=== PATIENT | female | born 1985 | race Caucasian/White ===

== ENCOUNTER 2024-02-16 12:00 | Emergency (ER) | payer BC, SELFPAY ==
[2024-02-16 12:09] VITALS: BP 122/78; PULSE 93; RESP 18; TEMP 36.6; O2SAT 99; BMI 30.9
--- NOTE | 2024-02-16 12:17 | ED_ITS ---
HPI - Back Pain/Injury General Time Seen by Provider: 12:17 Date Seen: 02/16/24 Chief Complaint: Back Injury/Pain Stated Complaint: Back/leg pain, lightheaded Time Seen by Provider: 02/16/24 12:16 Source: patient and RN notes reviewed Mode of arrival: ambulatory Limitations: no limitations History of Present Illness HPI Narrative: This 38-year-old female is coming in with complaint of back pain that radiates down her right leg to about her knee. She states she was carrying boxes down stairs and just fell. She states she has lumbar discogenic disease and known herniated discs. She sees a primary care provider in [place]. She is not in a pain clinic any longer, will probably be March before she goes to a new pain clinic. She states she is taking no narcotics. I was able to pull up epic an on her review can see that she has been seen for SI joint dysfunction. On her October 27 visit they also listed chronic continuous use of opioids. She states she is off of everything as she is not in that pain clinic any longer. She notes she has chronic back pain. This fall happened prior to arrival, she did drive herself down here. She is initially crying but by the time I see her she is no longer crying due to pain. Related Data Home Medications ?Medication ?Instructions ?Recorded ?Confirmed cephalexin 500 mg capsule 500 mg PO 3XD 02/28/23 02/28/23 ketoconazole 2 % shampoo topical 02/28/23 oxycodone-acetaminophen 10 mg-325 tab PO 02/28/23 mg tablet triamcinolone acetonide 0.1 % topical BID 02/28/23 topical ointment Previous Rx's ?Medication ?Instructions ?Recorded prednisone 20 mg tablet 20 mg PO BID #10 tabs 02/16/24 tizanidine 4 mg tablet 4 mg PO Q8H PRN muscle spasticity 02/16/24 #15 tabs Allergies Allergy/AdvReac Type Severity Reaction Status Date / Time amoxicillin Allergy Verified 02/16/24 12:07 morphine AdvReac Intermediate Hives Verified 02/16/24 12:07 Review of Systems Narrative: As per HPI. PFSH PFSH Social History Smoking Status: Unknown if ever smoked Exam Const: Vital Signs, click to edit/add: Vital Signs - 24 hr 02/16/24 12:09 02/16/24 14:05 Temperature 98 F Pulse Rate [Pulse Oximeter] 93 71 Respiratory Rate 18 18 Blood Pressure [Ri ght Upper Arm] 122/78 131/74 Pulse Oximetry 99 99 Oxygen Delivery Me thod Room Air Patient is alert and interactive, very pleasant 38-year-old female. She is lying on her left side with hips and knees flexed. She does complain of midline tenderness about the mid lumbar spine. When I go over to the right SI joint, she does complain of pain. There is no traumatic change visualized on her back. She has a positive straight leg raise, states she feels pain in the back area. She has good distal peripheral pulses in her lower extremities, strength is 5/5 and symmetric distally. She has normal distal sensation. Patient was ambulatory into the ED of her own accord. Documenting provider has reviewed patient's vital signs: yes Course Course ED Course: Discussed with patient imaging options. Given that she has a fall, do think CT of her lumbar spine would be indicated. Did discuss that this will not necessarily show all pathology of nerve roots or discs in the lumbar spine as an MRI would. She is not needing an emergent MRI, no clinical indication on my opinion at this time. We discussed using Toradol, offered IM verses IV. She would prefer IV. We will order 15 mg IV Toradol. Reevaluation(s) Time of Reevaluation #1: 14:14 Reevaluation #1: Reviewed normal CT findings with patient and provided a copy of report to take to her primary provider. She states her pain is still 10/10 despite the Toradol. We discussed single oral dose of oxycodone, reviewed that we do not provide chronic narcotics through the ED. She will need to talk to her primary provider if further narcotics needed. Discussed use of prednisone and muscle relaxant. She would prefer tizanidine, also discussed flexeril too. Vital Signs Vital signs: Initial Vital Signs Temperature 98 F 02/16/24 12:09 Temperature Source Temporal Artery Scan 02/16/24 12:09 Pulse Rate 93 02/16/24 12:09 Respiratory Rate 18 02/16/24 12:09 Blood Pressure 122/78 02/16/24 12:09 Blood Pressure Mean 92 02/16/24 12:09 Pulse Oximetry 99 02/16/24 12:09 Vital Signs Temperature 98 F 02/16/24 12:09 Pulse Rate 93 02/16/24 12:09 Respiratory Rate 18 02/16/24 12:09 Blood Pressure 122/78 02/16/24 12:09 Pulse Oximetry 99 02/16/24 12:09 Temperature 98 F 02/16/24 12:09 Pulse Rate 71 02/16/24 14:05 Respiratory Rate 18 02/16/24 14:05 Blood Pressure 131/74 02/16/24 14:05 Pulse Oximetry 99 02/16/24 14:05 Oxygen Delivery Method Room Air 02/16/24 14:05 MDM - Back Pain/Injury Imaging Data CT lumbar spine: Attestation: I have reviewed the pertinent imaging results. Radiologist's impression: Patient: TREVOR CARRION Facility:?[facility] Patient ID:?[id number] Site Patient ID:?[id number]. Site :?[id number] Study:?CT-Spine Lumbar WITHOUT-02/16/2024 1:17:13 PM Ordering Physician:?Joan Blackwood Final Report: INDICATION: Back pain. TECHNIQUE: CT lumbar spine without contrast. COMPARISON: None. FINDINGS: Vertebrae: Alignment is normal. There are no fractures or suspicious bony lesions. Discs and facet joints: Disc spaces and facets are within normal limits. Extraspinal findings: Prevertebral soft tissues and visualized retroperitoneum are unremarkable. IMPRESSION: No acute displaced fractures or static subluxation of the lumbar spine. Please note that all CT scans at this facility use dose modulation, iterative reconstruction, and/or weight-based dosing when appropriate to reduce radiation dose to as low as reasonably achievable. Dictated by Sb Flores MD @ 02/16/2024 1:48:52 PM (Electronic Signature) Discharge Plan Discharge Clinical Impression: Strain of lumbar region Qualifiers: Encounter type: initial encounter Qualified Code(s): S39.012A - Strain of muscle, fascia and tendon of lower back, initial encounter Patient Disposition: Home, Self-Care Condition: Stable Instructions: Low Back Strain (ED), Lumbar Radiculopathy (ED) Additional Instructions: Start prednisone and take as prescribed. Can use muscle relaxant per prescription as needed. Use Tylenol 1000mg 3 times daily baseline for pain; can supplement with ibuprofen per bottle directions as needed. If you need further pain medications, need to follow up with your primary clinic. Do recommend follow up with your primary provider anyway for recheck of your current symptoms. Activity Level: Activity as Tolerated Prescriptions: New prednisone 20 mg tablet 20 mg PO BID Qty: 10 0RF tizanidine 4 mg tablet 4 mg PO Q8H PRN (Reason: muscle spasticity) Qty: 15 0RF No Action ketoconazole 2 % shampoo topical cephalexin 500 mg capsule 500 mg PO 3XD triamcinolone acetonide 0.1 % ointment topical BID oxycodone-acetaminophen 10-325 mg tablet PO Follow Up/Referrals: Provider,Not a Local [Primary Care Provider] - Stand Alone Forms: [employer] Info Instructions
--- NOTE | 2024-02-16 12:39 | CRLHL7_ITS ---
For Patients: As a result of the Century Cures Act, medical imaging exams and procedure reports are released immediately into your electronic medical record. You may view this report before your referring provider. If you have questions, please contact your health care provider. INDICATION: Back pain. TECHNIQUE: CT lumbar spine without contrast. COMPARISON: None. FINDINGS: Vertebrae: Alignment is normal. There are no fractures or suspicious bony lesions. Discs and facet joints: Disc spaces and facets are within normal limits. Extraspinal findings: Prevertebral soft tissues and visualized retroperitoneum are unremarkable. IMPRESSION: No acute displaced fractures or static subluxation of the lumbar spine. Please note that all CT scans at this facility use dose modulation, iterative reconstruction, and/or weight-based dosing when appropriate to reduce radiation dose to as low as reasonably achievable. Dictated by Sb Flores MD @ 02/16/2024 1:48:52 PM (Electronically Signed)
[2024-02-16] MEDS: KETOROLAC 15 MG/ML inj IVP (12:50)
--- OUTSIDE RECORDS SUMMARY | 2024-02-16 13:21 | XMS_ITS | Clinical Summary ---
Author Organization [employer] [facility] Address [place], [place] [address] Care Team Providers Care Manager Manufacturing Name Role Phone Clinic, No Pcp Or Primary Care Provider Unavaila ble Allergies Active Allergy Reactions Criticality Noted Date Comments Amoxicillin Rash 09/21/2006 Cyclobenzaprine Rash,Itching 07/22/2011 Hydrocodone-Acetaminophen Itching 01/14/2009 not actually hives, no problems breathing or rash. Ibuprofen Hives,Itching 11/03/2013 Morphine Itching 08/17/2013 Works fine with benadryl Penicillins Rash 09/21/2006 Tramadol Itching 11/07/2009 Medications Medication Sig Dispensed Refills Start Date End Date Status buprenorphine HCL (SUBUTEX) 2 mg subl TAKE 1 TABLET BY MOUTH THREE TIMES A DAY 11/12/2019 Active oxyCODONE (ROXICODONE) 5 mg immediate release tablet 12/13/2018 Active traZODone (DESYREL) 100 mg tablet 11/01/2019 Active methylPREDNISolone (MEDROL DOSEPAK) 4 mg tabletIndications:Neck pain, musculoskeletal Take by mouth as instructed per packaging. 21 Tablet 04/13/2022 Active Active Problems Problem Noted Date Diagnosed Date Incarcerated ventral hernia 02/06/2016 Pain medication agreement 01/30/2016 SI (sacroiliac) joint dysfunction 11/12/2015 Chronic cholecystitis with calculus 01/14/2015 Overview: 01/13/2015 right upper quadrant ultrasound: cholelithiasis ([facility]) Abdominal pain 01/14/2015 Overview: Multiple clinic and emergency department visits ([place], [facility] emergency department, and [facility]) Tobacco use 01/14/2015 Overview: 01/14/2015 smokes about 5 cigarettes/day. LBP (low back pain) 05/28/2014 Overview: See 05/21/2014 summary note Heartburn 04/30/2011 Overview: S/p Maldonado surgery 2010 with improvement EGD done [place] pH positive for reflux [place] 52.4 on worst day Lymphocytic colitis 03/09/2011 Overview: Biopsy 02/2011 Negative screening for celiac sprue Trial pepto bismol 3 tabs oral three times daily Stopped proton pump inhibitor and no effect, stopped pepto bismol since not helping Other tenosynovitis of hand and wrist 10/28/2006 Overview: RT FOREARM Resolved Problems Problem Noted Date Diagnosed Date Resolved Date Pain medication agreement 02/05/2015 Overview: Sep 2014 [place] Drug-seeking behavior 12/20/20142015 Overview: manager medicare marketing queried 16 prescriptions for percocet in the past 6 months from multiple providers. Kaye Gant M.D. 12/20/2014 1:04 PM Pain medication agreement 05/28/2014 Overview: Informed patient contract should be terminated with DR Razo and started with Dr Henley at the spine [facility] as Dr razo is not in clinic often and she is having issues with access. (phone message to Jaqueline) Menorrhagia 08/07/2013 07/15/2014 Supervision of other normal 05/15/2010 07/27/2011 Absence of menstruation 10/28/200609/2008 Screening for malignant neop lasm of the cervix 08/07/2013 Overview: 02/27/07 Routine gynecological examination 08/07/2013 Immunizations Name Administration Dates Next Due Influenza A (H1N1), Inactiva gena (Age >=3 Years) 10/24/2009 Influenza Virus, Unspecified 08/25/2014 Influenza, IIV3 (Age >=3 years) 06/07/20 13,07/12/2011,07/13/2010,2009,07/27/2007 Tdap 05/06/2018,06/14/2010 Family History Medical History Relation Name Comments Good Health Daughter Anjana Other Daughter Anjana GERD Good Health Father Good Health Mother GI Disease Sister 1 gallstones GI Disease Sister 2 gallstones Relation Name Status Comments Daughter Anjana Alive Father Alive Mother Alive Sister 1 Sister 2 Social History Tobacco Use Types Packs/Day Years Used Date Smoking Tobacco: Some Days Cigarettes Tobacco Cessation:Ready to Q uit: No; Counseling Given: Yes Comments:3 cigarettes/week Alcohol Use Standard Drinks/Week Comments Yes 0 (1 standard drink = 0.6 oz pur e alcohol) 0-3 drinks per week Sex and Gender Information Value Date Recorded Sex Assigned at Not on file Gender Identity Not on file Sexual Orientation Not on file Obstetrics History Para Term AB IAB SAB Ectopic Multiple Livin g Live Births 3 2 1 1 1 2 2 Date Outcome GA Total Labor Labor/2nd/3rd Weight Sex Delivery Anes PTL Kendal A1 A5 Name Cl in 11/15 07 SAB Comments:d&C 09/07 Term 2.04 kg (4 lb 8 oz) F Vag N Karen ng kaele igh 06/12 Para 3.8 kg (8 lb 6 oz) M Vag N Karen ng Caide n Comments: labor Last Filed Vital Signs Vital Sign Reading Time Taken Comments Blood Pressure 135/89 04/13/2022 9:50 PM CDT Pulse 90 04/13/2022 9:50 PM CDT Temperature 36.7 ??C (98 ??F) 04/13/2022 9:50 PM CDT Respiratory Rate 16 04/13/2022 9:50 PM CDT Oxygen Saturation 99% 04/13/2022 9:50 PM CDT Inhaled Oxygen Concentration - - Weight 97.1 kg (214 lb 1.6 oz) 04/13/2022 9:50 P M CDT Height 162.6 cm (5' 4) 04/13/2022 9:50 PM CDT Body Mass Index 36.75 04/13/2022 9:50 PM CDT Plan of Treatment Upcoming Encounters Date Type Department Care Team (Late st Contact Info) Description 03/06/2024 11:00 AM CDT Office Visit [facility] [address] [place] [address] Delvis Hallman, FIELD SUPPORT REPRESENTATIVE [address] [place] [address] Health Maintenance Due Date Last Done Comments Hepatitis C screening for age 18-79 2004 Depression screening for age 12+ 11/10/2016 11/10/2015, 10/27/2015 BMI (ht and wt on same day) for age 18+ 07/03/2018 07/03/2017, 06/24/2016, 06/22/2016, Additional history exists COVID-19 vaccine series ( season) 2023 09/23/2022, 03/06/2021, 02/13/2021 Influenza for age 9-49 05/27/2024 4, 06/07/2013, 07/12/2011, Additional history exists Tetanus booster 05/06/2028 05/06/2018, 06/14/2010 HIV for age 15-65 Completed 11/07/2009 Tdap Completed 05/06/2018, 06/14/2010 Pneumococcal series for age 6-64 Aged Out No longer eligible based on patient's age to complete this topic Medical Devices Implanted Type Area Hot Dog Vender Device Identifier Shelf Expiration Date Model / Serial / Lot Mesh Ventral [address]in Ventral[address] - [id number] Implanted:Qty: 1 on 02/12/2016 by Hay Nieto MD at 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 11/07/2009 1:45 PM C[employer] M[employer] AND LATHE OPERATOR Hannah Johnson MD SEND OUTS [facility] INTERNAL ZIP [address] [place] [id number] from Last 3 Months or Most Recently Relevant to Health Maintenance Advance Directives * Full Code (Latest Code Status on File) Date Activated Date Inactivated Comments 02/12/2016 7:55 AM 02/12/2016 10:36 PM * Full Code Date Activated Date Inactivated Comments 01/14/2015 10:26 PM 01/15/2015 4:54 PM * Full Code Date Activated Date Inactivated Comments 07/19/2014 8:16 AM 07/19/2014 4:11 PM * Full Code Date Activated Date Inactivated Comments 07/18/2014 3:56 PM 07/18/2014 3:57 PM * Full Code Date Activated Date Inactivated Comments 10/16/2013 6:58 AM 10/16/2013 11:51 AM Care Teams Manager Manufacturing Relationship Specialty Start Date End Date Clinic, No Pcp Or . PCP - General 06/22/16
--- OUTSIDE RECORDS SUMMARY | 2024-02-16 13:21 | XMS_ITS | Encounter Summary ---
Author Organization [facility] Address [address], [place] [address] Care Team Providers Care Heel Padder Name Role Phone No Primary/Referring, Shelly Primary Care Provider Unavailable Encounter Details Date Type Department Care Team (Late st Contact Info) Description 01/14/2015 Scanned History External to Transferred Record, Provider [facility] Social History Tobacco Use Types Packs/Day Years Used Date Smoking Tobacco: Never Assessed Sex and Gender Information Value Date Recorded Sex Assigned at Not on file Gender Identity Not on file Sexual Orientation Not on file documented as of this encounter Plan of Treatment Not on file documented as of this encounter Visit Diagnoses Not on filedocumented in this encounter Care Teams Heel Padder Relationship Specialty Start Date End Date No Primary/ReferringShelly PCP - General 11/17/21 documented as of this encounter
--- OUTSIDE RECORDS SUMMARY | 2024-02-16 13:21 | XMS_ITS | Encounter Summary ---
[facility] Address [address], [place] [address] Care Team Providers Care Fbi Investigator Name Role Phone No Primary/Referring, Phgricel Primary Care Provider Unavailable Encounter Details Date Type Department Care Team (Late st Contact Info) Description 07/13/2016 Correspondence [facility] Radiology [address] [place] [id number] Radiology, Provider MRI SAFETY SHEET AND COMPATIBILITY FORM Social History Tobacco Use Types Packs/Day Years Used Date Smoking Tobacco: Former Cigarettes Smokeless Tobacco: Never Alcohol Use Standard Drinks/Week Comments Yes 3 (1 standard drink = 0.6 oz pur e alcohol) occ Sex and Gender Information Value Date Recorded Sex Assigned at Not on file Gender Identity Not on file Sexual Orientation Not on file documented as of this encounter Plan of Treatment Not on file documented as of this encounter Visit Diagnoses Not on filedocumented in this encounter Care Teams Fbi Investigator Relationship Specialty Start Date End Date No Primary/ReferringShelly PCP - General 11/17/21 documented as of this encounter
--- OUTSIDE RECORDS SUMMARY | 2024-02-16 13:21 | XMS_ITS | Encounter Summary ---
Author Organization [facility] Address [address] [address] Care Team Providers Care Allocations Clerk Name Role Phone No Primary/Referring, Shelly Primary Care Provider Unavailable Encounter Details Date Type Department Care Team (Late st Contact Info) Description 02/02/2016 Scanned History External to Transferred Record, Provider [...] on filedocumented in this encounter Care Teams Allocations Clerk Relationship Specialty Start Date End Date No Primary/ReferringShelly PCP - General 11/17/21 documented as of this encounter
--- OUTSIDE RECORDS SUMMARY | 2024-02-16 13:21 | XMS_ITS | Continuity of Care Document ---
Author Organization [facility] jennifer Address [address] [place] [phone] Phone Care Team Providers Care Alteration Specialist Name Role Phone Will João MOLINA Unavailable Unavailabl e Allergies, Adverse Reactions, Alerts Substance Reaction Status Criticality ibuprofen Active No Information PENICILLIN Active No Information Medications Medication Instructions Dosage Effective Dates (start - stop) Status Comments gabapentin 300 mg capsule take 1 capsule by oral route 3 times every day 300 MG - Active cyclobenzaprine 5 mg tablet take 1 tablet by oral route 3 times every day 5 MG - Active VISTARIL (unknown strength) take 1 capsule by oral route 4 times every day Not Available - Active OXYCODONE HCL (unknown strength) take 1 tablet by oral route every 4 - 6 hours as needed, max 3/day Not Available - Active Percocet 7.5 mg-325 mg tablet take 1 tablet by oral route every 6 hours as needed 1.00 tablet - Active Procedures Procedure Date OFFICE/OUTPATIENT VISIT, EST Drug test def 22+ classes Drug Urine Toxology With Chromatography OFFICE CONSULTATION Advance Directives Directive Yes / No Effective Date File Name No Information Encounters Encounter Description Practice Location Reason(s) For Visit Diagnoses Date Provider Providers Copied on Encounter [facility], [address] [place] [address], [id number], [place] tel:[phone] [facility] No Information 2 Will João. [address] [place], [place], [id number], [place]. tel:[phone] OFFICE/OUTPATI ENT VISIT, EST [facility], [address] [place], [place], [id number], tel:[phone] [facility] Back Pain (chief complaint) Low back painPain in left footLong term (current) use of opiate analgesic [address] [place] [address], [place], [place], [id number], . tel:[phone] Referring Provider: Donald Hall[address], [address]. tel:[phone] OFFICE CONSULTATION [facility], [address] [place] [address], [id number], tel:[phone] [facility] Back Pain (chief complaint) Low back painPain in left footLong term (current) use of opiate analgesic [address] [place] [address], [place], [place], [id number], . tel:[phone] Referring Provider: Donald Hall[address], [address]. tel:[phone] [facility], [address] [place] [address], [id number], tel:[phone] [facility] No Information Nov-0 5-201 [address] Edward Nu[address]ez. [address] [place] [address], [place], [address]. tel:[phone] Family History Family Member Type Diagnosis Age At Onset No Information Payers Payer name Insurance type Covered alliance party ID Authoriza tion(s) [facility] [id number] Social History Type Description Quantity Date Captured Comments Sex Female Smoking Status No Information Chief Complaint And Reason For Visit No Information Reason For Referral Reason For Referral No Information Plan Of Treatment Date Type Action Status Referral Ordered: MRI LUMBAR SPINE W/O DYE ordered Future Order: Lab Order COMPLIAN CE DRUG ANALYSIS, URINE, WITH MED REPORT ([id number]), Ordered on: Ordered History Of Present Illness Encounter Date Complaint History Of Prese nt Illness Back Pain (comments) Jaqueline is h ere for initial follow up regarding back pain. Prescribed medications offer 85% pain relief. Recent dental work completed yesterday (root canal), and was provided 6 day supply of 7.5/325mg/15ml [place]. 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 This has caused difficulty sleeping.Will be going back on phentermine following stable lower BP. Continues slow increase of Vistaril.In regards to UDT being absent for prescribed medications she states that she sometimes doesn't take her meds throughout the day when she knows she has to drive, but does take at least one per day. She becomes tearful upon learning provider will not be able to take over [place] rx today. She is not interested in injections or additional medications as they have not been helpful in the past. Back Pain Severity level i s 4-10. Duration: chronic. The problem is stable. It occurs persistently. The patient describes the pain as an ache, burning and stiff. Symptoms are aggravated by bending, changing positions, lifting, lying/rest and housework. Symptoms are relieved by pain meds/drugs, rest, chiropractic and walking. Back Pain (comments) Jaqueline is h ere for initial consult regarding back pain. She is referred by Dr. 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 She went to the ER through [facility]. Has had several follow up appointments & completed PT at [facility] in [place]. Ultimately referred to [facility] in [place], however had to look for a new clinic d/t insurance changes. Next provider at [facility] wanted to wean her off narcotics and Flexeril which she agreed upon with the understanding she could return to previous dose (10/325mg Percocet, max 5/day per pt report) if wean is unsuccessful. Ultimately pain increased but, per pt report, provider would not return her to previous dose. Currently no longer on worker's comp as she is no longer to work d/t pain.C/o returning radicular pain into her LLE. MRI was negative for any degenerative changes or nerve impingements to L spine.Currently manages pain with Percocet, gabapentin, & Flexeril. Denies SE from gabpentin, however does not experience any benefit - taking 1200mg daily.Of secondary concerns, left foot pain followed after broken 5th metatarsal. Since then, pain is contantly throbbing with radicular syx into knee. Weightbearing & walking increases this pain. Back Pain Severity level i s 8-10. Duration: chronic. It occurs persistently. The patient describes the pain as burning and sharp. Symptoms are aggravated by bending, changing positions, lifting, sitting and housework. Symptoms are relieved by lying down, pain meds/drugs and chiropractic. Functional Status Date Functional Assessmen t No Information Instructions Date Instruction Additional Infor mation No Information Assessments Type Assessment Date No Information Patient Care Teams Name Effective Dates (start - stop) Status Members No Information
--- OUTSIDE RECORDS SUMMARY | 2024-02-16 13:21 | XMS_ITS | Encounter Summary ---
Author Organization [facility] Address [address], [place] [address] Care Team Providers Care Slubber Machine Operator Name Role Phone No Primary/Referring, Shelly Primary Care Provider Unavailable Encounter Details Date Type Department Care Team (Late st Contact Info) Description 09/10/2014 Scanned History External to Transferred Record, Provider [...] on filedocumented in this encounter Care Teams Slubber Machine Operator Relationship Specialty Start Date End Date No Primary/ReferringShelly PCP - General 11/17/21 documented as of this encounter
--- OUTSIDE RECORDS SUMMARY | 2024-02-16 13:21 | XMS_ITS | Encounter Summary ---
Author Organization [facility] Address [address], [place] [address] Care Team Providers Care Oracle Ebs Consultant Name Role Phone No Primary/Referring, Shelly Primary Care Provider Unavailable Encounter Details Date Type Department Care Team (Late st Contact Info) Description 10/31/2014 Scanned History External to Transferred Record, Provider [...] on filedocumented in this encounter Care Teams Oracle Ebs Consultant Relationship Specialty Start Date End Date No Primary/ReferringShelly PCP - General 11/17/21 documented as of this encounter
--- OUTSIDE RECORDS SUMMARY | 2024-02-16 13:21 | XMS_ITS | Encounter Summary ---
Author Organization [facility] Address [address] [address] Care Team Providers Care Liquid Fertilizer Servicer Name Role Phone No Primary/Referring, Phy Primary Care Provider Unavailable Encounter Details Date Type Department Care Team (Late st Contact Info) Description 09/28/2017 Consent for Procedure/Treatme nt [facility] INFORMED CONSENT RECORD Social History Tobacco Use Types Packs/Day Years Used Date Smoking Tobacco: Every Day Cigarettes Smokeless Tobacco: Never Comments:2 cigarettes/day Alcohol Use Standard Drinks/Week Comments Yes 3 [...] on filedocumented in this encounter Care Teams Liquid Fertilizer Servicer Relationship Specialty Start Date End Date No Primary/ReferringShelly PCP - General 11/17/21 documented as of this encounter
--- OUTSIDE RECORDS SUMMARY | 2024-02-16 13:21 | XMS_ITS | Encounter Summary ---
Author Organization [facility] Address [address], [place] [address] Care Team Providers Care Neurosurgery Physician Name Role Phone No Primary/Referring, Phy Primary Care Provider Unavailable Encounter Details Date Type Department Care Team (Late st Contact Info) Description 04/14/2017 Emergency Room External to [facility], Provider FOOT PAIN Social History Tobacco Use Types Packs/Day Years Used Date Smoking Tobacco: Every Day Comments:passive smoker Alcohol Use Standard Drinks/Week Comments Not Asked 0 (1 standard drink = 0.6 oz pur e alcohol) Sex and Gender Information Value Date Recorded Sex Assigned at Not on file Gender Identity Not on file Sexual Orientation Not on file documented as of this encounter Plan of Treatment Not on file documented as of this encounter Visit Diagnoses Not on filedocumented in this encounter Care Teams Neurosurgery Physician Relationship Specialty Start Date End Date No Primary/ReferringShelly PCP - General 11/17/21 documented as of this encounter
--- OUTSIDE RECORDS SUMMARY | 2024-02-16 13:21 | XMS_ITS | Clinical Summary ---
Author Organization [facility] Address [address] [place] [address] Care Team Providers Care Africana Studies Professor Name Role Phone No Primary/Referring, Phy Primary Care Provider Unavailable Source Comments You are receiving this document as you are listed as the primary care provider,follow-up provider, or the patient has been referred to you for consultation.This is in compliance with the Medicare andMedicaid EHR Incentive Program,which states Providers who transition their patient to another setting of careor provider of care or refers their patient to another provider of care shouldprovide summary care record for each transition of care or referral. [facility] Allerg[facility] Active Allergy Reactions Criticality Noted Date Comments Acetaminophen Itching 11/20/2008 Cyclobenzaprine Itching 06/21/2016 Hydrocodone-Acetaminophen Hives High 07/02/2016 not actually hives, no problems breathing or rash. Ibuprofen Itching High 06/21/2016 Pt can take with benadryl Morphine Itching 06/21/2016 Penicillins Hives High 06/21/2016 Penicillins 12/19/2000 Nsaids Hives High 06/21/2016 Tramadol Hives High 06/21/2016 Medications Medication Sig Dispensed Refills Start Date End Date Status Biotin 11898 MCG TBDP Take by mouth. Active oxyCODONE-acetaminoph en (PERCOCET) 10-325 MG tablet Take 1 Tablet by mouth every 4 hours as needed for Pain. 30 Tablet 12/12/2018 Active Active Problems Problem Noted Date Diagnosed Date Chronic pain syndrome 11/05/2017 PONV (postoperative nausea and vomiting) 018 Recurrent ventral hernia 08/19/2017 Overview: Added automatically from request for surgery [id number] Controlled substance agreement signed 07/04/2017 Overview: Diagnosis: Chronic lbp, Fracture 5th metatarsal 04/11, abd pain s/p lap surgery late 2016 Medication: percocet taper February 2018 Controlled Substance Agreement reviewed and signed: yes Date agreement signed: 06/27/2017, discussed 12/19/17 Refill plan: Patient was on a taper this spring-summer. She found a pain clinic closer to her home. She is discharged from the pain clinic as of 03/31/2018 Clinician: Venkat Sher MD Chronic right-sided low back pain without sciati ca 06/30/2016 Overview: Chart review [facility]: PT, MRI: central disc protrusion L5-S1, mild spondylosis L5-S1 Resolved Problems Problem Noted Date Diagnosed Date Resolved Date Lipoma of right lower extremity 12/04/2018 11/20/2021 Overview: Added automatically from request for surgery [id number] DDD (degenerative disc disease), lumbar 11/05/2017 11/20/2021 Chronic midline low back teresa n without sciatica 11/05/2017 11/20/2021 Abdominal pain, epigastric 08/19/2017 0 11/20/2021 Overview: Added automatically from request for surgery [id number] Immunizations Name Administration Dates Next Due DTP 04/11/1991, 8,1986,10/24/18 87,1986 Flu Vac (3+ yrs) 08/25/2014, 3,07/12/2011,07/13/20 10,10/24/2009,07/27/2007 HepB Ped/Adol (0-18 yrs) 01/30/2002,03/13/2001,0 12/29/2000 Influenza, Unspecified Formulation 08/25/2014, MMR 01/30/2002,07/07/1987 OPV, Trivalent (Orimune or tOPV) 991,03/08/1988,1986,06/25/19 86 Pfizer Monovalent 12+ Purple Top 03/06/2021,01/25 Td 07/26/2000 Tdap 05/06/2018,06/14/2010 Varicella 05/27/2000(Deferred: Immune by Sandra mcdowell) Family History Medical History Relation Name Comments Cancer, Other Maternal Grandfather Cancer, Other Maternal Grandmother Cancer, Other Paternal Grandfather Cancer, Other Paternal Grandmother Relation Name Status Comments Father Alive Mother Alive Brother Alive Daughter Alive Maternal Grandfather Maternal Grandmother (Age 80) Mitzi guillaume Paternal Grandfather Paternal Grandmother Sister 1 (Age 2) Cancer Sister 2 Alive Sister 3 Alive Son Alive Social History Tobacco Use Types Packs/Day Years Used Date Smoking Tobacco: Former Cigarettes Q uit: 12/01/2014 Smokeless Tobacco: Never Comments:1 cigarettes/day Alcohol Use Standard Drinks/Week Comments Yes 3 (1 standard drink = 0.6 oz pur e alcohol) occ PHQ-2 Answer Date Recorded PHQ-2 Score 0 11/20/2021 Sex and Gender Information Value Date Recorded Sex Assigned at Not on file Gender Identity Not on file Sexual Orientation Not on file Last Filed Vital Signs Vital Sign Reading Time Taken Comments Blood Pressure 142/88 11/20/2021 8:31 AM EARTHMOVING LABOURER Pulse 80 11/20/2021 8:31 AM EARTHMOVING LABOURER Temperature 37.4 ??C (99.4 ??F) 11/20/2021 8:24 AM CS T Respiratory Rate 16 07/20/2019 5:13 PM CDT Oxygen Saturation 99% 11/20/2021 8:24 AM EARTHMOVING LABOURER Inhaled Oxygen Concentration - - Weight 97.5 kg (215 lb) 11/20/2021 8:24 AM EARTHMOVING LABOURER Height 162.6 cm (5' 4) 11/20/2021 8:24 AM EARTHMOVING LABOURER Body Mass Index 36.9 11/20/2021 8:24 AM EARTHMOVING LABOURER Plan of Treatment Health Maintenance Due Date Last Done Comments Hep C Screening (Preventive Services) 1986 Adult Preventive Visit 2004 05/19/2000 COVID-19 Vaccine ( season) 2023 03/06/2021, 02/13/2021 Influenza (Season Ended) 2024 014, 08/25/2014, 07/28/2014, Additional history exists DTaP/Tdap/Td (8 - Tdap) 05/06/2028 05/06/20 18, 06/14/2010, 07/26/2000, Additional history exists Zoster/Shingles (1 of 2) 2036 IPV (Polio) Completed 04/11/1991, 02/24, 1986, Additional history exists HepB Completed 01/30/2002, 02/24, 12/29/2000 HIV Screening (Preventive Services) Completed 08/26/2004, 07/26/2000 HPV Vaccine Aged Out No longer eligi ble based on patient's age to complete this topic HepA Aged Out No longer eligi ble based on patient's age to complete this topic Hib Aged Out No longer eligi ble based on patient's age to complete this topic MCV4 Aged Out No longer eligi ble based on patient's age to complete this topic Pneumococcal Aged Out No longer eligi ble based on patient's age to complete this topic Medical Devices Implanted Type Area Drawer Upfitter Device Identifier Shelf Expiration Date Model / Serial / Lot Bone Chip Canc 15cc [id number] - [id number] Implanted:Qty : 1 on 12/12/2018 by Jace Renteria DPM at [facility] BIOLOGIC Right: ANKLE [employer] - [employer] 04/11/2023 [id number] / [id number] / NA Procedures Procedure Name Priority Date/Time Associated Diagnosis Comments HIV ANTIBODY Routine 08/26/2004 11:26 AM EARTHMOVING LABOURER Supervis Normal 1st Preg from Last 3 Months or Most Recently Relevant to Health Maintenance Results * HIV 1/2 ANTIBODY (08/26/2004 11:26 AM EARTHMOVING LABOURER) HIV 1/2 Antibody Non-Reacti ve NR [facility] 08/26/2004 11:2 6 AM EARTHMOVING LABOURER 08/26/2004 11:28 AM EARTHMOVING LABOURER Carol Givens MD LAB_1 [facility] [id number] [address] from Last 3 Months or Most Recently Relevant to Health Maintenance Advance Directives * Full Code (Latest Code Status on File) Date Activated Date Inactivated Comments 12/12/2018 6:08 AM 12/12/2018 11:36 AM * Full Code Date Activated Date Inactivated Comments 09/08/2017 1:26 AM 09/09/2017 1:17 PM Care Teams Africana Studies Professor Relationship Specialty Start Date End Date No Primary/Referring, Shelly PCP - General 11/17/21
--- OUTSIDE RECORDS SUMMARY | 2024-02-16 13:21 | XMS_ITS | Encounter Summary ---
Author Organization [facility] Address [address] [address] Care Team Providers Care Paper And Prints Restorer Name Role Phone No Primary/Referring, Shelly Primary Care Provider Unavailable Encounter Details Date Type Department Care Team (Late st Contact Info) Description 08/19/2015 Scanned History External to Transferred Record, Provider [facility] Social History Tobacco Use Types Packs/Day Years Used Date Smoking Tobacco: Never Assessed Sex and Gender Information Value Date Recorded Sex Assigned at Not on file Gender Identity Not on file Sexual Orientation Not on file documented as of this encounter Plan of Treatment Not on file documented as of this encounter Visit Diagnoses Not on filedocumented in this encounter Care Teams Paper And Prints Restorer Relationship Specialty Start Date End Date No Primary/ReferringShelly PCP - General 11/17/21 documented as of this encounter
--- OUTSIDE RECORDS SUMMARY | 2024-02-16 13:21 | XMS_ITS | Encounter Summary ---
Author Organization [facility] Address [address] [address] Care Team Providers Care Ebd Special Education Teacher Name Role Phone No Primary/Referring, Shelly Primary Care Provider Unavailable Encounter Details Date Type Department Care Team (Late st Contact Info) Description 08/11/2015 Scanned History External to Transferred Record, Provider [...] on filedocumented in this encounter Care Teams Ebd Special Education Teacher Relationship Specialty Start Date End Date No Primary/ReferringShelly PCP - General 11/17/21 documented as of this encounter
--- OUTSIDE RECORDS SUMMARY | 2024-02-16 13:21 | XMS_ITS | Encounter Summary ---
Author Organization [facility] Address [address] [address] Care Team Providers Care Brick Stacker Name Role Phone No Primary/Referring, Shelly Primary Care Provider Unavailable Encounter Details Date Type Department Care Team (Late st Contact Info) Description 03/25/2015 Scanned History External to Transferred Record, Provider [...] on filedocumented in this encounter Care Teams Brick Stacker Relationship Specialty Start Date End Date No Primary/ReferringShelly PCP - General 11/17/21 documented as of this encounter
--- OUTSIDE RECORDS SUMMARY | 2024-02-16 13:21 | XMS_ITS | Encounter Summary ---
Author Organization [facility] Address [address] [address] Care Team Providers Care Deburrer Name Role Phone No Primary/Referring, Shelly Primary Care Provider Unavailable Encounter Details Date Type Department Care Team (Late st Contact Info) Description 02/22/2016 Scanned History External to Transferred Record, Provider [...] on filedocumented in this encounter Care Teams Deburrer Relationship Specialty Start Date End Date No Primary/ReferringShelly PCP - General 11/17/21 documented as of this encounter
--- OUTSIDE RECORDS SUMMARY | 2024-02-16 13:21 | XMS_ITS | Encounter Summary ---
Author Organization [facility] Address [address] [address] Care Team Providers Care Caustic Pump Operator Name Role Phone No Primary/Referring, Phy Primary Care Provider Unavailable Encounter Details Date Type Department Care Team (Late st Contact Info) Description 12/22/2018 Correspondence None No Primary/Referring, Phy CHIROPRACTIC PT LIAB NOTIFICATION AND AGRMNT Social History Tobacco Use Types Packs/Day Years [...] on filedocumented in this encounter Care Teams Caustic Pump Operator Relationship Specialty Start Date End Date No Primary/Referring, Phy PCP - General 11/17/21 documented as of this encounter
--- OUTSIDE RECORDS SUMMARY | 2024-02-16 13:21 | XMS_ITS | Encounter Summary ---
Author Organization [facility] Address [address] [address] Care Team Providers Care Director Talent Acquisition Name Role Phone No Primary/Referring, Shelly Primary Care Provider Unavailable Encounter Details Date Type Department Care Team (Late st Contact Info) Description 10/03/2014 Scanned History External to Transferred Record, Provider [...] on filedocumented in this encounter Care Teams Director Talent Acquisition Relationship Specialty Start Date End Date No Primary/ReferringShelly PCP - General 11/17/21 documented as of this encounter
--- OUTSIDE RECORDS SUMMARY | 2024-02-16 13:21 | XMS_ITS | Encounter Summary ---
Author Organization [facility] Address [address] [address] Care Team Providers Care Swedish Masseuse Name Role Phone No Primary/Referring, Shelly Primary Care Provider Unavailable Encounter Details Date Type Department Care Team (Late st Contact Info) Description 02/23/2015 Scanned History External to Transferred Record, Provider [...] on filedocumented in this encounter Care Teams Swedish Masseuse Relationship Specialty Start Date End Date No Primary/ReferringShelly PCP - General 11/17/21 documented as of this encounter
--- OUTSIDE RECORDS SUMMARY | 2024-02-16 13:21 | XMS_ITS | Encounter Summary ---
[facility] Organization [facility] Address [address] [address] Care Team Providers Care Leadership Development Instructor Name Role Phone No Primary/Referring, Phy Primary Care Provider Unavailable Encounter Details Date Type Department Care Team (Late st Contact Info) Description 12/17/2018 Correspondence None No Primary/Referring, Phy DME EQUIPMENT PROOF OF DELIVERY Social History Tobacco Use Types Packs/Day Years [...] on filedocumented in this encounter Care Teams Leadership Development Instructor Relationship Specialty Start Date End Date No Primary/Referring, Phy PCP - General 11/17/21 documented as of this encounter
--- OUTSIDE RECORDS SUMMARY | 2024-02-16 13:21 | XMS_ITS | Encounter Summary ---
Author Organization [facility] Address [address] [place] [address] Care Team Providers Care Marketing Outreach Coordinator Name Role Phone No Primary/Referring, Shelly Primary Care Provider Unavailable Encounter Details Date Type Department Care Team (Late st Contact Info) Description 12/11/2018 Correspondence [facility] [address] [place] [address] Michael ReyesTAL AGREEMENT - TURNING KNEE COMMUNICATIONS SUPERVISOR Social History Tobacco Use Types Packs/Day Years [...] on filedocumented in this encounter Care Teams Marketing Outreach Coordinator Relationship Specialty Start Date End Date No Primary/ReferringShelly PCP - General 11/17/21 documented as of this encounter
--- OUTSIDE RECORDS SUMMARY | 2024-02-16 13:21 | XMS_ITS | Encounter Summary ---
Author Organization [facility] Address [address] [address] Care Team Providers Care Insulator Apprentice Name Role Phone No Primary/Referring, Shelly Primary Care Provider Unavailable Encounter Details Date Type Department Care Team (Late st Contact Info) Description 04/01/2015 Scanned History External to Transferred Record, Provider [...] on filedocumented in this encounter Care Teams Insulator Apprentice Relationship Specialty Start Date End Date No Primary/ReferringShelly PCP - General 11/17/21 documented as of this encounter
--- OUTSIDE RECORDS SUMMARY | 2024-02-16 13:21 | XMS_ITS | Encounter Summary ---
Author Organization [facility] Address [address], [place] [address] Care Team Providers Care Otm Consultant Name Role Phone No Primary/Referring, Phgricel Primary Care Provider Unavailable Encounter Details Date Type Department Care Team (Late st Contact Info) Description 12/12/2018 Consent for Procedure/Treatme nt [facility] INFORMED [...] on filedocumented in this encounter Care Teams Otm Consultant Relationship Specialty Start Date End Date No Primary/ReferringShelly PCP - General 11/17/21 documented as of this encounter
--- OUTSIDE RECORDS SUMMARY | 2024-02-16 13:21 | XMS_ITS | Encounter Summary ---
Author Organization [facility] Address [address] [address] Care Team Providers Care Garage Construction Equipment Mechanic Name Role Phone No Primary/Referring, Shelly Primary Care Provider Unavailable Encounter Details Date Type Department Care Team (Late st Contact Info) Description 12/11/2014 Scanned History External to Transferred Record, Provider [...] on filedocumented in this encounter Care Teams Garage Construction Equipment Mechanic Relationship Specialty Start Date End Date No Primary/ReferringShelly PCP - General 11/17/21 documented as of this encounter
--- OUTSIDE RECORDS SUMMARY | 2024-02-16 13:21 | XMS_ITS | Encounter Summary ---
Author Organization [facility] Address [address] [address] Care Team Providers Care Cash Applications Analyst Name Role Phone No Primary/Referring, Phgricel Primary Care Provider Unavailable Encounter Details Date Type Department Care Team (Late st Contact Info) Description 07/29/2017 Correspondence [facility] Radiology [address] [place] [id number] Radiology, Provider MRI SAFETY SHEET AND COMPATIBILITY FORM Social History Tobacco Use Types Packs/Day Years Used Date Smoking Tobacco: Every Day Cigarettes Smokeless Tobacco: Never Comments:4/5 cigarettes Alcohol Use Standard Drinks/Week Comments Yes 3 [...] on filedocumented in this encounter Care Teams Cash Applications Analyst Relationship Specialty Start Date End Date No Primary/ReferringShelly PCP - General 11/17/21 documented as of this encounter
--- OUTSIDE RECORDS SUMMARY | 2024-02-16 13:21 | XMS_ITS | Encounter Summary ---
Author Organization [facility] Address [address] [address] Care Team Providers Care Lead Miner Blasting Name Role Phone No Primary/Referring, Phy Primary Care Provider Unavailable Encounter Details Date Type Department Care Team (Late st Contact Info) Description 06/13/2017 Scanned History External to Transferred Record, Provider VENANGO PAIN RELIEF AND WELLNESS BOUTON Social History Tobacco Use Types Packs/Day Years [...] on filedocumented in this encounter Care Teams Lead Miner Blasting Relationship Specialty Start Date End Date No Primary/Referring, Shelly PCP - General 11/17/21 documented as of this encounter
--- OUTSIDE RECORDS SUMMARY | 2024-02-16 13:21 | XMS_ITS | Encounter Summary ---
Author Organization [facility] Address [address] [address] Care Team Providers Care Outside Dealer Sales Representative Name Role Phone No Primary/Referring, Shelly Primary Care Provider Unavailable Encounter Details Date Type Department Care Team (Late st Contact Info) Description 08/26/2014 Scanned History External to Transferred Record, Provider [...] on filedocumented in this encounter Care Teams Outside Dealer Sales Representative Relationship Specialty Start Date End Date No Primary/ReferringShelly PCP - General 11/17/21 documented as of this encounter
--- OUTSIDE RECORDS SUMMARY | 2024-02-16 13:21 | XMS_ITS | Encounter Summary ---
Author Organization [facility] Address [address] [address] Care Team Providers Care Braille Transcriber Name Role Phone No Primary/Referring, Shelly Primary Care Provider Unavailable Encounter Details Date Type Department Care Team (Late st Contact Info) Description 02/16/2016 Scanned History External to Transferred Record, Provider [...] on filedocumented in this encounter Care Teams Braille Transcriber Relationship Specialty Start Date End Date No Primary/ReferringShelly PCP - General 11/17/21 documented as of this encounter
--- OUTSIDE RECORDS SUMMARY | 2024-02-16 13:21 | XMS_ITS | Encounter Summary ---
Author Organization [facility] Address [address] [address] Care Team Providers Care Sales Data Analyst Name Role Phone No Primary/Referring, Shelly Primary Care Provider Unavailable Encounter Details Date Type Department Care Team (Late st Contact Info) Description 08/19/2014 Scanned History External to Transferred Record, Provider [...] on filedocumented in this encounter Care Teams Sales Data Analyst Relationship Specialty Start Date End Date No Primary/ReferringShelly PCP - General 11/17/21 documented as of this encounter
--- OUTSIDE RECORDS SUMMARY | 2024-02-16 13:22 | XMS_ITS | Clinical Summary ---
Author Organization [facility] Address [address] [place] [address] Care Team Providers Care Maintenance Machinist Name Role Phone Justus Zaidi MD Primary Care Provider [phone] Justus Zaidi MD Unavailable [phone] Georges Davalos DPM Unavailable [phone] Lucero Melendez DIEING OUT MACHINE OPERATOR Unavailable [phone] Lucero Melendez DIEING OUT MACHINE OPERATOR Unavailable [phone] Allergies Active Allergy Reactions Criticality Noted Date Comments Acetaminophen Itching 11/20/2008 Amoxicillin Hives Low 12/20/2006 Cyclobenzaprine Itching,Rash Low 07/22/2011 Hydrocodone-Acetaminophen Hives,Itching High 009 not actually hives, no problems breathing or rash. not actually hives, no problems breathing or rash. Ibuprofen Hives,Itching High 11/03/2013 Pt can take with benadryl Ketorolac Hives 05/13/2014 Morphine Itching 08/17/2013 Works fine with benadryl Nsaids Hives High 06/21/2016 03/02/23: pt reports taking at home without issue (takes claritin as needed with it) Penicillins Hives Low 01/04/2005 Medications Medication Sig Dispensed Refills Start Date End Date Status acetaminophen (TYLENOL) 325 MG tablet Take 325-650 mg by mouth every 6 hours as needed for mild pain Active Semaglutide, 1 MG/DOSE, (OZEMPIC, 1 MG/DOSE,) 4 MG/3ML SOPNIndications:Mo rbid obesity (H) Inject 1 mg Subcutaneous once a week 3 mL 3 09/13/2022 Active Additional Information Patient not taking.Reported on 04/27/2023 naproxen (NAPROSYN) 500 MG tabletIndications: Acute right-sided low back pain with right-sided sciatica Take 1 tablet (500 mg) by mouth 2 times daily (with meals) 60 tablet 3 02/09/2023 Active tiZANidine (ZANAFLEX) 4 MG tabletIndications: Acute right-sided low back pain with right-sided sciatica Take 1 tablet (4 mg) by mouth 3 times daily 90 tablet 1 02/09/2023 Active ketoconazole (NIZORAL) 2 % external shampooIndications :Dermatitis Apply topically daily as needed for itching or irritation To affected area- leave on for 5 minutes then rinse off 120 mL 3 02/25/2023 Active methylPREDNISolone (MEDROL DOSEPAK) 4 MG tablet therapy pack Follow Package Directions 21 tablet 03/02/2023 Active Additional Information Patient not taking.Reported on 04/27/2023 celecoxib (CELEBREX) 100 MG capsuleIndications :Cellulitis, unspecified cellulitis site Take 1 capsule (100 mg) by mouth 2 times daily 60 capsule 3 03/03/2023 Active Additional Information Patient not taking.Reported on 04/05/2023 lidocaine (XYLOCAINE) 5 % external ointmentIndication s:Cellulitis, unspecified cellulitis site Apply topically 3 times daily as needed for moderate pain 50 g 3 03/03/2023 Active fluconazole (DIFLUCAN) 150 MG tabletIndications: Infective otitis externa, right Take 1 tablet (150 mg) by mouth daily 7 tablet 04/05/2023 Active Additional Information Patient not taking.Reported on 04/27/2023 oxyCODONE-acetamin ophen (PERCOCET) 5-325 MG tabletIndications: Chronic pain disorder Take 1 tablet by mouth 3 times daily as needed for pain 15 tablet 04/09/2023 Active ciprofloxacin-dexa methasone (CIPRODEX) 0.3-0.1 % otic suspensionIndicati ons:Infective otitis externa, right Place 4 drops Into the left ear 2 times daily 2.8 mL 04/06/2023 Active Additional Information Patient not taking.Reported on 04/27/2023 celecoxib (CELEBREX) 100 MG capsuleIndications :SI (sacroiliac) joint dysfunction,Chroni c, continuous use of opioids Take 1 capsule (100 mg) by mouth 2 times daily as needed for moderate pain 60 capsule 11 10/27/2023 Active metaxalone (SKELAXIN) 800 MG tabletIndications: SI (sacroiliac) joint dysfunction Take 1 tablet (800 mg) by mouth 3 times daily as needed for muscle spasms 90 tablet 3 11/08/2023 Active tiZANidine (ZANAFLEX) 4 MG tabletIndications: Back pain, unspecified back location, unspecified back pain laterality, unspecified chronicity Take 1 tablet (4 mg) by mouth 3 times daily as needed for muscle spasms 30 tablet 11/10/2023 Active Active Problems Problem Noted Date Diagnosed Date Chronic, continuous use of opioids 04/04/2023 Morbid obesity 11/09/2022 Tibialis posterior tendinitis, left 10/19/2022 Pes planovalgus, acquired, left 10/19/2022 Plantar fasciitis of left foot 10/19/2022 Chronic pain disorder 11/05/2017 Recurrent ventral hernia 08/19/2017 023 Overview: Added automatically from request for surgery [id number] Incarcerated ventral hernia 02/06/2016 06/0 03/2023 SI (sacroiliac) joint dysfunction 11/12/2015 Chronic cholecystitis with calculus 01/14/2015 03/02/2023 Overview: 01/13/2015 right upper quadrant ultrasound: cholelithiasis ([place]) Heartburn 04/30/2011 03/02/2023 Overview: S/p Maldonado surgery 2010 with improvement EGD done [place] pH positive for reflux [place] 52.4 on worst day Lymphocytic colitis 03/09/2011 03/02/2023 Overview: Biopsy 02/2011 Negative screening for celiac sprue Trial pepto bismol 3 tabs oral three times daily Stopped proton pump inhibitor and no effect, stopped pepto bismol since not helping Depressive disorder, not elsewhere classified Anxiety 07/19/2008 Other tenosynovitis of hand and wrist 10/28/2006 03/02/2023 Overview: RT FOREARM 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 Provider to review Resolved Problems Problem Noted Date Diagnosed Date Resolved Date Abdominal pain 01/14/2015 03/02/2023 04/05/2023 Overview: Multiple clinic and emergency department visits ([place], [facility] emergency department, and [facility]) CARDIOVASCULAR SCREENING; LD L GOAL LESS THAN 160 07/26/2010 11/09/2022 Diarrhea 09/28/2005 04/05/2023 Tobacco use disorder 01/04/2005 023 Tension headache 01/04/2005 11/09/2022 Encounters Date Type Department Care Team Description 01/09/2024 MyC Medical Advice [address] [address] Justus Zaidi MD from Last 3 Months Immunizations Name Administration Dates Next Due COVID-19 Bivalent 12+ (Pfizer) 09/23/2022 COVID-19 MONOVALENT 12+ (Pfizer) 03/06/2021,01/25 DTP-Hib 04/11/1991, 8,1986, 987,1986 Flu, Unspecified 08/25/2014,07/28/2014, 0 [id number] Novel Flu 10/24/2009 Hepatitis B, Peds 01/30/2002,03/13/2001,12/30/19 01 Influenza (H1N1) 10/24/2009 Influenza (IIV3) PF 08/25/2014, 3,07/12/2011, 010,10/24/2009,07/27/2007 Influenza, seasonal, injectable, PF 07/12/2011,0 10/24/2009 MMR 01/30/2002,07/07/1987 TDAP (Adacel,Boostrix) 05/06/2018,06/14/2010 Td (Adult), Adsorbed 07/26/2000 Family History Medical History Relation Comments Neurologic Disorder Brother 2 1/2 sib (kathy serrano mother). Autism spectrum disorder. Family History Negative Daughter C.A.D. Father CA age 55 Hypertension Father Neurologic Disorder Mother back proble ms related to injury Cancer Sister 4 age 2 Relation Status Comments Brother 1 Alive Brother 2 Daughter Father Alive Maternal Grandfather Alive Maternal Grandmother Alive Mother Alive Paternal Grandfather Alive Paternal Grandmother Alive Sister 1 Alive Sister 2 Alive Sister 3 Cancer at age 2 Sister 4 Social History Tobacco Use Types Packs/Day Years Used Date Smoking Tobacco: Never Tobacco Cessation:Counseling Given: Not Answered Comments:2 cigs per day Alcohol Use Standard Drinks/Week Comments No 0 (1 standard drink = 0.6 oz pur e alcohol) social Overall Financial Resource Strain (CARDIA) Answe r Date Recorded How hard is it for you to pa y for the very basics like food, housing, medical care, and heating? Very hard 11/26/2022 PHQ-2 Answer Date Recorded PHQ-2 Score 0 04/11/2023 Hunger Vital Sign Answer Date Recorded Within the past 12 months, y ou worried that your food would run out before you got the money to buy more. Often true Within the past 12 months, t he food you bought just didn't last and you didn't have money to get more. Sometimes true 11/2022 PRAPARE - Transportation Answer Date Re corded In the past 12 months, has l ack of transportation kept you from medical appointments or from getting medications? No 11/2022 In the past 12 months, has l ack of transportation kept you from meetings, work, or from getting things needed for daily living? No 11/26/2022 Housing Stability Vital Sign Answer Garret e Recorded In the last 12 months, was t here a time when you were not able to pay the mortgage or rent on time? No 11/26/2022 In the last 12 months, how many places have you lived? 1 11/26/2022 In the last 12 months, was t here a time when you did not have a steady place to sleep or slept in a senior living (including now)? No 11/26/2022 Adolescent Education Answer Date Record ed Getting School Help Needed Not on file 06/17 Sex and Gender Information Value Date Recorded Sex Assigned at Female 03/22/2022 5:14 PM CDT Gender Identity Female 03/22/2022 5:14 PM CDT Sexual Orientation Straight 03/22/2022 5: 14 PM CDT Last Filed Vital Signs Vital Sign Reading Time Taken Comments Blood Pressure 150/93 04/27/2023 10:23 AM CDT Pulse 89 04/27/2023 10:23 AM CDT Temperature 36.8 ??C (98.3 ??F) 04/11/2023 11:13 AM C DT Respiratory Rate 19 04/05/2023 3:50 PM CDT Oxygen Saturation 99% 04/27/2023 10:23 AM CDT Inhaled Oxygen Concentration - - Weight 87.2 kg (192 lb 4.8 oz) 04/11/2023 11:13 AM CDT Height 162.6 cm (5' 4) 04/05/2023 3:50 PM CDT Body Mass Index 33.01 04/05/2023 3:50 PM CDT Plan of Treatment Health Maintenance Due Date Last Done Comments CONTROLLED SUBSTANCE AGREEMENT FOR CHRONIC PAIN MANAGEMENT 1986 YEARLY PREVENTIVE VISIT 07/09/2009 07/09/20 08, 01/04/2005, 05/19/2000 ANNUAL REVIEW OF HM ORDERS 03/22/2023 03/22/2022 COVID-19 Vaccine ( season) 2023 09/23/2022, 03/06/2021, 02/13/2021 PHQ-2 (once per calendar year) 2023 04/11/2023, 04/11/2023, 11/09/2022, Additional history exists PHQ-9 04/11/2024 04/11/2023, 02/25, 03/22/2022 RUTH ASSESSMENT 04/27/2024 04/27/2023, 04/11/2023 URINE DRUG SCREEN 04/27/2024 04/27/2023, , 04/05/2023 INFLUENZA VACCINE (Season Ended) 2024 08/25/2014, 08/25/2014, 07/28/2014, Additional history exists GLUCOSE 06/07/2024 06/07/2021, 09/27, 01/04/2005, Additional history exists ADVANCE CARE PLANNING 11/09/2027 11/09/2022 DTAP/TDAP/TD IMMUNIZATION (8 - Td or Tdap) 05/06/2028 05/06/2018, 06/14/2010, 07/26/2000, Additional history exists HEPATITIS B IMMUNIZATION Completed 002, 03/13/2001, 12/29/2000 PAP Discontinued 01/04/2005 HIV SCREENING Completed 07/09/2008 HEPATITIS C SCREENING Completed 03/22/2022 HPV IMMUNIZATION Aged Out No longer e ligible based on patient's age to complete this topic IPV IMMUNIZATION Aged Out No longer e ligible based on patient's age to complete this topic MENINGITIS IMMUNIZATION Aged Out No l onger eligible based on patient's age to complete this topic Pneumococcal Vaccine: Pediatrics (0 to 5 Years) and At-Risk Patients (6 to 64 Years) Aged Out No longer eligible based on patient's age to complete this topic RSV MONOCLONAL ANTIBODY Aged Out No l onger eligible based on patient's age to complete this topic Goals Goal Patient Goal Type Associated Problems Recent Progress Patient-Stated? Author I will utilize all [facility] programs I am eligible for as well as look at Social Security Disability application, and affordable prescriptions for my son. Care Plan Patient expresses financial resource strain 70%( 10:03 AM CDT) No Roxann Head LSW Note: Barriers: time it takes to process applications. Strengths: I have completed applications. Patient expressed understanding of goal: yes Action steps to achieve this goal: 1. I will work with the [facility] to complete all forms and provide documentation. I let my CHW know that I have been approved for SNAP, [place] and Medical Assistance. Completed 2. I will contact Social Security or Disability Specialists to discuss options. I will call Disability Specialists soon to discuss Social Security Disability. 3. I will work with [facility] to see if there is any options for medications for my son until he is on MA. Myself and my family have been approved for Medical Assistance. Completed 3. I will report progress towards this goal at scheduled outreach telephone calls from the [facility] team. Continuous (MB) Procedures Procedure Name Priority Date/Time Associated Diagnosis Comments URINE DRUG SCREEN Routine 04/27/2023 11: 30 AM CDT Chronic pain disorder HEPATITIS C SCREEN REFLEX TO HCV RNA QUANT AND GENOTYPE Routine 03/22/2022 5:20 PM CDT Need for hepatitis C screening test COMPREHENSIVE METABOLIC PANEL STAT 06/07/2021 6:37 PM CDT HCL HIV 1 & 2 ANTIBODY Routine 07/09/2008 12:10 PM CDT Well Woman Exam with Routine Gynecological Exam HCL PAP THIN LAYER SCREEN Routine 01/04/2005 12:00 AM CDT Routine Medical Exam from Last 3 Months or Most Recently Relevant to Health Maintenance Results * Hepatitis C Screen Reflex to HCV RNA Quant and Genotype (03/22/2022 5:20 PM CDT) Hepatitis C Antibody Nonreactive Nonreactive 2022 2:05 PM CDT SPECIALTY CORE/PROT/EN DO Blood VENOUS STRUCTURE / Unknown Venipuncture / Unknown 03/22/2022 5:20 PM CDT 03/22/2022 5:21 PM CDT Narrative [facility] SPECIALTY CORE/PROT/ENDO - 2022 2:05 PM CDT Assay performance characteristics have not been established for newborns, infants, and children. Justus Zaidi MD LAB - BLOOD ORDERAB LES [facility] SPECIALTY CORE/PROT/ENDO [facility] Specialty Core/Prot/Endo [address] [facility] [address] Building, Room 3[address] [phone] * (ABNORMAL) Comprehensive metabolic panel (06/07/2021 6:37 PM [facility]) [facility] Signature Sodium 141 136 - 145 mmol/L 06/07/2021 7:03 PM [facility] Potassium 3.8 3.5 - 5.0 mmol/L 06/07/2021 7:03 PM [facility] Chloride 106 98 - 107 mmol/L 06/07/2021 7:03 PM [facility] Carbon Dioxide (CO2) 24 22 - 31 mmol/L 06/07/2021 7:03 PM [facility] Anion Gap 11 5 - 18 mmol/L 06/07/2021 7:03 PM [facility] Urea Nitrogen 8 8 - 22 mg/dL 06/07/2021 7:03 PM [facility] Creatinine 0.95 0.60 - 1.10 mg/dL 06/07/2021 7:03 PM [facility] Calcium 9.4 8.5 - 10.5 mg/dL 06/07/2021 7:03 PM [facility] Glucose 110 70 - 125 mg/dL 06/07/2021 7:03 PM [facility] Alkaline Phosphatase 77 45 - 120 U/L 06/07/2021 7:03 PM [facility] AST 138(H) 0 - 40 U/L 06/07/2021 7:03 PM [facility] ALT 144(H) 0 - 45 U/L 06/07/2021 7:03 PM [facility] Protein Total 7.2 6.0 - 8.0 g/dL 06/07/2021 7:03 PM [facility] Albumin 4.2 3.5 - 5.0 g/dL 06/07/2021 7:03 PM [facility] Bilirubin Total 0.6 0.0 - 1.0 mg/dL 06/07/2021 7:03 PM [facility] GFR Estimate 78 >60 mL/min/1.7 3m2 06/07/2021 7:03 PM [facility] Comment:As of April 05, 2021, eGFR is calculated by the CKD-EPI creatinine equation, without race adjustment. eGFR can be influenced by muscle mass, exercise, and diet. The reported eGFR is an estimation only and is only applicable if the renal function is stable. Blood STRUCTURE OF LEFT UPPER LIMB / Unknown Venipuncture / Unknown 06/07/2021 6:37 PM CDT 06/07/2021 6:40 PM CDT Jackson Hernandez DO LAB - BLOOD ORDERABL ES [facility] [address] [facility] [address] [facility] [address] [place], [place] [address] [phone] * HIV 1 & 2, SCREEN (07/09/2008 12:10 PM CDT) HIV 1&2 Antibody Negative NEG [facility] 07/09/2008 12:1 0 PM CDT 07/09/2008 12:11 PM CDT Mohinder Maddox PA-C LABORATORY Performing Organization Address City/[facility]/ZIP Co de Phone Number [facility] * A THIN LAYER PAP SCREEN (01/04/2005 12:00 AM CDT) PAP CEDRIC Brizuela Report Patient Name: TREVOR BANEGAS MR#: [id number] Specimen #: [id number] Collected: 01/04/2005 Received: 01/05/2005 Reported: 01/06/2005 14:04 Ordering Phy(s): LUCIANO ASTUDILLO SPECIMEN/STAIN PROCESS: Pap thin layer prep screening ? Pap-Cyto x 1, Reflex HPV x 1 SOURCE: Cervical, endocervical Pap thin layer prep screening SPECIMEN ADEQUACY: Satisfactory for evaluation. -Transitional zone component present. CYTOLOGIC INTERPRETATION: Negative for Intraepithelial Lesion or Malignancy Electronically signed out by: LORIN Sapp (ASCP) Processed and screened at [facility] CLINICAL HISTORY: LMP: 4-6-05 TESTING LAB LOCATION: [facility] [address] [place] ??[phone] COLLECTION SITE: Client: ??[facility] [place] Location: [facility] (R) COPATH 01/04/2005 01/05/2005 10: 20 AM CDT Luciano ROMERO [facility] Organization Address City/State/ZIP Co de Phone Number COPATH from Last 3 Months or Most Recently Relevant to Health Maintenance Additional Health Concerns Active Problems Noted Date Diagnosed Date Diet management 11/26/2022 Patient expresses financial resource strain 11/2022 Care Teams Maintenance Machinist Relationship Specialty Start Date End Date Justus Zaidi MD [address] [place], [place] [address] [address] PCP - General Internal Medicine - Pediatrics 03/22/22 Justus Zaidi MD [address] [place], [place] [address] [address] [address] Assigned PCP 11/20/22 Georges Davalos DPM [address] [place] [address] [address] [address] Assigned Surgical Provider 10/30/22 [place] [address] [place] [address] Nurse Practitioner Nurse Practitioner 02/10/23 [place] [address] [address] [place] [address] Nurse Practitioner Nurse Practitioner 04/06/23
--- OUTSIDE RECORDS SUMMARY | 2024-02-16 13:22 | XMS_ITS | Encounter Summary ---
Author Organization [facility] Address [address], [place] [address] Care Team Providers Care Kiln Hand Name Role Phone No Primary/Referring, Shelly Primary Care Provider Unavailable Encounter Details Date Type Department Care Team (Late st Contact Info) Description 04/24/2014 Scanned History External to Transferred Record, Provider [...] on filedocumented in this encounter Care Teams Kiln Hand Relationship Specialty Start Date End Date No Primary/ReferringShelly PCP - General 11/17/21 documented as of this encounter
--- OUTSIDE RECORDS SUMMARY | 2024-02-16 13:22 | XMS_ITS | Encounter Summary ---
Author Organization [facility] Address [address] [address] Care Team Providers Care Webfed Offset Press Operator Name Role Phone No Primary/Referring, Shelly Primary Care Provider Unavailable Encounter Details Date Type Department Care Team (Late st Contact Info) Description 06/21/2014 Scanned History External to Transferred Record, Provider [...] on filedocumented in this encounter Care Teams Webfed Offset Press Operator Relationship Specialty Start Date End Date No Primary/ReferringShelly PCP - General 11/17/21 documented as of this encounter
--- OUTSIDE RECORDS SUMMARY | 2024-02-16 13:22 | XMS_ITS | Encounter Summary ---
Author Organization [facility] Address [address] [address] Care Team Providers Care Nuclear Weapons Mechanical Specialist Name Role Phone No Primary/Referring, Phy Primary Care Provider Unavailable Encounter Details Date Type Department Care Team (Latest Contact Info) Description 12/20/1994 Orders Only Mu Rai MD [facility] [address] [place] [address] Social History Tobacco Use Types Packs/Day Years Used Date Smoking Tobacco: Never Assessed Sex and Gender Information Value Date Recorded Sex Assigned at Not on file Gender Identity Not on file Sexual Orientation Not on file documented as of this encounter Plan of Treatment Not on file documented as of this encounter Visit Diagnoses Not on filedocumented in this encounter Care Teams Nuclear Weapons Mechanical Specialist Relationship Specialty Start Date End Date No Primary/ReferringShelly PCP - General 11/17/21 documented as of this encounter
--- OUTSIDE RECORDS SUMMARY | 2024-02-16 13:22 | XMS_ITS | Encounter Summary ---
Author Organization [facility] Address [address] [facility] [place] [address] Care Team Providers Care Pmo Project Manager Name Role Phone No Primary/Referring, Phy Primary Care Provider Unavailable Encounter Details Date Type Department Care Team (Latest Contact Info) Description 09/06/1995 Orders Only Davion Alvarez MD [address] [place] [address] Social History Tobacco Use Types Packs/Day Years Used Date Smoking Tobacco: Never Assessed Sex and Gender Information Value Date Recorded Sex Assigned at Not on file Gender Identity Not on file Sexual Orientation Not on file documented as of this encounter Plan of Treatment Not on file documented as of this encounter Visit Diagnoses Not on filedocumented in this encounter Care Teams Pmo Project Manager Relationship Specialty Start Date End Date No Primary/Referring, Phy PCP - General 11/17/21 documented as of this encounter
--- OUTSIDE RECORDS SUMMARY | 2024-02-16 13:22 | XMS_ITS | Encounter Summary ---
Author Organization [facility] Address [address] [place] [address] Care Team Providers Care Remote Sensing Scientist Name Role Phone Justus Zaidi MD Primary Care Provider [phone] Justus Zaidi MD Unavailable [phone] Georges Davalos DPM Unavailable [phone] Lucero Melendez OCEAN FISHING GUIDE Unavailable [phone] Lucero Melendez OCEAN FISHING GUIDE Unavailable [phone] Reason for Visit * Reason Onset Date Comments Patient Request 11/09/2023 Insurance does n ot pay for Metaxalone Encounter Details Date Type Department Care Team (Late st Contact Info) Description 11/09/[address] [address] Justus Zaidi MD [address] [place] [address] Patient Request (Insurance does not pay for Metaxalone) Social History Tobacco Use Types Packs/Day Years Used Date Smoking Tobacco: Never Comments:2 cigs per day Alcohol Use Standard [...] place to sleep or slept in a halfway (including now)? No 11/26/2022 Adolescent Education Answer Date Record ed Getting School Help Needed Not on file 06/17 Sex and Gender Information Value Date Recorded Sex Assigned at Female 03/22/2022 5:14 PM CDT Gender Identity Female 03/22/2022 5:14 PM CDT Sexual Orientation Straight 03/22/2022 5: 14 PM CDT documented as of this encounter Miscellaneous Notes * Telephone Encounter - Nora Davalos PA-C - 11/10/2023 4:01 PM CST Will send in tizanidine instead. Nora Davalos PA-C ENGINE MECHANIC * Telephone Encounter - Betsy Mcdonald LISW - 11/09/2023 2:06 PM CST General Call Contacts Type Contact Phone/Fax 11/09/2023 02:05 PM BOAT ENGINE MECHANIC Phone (Incoming) Jaqueline Rodriguez (Self) [phone] (M) Reason for Call: Pharmacy called patient and said insurance will not pay for Metaxalone 800 MG OralTablet (SKELAXIN) Patient said, I am in excruciating pain I do not have money to pay for it. What are your questions or concerns: Please send a different prescription to [facility] [address] [place] [address] SUZANNE BRENNER Patient is asking if you would notify her when sent to the pharmacy via Wardrobe Housekeeper. Thank you. Could we send this information to you in [facility]keeper or would you prefer to receive a phone call?: ENGINE MECHANIC documented in this encounter Plan of Treatment Not on file documented as of this encounter Goals Goal Patient Goal Type Associated Problems Recent Progress Patient-Stated? Author I will utilize all [facility] programs I am eligible for as well as look at Social Security Disability application, and affordable prescriptions for my son. Care Plan Patient expresses financial resource strain 70%( 3 10:03 AM CDT) No Roxann Head LSW Note: Barriers: time it takes to process applications. Strengths: I have completed applications. Patient expressed understanding of goal: yes Action steps to achieve this goal: 1. I will work with the [facility] to complete all forms and provide documentation. I let my CHW know that I have been approved for SNAP, [place] and Medical Assistance. Completed 2. I will contact Social Security or Disability Specialists to discuss options. I will call Disability Specialists soon to discuss Social Security Disability. 3. I will work with [facility] to see if there is any options for medications for my son until he is on MA. Myself and my family have been approved for Medical Assistance. Completed 3. I will report progress towards this goal at scheduled outreach telephone calls from the [facility] team. Continuous (MB) documented as of this encounter Visit Diagnoses Diagnosis Back pain, unspecified back location, unspecified back pain laterality, unspecified chronicity- Primary documented in this encounter Additional Health Concerns Active Problems Noted Date Diagnosed Date Diet management 11/26/2022 Patient expresses financial resource strain 11/2022 Assessment Noted Time PHQ-9 Depression Total Score: 0 04/11/20 8:32 AM CDT documented as of this encounter Care Teams Remote Sensing Scientist Relationship Specialty Start Date End Date Justus Zaidi MD [address] [place] [address] PCP - General Internal Medicine - Pediatrics 03/22/22 Justus Zaidi MD [address] [place] [address] Assigned PCP 11/20/22 Georges Davalos DPM [address] [place] [address] [address], [place] [address] Assigned Surgical Provider 10/30/22 [place] [address] [place] [address] Nurse Practitioner Nurse Practitioner 02/10/23 [place] [address] [place] [address] Nurse Practitioner Nurse Practitioner 04/06/23 documented as of this encounter
--- OUTSIDE RECORDS SUMMARY | 2024-02-16 13:22 | XMS_ITS | Encounter Summary ---
Author Organization [facility] Address [address], [place] [address] Care Team Providers Care Stone Rigger Name Role Phone No Primary/Referring, Phy Primary Care Provider Unavailable Encounter Details Date Type Department Care Team (Latest Contact Info) Description 08/23/1995 Orders Only Mary Orellana MD [address] [place] [address] Social History Tobacco Use Types Packs/Day Years Used Date Smoking Tobacco: Never Assessed Sex and Gender Information Value Date Recorded Sex Assigned at Not on file Gender Identity Not on file Sexual Orientation Not on file documented as of this encounter Plan of Treatment Not on file documented as of this encounter Visit Diagnoses Not on filedocumented in this encounter Care Teams Stone Rigger Relationship Specialty Start Date End Date No Primary/Referring, Narcisay PCP - General 11/17/21 documented as of this encounter
--- OUTSIDE RECORDS SUMMARY | 2024-02-16 13:22 | XMS_ITS | Encounter Summary ---
Author Organization [facility] Address [address] [address] Care Team Providers Care Business Strategist Name Role Phone No Primary/Referring, Shelly Primary Care Provider Unavailable Encounter Details Date Type Department Care Team (Late st Contact Info) Description 06/18/2014 Scanned History External to Transferred Record, Provider [...] on filedocumented in this encounter Care Teams Business Strategist Relationship Specialty Start Date End Date No Primary/ReferringShelly PCP - General 11/17/21 documented as of this encounter
--- OUTSIDE RECORDS SUMMARY | 2024-02-16 13:22 | XMS_ITS | Encounter Summary ---
Author Organization [facility] Address [address] [place] [address] Care Team Providers Care Business Process Associate Name Role Phone Justus Zaidi MD Primary Care Provider [phone] Justus Zaidi MD Unavailable [phone] Georges Davalos DPM Unavailable [phone] Lucero Melendez MAIL DELIVERER Unavailable [phone] Lucero Melendez MAIL DELIVERER Unavailable [phone] Encounter Details Date Type Department Care Team (Late st Contact Info) Description 11/07/2023 [facility] Medical Advice [facility] [address] [place] [address] Justus Zaidi MD [address] [place] [address] SI (sacroiliac) joint dysfunction (Primary Dx) Social History Tobacco Use Types Packs/Day Years [...] place to sleep or slept in a detention (including now)? No 11/26/2022 Adolescent Education Answer Date Record ed Getting School Help Needed Not on file 06/17 Sex and Gender Information Value Date Recorded Sex Assigned at Female 03/22/2022 5:14 PM CDT Gender Identity Female 03/22/2022 5:14 PM CDT Sexual Orientation Straight 03/22/2022 5: 14 PM CDT documented as of this encounter Miscellaneous Notes * Telephone Encounter - Kari Walker RN - 11/15/2023 9:54 AM SMOOTH STUCCO RESURFACER Please see My Chart message. Advised to contact clinic to re-schedule appointment. TH STUCCO RESURFACER * Telephone Encounter - Maya Carrillo RN - 11/09/2023 10:00 AM SMOOTH STUCCO RESURFACER See MyChart from patient needing PCP review. Maya Carrillo RN [facility] TH STUCCO RESURFACER * Telephone Encounter - Jeni Correa RN - 11/08/2023 11:35 AM CST Images from the original note were not included. See MyChart from Patient needing PCP reponse. YONATAN Ngo [facility] TH STUCCO RESURFACER * Telephone Encounter - Nadia Bustamante - 11/08/2023 8:29 AM CST Please called back to have MyChart message addressed. Pt states she is not able to get in w/Pain Management MAIL DELIVERER appt is scheduled for February -MD appt is notavailable till April. New Rx for Celebrex is not working for patient. TH STUCCO RESURFACER * Addendum Note - Justus Zaidi MD - 11/07/2023 11:20 PM CSTAddended by: JUSTUS ZAIDI on: 11/08/2023 10:46 PM Modules accepted: Orders TH STUCCO RESURFACER documented in this encounter Plan of Treatment Not on file documented as of this encounter Goals Goal Patient Goal Type Associated Problems Recent Progress Patient-Stated? Author I will utilize all [facility] programs I am eligible for [...] goal: 1. I will work with the [facility] to complete all forms and provide documentation. [...] at scheduled outreach telephone calls from the [facility] team. Continuous (MISTI) documented as of this encounter Visit Diagnoses Diagnosis SI (sacroiliac) joint dysfunction- Primary Disorders of sacrum documented in this encounter Additional Health Concerns Active Problems Noted Date Diagnosed Date Diet management 11/26/2022 Patient expresses financial resource strain 11/2022 Assessment Noted Time PHQ-9 Depression Total Score: 0 04/11/20 8:32 AM CDT documented as of this encounter Care Teams Business Process Associate Relationship Specialty Start Date End Date Justus Zaidi MD [address] [place] [address] PCP - General Internal Medicine - Pediatrics 03/22/22 Justus Zaidi MD [address] [place] [address] [place] [address] Assigned PCP 11/20/22 Georges Davalos DPM [address] [place] [address] [address], [place] [address] Assigned Surgical Provider 10/30/22 [place] [address] [address] [address] Nurse Practitioner Nurse Practitioner 02/10/23 [place] [address] [place] [place] [address] Nurse Practitioner Nurse Practitioner 04/06/23 documented as of this encounter
--- OUTSIDE RECORDS SUMMARY | 2024-02-16 13:22 | XMS_ITS | Encounter Summary ---
Author Organization [facility] Address [address], [place] [address] Care Team Providers Care Controls Technician Name Role Phone No Primary/Referring, Shelly Primary [...] on filedocumented in this encounter Care Teams Controls Technician Relationship Specialty Start Date End Date No Primary/ReferringShelly PCP - General 11/17/21 documented as of this encounter
--- OUTSIDE RECORDS SUMMARY | 2024-02-16 13:22 | XMS_ITS | Encounter Summary ---
Author Organization [facility] Address [address] [address] Care Team Providers Care Sales And Service Engineer Name Role Phone No Primary/Referring, Phy Primary Care Provider Unavailable Encounter Details Date Type Department Care Team (Latest Contact Info) Description 10/22/1994 Orders Only Mary Orellana MD [address] [place] [address] Social History Tobacco Use Types Packs/Day Years Used Date Smoking Tobacco: Never Assessed Sex and Gender Information Value Date Recorded Sex Assigned at Not on file Gender Identity Not on file Sexual Orientation Not on file documented as of this encounter Plan of Treatment Not on file documented as of this encounter Visit Diagnoses Not on filedocumented in this encounter Care Teams Sales And Service Engineer Relationship Specialty Start Date End Date No Primary/Referring, Narcisay PCP - General 11/17/21 documented as of this encounter
--- OUTSIDE RECORDS SUMMARY | 2024-02-16 13:22 | XMS_ITS | Encounter Summary ---
Author Organization [facility] Address [address], [place] [address] Care Team Providers Care Noodle Catalyst Maker Name Role Phone No Primary/Referring, Phy Primary Care Provider Unavailable Encounter Details Date Type Department Care Team (Latest Contact Info) Description 04/01/1995 Orders Only Nila Krueger MD Social History Tobacco Use Types Packs/Day Years Used Date Smoking Tobacco: Never Assessed Sex and Gender Information Value Date Recorded Sex Assigned at Not on file Gender Identity Not on file Sexual Orientation Not on file documented as of this encounter Plan of Treatment Not on file documented as of this encounter Visit Diagnoses Not on filedocumented in this encounter Care Teams Noodle Catalyst Maker Relationship Specialty Start Date End Date No Primary/ReferringShelly PCP - General 11/17/21 documented as of this encounter
--- OUTSIDE RECORDS SUMMARY | 2024-02-16 13:22 | XMS_ITS | Referral Summary ---
Author Organization [facility] Address [address] [place] [address] Care Team Providers Care Environmental Health Technician Name Role Phone Justus Zaidi MD Primary Care Provider [phone] Justus Zaidi MD Unavailable [phone] Georges Davalos DPM Unavailable [phone] Lucero Melendez FACULTY DEAN Unavailable [phone] Lucero Melendez FACULTY DEAN Unavailable [phone] Encounters Date Type Department Care Team Description 01/09/2024 [facility] Medical Advice [address] [address] Justus Zaidi MD from Last 3 Months Allergies Active Allergy Reactions Criticality Noted Date [...] Overview: Added automatically from request for surgery [id number] Incarcerated ventral hernia 02/06/2016 06/0 03/2023 SI [...] Multiple clinic and emergency department visits ([facility], [facility] emergency department, and [facility]) CARDIOVASCULAR SCREENING; LD L GOAL LESS THAN 160 07/26/2010 11/09/2022 Diarrhea 09/28/2005 04/05/2023 Tobacco use disorder 01/04/2005 023 Tension headache 01/04/2005 11/09/2022 Immunizations Name Administration Dates Next Due COVID-19 Bivalent 12+ (Pfizer) 09/23/2022 COVID-19 MONOVALENT 12+ (Pfizer) 03/06/2021,01/25 DTP-Hib 04/11/1991, 8,1986, 987,1986 Flu, Unspecified 08/25/2014,07/28/2014, 0 C6s3-22 Novel Flu 10/24/2009 Hepatitis B, Peds 01/30/2002,03/13/2001,12/30/19 01 Influenza (H1N1) 10/24/2009 Influenza (IIV3) PF 08/25/2014, 3,07/12/2011, 010,10/24/2009,07/27/2007 Influenza, seasonal, injectable, PF 07/12/2011,0 10/24/2009 MMR 01/30/2002,07/07/1987 TDAP (Adacel,Boostrix) 05/06/2018,06/14/2010 Td (Adult), Adsorbed 07/26/2000 Social History Tobacco Use Types Packs/Day Years [...] place to sleep or slept in a care home (including now)? No 11/26/2022 Adolescent Education Answer [...] 04/05/2023 3:50 PM CDT Plan of Treatment Not on file Goals Goal Patient Goal Type Associated Problems Recent Progress Patient-Stated? Author I will utilize all [facility] programs I am eligible for as well as look at Social Security Disability application, and affordable prescriptions for my son. Care Plan Patient expresses financial resource strain 70%( 3 10:03 AM CDT) Roxann Wilde LSW Note: Barriers: time it takes to process applications. Strengths: I have completed applications. Patient expressed understanding of goal: yes Action steps to achieve this goal: 1. I will work with the [facility] to complete all forms and provide documentation. I let my CHW know that I have been approved for SNAP, [place] and Medical Assistance. Completed 2. I will contact Social Security or Disability Specialists to discuss options. I will call Disability Specialists soon to discuss Social Security Disability. 3. I will work with [facility] to see if there is any options for medications for my son until he is on [place]. Myself and my family have been approved for Medical Assistance. Completed 3. I will report progress towards this goal at scheduled outreach telephone calls from the [facility] team. Continuous (MB) Procedures Procedure [...] Quant and Genotype (03/22/2022 5:20 PM CDT) Pathologist [facility] Hepatitis C Antibody Nonreactive Nonreactive 2022 2:05 PM CDT SPECIALTY CORE/PROT/EN DO Blood VENOUS STRUCTURE / Unknown Venipuncture / Unknown 03/22/2022 5:20 PM CDT 03/22/2022 5:21 PM CDT Narrative SPECIALTY CORE/PROT/ENDO - 2022 2:05 PM CDT Assay performance characteristics have not been established for newborns, infants, and children. Justus Zaidi MD LAB - BLOOD ORDERAB LES UM SPECIALTY CORE/PROT/ENDO Specialty Core/Prot/Endo [address] [facility], [address] [place] [address] * (ABNORMAL) Comprehensive metabolic panel (06/07/2021 6:37 PM CDT) Pathologist [facility] Sodium 141 136 - 145 mmol/L 06/07/2021 7:03 PM CDT [facility] Potassium 3.8 3.5 - 5.0 mmol/L 06/07/2021 7:03 PM CDT [facility] Chloride 106 98 - 107 mmol/L 06/07/2021 7:03 PM CDT [facility] Carbon Dioxide (CO2) 24 22 - 31 mmol/L 06/07/2021 7:03 PM [facility] Anion Gap 11 5 - 18 mmol/L 06/07/2021 7:03 PM [facility] Urea Nitrogen 8 8 - 22 mg/dL 06/07/2021 7:03 PM [facility] Creatinine 0.95 0.60 - 1.10 mg/dL 06/07/2021 7:03 PM [facility] Calcium 9.4 8.5 - 10.5 mg/dL 06/07/2021 7:03 PM [facility] Glucose 110 70 - 125 mg/dL 06/07/2021 7:03 PM [facility] Alkaline Phosphatase 77 45 - 120 U/L 06/07/2021 7:03 PM [facility] AST 138(H) 0 - 40 U/L 06/07/2021 7:03 PM [facility] ALT 144(H) 0 - 45 U/L 06/07/2021 7:03 PM [facility] Protein Total 7.2 6.0 - 8.0 g/dL 06/07/2021 7:03 PM [facility] Albumin 4.2 3.5 - 5.0 g/dL 06/07/2021 7:03 PM [facility] Bilirubin Total 0.6 0.0 - 1.0 mg/dL 06/07/2021 7:03 PM [facility] GFR Estimate 78 >60 mL/min/1.7 3m2 06/07/2021 7:03 PM [facility] Comment:As of April 05, 2021, eGFR is calculated by the CKD-EPI creatinine equation, without race adjustment. eGFR can be influenced by muscle mass, exercise, and diet. The reported eGFR is an estimation only and is only applicable if the renal function is stable. Blood STRUCTURE OF LEFT UPPER LIMB / Unknown Venipuncture / Unknown 06/07/2021 6:37 PM CDT 06/07/2021 6:40 PM T Jackson Hernandez DO LAB - BLOOD ORDERABL ES [facility] [address] [facility] [address] [place], [place] [address] [phone] * HIV 1 & 2, SCREEN (07/09/2008 12:10 PM CDT) HIV 1&2 Antibody Negative NEG [facility] 07/09/2008 12:1 0 PM CDT 07/09/2008 12:11 PM CDT Mohinder Maddox PA-C LABORATORY [facility] * A THIN LAYER PAP SCREEN (01/04/2005 12:00 AM CDT) PAP CEDRIC COPDAVID Brizuela Report Patient Name: TREVOR BANEGAS MR#: [id number] Specimen #: [id number] Collected: 01/04/2005 Received: 01/05/2005 Reported: 01/06/2005 14:04 Ordering Phy(s): LUCIANO ASTUDILLO SPECIMEN/STAIN PROCESS: Pap thin layer prep screening ? Pap-Cyto x 1, Reflex HPV x 1 SOURCE: Cervical, endocervical Pap thin layer prep screening SPECIMEN ADEQUACY: Satisfactory for evaluation. -Transitional zone component present. CYTOLOGIC INTERPRETATION: Negative for Intraepithelial Lesion or Malignancy Electronically signed out by: LORIN Sapp (ASCP) Processed and screened at [facility] CLINICAL HISTORY: LMP: 12-30-04 TESTING LAB LOCATION: [facility] [address] [place], [place] ??[id number] COLLECTION SITE: Client: ??[facility] Location: CRFP (R) COPATH 01/04/2005 01/05/2005 10: 20 AM CDT [facility] Organization Address City/State/ZIP Co de Phone Number COPATH from Last 3 Months or Most Recently Relevant to Health Maintenance Additional Health Concerns Active Problems Noted Date Diagnosed Date Diet management 11/26/2022 Patient expresses financial resource strain 11/2022 Care Teams Environmental Health Technician Relationship Specialty Start Date End Date Justus Zaidi MD [address] [place] [address] PCP - General Internal Medicine - Pediatrics 03/22/22 Justus Zaidi MD [address] [place] [address] Assigned PCP 11/20/22 Georges Davalos DPM [address] [place] [address] [address] [address] Assigned Surgical Provider 10/30/22 [place] [address] [address] [address] Nurse Practitioner Nurse Practitioner 02/10/23 [place] [address] [place] [place] [address] Nurse Practitioner Nurse Practitioner 04/06/23
--- OUTSIDE RECORDS SUMMARY | 2024-02-16 13:22 | XMS_ITS | Encounter Summary ---
[facility] Organization [facility] Address [address] [address] Care Team Providers Care Telecom Analyst Name Role Phone No Primary/Referring, Shelly Primary Care Provider Unavailable Encounter Details Date Type Department Care Team (Latest Contact Info) Description 12/29/1999 Orders Only Geovani Fournier [facility] [id number] [place] [address], [address] Social History Tobacco Use Types Packs/Day Years Used Date Smoking Tobacco: Never Assessed Sex and Gender Information Value Date Recorded Sex Assigned at Not on file Gender Identity Not on file Sexual Orientation Not on file documented as of this encounter Plan of Treatment Not on file documented as of this encounter Visit Diagnoses Not on filedocumented in this encounter Care Teams Telecom Analyst Relationship Specialty Start Date End Date No Primary/ReferringShelly PCP - General 11/17/21 documented as of this encounter
--- OUTSIDE RECORDS SUMMARY | 2024-02-16 13:22 | XMS_ITS | Encounter Summary ---
Author Organization [facility] Address [address] [address] Care Team Providers Care Vessel Specialist Name Role Phone No Primary/Referring, Shelly Primary Care Provider Unavailable Encounter Details Date Type Department Care Team (Late st Contact Info) Description 05/07/2014 Scanned History External to Transferred Record, Provider [...] on filedocumented in this encounter Care Teams Vessel Specialist Relationship Specialty Start Date End Date No Primary/ReferringShelly PCP - General 11/17/21 documented as of this encounter
--- OUTSIDE RECORDS SUMMARY | 2024-02-16 13:22 | XMS_ITS | Encounter Summary ---
Author Organization [facility] Address [address] [address] Care Team Providers Care Grant Officer Name Role Phone No Primary/Referring, Shelly Primary Care Provider Unavailable Encounter Details Date Type Department Care Team (Latest Contact Info) Description 05/10/2000 Orders Only Geovani Fournier [facility] [id number] [place] [address], [address] Social History Tobacco Use Types Packs/Day Years Used Date Smoking Tobacco: Never Assessed Sex and Gender Information Value Date Recorded Sex Assigned at Not on file Gender Identity Not on file Sexual Orientation Not on file documented as of this encounter Plan of Treatment Not on file documented as of this encounter Visit Diagnoses Not on filedocumented in this encounter Care Teams Grant Officer Relationship Specialty Start Date End Date No Primary/ReferringShelly PCP - General 11/17/21 documented as of this encounter
--- OUTSIDE RECORDS SUMMARY | 2024-02-16 13:22 | XMS_ITS | Encounter Summary ---
Author Organization [facility] Address [address] [place] [address] Care Team Providers Care Medical Assistant Dermatology Name Role Phone Justus Zaidi MD Primary Care Provider [phone] Justus Zaidi MD Unavailable [phone] Georges Davalos DPM Unavailable [phone] Lucero Melendez DIRECTOR DRUG SAFETY Unavailable [phone] Lucero Melendez DIRECTOR DRUG SAFETY Unavailable [phone] Encounter Details Date Type Department Care Team (Late st Contact Info) Description 01/09/[address] [facility] Medical Advice [facility] [address] [place] [address] Justus Zaidi MD [address] [place] [address] Social History Tobacco Use Types Packs/Day Years [...] place to sleep or slept in a assisted (including now)? No 11/26/2022 Adolescent Education Answer Date Record ed Getting School Help Needed Not on file 06/17 Sex and Gender Information Value Date Recorded Sex Assigned at Female 03/22/2022 5:14 PM CDT Gender Identity Female 03/22/2022 5:14 PM CDT Sexual Orientation Straight 03/22/2022 5: 14 PM CDT documented as of this encounter Miscellaneous Notes * Telephone Encounter - Oralia Gomez RN - 01/11/2024 3:49 PM CDT Routing message to PCP. * Telephone Encounter - Kwesi Valdes MD - 01/11/2024 1:19 PM CDT Not sure why this request is coming to me, I only saw her briefly last March, I am not the primary nor am I managing her chronic illnesses. documented in this encounter Plan of Treatment Not on file documented as of this encounter Goals Goal Patient Goal Type Associated Problems Recent Progress Patient-Stated? Author I will utilize all [facility] programs I am eligible for as well [...] goal: 1. I will work with the [facility] to complete all forms and provide documentation. I let my CHW know that I have been approved for SNAP, [place] and Medical Assistance. Completed 2. I will contact Social Security or Disability Specialists to discuss options. I will call Disability Specialists soon to discuss Social Security Disability. 3. I will work with [place] to see if there is any options for medications for my son until he is on MA. Myself and my family have been approved for Medical Assistance. Completed 3. I will report progress towards this goal at scheduled outreach telephone calls from the [facility] team. Continuous (MB) documented as of this encounter Visit Diagnoses Not on filedocumented in this encounter Additional Health Concerns Active Problems Noted Date Diagnosed Date Diet management 11/26/2022 Patient expresses financial resource strain 11/2022 Assessment Noted Time PHQ-9 Depression Total Score: 0 04/11/20 23 8:32 AM CDT documented as of this encounter Care Teams Medical Assistant Dermatology Relationship Specialty Start Date End Date Justus Zaidi MD [address] [place] [place] [address] PCP - General Internal Medicine - Pediatrics 03/22/22 Justus Zaidi MD [address] [place] [address] [address] Assigned PCP 11/20/22 Georges Davalos DPM [address] [place] [address] [address] [address] Assigned Surgical Provider 10/30/22 [place] [address] [place] [address] Nurse Practitioner Nurse Practitioner 02/10/23 [place] [address] [place] [address] Nurse Practitioner Nurse Practitioner 04/06/23 documented as of this encounter
--- OUTSIDE RECORDS SUMMARY | 2024-02-16 13:22 | XMS_ITS | Encounter Summary ---
Author Organization [facility] Address [address] [address] Care Team Providers Care Manager Application Name Role Phone No Primary/Referring, Shelly Primary Care Provider Unavailable Encounter Details Date Type Department Care Team (Late st Contact Info) Description 07/16/2014 Scanned History External to Transferred Record, Provider [...] on filedocumented in this encounter Care Teams Manager Application Relationship Specialty Start Date End Date No Primary/ReferringShelly PCP - General 11/17/21 documented as of this encounter
--- OUTSIDE RECORDS SUMMARY | 2024-02-16 13:22 | XMS_ITS | Encounter Summary ---
Author Organization [facility] Address [address] [address] Care Team Providers Care Roofer Name Role Phone No Primary/Referring, Shelly Primary Care Provider Unavailable Encounter Details Date Type Department Care Team (Latest Contact Info) Description 04/05/2000 Orders Only Geovani Fournier [facility] [id number] [place] [address], [address] Social History Tobacco Use Types Packs/Day Years Used Date Smoking Tobacco: Never Assessed Sex and Gender Information Value Date Recorded Sex Assigned at Not on file Gender Identity Not on file Sexual Orientation Not on file documented as of this encounter Plan of Treatment Not on file documented as of this encounter Visit Diagnoses Not on filedocumented in this encounter Care Teams Roofer Relationship Specialty Start Date End Date No Primary/ReferringShelly PCP - General 11/17/21 documented as of this encounter
--- OUTSIDE RECORDS SUMMARY | 2024-02-16 13:22 | XMS_ITS | Encounter Summary ---
Author Organization [facility] Address [address] [address] Care Team Providers Care Maintenance Of Way Clerk Name Role Phone No Primary/Referring, Phy Primary Care Provider Unavailable Encounter Details Date Type Department Care Team (Latest Contact Info) Description 05/12/1995 Orders Only Nila Krueger MD Social History [...] on filedocumented in this encounter Care Teams Maintenance Of Way Clerk Relationship Specialty Start Date End Date No Primary/Referring, Shelly PCP - General 11/17/21 documented as of this encounter
--- OUTSIDE RECORDS SUMMARY | 2024-02-16 13:22 | XMS_ITS | Encounter Summary ---
Author Organization [facility] Address [address] [place] [address] Care Team Providers Care Farrowing Worker Name Role Phone No Primary/Referring, Shelly Primary Care Provider Unavailable Encounter Details Date Type Department Care Team (Late st Contact Info) Description 12/05/2003 Hospital External to Shirley Astudillo MD [id number] [facility] Suicide attempt Social History Tobacco Use Types Packs/Day Years [...] on file documented as of this encounter Progress Notes * Shirley Astudillo - 12/05/2003 12:00 AM WHEEL CLEANER L CLEANER documented in this encounter Plan of Treatment Not on file documented as of this encounter Visit Diagnoses Not on filedocumented in this encounter Care Teams Farrowing Worker Relationship Specialty Start Date End Date No Primary/ReferringShelly PCP - General 11/17/21 documented as of this encounter
--- OUTSIDE RECORDS SUMMARY | 2024-02-16 13:22 | XMS_ITS | Encounter Summary ---
Author Organization [facility] Address [address] [address] Care Team Providers Care Machine Feeder Raw Stock Name Role Phone No Primary/Referring, Phy Primary Care Provider Unavailable Encounter Details Date Type Department Care Team (Latest Contact Info) Description 06/07/1995 Orders Only Mary Orellana MD [address] [place] [address] Social History Tobacco Use Types Packs/Day Years Used Date Smoking Tobacco: Never Assessed Sex and Gender Information Value Date Recorded Sex Assigned at Not on file Gender Identity Not on file Sexual Orientation Not on file documented as of this encounter Plan of Treatment Not on file documented as of this encounter Visit Diagnoses Not on filedocumented in this encounter Care Teams Machine Feeder Raw Stock Relationship Specialty Start Date End Date No Primary/Referring, Narcisay PCP - General 11/17/21 documented as of this encounter
--- OUTSIDE RECORDS SUMMARY | 2024-02-16 13:23 | XMS_ITS | Encounter Summary ---
Author Organization [facility] Address [address] [place] [address] Care Team Providers Care Adult Literacy Teacher Name Role Phone Justus Zaidi MD Primary Care Provider [phone] Justus Zaidi MD Unavailable [phone] Georges Davalos DPM Unavailable [phone] Justus Zaidi MD Unavailable [phone] Lucero Melendez NP Unavailable [phone] Christine Morel Unavailable [phone] Mony Plascencia CHW Unavailable [phone] Lucero Melendez BOOK RETAILER Unavailable [phone] Reason for Visit * Reason Onset Date Comments Refill Request 04/01/2023 Encounter Details Date Type Department Care Team (Late st Contact Info) Description 04/01/2023 [facility] [address] [place] [address] Justus Zaidi MD [address] [place] [address] [place] [address] Refill Request Social History Tobacco Use Types Packs/Day Years [...] PHQ-2 Answer Date Recorded PHQ-2 Score 0 11/09/2022 Hunger Vital Sign Answer Date Recorded Within [...] place to sleep or slept in a intermediate (including now)? No 11/26/2022 Sex and Gender Information Value Date Recorded Sex Assigned at Female 03/22/2022 5:14 PM CDT Gender Identity Female 03/22/2022 5:14 PM CDT Sexual Orientation Straight 03/22/2022 5: 14 PM CDT COVID-19 Exposure Response Date Recorded In the last 10 days, have yo u been in contact with someone who was confirmed or suspected to have Coronavirus/COVID-19? No / Unsure 03/02/2023 11:51 AM CDT documented as of this encounter Miscellaneous Notes * Telephone Encounter - Justus Zaidi MD - 04/04/2023 8:09 PM CDT Sent in refill- with appointment tomorrow needs urine drug screen. Needs to establish with pain or we will start tapering. * Telephone Encounter - Norma Lopez RN - 04/01/2023 10:43 PM CDT Routing refill request to provider for review/approval because: Controlled substance Last Written Prescription Date: 03/08/23 Last Fill Quantity: 90, # refills: 0 Last office visit provider: 01/12/23 Requested Prescriptions Pending Prescriptions Disp Refills ??? oxyCODONE-acetaminophen (PERCOCET) 5-325 MG tablet 90 tablet 0 Sig: Take 1 tablet by mouth 3 times daily as needed for pain There is no refill protocol information for this order Norma Lopez RN 04/01/23 10:43 PM documented in this encounter Plan of Treatment Not on file documented as of this encounter Goals Goal Patient Goal Type Associated Problems Recent Progress Patient-Stated? Author I will utilize all [facility] programs I am eligible for as well [...] at scheduled outreach telephone calls from the [facility] team. Continuous (MB) documented as of this encounter Visit Diagnoses Diagnosis Chronic, continuous use of opioids- Primary Opioid type dependence, continuous Acute right-sided low back pain with right-sided sciatica documented in this encounter Additional Health Concerns Active Problems Noted Date Diagnosed Date Diet management 11/26/2022 Patient expresses financial resource strain 11/2022 Assessment Noted Time PHQ-9 Depression Total Score: 3 03/22/20 22 4:47 PM CDT documented as of this encounter Care Teams Adult Literacy Teacher Relationship Specialty Start Date End Date Justus Zaidi MD [address] [place] [place] [address] PCP - General Internal Medicine - Pediatrics 03/22/22 Justus Zaidi MD [address] [place] [address] Assigned PCP 11/20/22 Georges Davalos DPM [address] [place] [address] [address] [place] [address] Assigned Surgical Provider 10/30/22 Justus Zaidi MD [address] [place] [address] Assigned Pain Medication Provider 11/27/22 10/07/23 [place] [address] [address] [address] Nurse Practitioner Nurse Practitioner 02/10/23 Christine Morel APN Lead Job Training Supervisor 02/10/23 3 Mony Plascencia [facility] Community Health Worker 02/11/2304/04 Lucero Melendez, VIJAYA [address] [address] [address] Nurse Practitioner Nurse Practitioner 04/06/23 documented as of this encounter
--- OUTSIDE RECORDS SUMMARY | 2024-02-16 13:23 | XMS_ITS | Encounter Summary ---
Author Organization [facility] Address [address] [place] [address] Care Team Providers Care Glove Operator Name Role Phone Justus Zaidi MD Primary Care Provider [phone] Justus Zaidi MD Unavailable [phone] Georges Davalos DPM Unavailable [phone] Mony Plascencia CHW Unavailable [phone] Noris Smith STEM MAKER Unavailable Unavailabl e Justus Zaidi MD Unavailable [phone] Lucero Melendez CONTACT LENS MANUFACTURER Unavailable [phone] Christine Morel STEM MAKER Unavailable [phone] Mony Plascencia CHW Unavailable [phone] Lucero Melendez NP Unavailable [phone] Encounter Details Date Type Department Care Team (Late st Contact Info) Description 12/28/2022 Aravind Samuel [address] [address] Justus Zaidi MD [address] [place] [address] [place] [address] Social History Tobacco Use Types Packs/Day [...] place to sleep or slept in a [place] [facility] facility (including now)? No 11/26/2022 Sex and Gender Information Value Date Recorded Sex Assigned at Female 03/22/2022 5:14 PM CDT Gender Identity Female 03/22/2022 5:14 PM CDT Sexual Orientation Straight 03/22/2022 5: 14 PM CDT documented as of this encounter Plan of Treatment Not on file documented as of this encounter Goals Goal Patient Goal Type Associated Problems Recent Progress Patient-Stated? Author I will utilize all [facility] programs I am eligible for as well [...] goal: 1. I will work with the [facility] to complete all forms and provide [...] at scheduled outreach telephone calls from the [facility] team. Continuous (MB) documented as of this encounter Visit Diagnoses Not on filedocumented in this encounter Additional Health Concerns Active Problems Noted Date Diagnosed Date Diet management 11/26/2022 Patient expresses financial resource strain 11/2022 Assessment Noted Time PHQ-9 Depression Total Score: 3 03/22/20 22 4:47 PM CDT documented as of this encounter Care Teams Glove Operator Relationship Specialty Start Date End Date Justus Zaidi MD [address] [place] [address] PCP - General Internal Medicine - Pediatrics 03/22/22 Justus Zaidi MD [address] [place] [address] Assigned PCP 11/20/22 Georges Davalos DPM Community [facility] [address] [place] [address] Assigned Surgical Provider 10/30/22 Mony Plascencia CHW Community Health Worker 11/26/2202/10 Noris Smith LICSW Lead Human Service Specialist 11/26/22 02/11/23 Justus Zaidi MD [address] [place] [address] [address] Assigned Pain Medication Provider 11/27/22 10/07/23 [place] [address] [address] [address] Nurse Practitioner Nurse Practitioner 02/10/23 Christine Morel [facility] Lead Human Service Specialist 02/10/23 3 Mony Plascencia, [facility] Community Health Worker 02/11/2304/04 [place] [address] [address] [address] Nurse Practitioner Nurse Practitioner 04/06/23 documented as of this encounter
--- OUTSIDE RECORDS SUMMARY | 2024-02-16 13:23 | XMS_ITS | Encounter Summary ---
Author Organization [facility] Address [address] [place] [address] Care Team Providers Care Computer Graphics Illustrator Name Role Phone Justus Zaidi MD Primary Care Provider [phone] Justus Zaidi MD Unavailable [phone] Georges Davalos DPM Unavailable [phone] Justus Zaidi MD Unavailable [phone] Lucero Melendez OPTICAL MANAGER Unavailable [phone] Lucero Melendez OPTICAL MANAGER Unavailable [phone] Encounter Details Date Type Department Care Team (Late st Contact Info) Description 05/04/2023 [facility] Advice [address] [address] Justus Zaidi MD [address] [facility] [place] [address] Social History Tobacco Use Types Packs/Day [...] suspected to have Coronavirus/COVID-19? No / Unsure 04/27/2023 10:01 AM CDT documented as of this encounter Plan of Treatment Not on file documented as of this encounter Goals Goal Patient Goal Type Associated Problems Recent Progress Patient-Stated? Author I will utilize all [facility] programs I am eligible for as [...] goal: 1. I will work with the [facility] to complete all forms and provide [...] at scheduled outreach telephone calls from the [facility] team. Continuous (MB) documented as of this encounter Visit Diagnoses Not on filedocumented in this encounter Additional Health Concerns Active Problems Noted Date Diagnosed Date Diet management 11/26/2022 Patient expresses financial resource strain 11/2022 Assessment Noted Time PHQ-9 Depression Total Score: 0 04/11/20 23 8:32 AM CDT documented as of this encounter Care Teams Computer Graphics Illustrator Relationship Specialty Start Date End Date Justus Zaidi MD [address] [place] [address] PCP - General Internal Medicine - Pediatrics 03/22/22 Justus Zaidi MD [address] [place] [address] Assigned PCP 11/20/22 Georges Davalos DPM [address] [place] [address] [address] [place] [address] Assigned Surgical Provider 10/30/22 Justus Zaidi MD [address] [place] [address] [place] [address] Assigned Pain Medication Provider 11/27/22 10/07/23 [place] [address] [address] [address] Nurse Practitioner Nurse Practitioner 02/10/23 [place] [address] [address] [address] Nurse Practitioner Nurse Practitioner 04/06/23 documented as of this encounter
--- OUTSIDE RECORDS SUMMARY | 2024-02-16 13:23 | XMS_ITS | Encounter Summary ---
Author Organization [facility] Address [address] [place] [address] Care Team Providers Care Laboratory Apparatus Glass Grinder Name Role Phone Justus Zaidi MD Primary Care Provider [phone] Justus Zaidi MD Unavailable [phone] Georges Davalos DPM Unavailable [phone] Mony Plascencia CHW Unavailable [phone] Noris Smith DIAGNOSTIC IMAGING MANAGER Unavailable Unavailabl e Justus Zaidi MD Unavailable [phone] Lucero Melendez NP Unavailable [phone] Christine Morel DIAGNOSTIC IMAGING MANAGER Unavailable [phone] Mony Plascencia CHW Unavailable [phone] Lucero Melendez NP Unavailable [phone] Encounter Details Date Type Department Care Team (Late st Contact Info) Description 11/30/2022 [facility] Medical [address] [address] Justus Zaidi MD [address] [facility] [place] [address] Social History Tobacco Use Types Packs/Day [...] in a halfway (including now)? No 11/26/2022 Sex and Gender Information Value Date Recorded Sex Assigned at Female 03/22/2022 5:14 PM CDT Gender Identity Female 03/22/2022 5:14 PM CDT Sexual Orientation Straight 03/22/2022 5: 14 PM CDT COVID-19 Exposure Response Date Recorded In the last 10 days, have yo u been in contact with someone who was confirmed or suspected to have Coronavirus/COVID-19? No / Unsure 11/12/2022 8:23 AM DOPE EDGER documented as of this encounter Plan of Treatment Not on file documented as of this encounter Goals Goal Patient Goal Type Associated Problems Recent Progress Patient-Stated? Author I will utilize all [facility] programs I am eligible for as [...] goal: 1. I will work with the [facility] to complete all forms and provide [...] at scheduled outreach telephone calls from the [facility] team. Continuous (MB) documented as of this encounter Visit Diagnoses Not on filedocumented in this encounter Additional Health Concerns Active Problems Noted Date Diagnosed Date Diet management 11/26/2022 Patient expresses financial resource strain 11/2022 Assessment Noted Time PHQ-9 Depression Total Score: 3 03/22/20 22 4:47 PM CDT documented as of this encounter Care Teams Laboratory Apparatus Glass Grinder Relationship Specialty Start Date End Date Justus Zaidi MD [address] [place] [address] [place] [address] PCP - General Internal Medicine - Pediatrics 03/22/22 Justus Zaidi MD [address] [place] [address] [place] [address] Assigned PCP 11/20/22 Georges Davalos DPM [address] [place] [address] [address], [place] [address] Assigned Surgical Provider 10/30/22 Mony Plascencia W Community Health Worker 11/26/2202/10 Noris Smith LICSW Lead Health And Human Performance Professor 11/26/22 02/11/23 [place] [address] [place] [address] [address] [address] Assigned Pain Medication Provider 11/27/22 10/07/23 [place] [address] [address] [address] Nurse Practitioner Nurse Practitioner 02/10/23 Christine Morel LICSW Lead Health And Human Performance Professor 02/10/23 Mony Carlson, [facility] Community Health Worker 02/11/2304/04 [place] [address] [address] [address] Nurse Practitioner Nurse Practitioner 04/06/23 documented as of this encounter
--- OUTSIDE RECORDS SUMMARY | 2024-02-16 13:23 | XMS_ITS | Encounter Summary ---
Author Organization [place] [facility] Address [address] [place] [address] Care Team Providers Care Epidemiology Intern Name Role Phone Justus Zaidi MD Primary Care Provider [phone] Justus Zaidi MD Unavailable [phone] Georges Davalos DPM Unavailable [phone] Mony Plascencia CHW Unavailable [phone] Noris Smith EDUCATION ASSOCIATE Unavailable Unavailabl e Justus Zaidi MD Unavailable [phone] Lucero Melendez REMOTE SENSING RESEARCH SCIENTIST Unavailable [phone] Christine Morel EDUCATION ASSOCIATE Unavailable [phone] Mony Plascencia CHW Unavailable [phone] Lucero Melendez NP Unavailable [phone] Reason for Visit * Reason Onset Date Comments Patient Request 12/27/2022 Refill Request 12/27/2022 Encounter Details Date Type Department Care Team (Late st Contact Info) Description 12/27/[address] [address] Justus Zaidi MD [address] [place] [address] [place] [address] Patient Request; Refill Request Social History Tobacco Use Types [...] a senior living (including now)? No 11/26/2022 Sex and Gender Information Value Date Recorded Sex Assigned at Female 03/22/2022 5:14 PM CDT Gender Identity Female 03/22/2022 5:14 PM CDT Sexual Orientation Straight 03/22/2022 5: 14 PM CDT documented as of this encounter Miscellaneous Notes * Telephone Encounter - TamaraSheltonnadirLULI - 12/27/2022 2:10 PM CDT Patient calling back. Patient went to [facility] to peanut picker the refill and spoke to PharmacistKitty. Pharmacist relayed to patient that the prescription cannot be refilled as written and without callinginsurance. Patient is asking if MD could call Kitty at [facility] [phone] with any questions or directions. MD will also need to request a quantity exception and contact [place] Medicaid Insurance [phone] * Telephone Encounter - Betsy Mcdonald LISW - 12/27/2022 9:53 AM CDT Patient received a call from the [facility] this morning regarding prescription received for oxyCODONE-acetaminophen (PERCOCET) 5-325 MG tablet 60 tablet [facility] states they were unable to fill the new prescription received on 12/23/22 due to patient having new insurance. Pharmacy said the MD will need to ask for a quantity exception. Pharmacy said MD will also need to call insurance. Pharmacy was also going to fax over a form request for this. Insurance Company: [place] Medicaid ([facility]) - Pharmacy Filling the Rx: [facility] #[id number] - [place], [place] - [address] [facility] Filling Pharmacy Filling Pharmacy Patient said they are going out of town today for the week and will need to have this prescription filled as soon as possible. Please call patient with any questions at [phone] Thank you documented in this encounter Plan of Treatment Not on file documented as of this encounter Goals Goal Patient Goal Type Associated Problems Recent Progress Patient-Stated? Author I will utilize all [facility] programs I am eligible for as well as look at Social Security Disability application, and affordable prescriptions for my son. Care Plan Patient expresses financial resource strain 70%( 10:03 AM CDT) Roxann Wilde LSW Note: Barriers: time it takes to process applications. Strengths: I have completed applications. Patient expressed understanding of goal: yes Action steps to achieve this goal: 1. I will work with the [facility] to complete all forms and provide [...] at scheduled outreach telephone calls from the [facility] team. Continuous (MB) documented as of this encounter Visit Diagnoses Not on filedocumented in this encounter Additional Health Concerns Active Problems Noted Date Diagnosed Date Diet management 11/26/2022 Patient expresses financial resource strain 11/2022 Assessment Noted Time PHQ-9 Depression Total Score: 3 03/22/20 22 4:47 PM CDT documented as of this encounter Care Teams Epidemiology Intern Relationship Specialty Start Date End Date Justus Zaidi MD [address] [place] [address] PCP - General Internal Medicine - Pediatrics 03/22/22 Justus Zaidi MD [facility] [place] [address] [address] Assigned PCP 11/20/22 Georges Davalos DPM [address] [place] [address] [address] [place] [address] Assigned Surgical Provider 10/30/22 Mony Plascencia, Paulette Community Health Worker 11/26/2202/10 Noris Smith LICSW Lead Project Engineer 11/26/22 02/11/23 Justus Zaidi MD [address] [place] [address] [address] Assigned Pain Medication Provider 11/27/22 10/07/23 Lucero Melendez, REMOTE SENSING RESEARCH SCIENTIST [address] [address] Nurse Practitioner Nurse Practitioner 02/10/23 Christine Morel LICSW Lead Project Engineer 02/10/23 3 Mony Plascencia, [facility] Community Health Worker 02/11/2304/04 [place] [address] [address] [place] [address] Nurse Practitioner Nurse Practitioner 04/06/23 documented as of this encounter
--- OUTSIDE RECORDS SUMMARY | 2024-02-16 13:23 | XMS_ITS | Encounter Summary ---
Author Organization [facility] Address [address] [place] [address] Care Team Providers Care Deputy Chief Magistrate Name Role Phone Justus Zaidi MD Primary Care Provider [phone] Justus Zaidi MD Unavailable [phone] Georges Davalos DPM Unavailable [phone] Mony Plascencia CHW Unavailable [phone] Noris Smith VENTILATION EQUIPMENT TENDER Unavailable Unavailabl e Justus Zaidi MD Unavailable [phone] Lucero Melendez DOCUMENT MANAGEMENT TECHNICIAN Unavailable [phone] Christine Morel VENTILATION EQUIPMENT TENDER Unavailable [phone] Mony Plascencia CHW Unavailable [phone] Lucero Melendez NP Unavailable [phone] Reason for Visit * Reason Onset Date Comments Prior Auth - Medication 12/23/2022 Semaglut clint, 1 MG/DOSE, (OZEMPIC, 1 MG/DOSE,) 4 MG/3ML SOPN - Denied Encounter Details Date Type Department Care Team (Late st Contact Info) Description 12/23/2022 Telephone [facility] [address] [place] [address] Justus Zaidi MD [facility] [place] [address] Prior Auth - Medication (Semaglutide, 1 MG/DOSE, (OZEMPIC, 1 MG/DOSE,) 4 MG/3ML SOPN - Denied) Social History Tobacco Use Types Packs/Day Years [...] place to sleep or slept in a mcfp (including now)? No 11/26/2022 Sex and Gender Information Value Date Recorded Sex Assigned at Female 03/22/2022 5:14 PM CDT Gender Identity Female 03/22/2022 5:14 PM CDT Sexual Orientation Straight 03/22/2022 5: 14 PM CDT documented as of this encounter Miscellaneous Notes * Telephone Encounter - Justus Zaidi MD - 12/28/2022 2:34 PM CDT Please let patient know below. * Telephone Encounter - Ar Mckeon - 12/28/2022 8:25 AM CDT Images from the original note were not included. PRIOR AUTHORIZATION DENIED Medication: Semaglutide, 1 MG/DOSE, (OZEMPIC, 1 MG/DOSE,) 4 MG/3ML SOPN - Denied Denial Date: 12/27/2022 Denial Rational: Appeal Information: * Telephone Encounter - Ar Mckeon - 12/24/2022 2:46 PM CDT Images from the original note were not included. PA Initiation Medication: Semaglutide, 1 MG/DOSE, (OZEMPIC, 1 MG/DOSE,) 4 MG/3ML SOPN - Initiated Insurance Company: [place] Medicaid ([facility]) - Pharmacy Filling the Rx: [facility] #[id number] - [place], [place] - [address] [facility] Filling Pharmacy Filling Pharmacy Start Date: 12/24/2022 * Telephone Encounter - Mariana Kumari ARRT - 12/23/2022 2:19 PM CDT Semaglutide, 1 MG/DOSE, (OZEMPIC, 1 MG/DOSE,) 4 MG/3ML SOPN Please initiate PA, med/dosage not covered by insurance. documented in this encounter Plan of Treatment Not on file documented as of this encounter Goals Goal Patient Goal Type Associated Problems Recent Progress Patient-Stated? Author I will utilize all [facility] programs I am eligible for as [...] goal: 1. I will work with the [facility] to complete all forms and provide [...] at scheduled outreach telephone calls from the [facility] team. Continuous (MB) documented as of this encounter Visit Diagnoses Not on filedocumented in this encounter Additional Health Concerns Active Problems Noted Date Diagnosed Date Diet management 11/26/2022 Patient expresses financial resource strain 11/2022 Assessment Noted Time PHQ-9 Depression Total Score: 3 03/22/20 22 4:47 PM CDT documented as of this encounter Care Teams Deputy Chief Magistrate Relationship Specialty Start Date End Date Justus Zaidi MD [address] [place] [address] [place] [address] PCP - General Internal Medicine - Pediatrics 03/22/22 Justus Zaidi MD [address] [place] [address] [place] [address] Assigned PCP 11/20/22 Georges Davalos DPM [address] [place] [address] [place], [place] [address] Assigned Surgical Provider 10/30/22 Mony Plascencia W Community Health Worker 11/26/2202/10 Noris Smith LICSW Lead Client Advocate 11/26/22 02/11/23 [place] [address] [place] [address] [address] [address] Assigned Pain Medication Provider 11/27/22 10/07/23 [place] [address] [address] [address] Nurse Practitioner Nurse Practitioner 02/10/23 Christine Morel LICSW Lead Client Advocate 02/10/23 Mony Carlson, [facility] Community Health Worker 02/11/2304/04 [place] [address] [address] [address] Nurse Practitioner Nurse Practitioner 04/06/23 documented as of this encounter
--- OUTSIDE RECORDS SUMMARY | 2024-02-16 13:23 | XMS_ITS | Encounter Summary ---
Author Organization [facility] Address [address] [place] [address] Care Team Providers Care Business Project Analyst Name Role Phone Justus Zaidi MD Primary Care Provider [phone] Justus Zaidi MD Unavailable [phone] Georges Davalos DPM Unavailable [phone] Mony Plascencia CHW Unavailable [phone] Noris Smith WELT MAKER Unavailable Unavailabl e Justus Zaidi MD Unavailable [phone] Lucero Melendez NP Unavailable [phone] Christine Morel WELT MAKER Unavailable [phone] Mony Plascencia CHW Unavailable [phone] Lucero Melendez NP Unavailable [phone] Encounter Details Date Type Department Care Team (Late st Contact Info) Description 01/10/2023 [facility] [address] [address] Justus Zaidi MD [address] [facility] [place] [address] Social History Tobacco Use Types [...] place to sleep or slept in a longterm (including now)? No 11/26/2022 Sex and Gender Information Value Date Recorded Sex Assigned at Female 03/22/2022 5:14 PM CDT Gender Identity Female 03/22/2022 5:14 PM CDT Sexual Orientation Straight 03/22/2022 5: 14 PM CDT documented as of this encounter Miscellaneous Notes * Telephone Encounter - Jeni Correa RN - 01/11/2023 11:15 AM CDT See MyChart from Patient needing PCP review. Please respond directly to patient, if at all able. Next available is 02/22, are you ok with that? YONATAN Ngo [facility] documented in this encounter Plan of Treatment Not on file documented as of this encounter Goals Goal Patient Goal Type Associated Problems Recent Progress Patient-Stated? Author I will utilize all critical access hospital programs I am eligible for as [...] goal: 1. I will work with the [facility] to complete all forms and provide documentation. I let my CHW know that I have been approved for SNAP, [place] and Medical Assistance. Completed 2. I will contact Social Security or Disability Specialists to discuss options. I will call Disability Specialists soon to discuss Social Security Disability. 3. I will work with [facility] to see if there is any options for medications for my son until he is on MA. Myself and my family have been approved for Medical Assistance. Completed 3. I will report progress towards this goal at scheduled outreach telephone calls from the [facility] team. Continuous (MB) documented as of this encounter Visit Diagnoses Not on filedocumented in this encounter Additional Health Concerns Active Problems Noted Date Diagnosed Date Diet management 11/26/2022 Patient expresses financial resource strain 11/2022 Assessment Noted Time PHQ-9 Depression Total Score: 3 03/22/20 22 4:47 PM CDT documented as of this encounter Care Teams Business Project Analyst Relationship Specialty Start Date End Date Justus Zaidi MD [address] [place] [address] PCP - General Internal Medicine - Pediatrics 03/22/22 Justus Zaidi MD [address] [place] [address] [address] Assigned PCP 11/20/22 Georges Davalos DPM [address] [place] [address] Assigned Surgical Provider 10/30/22 Mony Plascencia [facility] Community Health Worker 11/26/2202/10 Noris Smith WELT MAKER Lead Oil Burner Repairer 11/26/22 02/11/23 Justus Zaidi MD [address] [place] [address] [place] [id number] Assigned Pain Medication Provider 11/27/22 10/07/23 [place] [address] [address] [place] [address] Nurse Practitioner Nurse Practitioner 02/10/23 Christine Morel [facility] Lead Oil Burner Repairer 02/10/23 3 Mony Plascencia, [facility] Community Health Worker 02/11/2304/04 [place] [address] [place] [address] Nurse Practitioner Nurse Practitioner 04/06/23 documented as of this encounter
--- OUTSIDE RECORDS SUMMARY | 2024-02-16 13:23 | XMS_ITS | Encounter Summary ---
Author Organization [facility] Address [address] [place] [address]. [place] [address] Care Team Providers Care Buffing Wheel Presser Name Role Phone Justus Zaidi MD Primary Care Provider [phone] Justus Zaidi MD Unavailable [phone] Georges Davalos DPM Unavailable [phone] Justus Zaidi MD Unavailable [phone] Lucero Melendez NP Unavailable [phone] Christine Morel Unavailable [phone] Mony Plascencia CHW Unavailable [phone] Lucero Melendez NP Unavailable [phone] Encounter Details Date Type Department Care Team (Late st Contact Info) Description 02/16/2023 MyC Medical Advice [facility] [address] [place] [address] Justus Zaidi MD [address] [facility] [place] [address] Social History Tobacco Use Types Packs/Day [...] place to sleep or slept in a prison (including now)? No 11/26/2022 Sex and Gender Information Value Date Recorded Sex Assigned at Female 03/22/2022 5:14 PM CDT Gender Identity Female 03/22/2022 5:14 PM CDT Sexual Orientation Straight 03/22/2022 5: 14 PM CDT COVID-19 Exposure Response Date Recorded In the last 10 days, have yo u been in contact with someone who was confirmed or suspected to have Coronavirus/COVID-19? Unable to assess 02/10/2023 2:55 PM CDT documented as of this encounter Plan of Treatment Not on file documented as of this encounter Goals Goal Patient Goal Type Associated Problems Recent Progress Patient-Stated? Author I will utilize all [facility] programs I am eligible for as well as look at Social Security Disability application, and affordable prescriptions for my son. Care Plan Patient expresses financial resource strain 70%( 3 10:03 AM CDT) No Cibuzar, Roxann, CAL[employer]INNER Note: Barriers: time it takes to process applications. Strengths: I have completed applications. Patient expressed understanding of goal: yes Action steps to achieve this goal: 1. I will work with the County to complete all forms and provide documentation. [...] at scheduled outreach telephone calls from the [facility] team. Continuous (MISTI) documented as of this encounter Visit Diagnoses Not on filedocumented in this encounter Additional Health Concerns Active Problems Noted Date Diagnosed Date Diet management 11/26/2022 Patient expresses financial resource strain 11/2022 Assessment Noted Time PHQ-9 Depression Total Score: 3 03/22/20 22 4:47 PM CDT documented as of this encounter Care Teams Buffing Wheel Presser Relationship Specialty Start Date End Date Justus Zaidi MD [address] [place] [address] PCP - General Internal Medicine - Pediatrics 03/22/22 Justus Zaidi MD [address] [place] [address] [place] [address] Assigned PCP 11/20/22 Georges Davalos DPM [facility] [facility] [address] [place] [address] Assigned Surgical Provider 10/30/22 Justus Zaidi MD [address] [place] [address] Assigned Pain Medication Provider 11/27/22 10/07/23 [place] [address] [place] [address] [address] Nurse Practitioner Nurse Practitioner 02/10/23 Christine Morel, [facility] Lead Deflector Operator 02/10/23 3 [facility] Worker 02/11/2304/04 [place] [address] [place] [address] [address] Nurse Practitioner Nurse Practitioner 04/06/23 documented as of this encounter
--- OUTSIDE RECORDS SUMMARY | 2024-02-16 13:23 | XMS_ITS | Encounter Summary ---
Author Organization [facility] Address [address] [place] [address] Care Team Providers Care Sales Support Manager Name Role Phone Justus Zaidi MD Primary Care Provider [phone] Justus Zaidi MD Unavailable [phone] Georges Davalos DPM Unavailable [phone] Justus Zaidi MD Unavailable [phone] Lucero Melendez NP Unavailable [phone] Lucero Melendez MERCHANDISE DISTRIBUTOR Unavailable [phone] Reason for Visit * Reason Onset Date Comments Prior Auth - Medication 04/06/2023 rofloxac in-dexamethasone (CIPRODEX) 0.3-0.1 % otic suspension - EPA DENIED Encounter Details Date Type Department Care Team (Late st Contact Info) Description 04/06/2023 Telephone [facility] [address] [place] [address] Kwesi Valdes MD [address] [place] [address] Prior Auth - Medication (rofloxacin-dexamethas one (CIPRODEX) 0.3-0.1 % otic suspension - EPA DENIED) Social History Tobacco Use Types Packs/Day Years [...] suspected to have Coronavirus/COVID-19? Unable to assess 04/06/2023 11:59 AM CDT documented as of this encounter Miscellaneous Notes * Telephone Encounter - Maryanne Larson - 04/06/2023 10:53 AM CDT Images from the original note were not included. PRIOR AUTHORIZATION DENIED Medication: CIPRODEX 0.3-0.1 % OT SUSP Insurance Company: [employer] [place] - Denial Date: 04/05/2023 Denial Rational: Appeal Information: Patient Notified: No documented in this encounter Plan of Treatment Not on file documented as of this encounter Goals Goal Patient Goal Type Associated Problems Recent Progress Patient-Stated? Author I will utilize all [facility] programs I am eligible for as well [...] Security Disability. 3. I will work with [facility] to see if there is any options for medications for my son until he is on MA. Myself and my family have been approved for Medical Assistance. Completed 3. I will report progress towards this goal at scheduled outreach telephone calls from the [facility] team. Continuous (MB) documented as of this encounter Visit Diagnoses Not on filedocumented in this encounter Additional Health Concerns Active Problems Noted Date Diagnosed Date Diet management 11/26/2022 Patient expresses financial resource strain 0 11/2022 Assessment Noted Time PHQ-9 Depression Total Score: 3 03/22/20 22 4:47 PM CDT documented as of this encounter Care Teams Sales Support Manager Relationship Specialty Start Date End Date Justus Zaidi MD [address] [facility] [place] [address] PCP - General Internal Medicine - Pediatrics 03/22/22 Justus Zaidi MD [address] [facility] [place] [address] Assigned PCP 11/20/22 Georges Davalos DPM [address] [facility] [address] [place] [address] Assigned Surgical Provider 10/30/22 Justus Zaidi MD [address] [place] [address] [address] Assigned Pain Medication Provider 11/27/22 10/07/23 [place] [address] [place] [address] [address] Nurse Practitioner Nurse Practitioner 02/10/23 [place] [address] [place] [address] Nurse Practitioner Nurse Practitioner 04/06/23 documented as of this encounter
--- OUTSIDE RECORDS SUMMARY | 2024-02-16 13:23 | XMS_ITS | Encounter Summary ---
Author Organization [place] Address [address] [place] [address] Care Team Providers Care Hotel Dining Room Cashier Name Role Phone Justus Zaidi MD Primary Care Provider [phone] Justus Zaidi MD Unavailable [phone] Georges Davalos DPM Unavailable [phone] Justus Zaidi MD Unavailable [phone] Lucero Melendez NP Unavailable [phone] Christine Morel Unavailable [phone] Mony Plascencia CHW Unavailable [phone] Lucero Melendez PLANT FACILITIES TECHNICIAN Unavailable [phone] Encounter Details Date Type Department Care Team (Late st Contact Info) Description 03/09/2023 MyC Medical Advice [facility] Care Coordination [address] [place] [address] Mony Plascencia, [facility] Social History Tobacco Use Types Packs/Day Years [...] Progress Patient-Stated? Author I will utilize all [facility] programs I am eligible for as [...] goal: 1. I will work with the [facility] to complete all forms and provide [...] scheduled outreach telephone calls from the [facility] team. Continuous (MB) documented as of this encounter Visit Diagnoses Not on filedocumented in this encounter Additional Health Concerns Active Problems Noted Date Diagnosed Date Diet management 11/26/2022 Patient expresses financial resource strain 11/2022 Assessment Noted Time PHQ-9 Depression Total Score: 3 03/22/20 22 4:47 PM CDT documented as of this encounter Care Teams Hotel Dining Room Cashier Relationship Specialty Start Date End Date Justus Zaidi MD [address] [place] [address] PCP - General Internal Medicine - Pediatrics 03/22/22 Justus Zaidi MD [address] [place] [address] Assigned PCP 11/20/22 Georges Davalos DPM [facility] [facility] [address] [place] [address] Assigned Surgical Provider 10/30/22 Justus Zaidi MD [address] [place] [address] [address] Assigned Pain Medication Provider 11/27/22 10/07/23 [place] [address] [place] [address] [address] Nurse Practitioner Nurse Practitioner 02/10/23 Christine Morel FOREST RANGER Lead Manager Air 02/10/23 3 Mony Plascencia, [facility] Community Health Worker 02/11/2304/04 [place] [address] [place] [address] [address] Nurse Practitioner Nurse Practitioner 04/06/23 documented as of this encounter
--- OUTSIDE RECORDS SUMMARY | 2024-02-16 13:23 | XMS_ITS | Encounter Summary ---
Author Organization [place] Address [address] [place] [address] Care Team Providers Care Bean Snapper Name Role Phone Justus Zaidi MD Primary Care Provider [phone] Justus Zaidi MD Unavailable [phone] Georges Davalos DPM Unavailable [phone] Mony Plascencia CHW Unavailable [phone] Noris Smith AUTOMOBILE UPHOLSTERER Unavailable Unavailabl e Justus Zaidi MD Unavailable [phone] Lucero Melendez NP Unavailable [phone] Christine Morel AUTOMOBILE UPHOLSTERER Unavailable [phone] Mony Plascencia CHW Unavailable [phone] Lucero Melendez NP Unavailable [phone] Encounter Details Date Type Department Care Team (Late st Contact Info) Description 12/28/2022 [facility] [address] [address] Tang, ANISA Social History Tobacco Use Types Packs/Day Years [...] place to sleep or slept in a fdc (including now)? No 11/26/2022 Sex and Gender [...] will utilize all [facility] programs I am eligible for as [...] goal: 1. I will work with the [facility] to complete all forms and provide [...] at scheduled outreach telephone calls from the [facility] team. Continuous (MB) documented as of this encounter Visit Diagnoses Not on filedocumented in this encounter Additional Health Concerns Active Problems Noted Date Diagnosed Date Diet management 11/26/2022 Patient expresses financial resource strain 11/2022 Assessment Noted Time PHQ-9 Depression Total Score: 3 03/22/20 22 4:47 PM CDT documented as of this encounter Care Teams Bean Snapper Relationship Specialty Start Date End Date Justus Zaidi MD [facility] [address] [place] [address] PCP - General Internal Medicine - Pediatrics 03/22/22 Justus Zaidi MD [facility] [address] [place] [address] Assigned PCP 11/20/22 Georges Davalos DPM [address] [place] [address] [address] [place] [address] Assigned Surgical Provider 10/30/22 Mony Plascencia [facility] Community Health Worker 11/26/2202/10 Noris Smith LICSW Lead Import Export Manager 11/26/22 02/11/23 [place]us [place] [address] [place] [place] [address] Assigned Pain Medication Provider 11/27/22 10/07/23 [place] [address] [address] [address] Nurse Practitioner Nurse Practitioner 02/10/23 Christine Morel [facility] Lead Import Export Manager 02/10/23 3 Mony [facility] Community Health Worker 02/11/2304/04 [place] [address] [address] [address] Nurse Practitioner Nurse Practitioner 04/06/23 documented as of this encounter
--- OUTSIDE RECORDS SUMMARY | 2024-02-16 13:23 | XMS_ITS | Encounter Summary ---
Author Organization [place] Address [address] [place] [address] Care Team Providers Care Medical Information Officer Name Role Phone Justus Zaidi MD Primary Care Provider [phone] Justus Zaidi MD Unavailable [phone] Georges Davalos DPM Unavailable [phone] Mony Plascencia CHW Unavailable [phone] Noris Smith FIELD HUMAN RESOURCES MANAGER Unavailable Unavailabl e Justus Zaidi MD Unavailable [phone] Lucero Melendez NP Unavailable [phone] Christine Morel FIELD HUMAN RESOURCES MANAGER Unavailable [phone] Mony Plascencia CHW Unavailable [phone] Lucero Melendez NP Unavailable [phone] Encounter Details Date Type Department Care Team (Late st Contact Info) Description 02/09/2023 [facility] [address] [address] Justus Zaidi MD [address] [facility] [place] [address] Social History Tobacco Use Types Packs/Day [...] Telephone Encounter - Oralia Gomez RN - 02/14/2023 9:35 AM CDT Sending to PCP as an FYI for medications. Karn. Jason TAM [facility] * Telephone Encounter - Oralia Gomez RN - 02/09/2023 4:24 PM CDT Sending to PCP for review. Please review and advise on patient MyChart message. Karn. Jason TAM [facility] documented in this encounter Plan of Treatment Not on file documented as of this encounter Goals Goal Patient Goal Type Associated Problems Recent Progress Patient-Stated? Author I will utilize all [facility] programs I am eligible for as [...] goal: 1. I will work with the [facility] to complete all forms and provide documentation. I let my CHW know that I have been approved for SNAP, [place] and Medical Assistance. Completed 2. I will contact Social Security or Disability Specialists to discuss options. I will call Disability Specialists soon to discuss Social Security Disability. 3. I will work with [facility] to see if there is any options for medications for my son until he is on MA. Myself and my family have been approved for Medical Assistance. Completed 3. I will report progress towards this goal at scheduled outreach telephone calls from the [facility] team. Continuous (MB) documented as of this encounter Visit Diagnoses Not on filedocumented in this encounter Additional Health Concerns Active Problems Noted Date Diagnosed Date Diet management 11/26/2022 Patient expresses financial resource strain 11/2022 Assessment Noted Time PHQ-9 Depression Total Score: 3 03/22/20 4:47 PM CDT documented as of this encounter Care Teams Medical Information Officer Relationship Specialty Start Date End Date Justus Zaidi MD [address] [place] [address] PCP - General Internal Medicine - Pediatrics 03/22/22 Justus Zaidi MD [address] [place] [address] Assigned PCP 11/20/22 Georges Davalos DPM [address] [place] [address] [address] [place] [address] Assigned Surgical Provider 10/30/22 Mony Plascencia [facility] Community Health Worker 11/26/2202/10 Noris Smith LICSW Lead Keyseating Machine Set Up Operator 11/26/22 02/11/23 Justus Zaidi MD [address] [place] [address] [address] Assigned Pain Medication Provider 11/27/22 10/07/23 [place] [address] [address] [address] Nurse Practitioner Nurse Practitioner 02/10/23 Christine Morel FIELD HUMAN RESOURCES MANAGER Lead Keyseating Machine Set Up Operator 02/10/23 3 Mony Plascencia [facility] Community Health Worker 02/11/2304/04 [place] [address] [address] [address] Nurse Practitioner Nurse Practitioner 04/06/23 documented as of this encounter
--- OUTSIDE RECORDS SUMMARY | 2024-02-16 13:23 | XMS_ITS | Encounter Summary ---
Author Organization [place] Address [address] [place] [address]. [place] [address] Care Team Providers Care Evaporative Cooler Installer Name Role Phone Justus Zaidi MD Primary Care Provider [phone] Justus Zaidi MD Unavailable [phone] Georges Davalos DPM Unavailable [phone] Justus Zaidi MD Unavailable [phone] Lucero Melendez NP Unavailable [phone] Christine Morel Unavailable [phone] Mony Plascencia CHW Unavailable [phone] Lucero Melendez [place] Unavailable [phone] Reason for Visit * Reason Onset Date Comments Refill Request 03/07/2023 Encounter Details Date Type Department Care Team (Late st Contact Info) Description 03/07/2023 [facility] [address] [place] [address] Justus Zaidi MD [address] [facility] [place] [address] Refill Request Social History Tobacco Use [...] place to sleep or slept in a alf (including now)? No 11/26/2022 Sex and Gender [...] encounter Miscellaneous Notes * Telephone Encounter - Pema Camacho RN - 03/08/2023 11:46 AM CDT Routing refill request to provider for review/approval because: Drug not on the [facility] refill protocol Last Written Prescription Date: 02/18/23 Last Fill Quantity: 21, # refills: 0 Last office visit provider: 02/25/23 Requested Prescriptions Pending Prescriptions Disp Refills ??? oxyCODONE-acetaminophen (PERCOCET) 5-325 MG tablet 21 tablet 0 Sig: Take 1 tablet by mouth 3 times daily as needed for pain There is no refill protocol information for this order Pema Camacho RN 03/08/23 11:46 AM * Telephone Encounter - Pema Camacho RN - 03/08/2023 11:45 AM CDT Pt wondering about status on this prescription and wanting a call when it is filled. Ok to leave detailed VM when filled. She states she doesn't make it to [facility] not good about calling documented in this encounter Plan of Treatment Not on file documented as of this encounter Goals Goal Patient Goal Type Associated Problems Recent Progress Patient-Stated? Author I will utilize all [facility] programs I am eligible for as well [...] telephone calls from the [facility] team. Continuous (MB) documented as of this encounter Visit Diagnoses Diagnosis Acute right-sided low back pain with right-sided sciatica documented in this encounter Additional Health Concerns Active Problems Noted Date Diagnosed Date Diet management 11/26/2022 Patient expresses financial resource strain 11/2022 Assessment Noted Time PHQ-9 Depression Total Score: 3 03/22/20 22 4:47 PM CDT documented as of this encounter Care Teams Evaporative Cooler Installer Relationship Specialty Start Date End Date Justus Zaidi MD [address] [place] [address] PCP - General Internal Medicine - Pediatrics 03/22/22 Justus Zaidi MD [address] [place] [address] Assigned PCP 11/20/22 Georges Davalos DPM [address] [place] [address] [address], [place] [address] Assigned Surgical Provider 10/30/22 Justus Zaiid MD [address] [place] [address] Assigned Pain Medication Provider 11/27/22 10/07/23 [place] [address] [place] [address] Nurse Practitioner Nurse Practitioner 02/10/23 Christine Morel LICSW Lead Assistant Project Manager 02/10/23 Mony Carlson [facility] Community Health Worker 02/11/2304/04 [place] [address] [address] [address] Nurse Practitioner Nurse Practitioner 04/06/23 documented as of this encounter
--- OUTSIDE RECORDS SUMMARY | 2024-02-16 13:24 | XMS_ITS | Encounter Summary ---
Author Organization [place] Address [address] [place] [address] Care Team Providers Care Refrigeration Technician Name Role Phone Justus Zaidi MD Primary Care Provider [phone] Justus Zaidi MD Unavailable [phone] Georges Davalos DPM Unavailable [phone] Roxann Head SUPERINTENDENT REFUSE DISPOSAL Unavailable [phone] Mony Plascencia CHW Unavailable [phone] Noris Smith RESTAURANT DELIVERY DRIVER Unavailable Unavailabl e Justus Zaidi MD Unavailable [phone] Lucero Melendez MAGENTO DEVELOPER Unavailable [phone] Christine Morel RESTAURANT DELIVERY DRIVER Unavailable [phone] Mony Plascencia CHW Unavailable [phone] Lucero Melendez NP Unavailable [phone] Reason for Visit * Reason Onset Date Comments Prior Authorization 11/26/2022 checking status on PA 11/26/2022 Encounter Details Date Type Department Care Team (Late st Contact Info) Description 11/26/2022 [facility] [place] [address] Justus Zaidi MD [address] [place] [address] [place] [address] Prior Authorization; checking status on PA Social History Tobacco Use Types Packs/Day Years [...] Coronavirus/COVID-19? No / Unsure 11/12/2022 8:23 AM TELEVISION PRODUCTION TECHNICIAN documented as of this encounter Miscellaneous Notes * Telephone Encounter - Linda Iglesias - 11/29/2022 8:54 AM CST 11-29-22 Pt called checking status on PA, I stated its still in the process linda VISION PRODUCTION TECHNICIAN * Telephone Encounter - Polly Renteria - 11/26/2022 9:47 AM CST Pt has a percocet rx and needs a prior authorization Please call number below, anser the questions and Bump it up to urgent Please call pt when this has been done [phone] VISION PRODUCTION TECHNICIAN documented in this encounter Plan of Treatment Not on file documented as of this encounter Goals Goal Patient Goal Type Associated Problems Recent Progress Patient-Stated? Author I will utilize all count includes the [facility] programs I am eligible for as [...] goal: 1. I will work with the [facility] to complete all forms and provide documentation. I let my CHW know that I have been approved for SNAP, [place] and Medical Assistance. Completed 2. I will contact Social Security or Disability Specialists to discuss options. I will call Disability Specialists soon to discuss Social Security Disability. 3. I will work with [facility] to see if there is any options for medications for my son until he is on MA. Myself and my family have been approved for Medical Assistance. Completed 3. I will report progress towards this goal at scheduled outreach telephone calls from the [facility] team. Continuous (MB) documented as of this encounter Visit Diagnoses Not on filedocumented in this encounter Additional Health Concerns Active Problems Noted Date Diagnosed Date Diet management 11/26/2022 Patient expresses financial resource strain 11/2022 Assessment Noted Time PHQ-9 Depression Total Score: 3 03/22/20 22 4:47 PM CDT documented as of this encounter Care Teams Refrigeration Technician Relationship Specialty Start Date End Date Justus Zaidi MD [address] [place] [address] PCP - General Internal Medicine - Pediatrics 03/22/22 Justus Zaidi MD [address] [place] [address] Assigned PCP 11/20/22 Georges Davalos DPM [address] [place] [address] [address], [place] [address] Assigned Surgical Provider 10/30/22 Roxann Head SUPERINTENDENT REFUSE DISPOSAL Lead Cement Cutter Primary Care - CC 11/26/22 oMny Plascencia, [facility] Community Health Worker 11/26/2202/10 Noris Smith LICSW Lead Cement Cutter 11/26/22 02/11/23 Justus Zaidi MD [address] [place] [address] Assigned Pain Medication Provider 11/27/22 10/07/23 Lucero Melendez, VIJAYA [address] [place] [address] Nurse Practitioner Nurse Practitioner 02/10/23 Christine Morel LICSW Lead Cement Cutter 02/10/23 3 Mony Plascencia, [facility] Community Health Worker 02/11/2304/04 [place] [address] [address] [address] Nurse Practitioner Nurse Practitioner 04/06/23 documented as of this encounter
--- OUTSIDE RECORDS SUMMARY | 2024-02-16 13:24 | XMS_ITS | Encounter Summary ---
Author Organization [facility] Address [address] [place] [address] Care Team Providers Care Carpet Sewer Name Role Phone Justus Zaidi MD Primary Care Provider [phone] Justus Zaidi MD Unavailable [phone] Justus Zaidi MD Unavailable [phone] Justus Zaidi MD Unavailable [phone] Georges Davalos DPM Unavailable [phone] Justus Zaidi MD Unavailable [phone] Georges Davalos DPM Unavailable [phone] Roxann Head TIE PULLER Unavailable [phone] Mony Plascencia CHW Unavailable [phone] Noris Smith VIDEOTAPE RECORDING ENGINEER Unavailable Unavailabl e Justus Zaidi MD Unavailable [phone] Lucero Melendez NP Unavailable [phone] Christine Morel VIDEOTAPE RECORDING ENGINEER Unavailable [phone] Mony Plascencia CHW Unavailable [phone] Lucero Melendez NP Unavailable [phone] Encounter Details Date Type Department Care Team (Late st Contact Info) Description 08/16/2022 MyC Medical Advice [facility] [address] [place] [address] [place] [phone] Justus Zaidi MD [address] [place] [address] Social History Tobacco Use Types Packs/Day Years Used Date Smoking Tobacco: Never Cigarettes Comments:2 cigs per day Alcohol Use Standard Drinks/Week Comments No 0 (1 standard drink = 0.6 oz pur e alcohol) social PHQ-2 Answer Date Recorded PHQ-2 Score 0 07/15/2022 Sex and Gender Information Value Date Recorded Sex Assigned at Female 03/22/2022 5:14 PM CDT Gender Identity Female 03/22/2022 5:14 PM CDT Sexual Orientation Straight 03/22/2022 5: 14 PM CDT documented as of this encounter Plan of Treatment Not on file documented as of this encounter Visit Diagnoses Not on filedocumented in this encounter Additional Health Concerns Assessment Noted Time PHQ-9 Depression Total Score: 3 03/22/20 4:47 PM CDT documented as of this encounter Care Teams Carpet Sewer Relationship Specialty Start Date End Date Justus Zaidi [place] [address] [place] [address] PCP - General Internal Medicine - Pediatrics 03/22/22 [place] [place] [address] Assigned PCP 09/11/22 10/01/22 [place] [address] [address] Assigned PCP 08/07/22 09/10/22 Justus Zaidi [place] [address] [address] Assigned PCP 10/02/22 11/19/22 Georges Davalos DPM [address] [place] [address] [address] [place] [address] Assigned Musculoskeletal Provider 10/23/22 10/29/22 Justus Zaidi MD [address] [place], [place] [address] [address] Assigned PCP 11/20/22 Georges Davalos DPM [address] [place] [address] [address] [place] [address] Assigned Surgical Provider 10/30/22 Roxann Head TIE PULLER Lead Campus Security Officer Primary Care - CC 11/26/22 Mony Plascencia, [facility] Community Health Worker 11/26/2202/10 Noris Smith VIDEOTAPE RECORDING ENGINEER Lead Campus Security Officer 11/26/22 02/11/23 Justus Zaidi MD [address] [place] [address] [address] [place] [address] Assigned Pain Medication Provider 11/27/22 10/07/23 Lucero Melendez, VIJAYA [address] [address] [address] Nurse Practitioner Nurse Practitioner 02/10/23 Christine Morel [facility] Lead Campus Security Officer 02/10/23 Mony Carlson, [facility] Community Health Worker 02/11/2304/04 [place] [address] [address] [address] Nurse Practitioner Nurse Practitioner 04/06/23 documented as of this encounter
--- OUTSIDE RECORDS SUMMARY | 2024-02-16 13:24 | XMS_ITS | Encounter Summary ---
Author Organization [facility] Address [address] [place] [address] Care Team Providers Care Test Inspection Engineer Name Role Phone Justus Zaidi MD Primary Care Provider [phone] Justus Zaidi MD Unavailable [phone] Justus Zaidi MD Unavailable [phone] Georges Davalos DPM Unavailable [phone] Justus Zaidi MD Unavailable [phone] Georges Davalos DPM Unavailable [phone] Roxann Head TRANSACTION ADVISORY SERVICES MANAGER Unavailable [phone] Mony Plascencia CHW Unavailable [phone] Noris Smith NOCTURNIST PHYSICIAN Unavailable Unavailabl e Justus Zaidi MD Unavailable [phone] Lucero Melendez NP Unavailable [phone] Christine Morel NOCTURNIST PHYSICIAN Unavailable [phone] Mony Plascencia CHW Unavailable [phone] Lucero Melendez NP Unavailable [phone] Encounter Details Date Type Department Care Team (Late st Contact Info) Description 09/14/2022 [facility] [address] [place] [phone] Jeni Correa RN Social History Tobacco Use Types Packs/Day Years [...] documented as of this encounter Care Teams Test Inspection Engineer Relationship Specialty Start Date End Date Justus Zaidi MD [address] [place] [address] PCP - General Internal Medicine - Pediatrics 03/22/22 Justus Zaidi MD [address] [place] [address] Assigned PCP 09/11/22 10/01/22 Justus Zaidi MD [address] [place] [address] Assigned PCP 10/02/22 11/19/22 Georges Davalos DPM [address] [facility] [address] [place] [address] Assigned Musculoskeletal Provider 10/23/22 10/29/22 Justus Zaidi MD [address] [place] [address] [address] Assigned PCP 11/20/22 Georges Davalos DPM [address] [facility] [address] [place] [address] Assigned Surgical Provider 10/30/22 Roxann Head TRANSACTION ADVISORY SERVICES MANAGER Lead Cover Machine Operator Primary Care - CC 11/26/22 Mony Plascencia [facility] Community Health Worker 11/26/2202/10 Noris Smith [facility] Lead Cover Machine Operator 11/26/22 02/11/23 Justus Zaidi MD [address] [place] [address] [place] [address] Assigned Pain Medication Provider 11/27/22 10/07/23 [place] [address] [address] [address] Nurse Practitioner Nurse Practitioner 02/10/23 Christine Morel [facility] Lead Cover Machine Operator 02/10/23 3 Mony Plascencia [facility] Community Health Worker 02/11/2304/04 [place] [address] [address] [address] Nurse Practitioner Nurse Practitioner 04/06/23 documented as of this encounter
--- OUTSIDE RECORDS SUMMARY | 2024-02-16 13:24 | XMS_ITS | Encounter Summary ---
Author Organization [place] Address [address] [place] [address] Care Team Providers Care Fur Trimmer Name Role Phone Justus Zaidi MD Primary Care Provider [phone] Justus Zaidi MD Unavailable [phone] Georges Davalos DPM Unavailable [phone] Justus Zaidi MD Unavailable [phone] Georges Davalos DPM Unavailable [phone] Roxann Head BASEBALL GLOVE STUFFER Unavailable [phone] Mony Plascencia CHW Unavailable [phone] Noris Smith REGIONAL MERCHANDISING MANAGER Unavailable Unavailabl e Justus Zaidi MD Unavailable [phone] Lucero Melendez NP Unavailable [phone] Christine Morel REGIONAL MERCHANDISING MANAGER Unavailable [phone] Mony Plascencia CHW Unavailable [phone] Lucero Melendez NP Unavailable [phone] Encounter Details Date Type Department Care Team (Late st Contact Info) Description 10/19/2022 [place] [address] [place] [address] Justus Zaidi MD [address] [place] [address] Social History Tobacco Use Types Packs/Day Years [...] suspected to have Coronavirus/COVID-19? No / Unsure 10/19/2022 10:35 AM SSN/SSBN ASSISTANT NAVIGATOR documented as of this encounter Plan of Treatment Not on file documented as of this encounter Visit Diagnoses Not on filedocumented in this encounter Additional Health Concerns Assessment Noted Time PHQ-9 Depression Total Score: 3 03/22/20 4:47 PM CDT documented as of this encounter Care Teams Fur Trimmer Relationship Specialty Start Date End Date Justus Zaidi MD [address] [place] [address] PCP - General Internal Medicine - Pediatrics 03/22/22 Justus Zaidi MD [address] [place] [address] Assigned PCP 10/02/22 11/19/22 Georges Davalos DPM [address] [place] [address] Assigned Musculoskeletal Provider 10/23/22 10/29/22 Justus Zaidi MD [address] [place] [address] Assigned PCP 11/20/22 Georges Davalos DPM [address] [facility] [address] [place] [address] Assigned Surgical Provider 10/30/22 Roxann Head BASEBALL GLOVE STUFFER Lead Manager Laundry Primary Care - CC 11/26/22 Mony Plascencia, [facility] Community Health Worker 11/26/2202/10 Noris Smith REGIONAL MERCHANDISING MANAGER Lead Manager Laundry 11/26/22 02/11/23 Justus Zaidi MD [address] [place] [address] [place] [address] Assigned Pain Medication Provider 11/27/22 10/07/23 [place] [address] [place] [address] [address] Nurse Practitioner Nurse Practitioner 02/10/23 Christine Morel REGIONAL MERCHANDISING MANAGER Lead Manager Laundry 02/10/23 3 Mony Plascencia [facility] Community Health Worker 02/11/2304/04 [place] [address] [place] [address] [address] Nurse Practitioner Nurse Practitioner 04/06/23 documented as of this encounter
--- OUTSIDE RECORDS SUMMARY | 2024-02-16 13:24 | XMS_ITS | Encounter Summary ---
Author Organization [place] Address [address] [place] [address] Care Team Providers Care Headlight Assembler Name Role Phone Justus Zaidi MD Primary Care Provider Justus Zaidi MD Unavailable [phone] Dyan, Justus Reyes MD Unavailable [phone] Justus Zaidi MD Unavailable [phone] Justus Zaidi MD Unavailable [phone] Justus Zaidi MD Unavailable [phone] Georges Davalos DPM Unavailable [phone] Justus Zaidi MD Unavailable [phone] Georges Davalos DPM Unavailable [phone] Roxann Head COLOR WEIGHER Unavailable [phone] Mony Plascencia CHW Unavailable [phone] Noris Smith GUEST SERVICES AGENT Unavailable Unavailabl e Justus Zaidi MD Unavailable [phone] Lucero Melendez NP Unavailable [phone] Christine Morel GUEST SERVICES AGENT Unavailable [phone] Mony Plascencia CHW Unavailable +[phone] Lucero Melendez NP Unavailable Encounter Details Date Type Department Care Team (Late st Contact Info) Description 03/24/2022 MyC Medical Advice [facility] [facility] [place] [id number] Justus Zaidi MD [address] [facility] [place] [address] Social History Tobacco Use Types Packs/Day Years Used Date Smoking Tobacco: Never Cigarettes Comments:2 cigs per day Alcohol Use Standard Drinks/Week Comments No 0 (1 standard drink = 0.6 oz pur e alcohol) social PHQ-2 Answer Date Recorded PHQ-2 Score 0 03/22/2022 Sex and Gender Information Value Date Recorded Sex Assigned at Female 03/22/2022 5:14 PM CDT Gender Identity Female 03/22/2022 5:14 PM CDT Sexual Orientation Straight 03/22/2022 5: 14 PM CDT COVID-19 Exposure Response Date Recorded In the last 10 days, have bozena charles been in contact with someone who was confirmed or suspected to have Coronavirus/COVID-19? No / Unsure 03/22/2022 4:29 PM CDT documented as of this encounter Plan of Treatment Not on file documented as of this encounter Visit Diagnoses Not on filedocumented in this encounter Additional Health Concerns Assessment Noted Time PHQ-9 Depression Total Score: 3 03/22/20 22 4:47 PM CDT documented as of this encounter Care Teams Headlight Assembler Relationship Specialty Start Date End Date Justus Zaidi MD [facility] [place] [place] [address] PCP - General Internal Medicine - Pediatrics 03/22/22 [facility] [place] [facility] [place] [address] Assigned PCP 03/04/22 06/25/22 [facility] [place] [address] Assigned PCP 06/26/22 08/06/22 Justus Zaidi MD [address] [place], [place] [address] [address] Assigned PCP 09/11/22 10/01/22 Justus Zaidi MD [address] [place], [place] [address] [address] Assigned PCP 08/07/22 09/10/22 Justus Zaidi MD [facility] [place] [address] Assigned PCP 10/02/22 11/19/22 Georges Davalos DPM [address] [place] [address] Assigned Musculoskeletal Provider 10/23/22 10/29/22 Justus Zaidi MD [facility] [place] [address] Assigned PCP 11/20/22 Georges Davalos DPM [address] [place] [address] Assigned Surgical Provider 10/30/22 Roxann Head LSW Lead Curtain Cutter Primary Care - CC 11/26/22 Mony Plascencia, W Community Health Worker 11/26/2202/10 Noris Smith LICSW Lead Curtain Cutter 11/26/22 02/11/23 [facility] [place] [address] Assigned Pain Medication Provider 11/27/22 10/07/23 [place] [address] [address] [place] [address] Nurse Practitioner Nurse Practitioner 02/10/23 Christine Morel [facility] Lead Curtain Cutter 02/10/23 3 Mony Plascencia [facility] Community Health Worker 02/11/2304/04 [place] [address] [address] [place] [address] Nurse Practitioner Nurse Practitioner 04/06/23 documented as of this encounter
--- OUTSIDE RECORDS SUMMARY | 2024-02-16 13:24 | XMS_ITS | Encounter Summary ---
Author Organization [place] Address [address] [place] [address] Care Team Providers Care Predictive Maintenance Technician Name Role Phone Justus Zaidi MD Primary Care Provider [phone] Justus Zaidi MD Unavailable [phone] Justus Zaidi MD Unavailable [phone] Justus Zaidi MD Unavailable [phone] Justus Zaidi MD Unavailable [phone] Georges Davalos DPM Unavailable [phone] Justus Zaidi MD Unavailable [phone] Georges Davalos DPM Unavailable [phone] Roxann Head GROUND SERVICE EQUIPMENT MECHANIC Unavailable [phone] Mony Plascencia CHW Unavailable [phone] Noris Smith APPRENTICE PLUMBER Unavailable Unavailabl e Justus Zaidi MD Unavailable [phone] Lucero Melendez NP Unavailable [phone] Christine Morel APPRENTICE PLUMBER Unavailable [phone] Mony Plascencia CHW Unavailable +[phone] Lucero Melendez NP Unavailable [phone] Encounter Details Date Type Department Care Team (Late st Contact Info) Description 08/04/[address] [facility] [address] [place] [address] Justus Zaidi MD [address] [facility] [place] [address] Social History Tobacco Use Types Packs/Day Years [...] suspected to have Coronavirus/COVID-19? No / Unsure 07/15/2022 4:42 PM CDT documented as of this encounter Miscellaneous Notes * Telephone Encounter - Justus Zaidi MD - 08/09/2022 8:31 PM MATERIAL ASSEMBLER See patients chart. RIAL ASSEMBLER * Telephone Encounter - Jacqueline Hernandez CMA - 08/09/2022 4:57 PM MATERIAL ASSEMBLER If they can come in on 09/01 can I use an approval request spot? RIAL ASSEMBLER * Telephone Encounter - Justus Zaidi MD - 08/05/2022 3:55 PM MATERIAL ASSEMBLER Please print off media and will scan into son's chart RIAL ASSEMBLER documented in this encounter Plan of Treatment Not on file documented as of this encounter Visit Diagnoses Not on filedocumented in this encounter Additional Health Concerns Assessment Noted Time PHQ-9 Depression Total Score: 3 03/22/20 22 4:47 PM CDT documented as of this encounter Care Teams Predictive Maintenance Technician Relationship Specialty Start Date End Date Justus Zaidi MD [address] [place], [place] [address] [address] PCP - General Internal Medicine - Pediatrics 03/22/22 Justus Zaidi MD [address] [place], [place] [address] [address] Assigned PCP 06/26/22 08/06/22 Justus Zaidi MD [address] [place], [place] [address] [address] Assigned PCP 09/11/22 10/01/22 Justus Zaidi MD [address] [place], [place] [address] [address] Assigned PCP 08/07/22 09/10/22 Justus Zaidi MD [address] [place], [place] [address] [address] Assigned PCP 10/02/22 11/19/22 Georges Davalos DPM [address] [place] [address] Assigned Musculoskeletal Provider 10/23/22 10/29/22 Justus Zaidi MD [facility] [place] [address] Assigned PCP 11/20/22 Georges Davalos DPM [address] [place] [address] Assigned Surgical Provider 10/30/22 Roxann Head GROUND SERVICE EQUIPMENT MECHANIC Lead Admissions Dean Primary Care - CC 11/26/22 Mony Plascencia, [facility] Community Health Worker 11/26/2202/10 Noris Smith [facility] Lead Admissions Dean 11/26/22 02/11/23 Justus Zaidi MD [address] [facility] [place] [id number] Assigned Pain Medication Provider 11/27/22 10/07/23 Lucero Melendez, VIJAYA [address] [place] [place] [address] Nurse Practitioner Nurse Practitioner 02/10/23 Christine Morel [facility] Lead Admissions Dean 02/10/23 3 Mony Plascencia, [facility] Community Health Worker 02/11/2304/04 Lucero Melendez, WEATHER TEACHER [address] [place] [place] [place] [address] Nurse Practitioner Nurse Practitioner 04/06/23 documented as of this encounter
--- OUTSIDE RECORDS SUMMARY | 2024-02-16 13:24 | XMS_ITS | Encounter Summary ---
Author Organization [place] Address [address] [place] [address] Care Team Providers Care Tub Operator Name Role Phone Justus Zaidi MD Primary Care Provider [phone] Justus Zaidi MD Unavailable [phone] Justus Zaidi MD Unavailable [phone] Georges Davalos DPM Unavailable [phone] Roxann Head RECOVERY OPERATOR Unavailable [phone] Mony Plascencia CHW Unavailable [phone] Noris Smith LINE PRODUCTION COOK Unavailable Unavailabl e Justus Zaidi MD Unavailable [phone] Lucero Melendez NP Unavailable [phone] Christine Morel LINE PRODUCTION COOK Unavailable [phone] Mony Plascencia CHW Unavailable [phone] Lucero Melendez NP Unavailable [phone] Encounter Details Date Type Department Care Team (Late st Contact Info) Description 11/12/2022 [facility] [address] [place] [address] Georges Davalos, RENITA [address] [facility] [address] [place] [address] Social History Tobacco Use Types Packs/Day Years Used Date Smoking Tobacco: Never Comments:2 cigs per day Alcohol Use Standard Drinks/Week Comments No 0 (1 standard drink = 0.6 oz pur e alcohol) social PHQ-2 Answer Date Recorded PHQ-2 Score 0 11/09/2022 Sex and Gender Information Value Date Recorded Sex Assigned at Female 03/22/2022 5:14 PM CDT Gender Identity Female 03/22/2022 5:14 PM CDT Sexual Orientation Straight 03/22/2022 5: 14 PM CDT COVID-19 Exposure Response Date Recorded In the last 10 days, have yo u been in contact with someone who was confirmed or suspected to have Coronavirus/COVID-19? No / Unsure 11/12/2022 8:23 AM SIEBEL SOLUTION ARCHITECT documented as of this encounter Plan of Treatment Not on file documented as of this encounter Visit Diagnoses Not on filedocumented in this encounter Additional Health Concerns Assessment Noted Time PHQ-9 Depression Total Score: 3 03/22/20 22 4:47 PM CDT documented as of this encounter Care Teams Tub Operator Relationship Specialty Start Date End Date Justus Zaidi MD [address] [place] [address] PCP - General Internal Medicine - Pediatrics 03/22/22 Justus Zaidi MD [address] [place] [address] [address] [address] Assigned PCP 10/02/22 11/19/22 Justus Zaidi MD [address] [place] [address] [address] Assigned PCP 11/20/22 Georges Davalos DPM [address] [facility] [address] [place] [address] Assigned Surgical Provider 10/30/22 Roxann Head, [facility] Lead Out And Out Cigar Maker Hand Primary Care - CC 11/26/22 Mony Plascencia, [facility] Community Health Worker 11/26/2202/10 Noris Smith [facility] Lead Out And Out Cigar Maker Hand 11/26/22 02/11/23 Justus Zaidi MD [address] [place] [address] [place] [id number] Assigned Pain Medication Provider 11/27/22 10/07/23 [place] [address] [place] [address] Nurse Practitioner Nurse Practitioner 02/10/23 Christine Morel [facility] Lead Out And Out Cigar Maker Hand 02/10/23 3 Mony Plascencia, [facility] Community Health Worker 02/11/2304/04 [place] [address] [place] [address] Nurse Practitioner Nurse Practitioner 04/06/23 documented as of this encounter
[2024-02-16 14:05] VITALS: BP 131/74; PULSE 71; RESP 18; O2SAT 99
== END 2024-02-16 14:42 | disposition home or self-care (01) ==
PROVIDERS: Emergency Provider Family Medicine
DX: S39.012A Strain of muscle, fascia and tendon of lower back, initial encounter (principal)
CPT/HCPCS: 72131; 96374; 99283; J1885

== ENCOUNTER 2024-12-14 10:31 | Emergency (ER) | payer BC, SELFPAY ==
--- OUTSIDE RECORDS SUMMARY | 2024-12-14 10:33 | XMS_ITS | Encounter Summary ---
Author Organization [facility] Address [address], [place] [address] Care Team Providers Care Plug Making Operator Name Role Phone No Primary/ReferringShelly Primary Care Provider Unavailable Encounter Details Date Type Department Care Team (Late st Contact Info) Description 07/13/[address] [facility] Radiology [address] [place] [address] Radiology, Provider MRI SAFETY SHEET AND COMPATIBILITY FORM Social History Tobacco Use Types Packs/Day Years Used Date Smoking Tobacco: Former Cigarettes Smokeless Tobacco: Never Alcohol Use Standard Drinks/Week Comments Yes 3 (1 standard drink = 0.6 oz pur e alcohol) occ Comments No Sex and Gender Information Value Date Recorded Sex Assigned at Not on file Legal Sex Female 4:38 AM CDT Gender Identity Not on file Sexual Orientation Not on file documented as of this encounter Plan of Treatment Not on file documented as of this encounter Visit Diagnoses Not on filedocumented in this encounter Care Teams Plug Making Operator Relationship Specialty Start Date End Date No Primary/ReferringShelly PCP - General 11/17/21 documented as of this encounter
--- OUTSIDE RECORDS SUMMARY | 2024-12-14 10:33 | XMS_ITS | Encounter Summary ---
Author Organization [place] Address [address] [place] [address] Care Team Providers Care Preassembler And Inspector Name Role Phone Justus Zaidi MD Primary Care Provider Justus Zaidi MD Unavailable [phone] Justus Zaidi MD Unavailable [phone] Justus Zaidi MD Unavailable [phone] Justus Zaidi MD Unavailable [phone] Georges Davalos DPM Unavailable [phone] Justus Zaidi MD Unavailable [phone] Georges Davalos DPM Unavailable [phone] Roxann Head REAMING MACHINE OPERATOR FOR PLASTIC Unavailable [phone] Mony Plascencia CHW Unavailable Noris Smith SHIPPING INSPECTOR Unavailable Unavailabl e Justus Zaidi MD Unavailable Lucero Melendez NP Unavailable [phone] Christine Morel SHIPPING INSPECTOR Unavailable Mony Plascencia CHW Unavailable [phone] Lucero Melendez NP Unavailable [phone] Nora Davalos PA-C Unavailable [phone] Nora Davalos Luis VANN-King Unavailable [phone] Robert Irma TAM Unavailable Encounter Details Date Type Department Care Team (Late st Contact Info) Description 08/04/2022 MyC Medical Advice [facility] [address] [place] [address] Justus Zaidi MD [address] [facility] [place] [id number] Social History Tobacco Use Types Packs/Day Years Used Date Smoking Tobacco: Never Cigarettes Comments:2 cigs per day Alcohol Use Standard Drinks/Week Comments No 0 (1 standard drink = 0.6 oz pur e alcohol) social PHQ-2 Answer Date Recorded PHQ-2 Score 0 07/15/2022 Comments No Sex and Gender Information Value Date Recorded Sex Assigned at Female 03/22/2022 5:14 PM CDT Legal Sex Female 2:58 AM SANITARY CHEMIST Gender Identity Female 03/22/2022 5:14 PM CDT Sexual Orientation Straight 03/22/2022 5: 14 PM CDT Occupation Industry Job Start Date Job End Date unemployed Not on file Not on file Not on file COVID-19 Exposure Response Date Recorded In the last 10 days, have yo u been in contact with someone who was confirmed or suspected to have Coronavirus/COVID-19? No / Unsure 07/15/2022 4:42 PM CDT documented as of this encounter Miscellaneous Notes * Telephone Encounter - Justus Zaidi MD - 08/09/2022 8:31 PM SANITARY CHEMIST See patients chart. TARY CHEMIST * Telephone Encounter - Jacqueline Hernandez CMA - 08/09/2022 4:57 PM SANITARY CHEMIST If they can come in on 09/01 can I use an approval request spot? TARY CHEMIST * Telephone Encounter - Justus Zaidi MD - 08/05/2022 3:55 PM SANITARY CHEMIST Please print off media and will scan into son's chart TARY CHEMIST documented in this encounter Plan of Treatment Not on file documented as of this encounter Visit Diagnoses Not on filedocumented in this encounter Additional Health Concerns Assessment Noted Time PHQ-9 Depression Total Score: 3 03/22/20 4:47 PM CDT documented as of this encounter Care Teams Preassembler And Inspector Relationship Specialty Start Date End Date Justus Zaidi MD [address] [place] [address] PCP - General Internal Medicine - Pediatrics 03/22/22 Justus Zaidi MD [address] [place] [address] [address] Assigned PCP 06/26/22 08/06/22 Justus Zaidi MD [address] [place] [address] [address] [address] Assigned PCP 09/11/22 10/01/22 Justus Zaidi MD [address] [place] [address] Assigned PCP 08/07/22 09/10/22 Justus Zaidi MD [address] [place] [address] [address] [address] Assigned PCP 10/02/22 11/19/22 Georges Davalos DPM [address] [place] [address] [address], [place] [address] Assigned Musculoskeletal Provider 10/23/22 10/29/22 Justus Zaidi MD [address] [place] [address] Assigned PCP 11/20/22 06/17/24 Georges Davalos DPM [address] [facility] [address] [place] [address] Assigned Surgical Provider 10/30/22 05/17/24 Roxann Head, REAMING MACHINE OPERATOR FOR PLASTIC Lead Discharge Door Operator Primary Care - CC 11/26/22 Mony Plascencia, [facility] Community Health Worker 11/26/2202/10 Noris Smith SHIPPING INSPECTOR Lead Discharge Door Operator 11/26/22 02/11/23 Justus Zaidi MD [address] [place] [address] Assigned Pain Medication Provider 11/27/22 10/07/23 Lucero Melendez, VIJAYA [address] [place] [address] Nurse Practitioner Nurse Practitioner 02/10/23 Christine Morel [facility] Lead Discharge Door Operator 02/10/23 3 Mony Plascencia [facility] Community Health Worker 02/11/2304/04 Lucero Melendez, [place] [address] [place] [address] Nurse Practitioner Nurse Practitioner 04/06/23 Nora Davalos PA-C [address] [place] [address] Assigned Pain Medication Provider 03/18/24 04/16/24 Nora Davalos PA-C [address] [place] [address] Assigned PCP 06/18/24 Irma Jones RN Lead Discharge Door Operator Primary Care - CC 11/26/2412/04 documented as of this encounter
--- OUTSIDE RECORDS SUMMARY | 2024-12-14 10:33 | XMS_ITS | Encounter Summary ---
Author Organization [facility] Address [address], [place] [address] Care Team Providers Care Box Blank Machine Operator Name Role Phone No Primary/Referring, Phy Primary Care Provider Unavailable Encounter Details Date Type Department Care Team (Late st Contact Info) Description 04/24/2014 Scanned History External to Transferred Record, Provider [facility] Social History Tobacco Use Types Packs/Day Years Used Date Smoking Tobacco: Never Assessed Comments No Sex and Gender Information Value Date Recorded Sex Assigned at Not on file Legal Sex Female 4:38 AM CDT Gender Identity Not on file Sexual Orientation Not on file documented as of this encounter Plan of Treatment Not on file documented as of this encounter Visit Diagnoses Not on filedocumented in this encounter Care Teams Box Blank Machine Operator Relationship Specialty Start Date End Date No Primary/Referring, Shelly PCP - General 11/17/21 documented as of this encounter
--- OUTSIDE RECORDS SUMMARY | 2024-12-14 10:33 | XMS_ITS | Encounter Summary ---
Author Organization [facility] Address [address] [address] Care Team Providers Care Group Home Supervisor Name Role Phone No Primary/Referring, Phy Primary Care Provider Unavailable Encounter Details Date Type Department Care Team (Latest Contact Info) Description 05/12/1995 Orders Only Nila Krueger MD Social History Tobacco Use Types Packs/Day Years Used Date Smoking Tobacco: Never Assessed Comments Unknown Sex and Gender Information Value Date Recorded Sex Assigned at Not on file Legal Sex Female 4:38 AM CDT Gender Identity Not on file Sexual Orientation Not on file documented as of this encounter Plan of Treatment Not on file documented as of this encounter Visit Diagnoses Not on filedocumented in this encounter Care Teams Group Home Supervisor Relationship Specialty Start Date End Date No Primary/Referring, Shelly PCP - General 11/17/21 documented as of this encounter
--- OUTSIDE RECORDS SUMMARY | 2024-12-14 10:33 | XMS_ITS | Encounter Summary ---
Author Organization [facility] Address [address] [address] Care Team Providers Care Canvass Manager Name Role Phone No Primary/Referring, Phy [...] on filedocumented in this encounter Care Teams Canvass Manager Relationship Specialty Start Date End Date No Primary/Referring, Shelly PCP - General 11/17/21 documented as of this encounter
--- OUTSIDE RECORDS SUMMARY | 2024-12-14 10:33 | XMS_ITS | Encounter Summary ---
Author Organization [email or web address] Address [address], [place] [address] Care Team Providers Care Aircraft Log Clerk Name Role Phone No Primary/Referring, Phy Primary Care Provider Unavailable Encounter Details Date Type Department Care Team (Latest Contact Info) Description 08/23/1995 Orders Only Mary Orellana MD [address] [place] [address] Social History Tobacco Use Types Packs/Day Years [...] on filedocumented in this encounter Care Teams Aircraft Log Clerk Relationship Specialty Start Date End Date No Primary/Referring, Shelly PCP - General 11/17/21 documented as of this encounter
--- OUTSIDE RECORDS SUMMARY | 2024-12-14 10:33 | XMS_ITS | Encounter Summary ---
Author Organization [facility] Address [address] [address] Care Team Providers Care Deputy Treasurer Name Role Phone No Primary/Referring, Phy Primary Care Provider Unavailable Encounter Details Date Type Department Care Team (Latest Contact Info) Description 10/22/1994 Orders Only Mary rOellana MD [address] [place] [address] Social History Tobacco Use Types Packs/Day Years [...] on filedocumented in this encounter Care Teams Deputy Treasurer Relationship Specialty Start Date End Date No Primary/Referring, Shelly PCP - General 11/17/21 documented as of this encounter
--- OUTSIDE RECORDS SUMMARY | 2024-12-14 10:33 | XMS_ITS | Encounter Summary ---
Author Organization [facility] Address [address], [place] [address] Care Team Providers Care Business Office Associate Name Role Phone No Primary/Referring, Phy Primary [...] filedocumented in this encounter Care Teams Business Office Associate Relationship Specialty Start Date End Date No Primary/Referring, Shelly PCP - General 11/17/21 documented as of this encounter
--- OUTSIDE RECORDS SUMMARY | 2024-12-14 10:33 | XMS_ITS | Encounter Summary ---
Author Organization [facility] Address [address], [place] [address] Care Team Providers Care Airplane Pilot Commercial Name Role Phone No Primary/Referring, Phy Primary Care Provider Unavailable Encounter Details Date Type Department Care Team (Latest Contact Info) Description 06/07/1995 Orders Only Mary Orellana MD [address] [place] [address] Social History Tobacco Use Types Packs/Day Years [...] on filedocumented in this encounter Care Teams Airplane Pilot Commercial Relationship Specialty Start Date End Date No Primary/Referring, Shelly PCP - General 11/17/21 documented as of this encounter
--- OUTSIDE RECORDS SUMMARY | 2024-12-14 10:33 | XMS_ITS | Encounter Summary ---
Author Organization [facility] Address [address], [place] [address] Care Team Providers Care Camp Director Name Role Phone No Primary/Referring, Phy Primary [...] on filedocumented in this encounter Care Teams Camp Director Relationship Specialty Start Date End Date No Primary/Referring, Shelly PCP - General 11/17/21 documented as of this encounter
--- OUTSIDE RECORDS SUMMARY | 2024-12-14 10:33 | XMS_ITS | Encounter Summary ---
Author Organization [facility] Address [address] [address] Care Team Providers Care Ordnance Engineer Name Role Phone No Primary/Referring, Phy [...] on filedocumented in this encounter Care Teams Ordnance Engineer Relationship Specialty Start Date End Date No Primary/Referring, Shelly PCP - General 11/17/21 documented as of this encounter
--- OUTSIDE RECORDS SUMMARY | 2024-12-14 10:33 | XMS_ITS | Encounter Summary ---
Author Organization [facility] Address [address], [place] [address] Care Team Providers Care Senior Net Programmer Name Role Phone No Primary/Referring, Phy Primary [...] on filedocumented in this encounter Care Teams Senior Net Programmer Relationship Specialty Start Date End Date No Primary/Referring, Shelly PCP - General 11/17/21 documented as of this encounter
--- OUTSIDE RECORDS SUMMARY | 2024-12-14 10:33 | XMS_ITS | Encounter Summary ---
Author Organization [facility] Address [address], [place] [address] Care Team Providers Care Deputy Fire Marshal Name Role Phone No Primary/Referring, Phy Primary [...] filedocumented in this encounter Care Teams Deputy Fire Marshal Relationship Specialty Start Date End Date No Primary/Referring, Shelly PCP - General 11/17/21 documented as of this encounter
--- OUTSIDE RECORDS SUMMARY | 2024-12-14 10:33 | XMS_ITS | Encounter Summary ---
Author Organization [facility] Address [address] [place] [address] Care Team Providers Care Special Services Agent Name Role Phone Justus Zaidi MD Primary Care Provider Justus Zaidi MD Unavailable Justus Zaidi MD Unavailable Georges Davalos DPM Unavailable [phone] Justus Zaidi MD Unavailable Georges Davalos DPM Unavailable Roxann Head ANALYTICS CONSULTANT Unavailable [phone] Mony Plascencia CHW Unavailable [phone] Noris Smith SVP GROUP DIRECTOR Unavailable UnavailJustus Stephenson MD Unavailable Lucero Melendez NP Unavailable [phone] Christine Morel SVP GROUP DIRECTOR Unavailable Mony Plascencia CHW Unavailable [phone] Lucero Melendez NP Unavailable [phone] Nora Davalos PA-C Unavailable [phone] Nora Davalos PA-C Unavailable [phone] Irma Jones RN Unavailable Encounter Details Date Type Department Care Team (Late st Contact Info) Description 09/14/2022 MyC Medical Advice [address] [phone] Jeni Correa, RN Social History Tobacco Use Types Packs/Day [...] PM CDT Legal Sex Female 2:58 AM GENETIC ENGINEER Gender Identity Female 03/22/2022 5:14 PM CDT Sexual Orientation Straight 03/22/2022 5: 14 PM CDT Occupation Industry Job Start Date Job End Date unemployed Not on file Not on file Not on file documented as of this encounter Plan of Treatment Not on file documented as of this encounter Visit Diagnoses Not on filedocumented in this encounter Additional Health Concerns Assessment Noted Time PHQ-9 Depression Total Score: 3 03/22/20 22 4:47 PM CDT documented as of this encounter Care Teams Special Services Agent Relationship Specialty Start Date End Date Justus Zaidi MD [address] [place], [place] [address] [address] PCP - General Internal Medicine - Pediatrics 03/22/22 [facility] [place] [address] Assigned PCP 09/11/22 10/01/22 [facility] [place] [address] Assigned PCP 10/02/22 11/19/22 Georges Davalos DPM [address] [place], [place] [address], [place] [address] Assigned Musculoskeletal Provider 10/23/22 10/29/22 Justus Zaidi MD [address] [facility] [place] [address] Assigned PCP 11/20/22 06/17/24 Georges Davalos DPM [address] [facility] [address] [place] [address] Assigned Surgical Provider 10/30/22 05/17/24 Roxann Head ANALYTICS CONSULTANT Lead Financial Services Intern Primary Care - CC 11/26/22 Mony Plascencia [facility] Community Health Worker 11/26/2202/10 Noris Smith SVP GROUP DIRECTOR Lead Financial Services Intern 11/26/22 02/11/23 Justus Zaidi MD [address] [facility] [place] [address] Assigned Pain Medication Provider 11/27/22 10/07/23 Lucero Melendez, FINANCIAL SERVICES INTERN [address] [place] [address] Nurse Practitioner Nurse Practitioner 02/10/23 Christine Morel [facility] Lead Financial Services Intern 02/10/23 Mony Carlson [facility] Community Health Worker 02/11/2304/04 Lucero Melendez, VIJAYA [address] [place] [address] Nurse Practitioner Nurse Practitioner 04/06/23 Nora Davalos PA-C [address] [place] [address] Assigned Pain Medication Provider 03/18/24 04/16/24 Nora Davalos PA-C [address] [place] [address] Assigned PCP 06/18/24 Irma Jones RN Lead Financial Services Intern Primary Care - CC 11/26/2412/04 documented as of this encounter
--- OUTSIDE RECORDS SUMMARY | 2024-12-14 10:33 | XMS_ITS | Clinical Summary ---
Author Organization [facility] Address [address] [place] [address] Care Team Providers Care Veterinary Medicine Scientist Name Role Phone Nyasia Cuevas ROSIN BARREL FILLER Unavailable [phone] Justus Zaidi MD Primary Care Provider [phone] Allergies Active Allergy Reactions Criticality Noted Date Comments Amoxicillin Rash 09/21/2006 Cyclobenzaprine Rash,Itching 07/22/2011 Hydrocodone-Acetaminophen Itching 01/14/2009 not actually hives, no problems breathing or rash. Ibuprofen Hives,Itching 11/03/2013 Morphine Itching 08/17/2013 Works fine with benadryl Penicillins Rash 09/21/2006 Tramadol Itching 11/07/2009 Medications citalopram (CELEXA) 10 mg tablet Take 10 mg by mouth once daily in the morning. 4 Active oxyCODONE-acetam inophen (PERCOCET) 5-325 mg per tabletIndication s:Chronic right-sided low back pain with right-sided sciatica Take 1 Tablet by mouth 3 times daily if needed for Pain. Used dates: 11/21/24- For chronic pain. May refill 2 days early. 90 Tablet 5 Active gabapentin (NEURONTIN) 100 mg capsuleIndicatio ns:Chronic right-sided low back pain with right-sided sciatica Take 100 mg at bedtime x 5 days. May increase to 100 mg in the morning and at bedtime x 5 days. Can increase to 200 mg at bedtime/ 100 mg in the morning x 5 days. Then 200 mg BID. Call if need further dos increase 90 Capsule 5 Active tiZANidine (ZANAFLEX) 4 mg tabletIndication s:Chronic right-sided low back pain with right-sided sciatica Take 1 Tablet (4 mg) by mouth every 6 hours if needed for Muscle Spasm. 45 Tablet 5 Active tiZANidine (ZANAFLEX) 4 mg tablet Take 4 mg by mouth every 6 hours if needed. 4 11/20/19 Discontinu ed(Reorder (E-cancel not sent)) buprenorphine 5 mcg/hr (BUTRANS) 5 mcg/hour transdermal patchIndications :Chronic right-sided low back pain with right-sided sciatica Apply 1 Patch on dry, clean, hairless skin once weekly. Use dates: 06/19/24- 07/16/24 = 28 days 4 Patch 4 11/20/19 Discontinu ed(*Med complete/R egimen complete/L evel of care change) methocarbamoL (ROBAXIN) 500 mg tabletIndication s:Chronic right-sided low back pain with right-sided sciatica Take 1 Tablet (500 mg) by mouth every 6 hours if needed for Muscle Spasm. 30 Tablet 4 11/20/19 Discontinu ed(*Med complete/R egimen complete/L evel of care change) lidocaine 5 % topical patchIndications :Chronic right-sided low back pain with right-sided sciatica Apply to intact skin to cover lower back area for max 12hr per 24hr period. 30 Patch 4 11/20/19 Discontinu ed(*Med complete/R egimen complete/L evel of care change) oxyCODONE-acetam inophen (PERCOCET) 5-325 mg per tabletIndication s:Chronic right-sided low back pain with right-sided sciatica Take 1 Tablet by mouth 3 times daily if needed for Pain. Used dates: 11/01/24- For chronic pain. May refill 2 days early. PARTIAL REFILL UNTIL OFFICE VISIT. 60 Tablet 5 11/20/19 Discontinu ed(Reorder (E-cancel not sent)) Active Problems Problem Noted Date Diagnosed Date Controlled substance agreement signed 03/16/2024 Overview (03/16/2024): [facility] Incarcerated ventral hernia 02/06/2016 Pain medication agreement 01/30/2016 SI (sacroiliac) joint dysfunction 11/12/2015 Chronic cholecystitis with calculus 01/14/2015 Overview (01/14/2015): 01/13/2015 right upper quadrant ultrasound: cholelithiasis ([facility]) Abdominal pain 01/14/2015 Overview (01/14/2015): Multiple clinic and emergency department visits ([place], [facility] emergency department, and [facility]) Tobacco use 01/14/2015 Overview (01/14/2015): 01/14/2015 smokes about 5 cigarettes/day. LBP (low back pain) 05/28/2014 Overview (05/28/2014): See 05/21/2014 summary note Heartburn 04/30/2011 Overview (12/16/2014): S/p Maldonado surgery 2010 with improvement EGD done [place] pH positive for reflux [place] 52.4 on worst day Lymphocytic colitis 03/09/2011 Overview (04/08/2011): Biopsy 02/2011 Negative screening for celiac sprue Trial pepto bismol 3 tabs oral three times daily Stopped proton pump inhibitor and no effect, stopped pepto bismol since not helping Other tenosynovitis of hand and wrist 10/28/2006 Overview (10/28/2006): RT FOREARM Resolved Problems Problem Noted Date Diagnosed Date Resolved Date Pain medication agreement 02/05/2015 Overview (02/05/2015): Sep 2014 [place] Drug-seeking behavior 12/20/20142015 Overview (12/20/2014): machine shop inspector queried 16 prescriptions for percocet in the past 6 months from multiple providers. Kaye Gant M.D. 12/20/2014 1:04 PM Pain medication agreement 05/28/2014 Overview (06/28/2014): Informed patient contract should be terminated with DR Razo and started with Dr Henley at the [facility] as Dr razo is not in clinic often and she is having issues with access. (phone message to Jaqueline) Menorrhagia 08/07/2013 07/15/2014 Supervision of other normal 05/15/2010 07/27/2011 Absence of menstruation 10/28/200609/2008 Screening for malignant neop lasm of the cervix 08/07/2013 Overview (07/06/2007): 02/27/07 Routine gynecological examination 08/07/2013 Encounters Date Type Department Care Team Description 12/14/2024 Telephone [facility] [address] [place] [address] Nyasia Cuevas NP Finished Goods Stock Clerk Plan 12/13/2024 Telephone [facility] [address] [place] [address] Nyasia Cuevas NP Refill Request 11/20/2024 9:00 AM SENIOR MECHANICAL DESIGN ENGINEER Office Visit [facility] [address] [place] [address] Nyasia Cuevas NP Follow Up 11/20/2024 Travel 10/22/2024 Refill [facility] [address] [place] [address] Nyasia Cuevas NP Refill Request (Medication name: oxyCODONE-acetaminoph en (PERCOCET) 5-325 mg per tablet//Pharmacy: [facility] [address] [place] [address]) 10/08/2024 Telephone [facility] [address] [place] [address] Nyasia Cuevas NP Appointment 09/25/2024 Refill [facility] [address] [place] [address] Nyasia Cuevas NP Refill Request from Last 3 Months Immunizations Immunization Administration Dates Next Due Influenza A (H1N1), [...] pur e alcohol) 0-3 drinks per week Comments No Sex and Gender Information Value Date Recorded Sex Assigned at Not on file Legal Sex Female 5:22 AM SENIOR MECHANICAL DESIGN ENGINEER Gender Identity Not on file Sexual Orientation Not on file 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 Not on file 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 Not on file Not on file Not on file Obstetrics History Para Term AB IAB SAB Ectopic Multiple Livin g Live Births 3 2 1 1 1 2 2 Date Outcome GA Total Labor Labor/2nd/3rd Weight Sex Type Anes PTL Kendal A1 A5 Name Clin 7 SAB Comments:d&C 2006 Term 2.04 kg (4 lb 8 oz) F Vag N Living conrad 2009 Para 3.8 kg (8 lb 6 oz) M Vag N Living Devin Comments: labor Last Filed Vital Signs Vital Sign Reading Time Taken Comments Blood Pressure 145/84 11/20/2024 9:18 AM SENIOR MECHANICAL DESIGN ENGINEER Pulse 81 11/20/2024 9:18 AM SENIOR MECHANICAL DESIGN ENGINEER Temperature 36.3 C (97.4 F) 06/19/2024 9:24 AM CDT Respiratory Rate 18 06/19/2024 9:24 AM CDT Oxygen Saturation 98% 11/20/2024 9:18 AM SENIOR MECHANICAL DESIGN ENGINEER Inhaled Oxygen Concentration - - Weight 86.9 kg (191 lb 9.6 oz) 03/06/2024 10:53 AM CDT Height 162.6 cm (5' 4) 04/13/2022 9:50 PM CDT Body Mass Index 32.89 04/13/2022 9:50 PM CDT Plan of Treatment Upcoming Encounters Date Type Department Care Team (Late st Contact Info) Description 01/30/2025 10:30 AM CDT Office Visit [facility] [address] [place] [address] Nyasia Cuevas NP [address] [place], [place] [id number] Health Maintenance Due Date Last Done Comments Hepatitis C screening for ag e 18-79 2004 Pneumococcal series for age 6-49 (1 of 2 - PCV) 2005 Depression screening for age 12+ 11/10/2016 11/10/19 16, 10/27/2015 BMI (ht and wt on same day) for age 18+ 07/03/2018 07/03/2017, 06/24/2016, 06/22/2016, Additional history exists COVID-19 vaccine series ( season) 2024 09/23/2022, 03/06/2021, 02/13/2021 Influenza Vaccine (#1) 2024 4, 06/07/2013, 07/12/2011, Additional history exists Tetanus booster 05/06/2028 05/06/2018, 06/14/2010 HIV for age 15-65 Completed 11/07/2009 Tdap Completed 05/06/2018, 06/14/2010 Medical Devices Implanted Type Area Emergency Department Technician Device Identifier Shelf Expiration Date Model / Serial / Lot Mesh Ventral [address]in [address]ral[address] - [id number] Implanted:Qty: 1 on 02/12/2016 by Hay Nieto MD at [facility] N/A: Abdomen [employer] 08/23/2017 [id number] / / [id number] Procedures Procedure Name Priority Date/Time Associated Diagnosis Comments COMPLIANCE DRUG ANALYSIS Routine 11/20/2024 9:00 AM SENIOR MECHANICAL DESIGN ENGINEER Encounter for therapeutic drug monitoring ANTI HIV 1/2 Routine 11/07/2009 1:51 PM SENIOR MECHANICAL DESIGN ENGINEER Screening for Malignant Neoplasm of the Cervix from Last 3 Months or Most Recently Relevant to Health Maintenance Results * (ABNORMAL) COMPLIANCE DRUG ANALYSIS (11/20/2024 9:00 AM SENIOR MECHANICAL DESIGN ENGINEER) 6-MONOACETYL MORPHINE NEG NEG ng/mL 11/26/2024 11:09 AM [facility] AMPHETAMINE URINE NEG <=500 ng/mL 11/26/2024 11:09 AM [facility] BARBITURATE URINE NEG <=200 ng/mL 11/26/2024 11:09 AM [facility] BENZODIAZEPINE URINE NEG <=100 ng/mL 11/26/2024 11:09 AM [facility] BUPRENORPHRINE URINE NEG <=5 ng/mL 11/2024 11:09 AM [facility] COCAINE METAB URINE NEG <=300 ng/mL 11/26/2024 11:09 AM [facility] ETHYLGLUCURONIDE URINE NEG <=250 ng/mL 11/26/2024 11:09 AM [facility] FENTANYL URINE NEG <=4 ng/mL 11/26/2024 11:09 AM [facility] METHADONE URINE NEG <=300 ng/mL 11/26/2024 11:09 AM [facility] OPIATES URINE NEG <=300 ng/mL 11/26/2024 11:09 AM [facility] OXYCODONE URINE POS(A) <=100 ng/mL 11/26/2024 11:09 AM [facility] PROPOXYPHENE URINE NEG <=300 ng/mL 11/26/2024 11:09 AM [facility] THC 50 URINE NEG <=50 ng/mL 11/26/2024 11:09 AM [facility] TRAMADOL NEG <=200 ng/mL 11/26/2024 11:09 AM [facility] PH URINE 8.4(H) 5.0 - 7.0 11/26/2024 11:09 AM [facility] CREAT UR 118 >=20 mg/dL 11/26/2024 11:09 AM [facility] MASS SPECTROMETRY URINE See Below 11/26/2024 11:09 AM [facility] Comment:Acetaminophen, Oxyco done and Oxycodone metabolites present. Urine URINE SPECIMEN / Unknown Non-Blood / Unknown 11/20/2024 9:00 AM SENIOR MECHANICAL DESIGN ENGINEER 11/21/2024 9:18 AM [facility] - 11/26/2024 11:09 AM [facility] Current Outpatient Medications: buprenorphine 5 mcg/hr (BUTRANS) 5 mcg/hour transdermal patch, Apply 1 Patch on dry, clean, hairless skin once weekly. Use dates: 06/19/24- 07/16/24 = 28 days citalopram (CELEXA) 10 mg tablet, Take 10 mg by mouth once daily in the morning. lidocaine 5 % topical patch, Apply to intact skin to cover lower back area for max 12hr per 24hr period. methocarbamoL (ROBAXIN) 500 mg tablet, Take 1 Tablet (500 mg) by mouth every 6 hours if needed for Muscle Spasm. oxyCODONE-acetaminophen (PERCOCET) 5-325 mg per tablet, Take 1 Tablet by mouth 3 times daily if needed for Pain. Used dates: 11/01/24-11/20/24 For chronic pain. May refill 2 days early. PARTIAL REFILL UNTIL OFFICE VISIT. tiZANidine (ZANAFLEX) 4 mg tablet, Take 4 mg by mouth every 6 hours if needed. No current facility-administered medications for this visit. As of 11/20/2024 Release to patient->Immediate us Nyasia Cuevas NP URINE Fin al Result [facility] [address] [facility] [address] [place] [address], [place] * ANTI HIV 1/2 [33606.0] (11/07/2009 1:51 PM SENIOR MECHANICAL DESIGN ENGINEER) ANTI HIV 1/2 Non-reacti ve [facility] Blood specimen (specimen) BLOOD SPECIMEN / Unknown 11/07/2009 1:51 PM SENIOR MECHANICAL DESIGN ENGINEER 11/07/2009 1:45 PM SENIOR MECHANICAL DESIGN ENGINEER us Hannah Johnson MD SEND OUTS Final Result [facility] INTERNAL ZIP [address] [place] [address] from Last 3 Months or Most Recently Relevant to Health Maintenance Insurance [employer] [place] [facility] * Guarantor: JOLLY CARTER Account Type Relation to Patient Date of Phone Billing Address [facility] 1978 [place] [id number] ATTN A/P [address] [address] [place] [address] Advance Directives * Full Code (Latest Code [...] 6:58 AM 10/16/2013 11:51 AM Care Teams Veterinary Medicine Scientist Relationship Specialty Start Date End Date Justus Zaidi MD [address] [place] [address] PCP - General Pediatric 11/20/24 Nyasia Cuevas NP [address] [place] [address] Pain Management Nurse Practitioner - Family 07/23/24
--- OUTSIDE RECORDS SUMMARY | 2024-12-14 10:33 | XMS_ITS ---
Author Organization [facility] [place] Address [address] [place] [address] Care Team Providers Care Bottom Polisher Name Role Phone Justus Zaidi MD Primary Care Provider Lucero Melendez WATCH GUARD GATE Unavailable [phone] Lucero Melendez WATCH GUARD GATE Unavailable [phone] Nora Davalos PA-C Unavailable [phone] Primary Care Care Coordination Status:Closed (Closed) Start date:11/23/2024 End date:12/04/2024 Close reason:Unable to reach patient Overview Patient to call her insurance to inquire on pain clinic's Continued Care and Services Coordination
--- OUTSIDE RECORDS SUMMARY | 2024-12-14 10:33 | XMS_ITS | Encounter Summary ---
Author Organization [facility] Address [address] [place] [address] Care Team Providers Care Solar Sales Energy Advisor Name Role Phone No Primary/Referring, Phy Primary Care Provider Unavailable Encounter Details Date Type Department Care Team (Latest Contact Info) Description 09/06/1995 Orders Only Davion Alvarez MD [address] [place], [place] [id number] Social History Tobacco Use Types Packs/Day Years [...] on filedocumented in this encounter Care Teams Solar Sales Energy Advisor Relationship Specialty Start Date End Date No Primary/Referring, Shelly PCP - General 11/17/21 documented as of this encounter
--- OUTSIDE RECORDS SUMMARY | 2024-12-14 10:33 | XMS_ITS | Encounter Summary ---
Author Organization [facility] Address [address], [place] [address] Care Team Providers Care Cook Tortilla Name Role Phone No Primary/Referring, Phy Primary Care Provider Unavailable Encounter Details Date Type Department Care Team (Latest Contact Info) Description 12/20/1994 Orders Only Mu Rai MD [facility] [address] [place] [address] Social History Tobacco Use Types [...] on filedocumented in this encounter Care Teams Cook Tortilla Relationship Specialty Start Date End Date No Primary/Referring, Shelly PCP - General 11/17/21 documented as of this encounter
--- OUTSIDE RECORDS SUMMARY | 2024-12-14 10:33 | XMS_ITS | Encounter Summary ---
Author Organization [facility] Address [address] [address] Care Team Providers Care Meat Blender Name Role Phone No Primary/Referring, Shelly Primary Care Provider Unavailable Encounter Details Date Type Department Care Team (Latest Contact Info) Description 12/29/1999 Orders Only Geovani Fournier [facility] [id number] [place] [address], [address] Social History Tobacco Use Types Packs/Day [...] on filedocumented in this encounter Care Teams Meat Blender Relationship Specialty Start Date End Date No Primary/ReferringShelly PCP - General 11/17/21 documented as of this encounter
--- OUTSIDE RECORDS SUMMARY | 2024-12-14 10:33 | XMS_ITS | Encounter Summary ---
Author Organization [facility] Address [address], [place] [address] Care Team Providers Care Repair Armature Winder Helper Name Role Phone No Primary/Referring, Phy Primary [...] on filedocumented in this encounter Care Teams Repair Armature Winder Helper Relationship Specialty Start Date End Date No Primary/Referring, Shelly PCP - General 11/17/21 documented as of this encounter
--- OUTSIDE RECORDS SUMMARY | 2024-12-14 10:33 | XMS_ITS | Encounter Summary ---
Author Organization [facility] Address [address], [place] [address] Care Team Providers Care Department Specialist Name Role Phone No Primary/Referring, Shelly Primary Care Provider Unavailable Encounter Details Date Type Department Care Team (Latest Contact Info) Description 04/05/2000 Orders Only Geovani Fournier [facility] [id number] [place] [address], [address] Social History Tobacco Use Types Packs/Day [...] on filedocumented in this encounter Care Teams Department Specialist Relationship Specialty Start Date End Date No Primary/ReferringShelly PCP - General 11/17/21 documented as of this encounter
--- OUTSIDE RECORDS SUMMARY | 2024-12-14 10:33 | XMS_ITS | Encounter Summary ---
Author Organization [facility] Address [address] [place] [address] Care Team Providers Care Contracting Specialist Name Role Phone Justus Zaidi MD Primary Care Provider Justus Zaidi MD Unavailable Justus Zaidi MD Unavailable Justus Zaidi MD Unavailable Georges Davalos DPM Unavailable [phone] Justus Zaidi MD Unavailable Georges Davalos DPM Unavailable [phone] Roxann Head REFRIGERATION ENGINEER Unavailable [phone] Mony Plascencia CHW Unavailable Noris Smith IBM MAINFRAME DEVELOPER Unavailable Unavailabl e Justus Zaidi MD Unavailable Lucero Melendez NP Unavailable [phone] Christine Morel [employer] MAINFRAME DEVELOPER Unavailable Mony Plascencia W Unavailable [phone] Lucero Melendez NP Unavailable Nora Davalos PA-C Unavailable Nora Davalos PA-C Unavailable [phone] Irma Jones YONATAN Unavailable Encounter Details Date Type Department Care Team (Late st Contact Info) Description 08/16/2022 [facility] Medical Advice [facility] [address] [place] [address] [phone] Justus Zaidi MD [address] [place] [address] Social History Tobacco Use Types Packs/Day Years [...] PM CDT Legal Sex Female 2:58 AM CORPORATE QUALITY ENGINEER Gender Identity Female 03/22/2022 5:14 PM [...] documented as of this encounter Care Teams Contracting Specialist Relationship Specialty Start Date End Date Justus Zaidi MD [address] [place] [address] PCP - General Internal Medicine - Pediatrics 03/22/22 [place] [address] [place] [address] Assigned PCP 09/11/22 10/01/22 [place] [address] [address] Assigned PCP 08/07/22 09/10/22 Justus Zaidi MD [address] [place], [place] [address] [address] Assigned PCP 10/02/22 11/19/22 Georges Davalos DPM [address] [place] [address] Assigned Musculoskeletal Provider 10/23/22 10/29/22 Justus Zaidi MD [address] [place], [place] [address] [address] Assigned PCP 11/20/22 06/17/24 Georges Davalos DPM [address] [place] [address] Assigned Surgical Provider 10/30/22 05/17/24 Roxann Head, REFRIGERATION ENGINEER Lead Puncher And Fastener Primary Care - CC 11/26/22 Mony Plascencia, [facility] Community Health Worker 11/26/2202/10 Noris Smith LICSW Lead Puncher And Fastener 11/26/22 02/11/23 Justus Zaidi MD [address] [address] Assigned Pain Medication Provider 11/27/22 10/07/23 Lucero Melendez, VIJAYA [address] [address] Nurse Practitioner Nurse Practitioner 02/10/23 Christine Morel LICSW Lead Puncher And Fastener 02/10/23 3 Mony Plascencia W Community Health Worker 02/11/2304/04 [place] [address] [place] [address] Nurse Practitioner Nurse Practitioner 04/06/23 Nora Davalos PA-C [address] [place] [address] Assigned Pain Medication Provider 03/18/24 04/16/24 Nora Davalos PA-C [address] [place], [place] [id number] Assigned PCP 06/18/24 Irma Jones, RN Lead Puncher And Fastener Primary Care - CC 11/26/2412/04 documented as of this encounter
--- OUTSIDE RECORDS SUMMARY | 2024-12-14 10:33 | XMS_ITS | Encounter Summary ---
[facility] Address [address], [place] [address] Care Team Providers Care Skimmer Reverberatory Name Role Phone No Primary/Referring, Shelly Primary Care Provider Unavailable Encounter Details Date Type Department Care Team (Latest Contact Info) Description 05/10/2000 Orders Only Geovani Fournier [facility] [id number] [place] [address], [address] Social History Tobacco Use Types Packs/Day [...] on filedocumented in this encounter Care Teams Skimmer Reverberatory Relationship Specialty Start Date End Date No Primary/ReferringShelly PCP - General 11/17/21 documented as of this encounter
--- OUTSIDE RECORDS SUMMARY | 2024-12-14 10:33 | XMS_ITS | Encounter Summary ---
Author Organization [facility] Address [address], [place] [address] Care Team Providers Care Deli Manager Name Role Phone No Primary/Referring, Phy [...] on filedocumented in this encounter Care Teams Deli Manager Relationship Specialty Start Date End Date No Primary/Referring, Shelly PCP - General 11/17/21 documented as of this encounter
--- OUTSIDE RECORDS SUMMARY | 2024-12-14 10:33 | XMS_ITS | Encounter Summary ---
Author Organization [facility] Address [address] [address] Care Team Providers Care Dining Room Busser Name Role Phone No Primary/Referring, Phy Primary [...] on filedocumented in this encounter Care Teams Dining Room Busser Relationship Specialty Start Date End Date No Primary/Referring, Shelly PCP - General 11/17/21 documented as of this encounter
--- OUTSIDE RECORDS SUMMARY | 2024-12-14 10:34 | XMS_ITS | Encounter Summary ---
Author Organization [facility] Address [address] [address] Care Team Providers Care Cable Machine Operator Name Role Phone No Primary/Referring, Phgricel Primary Care Provider Unavailable Encounter Details Date Type Department Care Team (Late st Contact Info) Description 07/29/2017 Correspondence [facility] Radiology [address] [place] [address] Radiology, Provider MRI SAFETY SHEET AND COMPATIBILITY [...] on filedocumented in this encounter Care Teams Cable Machine Operator Relationship Specialty Start Date End Date No Primary/ReferringShelly PCP - General 11/17/21 documented as of this encounter
--- OUTSIDE RECORDS SUMMARY | 2024-12-14 10:34 | XMS_ITS | Encounter Summary ---
Author Organization [facility] Address [address], [place] [address] Care Team Providers Care Busher Helper Name Role Phone No Primary/Referring, Phy [...] on filedocumented in this encounter Care Teams Busher Helper Relationship Specialty Start Date End Date No Primary/Referring, Phy PCP - General 11/17/21 documented as of this encounter
--- OUTSIDE RECORDS SUMMARY | 2024-12-14 10:34 | XMS_ITS | Encounter Summary ---
Author Organization [facility] Address [address], [place] [address] Care Team Providers Care Training Development Manager Name Role Phone No Primary/Referring, Phy [...] on filedocumented in this encounter Care Teams Training Development Manager Relationship Specialty Start Date End Date No Primary/Referring, Shelly PCP - General 11/17/21 documented as of this encounter
--- OUTSIDE RECORDS SUMMARY | 2024-12-14 10:34 | XMS_ITS | Encounter Summary ---
Author Organization [facility] Address [address] [place] [address] Care Team Providers Care Body Masker Name Role Phone Justus Zaidi MD Primary Care Provider [phone] Justus Zaidi MD Unavailable [phone] Georges Davalos DPM Unavailable [phone] Lucero Melendez TIN FLOPPER Unavailable [phone] Lucero Melendez TIN FLOPPER Unavailable [phone] Nora Davalos PA-C Unavailable [phone] Nora Dvaalos PA-C Unavailable [phone] Irma Jones RN Unavailable Encounter Details Date Type Department Care Team (Late st Contact Info) Description 02/23/2024 [facility] Medical Advice [address] [phone] Linda Iglesias Social History Tobacco Use Types Packs/Day Years Used Date Smoking Tobacco: Never Passive Smoke Exposure: Never Comments:2 cigs per day Alcohol Use Standard Drinks/Week Comments No 0 (1 standard drink = 0.6 oz pur e alcohol) social Overall Financial Resource Strain (CARDIA) Answe r Date Recorded How hard is it for you to pa y for the very basics like food, housing, medical care, and heating? Very hard 11/26/2022 PHQ-2 Answer Date Recorded PHQ-2 Score 4 02/21/2024 Hunger Vital Sign Answer Date Recorded Within [...] School Help Needed Not on file 06/17 Interpersonal Safety Answer Date Record ed Do you feel physically and e motionally safe where you currently live? Yes 02/21/2024 Within the past 12 months, h ave you been hit, slapped, kicked or otherwise physically hurt by someone? No 02/21/2024 Within the past 12 months, h ave you been humiliated or emotionally abused in other ways by your partner or ex-partner? No 02/21/2024 Comments No Sex and Gender Information Value Date Recorded Sex Assigned at Female 03/22/2022 5:14 PM CDT Legal Sex Female 2:58 AM MANAGER STATISTICAL PROGRAMMING Gender Identity Female 03/22/2022 5:14 PM CDT [...] Progress Patient-Stated? Author I will utilize all [facility] programs I am eligible for [...] goal: 1. I will work with the [facility] to complete all forms [...] scheduled outreach telephone calls from the [facility] team. Continuous (MB) documented as of this encounter Visit Diagnoses Not on filedocumented in this encounter Additional Health Concerns Active Problems Noted Date Diagnosed Date Diet management 11/26/2022 Patient expresses financial resource strain 11/2022 Assessment Noted Time PHQ-9 Depression Total Score: 17 024 8:57 AM CDT documented as of this encounter Care Teams Body Masker Relationship Specialty Start Date End Date Justus Zaidi MD [address] [place] [address] PCP - General Internal Medicine - Pediatrics 03/22/22 Justus Zaidi MD [address] [place] [address] [address] Assigned PCP 11/20/22 06/17/24 Georges Davalos DPM [facility] [address] [place] [address] Assigned Surgical Provider 10/30/22 05/17/24 [place] [address] [address] [address] Nurse Practitioner Nurse Practitioner 02/10/23 [place] [address] [address] Nurse Practitioner Nurse Practitioner 04/06/23 Nora Davalos PA-C [address] [place] [address] Assigned Pain Medication Provider 03/18/24 04/16/24 Nora Davalos PA-C [address] [place], [place] [id number] Assigned PCP 06/18/24 Irma Jones RN Lead Auto Body Technician Primary Care - CC 11/26/2412/04 documented as of this encounter
--- OUTSIDE RECORDS SUMMARY | 2024-12-14 10:34 | XMS_ITS | Encounter Summary ---
Author Organization [facility] Address [address] [place] [address] Care Team Providers Care Parimutuel Ticket Cashier Name Role Phone Justus Zaidi MD Primary Care Provider [phone] Justus Zaidi MD Unavailable [phone] Georges Davalos DPM Unavailable [phone] Lucero Melendez BIOCHEMICAL DEVELOPMENT ENGINEER Unavailable [phone] Lucero Melendez BIOCHEMICAL DEVELOPMENT ENGINEER Unavailable [phone] Nora DavalosC Unavailable [phone] Nora DavalosC Unavailable [phone] Irma Jones RN Unavailable Reason for Visit * Reason Onset Date Comments Appointment 02/23/2024 LM pt needs an appt 02/23/2024 Encounter Details Date Type Department Care Team (Late st Contact Info) Description 02/23/2024 Telephone [facility] [address] [place] [address] Nora Davalos PA-C [address] [place] [address] Appointment; LM pt needs an appt Social History Tobacco Use Types Packs/Day Years [...] place to sleep or slept in a mcc (including now)? No 11/26/2022 Adolescent Education Answer [...] PM CDT Legal Sex Female 2:58 AM FACE PAINTER Gender Identity Female 03/22/2022 5:14 PM CDT Sexual Orientation Straight 03/22/2022 5: 14 PM CDT Occupation Industry Job Start Date Job End Date unemployed Not on file Not on file Not on file documented as of this encounter Miscellaneous Notes * Telephone Encounter - Linda Iglesias - 02/24/2024 8:19 AM CDT 02-24-24 Pt is scheduled 6-4 Krsytal * Telephone Encounter - Linda Iglesias - 02/23/2024 1:49 PM CDT 02-23-24 LM pt needs an [facility]t [facility] * Telephone Encounter - Argenis Ibrahim - 02/23/2024 1:39 PM CDT Reason for Call: Appointment Request Patient requesting this type of appt: Chronic Diease Management/Medication/Follow-Up Requested provider: jeny ramirez Reason patient unable to be scheduled: saw jeny ramirez last week and was prescribed narcotic medication and was told to follow up. There are no appointments on Nora Davalos's schedule until March. When does patient want to be seen/preferred time: will be out of medication next Tuesday 02/27 so needs an appointment before then Comments: has court Tuesday 02/27 in afternoon, so she needs an appointment before then Could we send this information to you in [employer] or would you prefer to receive a phone call?: Patient would like to be contacted via [employer] Call taken on 02/23/2024 at 1:39 PM by Argenis Ibrahim documented in this encounter Plan of Treatment Not on file documented as of this encounter Goals Goal Patient Goal Type Associated Problems Recent Progress Patient-Stated? Author I will utilize all [facility] programs I am eligible for as [...] I will work with the [facility] to complete all forms and provide documentation. [...] at scheduled outreach telephone calls from the [facility] team. Continuous (MB) documented as of this encounter Visit Diagnoses Not on filedocumented in this encounter Additional Health Concerns Active Problems Noted Date Diagnosed Date Diet management 11/26/2022 Patient expresses financial resource strain 11/2022 Assessment Noted Time PHQ-9 Depression Total Score: 17 024 8:57 AM CDT documented as of this encounter Care Teams Parimutuel Ticket Cashier Relationship Specialty [place] [address] [place] [address] [place] [address] PCP - General Internal Medicine - Pediatrics 03/22/22 [place] [address] [place] [address] [place] [address] Assigned PCP 11/20/22 06/17/24 Georges Davalos DPM [address] [place] [address] [address] [address] Assigned Surgical Provider 10/30/22 05/17/24 [place] [address] [address] [address] Nurse Practitioner Nurse Practitioner 02/10/23 [place] [address] [address] [address] Nurse Practitioner Nurse Practitioner 04/06/23 Nora Davalos PA-C [address] [place] [address] Assigned Pain Medication Provider 03/18/24 04/16/24 Nora Davalos PA-C [address] [place] [address] Assigned PCP 06/18/24 Irma Jones RN Lead Tool Mechanic Primary Care - CC 11/26/2412/04 documented as of this encounter
--- OUTSIDE RECORDS SUMMARY | 2024-12-14 10:34 | XMS_ITS | Encounter Summary ---
Author Organization [facility] Address [address] [address] Care Team Providers Care Photo Print Specialist Name Role Phone No Primary/Referring, Phy [...] on filedocumented in this encounter Care Teams Photo Print Specialist Relationship Specialty Start Date End Date No Primary/Referring, Shelly PCP - General 11/17/21 documented as of this encounter
--- OUTSIDE RECORDS SUMMARY | 2024-12-14 10:34 | XMS_ITS | Encounter Summary ---
Author Organization [facility] Address [address] [place] [address] Care Team Providers Care Material Crew Supervisor Name Role Phone No Primary/Referring, Phy Primary Care Provider Unavailable Encounter Details Date Type Department Care Team (Late st Contact Info) Description 12/05/2003 Hospital External to Shirley Astudillo MD [address] [id number] [facility] Suicide attempt Social History Tobacco Use [...] * Shirley Astudillo - 12/05/2003 12:00 AM BUSINESS SUPPORT MANAGER NESS SUPPORT MANAGER documented in this encounter Plan of Treatment Not on file documented as of this encounter Visit Diagnoses Not on filedocumented in this encounter Care Teams Material Crew Supervisor Relationship Specialty Start Date End Date No Primary/ReferringShelly PCP - General 11/17/21 documented as of this encounter
--- OUTSIDE RECORDS SUMMARY | 2024-12-14 10:34 | XMS_ITS | Encounter Summary ---
Author Organization [facility] Address [address], [place] [address] Care Team Providers Care Marketing Programs Specialist Name Role Phone No Primary/Referring, Phy Primary Care Provider Unavailable Encounter Details Date Type Department Care Team (Late st Contact Info) Description 08/19/2015 Scanned History External to Transferred Record, Provider [facility] Social History Tobacco Use Types Packs/Day [...] filedocumented in this encounter Care Teams Marketing Programs Specialist Relationship Specialty Start Date End Date No Primary/Referring, Shelly PCP - General 11/17/21 documented as of this encounter
--- OUTSIDE RECORDS SUMMARY | 2024-12-14 10:34 | XMS_ITS | Encounter Summary ---
Author Organization [facility] Address [address] [place] [address] Care Team Providers Care Furniture Stainer Name Role Phone Justus Zaidi MD Primary Care Provider [phone] Lucero Melendez ORCHID TRANSPLANTER Unavailable [phone] Lucero Melendez ORCHID TRANSPLANTER Unavailable [phone] Nora Davalos PA-C Unavailable Irma Jones RN Unavailable Encounter Details Date Type Department Care Team (Late st Contact Info) Description 10/03/2024 [facility] Medical Advice [facility] [address] [place] [address] Justus Zaidi MD [address] [place] [id number] Social History Tobacco Use Types Packs/Day Years [...] place to sleep or slept in a skilled nursing (including now)? No 11/26/2022 Adolescent Education Answer [...] PM CDT Legal Sex Female 2:58 AM SCUBA DIVER Gender Identity Female 03/22/2022 5:14 PM CDT [...] utilize all [facility] programs I am eligible for [...] I will work with the [facility] to complete all forms and provide documentation. [...] at scheduled outreach telephone calls from the [facility] team. Continuous (MB) documented as of this encounter Visit Diagnoses Not on filedocumented in this encounter Additional Health Concerns Active Problems Noted Date Diagnosed Date Diet management 11/26/2022 Patient expresses financial resource strain 11/2022 Assessment Noted Time PHQ-9 Depression Total Score: 17 024 8:57 AM CDT documented as of this encounter Care Teams Furniture Stainer Relationship Specialty Start Date End Date Justus Zaidi MD [address] [place] [address] PCP - General Internal Medicine - Pediatrics 03/22/22 [place] [address] [address] [address] Nurse Practitioner Nurse Practitioner 02/10/23 [place] [address] [address] [address] Nurse Practitioner Nurse Practitioner 04/06/23 Nora Davalos PA-C [address] [place] [address] Assigned PCP 06/18/24 Irma Jones RN Lead Systems Test Engineer Primary Care - CC 11/26/2412/04 documented as of this encounter
--- OUTSIDE RECORDS SUMMARY | 2024-12-14 10:34 | XMS_ITS | Encounter Summary ---
Author Organization [facility] Address [address] [address] Care Team Providers Care Psychiatric Secretary Name Role Phone No Primary/Referring, Phy Primary [...] on filedocumented in this encounter Care Teams Psychiatric Secretary Relationship Specialty Start Date End Date No Primary/Referring, Shelly PCP - General 11/17/21 documented as of this encounter
--- OUTSIDE RECORDS SUMMARY | 2024-12-14 10:34 | XMS_ITS | Encounter Summary ---
Author Organization [facility] Address [address] [place] [address] Care Team Providers Care Equipment Service Associate Name Role Phone No Primary/Referring, Phy Primary Care Provider Unavailable Encounter Details Date Type Department Care Team (Late st Contact Info) Description 12/11/2018 [facility] [address] 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
--- OUTSIDE RECORDS SUMMARY | 2024-12-14 10:34 | XMS_ITS | Encounter Summary ---
Author Organization [facility] Address [address] [place] [address] Care Team Providers Care Video Arcade Manager Name Role Phone Justus Zaidi MD Primary Care Provider [phone] Lucero Melendez INSULATION HOSEMAN Unavailable [phone] Lucero Melendez INSULATION HOSEMAN Unavailable [phone] Nora Davalos PA-C Unavailable [phone] Reason for Referral * Care Coordination (Routine: Next available opening) - Pending Review Specialty Diagnoses / Procedures Referred By Christine figueroa Referred To Contact Diagnoses Back pain, unspecified back location, unspecified back pain laterality, unspecified chronicity Chronic pain disorder Justus Zaidi MD [address] [place] [address] [place] [address] Phone: tel: fax: Referral ID Status Reason Start Date Expiration Date V isits Requested Visits Authorized [id number] Pending Review 11/23/2024 11/23/2025 1 1 Question Answer Reason for Referral: Care Transition Transition: Other - Use Comments - help with finding pain clinic covered by insurance Clinical Staff have discussed the Care Coordination Referral with the patient and/or caregiver: Yes Comments OILER * Consultation (Routine: Next available opening) - Pending Review Specialty Diagnoses / Procedures Referred By Christine t Referred To Contact Pain Medicine Diagnoses Back pain, unspecified back location, unspecified back pain laterality, unspecified chronicity Chronic pain disorder Justus Zaidi MD [address] [place] [address] [place] [address] Phone: tel: fax: Referral ID Status Reason Start Date Expiration Date V isits Requested Visits Authorized [id number] Pending Review 11/23/2024 11/23/2025 1 1 Question Answer My clinical question is: ongoing chronic pain management Reason for Referral: Comprehensive Pain Evaluation Are there any red flags that may impact the assessment or management of the patient? Patient has Already been Evaluated/Treated at a Pain Clinic Please Specify: she reports pain provider is leaving and needs new pain management provider Provider, please review opioid agreement in the process instructions above. Do you agree to these terms? Yes Patient Scheduling Instructions: [facility] will call you to coordinate care as prescribed your provider. If you don t hear from a sales representative sales manager within 2 business days, please call . Comments Please be aware that coverage of these services is subject to the terms and limitations of your health insurance plan. Call member services at your health plan with any benefit or coverage questions. [facility] will call you to coordinate care as prescribed your provider. If you don t hear from a sales representative sales manager within 2 business days, please call . OILER Encounter Details Date Type Department Care Team (Late st Contact Info) Description 11/21/2024 MyC Medical Advice [facility] [address] [place] [address] Justus Zaidi MD [address] [place] [address] [place] [address] Back pain, unspecified back location, unspecified back pain laterality, unspecified chronicity (Primary Dx); Chronic pain disorder Social History Tobacco Use Types Packs/Day Years [...] in a intermediate (including now)? No 11/26/2022 Adolescent Education Answer [...] PM CDT Legal Sex Female 2:58 AM PUMP OILER Gender Identity Female 03/22/2022 5:14 PM CDT Sexual Orientation Straight 03/22/2022 5: 14 PM CDT Occupation Industry Job Start Date Job End Date unemployed Not on file Not on file Not on file documented as of this encounter Miscellaneous Notes * Telephone Encounter - Justus Zaidi MD - 11/23/2024 1:08 PM PUMP OILER I reviewed the medication list- I don't typically do butrans (buprenorphine). I put in for the [facility] pain clinic. Typically this should be covered if I'm covered as PCP. [facility] OILER * Addendum Note - Justus Zaidi MD - 11/21/2024 11:04 AM CSTAddended by: JUSTUS ZAIDI on: 11/23/2024 01:58 PM Modules accepted: Orders OILER documented in this encounter Plan of Treatment Scheduled Referrals Name Type Priority Associated Diagnoses Orde r Schedule Pain Management Sales Representative [employer] Referral Referral Routine: Next available opening Back pain, unspecified back location, unspecified back pain laterality, unspecified chronicity Chronic pain disorder Expected: 11/23/2024 (Approximate), Expires: 11/23/2025 Primary Care - Care Coordination Referral Referral Routine: Next available opening Back pain, unspecified back location, unspecified back pain laterality, unspecified chronicity Chronic pain disorder Expected: 11/23/2024 (Approximate), Expires: 11/23/2025 documented as of this encounter Goals Goal [...] goal: 1. I will work with the [facility] to complete all forms and provide documentation. [...] telephone calls from the [facility] team. Continuous (MB) documented as of this encounter Visit Diagnoses Diagnosis Back pain, unspecified back location, unspecified back pain laterality, unspecified chronicity- Primary Chronic pain disorder Chronic pain syndrome documented in this encounter Additional Health Concerns Active Problems Noted Date Diagnosed Date Diet management 11/26/2022 Patient expresses financial resource strain 11/2022 Assessment Noted Time PHQ-9 Depression Total Score: 17 024 8:57 AM CDT documented as of this encounter Care Teams Video Arcade Manager Relationship Specialty Start Date End Date Justus Zaidi MD [address] [place] [address] PCP - General Internal Medicine - Pediatrics 03/22/22 [place] [address] [address] [place] [address] Nurse Practitioner Nurse Practitioner 02/10/23 [place] [address] [address] [place] [address] Nurse Practitioner Nurse Practitioner 04/06/23 Nora Davalos PA-C [address] [place] [address] Assigned PCP 06/18/24 documented as of this encounter
--- OUTSIDE RECORDS SUMMARY | 2024-12-14 10:34 | XMS_ITS | Encounter Summary ---
Author Organization [facility] Address [address], [place] [address] Care Team Providers Care Rock Climbing Team Member Name Role Phone No Primary/Referring, Phy Primary [...] on filedocumented in this encounter Care Teams Rock Climbing Team Member Relationship Specialty Start Date End Date No Primary/Referring, Shelly PCP - General 11/17/21 documented as of this encounter
--- OUTSIDE RECORDS SUMMARY | 2024-12-14 10:34 | XMS_ITS | Clinical Summary ---
Author Organization [facility] Address [address] [place] [address] Care Team Providers Care Urban Renewal Manager Name Role Phone Justus Zaidi MD Primary Care Provider [phone] Lucero Melendez TITLE AGENT Unavailable [phone] Lucero Melendez TITLE AGENT Unavailable [phone] Nora Davalos PA-C Unavailable [phone] Allergies Active Allergy Reactions Criticality Noted Date [...] with it) Penicillins Hives Low 01/04/2005 Medications naproxen (NAPROSYN) 500 MG tabletIndication s:Acute right-sided low back pain with right-sided sciatica Take 1 tablet (500 mg) by mouth 2 times daily (with meals) 60 tablet 3 3 Active ketoconazole (NIZORAL) 2 % external shampooIndicatio ns:Dermatitis Apply topically daily as needed for itching or irritation To affected area- leave on for 5 minutes then rinse off 120 mL 3 3 Active tiZANidine (ZANAFLEX) 4 MG tabletIndication s:Back pain, unspecified back location, unspecified back pain laterality, unspecified chronicity Take 1 tablet (4 mg) by mouth 3 times daily as needed for muscle spasms 30 tablet 4 Active triamcinolone (KENALOG) 0.1 % external ointmentIndicati ons:Psoriasis Apply topically 2 times daily 30 g 4 Active citalopram (CELEXA) 10 MG tabletIndication s:Anxiety Take 1 tablet (10 mg) by mouth daily 90 tablet 3 4 Active oxyCODONE-acetam inophen (PERCOCET) 5-325 MG tabletIndication s:Acute right-sided low back pain with right-sided sciatica Take 1 tablet by mouth every 6 hours as needed for pain 21 tablet 4 Active methocarbamol (ROBAXIN) 500 MG tablet Take 1 tablet (500 mg) by mouth 4 times daily as needed for muscle spasms. 20 tablet 4 Active predniSONE (DELTASONE) 20 MG tablet Take two tablets (= 40mg) each day for 5 (five) days 10 tablet 4 Active fluconazole (DIFLUCAN) 150 MG tablet Take 1 tablet by mouth daily at 2 pm. 5 Active gabapentin (NEURONTIN) 100 MG capsule Take 100 mg at bedtime x 5 days. May increase to 100 mg in the morning and at bedtime x 5 days. Can increase to 200 mg at bedtime/ 100 mg in the morning x 5 days. Then 200 mg BID. Call if need further dos increase 5 Active Active Problems Problem Noted Date Diagnosed Date Fibromyalgia 11/26/2024 Chronic, continuous use of opioids 04/04/2023 Tibialis posterior tendinitis, left 10/19/2022 Pes planovalgus, acquired, left 10/19/2022 Plantar fasciitis of left foot 10/19/2022 Chronic pain disorder 11/05/2017 Recurrent ventral hernia 08/19/2017 06/07/2 023 Overview (03/02/2023): Added automatically from request for surgery [id number] Incarcerated ventral hernia 02/06/2016 0603/2023 SI (sacroiliac) joint dysfunction 11/12/2015 Chronic cholecystitis with calculus 01/14/2015 03/02/2023 Overview (03/02/2023): 01/13/2015 right upper quadrant ultrasound: cholelithiasis ([facility]) Heartburn 04/30/2011 03/02/2023 Overview (03/02/2023): S/p Maldonado surgery 2010 with improvement EGD done [place] pH positive for reflux [place] 52.4 on worst day Lymphocytic colitis 03/09/2011 03/02/2023 Overview (03/02/2023): Biopsy 02/2011 Negative screening for celiac sprue Trial pepto bismol 3 tabs oral three times daily Stopped proton pump inhibitor and no effect, stopped pepto bismol since not helping Depressive disorder, not elsewhere classified Anxiety 07/19/2008 Other tenosynovitis of hand and wrist 10/28/2006 03/02/2023 Overview (03/02/2023): RT FOREARM 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 Provider to review Resolved Problems Problem Noted Date Diagnosed Date Resolved Date Morbid obesity 11/09/2022 11/26/2024 Abdominal pain 01/14/2015 03/02/2023 04/05/2023 Overview (03/02/2023): Multiple clinic and emergency department visits ([place], [facility] emergency department, and [facility]) CARDIOVASCULAR SCREENING; LD L GOAL LESS THAN 160 07/26/2010 11/09/2022 Diarrhea 09/28/2005 04/05/2023 Tobacco use disorder 01/04/2005 023 Tension headache 01/04/2005 11/09/2022 Encounters Date Type Department Care Team Description 11/26/2024 2:30 PM HEALTHCARE ASSOCIATE Virtual Visit [address] [address] Justus Zaidi MD SI (sacroiliac) joint dysfunction (Primary Dx); Chronic pain disorder; Fibromyalgia 11/26/2024 MyC Medical Advice [address] [address] Justus Zaidi MD 11/21/2024 My[facility] Medical Advice [address] [address] Justus Zaidi MD Back pain, unspecified back location, unspecified back pain laterality, unspecified chronicity (Primary Dx); Chronic pain disorder 10/03/2024 12:10 PM HEALTHCARE ASSOCIATE E-Visit [facility] [address] [place] [phone] Carol Mobley, SAMSON Vaginal Discharge (Entered automatically b... 10/03/2024 MyC Medical Advice [address] [address] Justus Zaidi MD from Last 3 Months Immunizations Name Administration Dates Next Due COVID-19 Bivalent 12+ (Pfizer) 09/23/2022 COVID-19 MONOVALENT 12+ (Pfizer) 03/06/2021,0509/2020 DTP-Hib 04/11/1991, 8,1986,1986,1986 Flu, Unspecified 08/25/2014,07/28/2014, 0 [id number] Novel Flu 10/24/2009 Hepatitis B, Peds (Engerix-B/Recombivax HB) 01/30/2002,03/13/2001,12/29/2000 Influenza (H1N1) 10/24/2009 Influenza (IIV3) PF 08/25/2014, 3,07/12/2011,2009,10/24/2009,07/27/2007 Influenza (prior to 2023) 07/12/2011,10/24/2009 Influenza, Split Virus, Triv alent, Pf (Fluzone\Fluarix) 07/12/2011,10/24/2009 MMR (MMRII) 01/30/2002,07/07/1987 TDAP (Adacel,Boostrix) 05/06/2018,06/14/2010 Td (Adult), Adsorbed 07/26/2000 Family History Medical History Relation Comments Neurologic Disorder Brother 2 1/2 sib (kathy serrano mother). Autism spectrum disorder. Family History Negative Daughter C.A.D. Father CT age 55 Hypertension Father Neurologic Disorder Mother [...] Smoking Tobacco: Never Passive Smoke Exposure: Never Tobacco Cessation:Counseling Given: Not Answered Comments:2 [...] place to sleep or slept in a long-term (including now)? No 11/26/2022 Adolescent Education Answer [...] PM CDT Legal Sex Female 2:58 AM HEALTHCARE ASSOCIATE Gender Identity Female 03/22/2022 5:14 PM CDT Sexual Orientation Straight 03/22/2022 5: 14 PM CDT Occupation Industry Job Start Date Job End Date unemployed Not on file Not on file Not on file Last Filed Vital Signs Vital Sign Reading Time Taken Comments Blood Pressure 149/83 05/30/2024 3:15 PM CDT Pulse 69 05/30/2024 3:15 PM CDT Temperature 36.7 C (98.1 F) 05/30/2024 2:02 PM CDT Respiratory Rate 18 05/30/2024 2:02 PM CDT Oxygen Saturation 100% 05/30/2024 3:15 PM CDT Inhaled Oxygen Concentration - - Weight 86.6 kg (191 lb) 05/30/2024 2:02 PM CDT Height 162.6 cm (5' 4) 05/30/2024 2:02 PM CDT Body Mass Index 32.79 05/30/2024 2:02 PM CDT Plan of Treatment Health Maintenance Due Date Last Done Comments CONTROLLED SUBSTANCE AGREEMENT FOR CHRONIC PAIN MANAGEMENT 1986 YEARLY PREVENTIVE VISIT 07/09/2009 07/09/20 08, 01/04/2005, 05/19/2000 RUTH ASSESSMENT 04/27/2024 04/27/2023, 04/11/2023 COVID-19 Vaccine ( season) 2024 09/23/2022, 03/06/2021, 02/13/2021 INFLUENZA VACCINE (#1) 2024 4, 08/25/2014, 07/28/2014, Additional history exists DIABETES SCREENING 06/07/2024 06/07/2021, 0 10/20/2008, 01/04/2005, Additional history exists PHQ-2 (once per calendar year) 2024 02/21/2024, 02/21/2024, 04/11/2023, Additional history exists PHQ-9 02/20/2025 02/21/2024, 03/26, 03/22/2022, Additional history exists URINE DRUG SCREEN 02/27/2025 02/28/2024, , 04/27/2023, Additional history exists ANNUAL REVIEW OF HM ORDERS 11/26/2025 11/26/2024, ADVANCE CARE PLANNING 11/09/2027 11/09/2022 DTAP/TDAP/TD IMMUNIZATION (8 - Td or Tdap) 05/06/2028 05/06/2018, 06/14/2010, 07/26/2000, Additional history exists ZOSTER IMMUNIZATION (1 of 2) 2036 HEPATITIS B IMMUNIZATION Completed 002, 03/13/2001, 12/29/2000 PAP Discontinued 01/04/2005 HIV SCREENING Completed 11/07/2009, 06/26, 08/26/2004 HEPATITIS C SCREENING Completed 03/22/2022 HPV IMMUNIZATION Aged Out No longer e ligible based on patient's age to complete this topic MENINGITIS IMMUNIZATION Aged Out No l onger eligible based on patient's age to complete this topic Pneumococcal Vaccine: Pediatrics (0 to 5 Years) and At-Risk Patients (6 to 49 Years) Aged Out No longer eligible based on patient's age to complete this topic Goals Goal Patient Goal Type Associated Problems Recent Progress Patient-Stated? Author I will utilize all [facility] programs I am eligible for as [...] Security Disability. 3. I will work with [facility] to see if there is any options for medications for my son until he is on MA. Myself and my family have been approved for Medical Assistance. Completed 3. I will report progress towards this goal at scheduled outreach telephone calls from the [facility] team. Continuous (MB) Procedures Procedure Name Priority Date/Time Associated Diagnosis Comments URINE DRUG SCREEN Routine 02/28/2024 9:3 9 AM CDT Acute right-sided low back pain with right-sided sciatica HEPATITIS C SCREEN REFLEX TO HCV RNA [...] and Genotype (03/22/2022 5:20 PM CDT) Pathologist [facility] Hepatitis C Antibody Nonreactive Nonreactive 2022 2:05 PM CDT SPECIALTY CORE/PROT/EN DO Blood VENOUS STRUCTURE / Unknown Venipuncture / Unknown 03/22/2022 5:20 PM CDT 03/22/2022 5:21 PM CDT Narrative SPECIALTY CORE/PROT/ENDO - 2022 2:05 PM CDT Assay performance characteristics have not been established for newborns, infants, and children. us Justus Zaidi MD LAB - BLOOD ORDERABLES Elaine wolfe Result SPECIALTY CORE/PROT/ENDO Specialty Core/Prot/Endo [address] [facility] [address] [facility], Room [address] [phone] * (ABNORMAL) Comprehensive metabolic panel (06/07/2021 6:37 PM CDT) Pathologist [facility] Sodium 141 136 - 145 mmol/L 06/07/2021 7:03 PM [facility] Potassium 3.8 3.5 - 5.0 mmol/L 06/07/2021 7:03 PM [facility] Chloride 106 98 - 107 mmol/L 06/07/2021 7:03 PM [facility] Carbon Dioxide (CO2) 24 22 - 31 mmol/L 06/07/2021 7:03 PM [facility] Anion Gap 11 5 - 18 mmol/L 06/07/2021 7:03 PM [facility] Urea Nitrogen 8 8 - 22 mg/dL 06/07/2021 7:03 PM [facility] Creatinine 0.95 0.60 - 1.10 mg/dL 06/07/2021 7:03 PM [facility] Calcium 9.4 8.5 - 10.5 mg/dL 06/07/2021 7:03 PM [facility] Glucose 110 70 - 125 mg/dL 06/07/2021 7:03 PM [facility] Alkaline Phosphatase 77 45 - 120 U/L 06/07/2021 7:03 PM [facility] AST 138(H) 0 - 40 U/L 06/07/2021 7:03 PM [facility] ALT 144(H) 0 - 45 U/L 06/07/2021 7:03 PM [facility] Protein Total 7.2 6.0 - 8.0 g/dL 06/07/2021 7:03 PM [facility] Albumin 4.2 3.5 - 5.0 g/dL 06/07/2021 7:03 PM [facility] Bilirubin Total 0.6 0.0 - 1.0 mg/dL 06/07/2021 7:03 PM [facility] GFR Estimate 78 >60 mL/min/1.7 3m2 06/07/2021 7:03 PM [facility] Comment:As of April 05, 2021, eGFR is calculated by the CKD-EPI creatinine equation, without race adjustment. eGFR can be influenced by muscle mass, exercise, and diet. The reported eGFR is an estimation only and is only applicable if the renal function is stable. Blood STRUCTURE OF LEFT UPPER LIMB / Unknown Venipuncture / Unknown 06/07/2021 6:37 PM CDT 06/07/2021 6:40 PM CDT us Jackson Hernandez DO LAB - BLOOD ORDERABLES Final Re sult Performing Organization Address City/[facility]/ZIP Co de Phone Number [facility] [address] [place] [address], [facility] [phone] * HIV 1 & 2, SCREEN (07/09/2008 12:10 PM CDT) HIV 1&2 Antibody Negative [facility] 07/09/2008 12:1 0 PM CDT 07/09/2008 12:11 PM CDT us Mohinder Maddox PA-C LABORATORY Elaine l Result [facility] [address] [address] * A THIN LAYER PAP SCREEN (01/04/2005 12:00 AM CDT) PAP NIL COPDAVID Copath Report Patient Name: TREVOR BANEGAS MR#: [id number] Specimen #: [id number] Collected: 01/04/2005 Received: 01/05/2005 Reported: 01/06/2005 14:04 Ordering Phy(s): LUCIANO ASTUDILLO SPECIMEN/STAIN PROCESS: Pap thin layer prep screening Pap-Cyto x 1, Reflex HPV x 1 SOURCE: Cervical, endocervical Pap thin layer prep screening SPECIMEN ADEQUACY: Satisfactory for evaluation. -Transitional zone component present. CYTOLOGIC INTERPRETATION: Negative for Intraepithelial Lesion or Malignancy Electronically signed out by: LORIN Sapp (ASCP) Processed and screened at [facility] CLINICAL HISTORY: LMP: 12-30-04 TESTING LAB LOCATION: [address] [address] COLLECTION SITE: Client: [facility] Location: [facility] (R) COPATH 01/04/2005 01/05/2005 10: 20 AM CDT Luciano Astudillo MD LABORATORY Final Result COPATH from Last 3 Months or Most Recently Relevant to Health Maintenance Additional Health Concerns Active Problems Noted Date Diagnosed Date Diet management 11/26/2022 Patient expresses financial resource strain 11/2022 [place] [employer] [employer] Care Teams Urban Renewal Manager Relationship Specialty Start Date End Date Justus Zaidi MD [address] [place] [address] PCP - General Internal Medicine - Pediatrics 03/22/22 [place] [address] [place] [address] Nurse Practitioner Nurse Practitioner 02/10/23 [place] [address] [place] [address] Nurse Practitioner Nurse Practitioner 04/06/23 Nora Davalos PA-C [address] [place] [address] Assigned PCP 06/18/24
--- OUTSIDE RECORDS SUMMARY | 2024-12-14 10:34 | XMS_ITS | Encounter Summary ---
Author Organization [facility] Address [address] [place] [address] Care Team Providers Care Database Marketing Manager Name Role Phone Justus Zaidi MD Primary Care Provider [phone] Justus Zaidi MD Unavailable [phone] Georges Davalos DPM Unavailable [phone] Justus Zaidi MD Unavailable [phone] Lucero Melendez PRECINCT POLICE SERGEANT Unavailable [phone] Lucero Melendez PRECINCT POLICE SERGEANT Unavailable [phone] Nora Davalos PA-C Unavailable [phone] Nora Davalos-C Unavailable [phone] Irma Jones RN Unavailable Encounter Details Date Type Department Care Team (Late st Contact Info) Description 05/04/2023 [facility] Medical Advice [facility] [address] [place] [address] Justus Zaidi MD [address] [place] [address] Social History Tobacco Use Types Packs/Day [...] in a alf (including now)? No 11/26/2022 Comments No Sex and Gender Information Value Date Recorded Sex Assigned at Female 03/22/2022 5:14 PM CDT Legal Sex Female 2:58 AM HEALTH PROMOTER Gender Identity Female 03/22/2022 5:14 PM CDT [...] Progress Patient-Stated? Author I will utilize all county programs I am eligible for as well as look at Social Security Disability application, and affordable prescriptions for my son. Care Plan Patient expresses financial resource strain 70%( 10:03 AM CDT) No Roaxnn Head LSW Note: Barriers: time it takes to process applications. Strengths: I have completed applications. Patient expressed understanding of goal: yes Action steps to achieve this goal: 1. I will work with the [facility] to complete all forms and provide documentation. I let my CHW know that I have been approved for SNAP, [place] and Medical Assistance. Completed 2. I will contact Social Security or Disability Specialists to discuss options. I will call Disability Specialists soon to discuss Social Security Disability. 3. I will work with [facility] to see if there is any options for medications for my son until he is on MA. Myself and my family have been approved for Medical Assistance. Completed 3. I will report progress towards this goal at scheduled outreach telephone calls from the [facility]3] team. Continuous (MB) documented as of this encounter Visit Diagnoses Not on filedocumented in this encounter Additional Health Concerns Active Problems Noted Date Diagnosed Date Diet management 11/26/2022 Patient expresses financial resource strain 11/2022 Assessment Noted Time PHQ-9 Depression Total Score: 0 04/11/20 23 8:32 AM CDT documented as of this encounter Care Teams Database Marketing Manager Relationship Specialty [place] [address] [place] [address] [place] [address] PCP - General Internal Medicine - Pediatrics 03/22/22 [place] [address] [place] [address] [place] [address] Assigned PCP 11/20/22 06/17/24 Georges Davalos DPM [address] [place] [address] [address] [address] Assigned Surgical Provider 10/30/22 05/17/24 Justus Zaidi MD [address] [place] [address] Assigned Pain Medication Provider 11/27/22 10/07/23 [place] [address] [place] [address] Nurse Practitioner Nurse Practitioner 02/10/23 [place] [address] [place] [address] Nurse Practitioner Nurse Practitioner 04/06/23 Nroa Davalos PA-C [address] [place] [address] Assigned Pain Medication Provider 03/18/24 04/16/24 Nora Davalos PA-C [address] [place] [address] Assigned PCP 06/18/24 Irma Jones RN Lead 3D Technologist Primary Care - CC 11/26/2412/04 documented as of this encounter
--- OUTSIDE RECORDS SUMMARY | 2024-12-14 10:34 | XMS_ITS | Encounter Summary ---
Author Organization [facility] Address [address] [address] Care Team Providers Care Basket Sorter Name Role Phone No Primary/Referring, Phy Primary [...] on filedocumented in this encounter Care Teams Basket Sorter Relationship Specialty Start Date End Date No Primary/Referring, Shelly PCP - General 11/17/21 documented as of this encounter
--- OUTSIDE RECORDS SUMMARY | 2024-12-14 10:34 | XMS_ITS | Encounter Summary ---
[facility] Address [address], [place] [address] Care Team Providers Care [facility] Name Role Phone No Primary/ReferringShelly Primary Care [...] on filedocumented in this encounter Care Teams [facility] Relationship Specialty Start Date End Date No Primary/ReferringShelly PCP - General 11/17/21 documented as of this encounter
--- OUTSIDE RECORDS SUMMARY | 2024-12-14 10:34 | XMS_ITS | Encounter Summary ---
Author Organization [facility] Address [address] [address] Care Team Providers Care Pricing Consultant Name Role Phone No Primary/Referring, Phy Primary [...] on filedocumented in this encounter Care Teams Pricing Consultant Relationship Specialty Start Date End Date No Primary/Referring, Shelly PCP - General 11/17/21 documented as of this encounter
--- OUTSIDE RECORDS SUMMARY | 2024-12-14 10:34 | XMS_ITS | Encounter Summary ---
Author Organization [facility] Address [address] [place] [address] Care Team Providers Care Enrollment Representative Name Role Phone Justus Zaidi MD Primary Care Provider [phone] Lucero Melendez ACCOUNTS CLERK Unavailable [phone] Lucero Melendez ACCOUNTS CLERK Unavailable [phone] Nora Davalos PA-C Unavailable Irma Jones RN Unavailable Encounter Details Date Type Department Care Team (Late st Contact Info) Description 11/26/2024 [facility] Medical Advice [facility] [address] [place] [address] Justus Zaidi MD [address] [place] [id number] Social History Tobacco Use Types Packs/Day Years [...] PM CDT Legal Sex Female 2:58 AM ORTHOPAEDIC GENERAL Gender Identity Female 03/22/2022 5:14 PM CDT [...] Progress Patient-Stated? Author I will utilize all [facility] programs I am eligible for as well [...] goal: 1. I will work with the [facility] to complete all forms and provide [...] documented as of this encounter Care Teams Enrollment Representative Relationship Specialty Start Date End Date Justus Zaidi MD [address] [facility] [place] [address] PCP - General Internal Medicine - Pediatrics 03/22/22 [place] [address] [address] [place] [address] Nurse Practitioner Nurse Practitioner 02/10/23 [place] [address] [facility] [place] [address] Nurse Practitioner Nurse Practitioner 04/06/23 Nora Davalos PA-C [address] [place] [address] Assigned PCP 06/18/24 Irma Jones RN Lead Recycle Worker Primary Care - CC 11/26/2412/04 documented as of this encounter
--- OUTSIDE RECORDS SUMMARY | 2024-12-14 10:34 | XMS_ITS | Encounter Summary ---
Author Organization [facility] Address [address] [address] Care Team Providers Care Fireworks Assembly Supervisor Name Role Phone No Primary/Referring, Phy [...] on filedocumented in this encounter Care Teams Fireworks Assembly Supervisor Relationship Specialty Start Date End Date No Primary/Referring, Shelly PCP - General 11/17/21 documented as of this encounter
--- OUTSIDE RECORDS SUMMARY | 2024-12-14 10:34 | XMS_ITS | Encounter Summary ---
Author Organization [facility] Address [address] [place] [address] Care Team Providers Care Oven Heater Helper Name Role Phone Justus Zaidi MD Primary Care Provider [phone] Justus Zaidi MD Unavailable [phone] Georges Davalos DPM Unavailable [phone] Justus Zaidi MD Unavailable [phone] Georges Davalos DPM Unavailable [phone] Roxann Head ELECTROSTATIC PAINT OPERATOR Unavailable [phone] Mony Plascencia CHW Unavailable [phone] Noris Smith GRAVITY PROSPECTOR Unavailable Unavailabl e Justus Zaidi MD Unavailable [phone] Lucero Melendez STAINING MACHINE OPERATOR Unavailable [phone] Christine Morel GRAVITY PROSPECTOR Unavailable [phone] Mony Plascencia CHW Unavailable [phone] Lucero Melendez NP Unavailable [phone] Nora Davalos-C Unavailable [phone] Nora Davalos-C Unavailable [phone] Irma Jones RN Unavailable Encounter Details Date Type Department Care Team (Late st Contact Info) Description 10/19/2022 Telephone [facility] [address] [place] [phone] Justus Zaidi MD [address] [place] [address] Social History Tobacco Use Types Packs/Day Years Used Date Smoking Tobacco: Never Comments:2 cigs per day Alcohol Use Standard Drinks/Week Comments No 0 (1 standard drink = 0.6 oz pur e alcohol) social PHQ-2 Answer Date Recorded PHQ-2 Score 0 07/15/2022 Comments No Sex and Gender Information Value Date Recorded Sex Assigned at Female 03/22/2022 5:14 PM CDT Legal Sex Female 2:58 AM DINING ROOM CASHIER Gender Identity Female 03/22/2022 5:14 PM CDT [...] Coronavirus/COVID-19? No / Unsure 10/19/2022 10:35 AM DINING ROOM CASHIER documented as of this encounter Plan of Treatment Not on file documented as of this encounter Visit Diagnoses Not on filedocumented in this encounter Additional Health Concerns Assessment Noted Time PHQ-9 Depression Total Score: 3 03/22/20 22 4:47 PM CDT documented as of this encounter Care Teams Oven Heater Helper Relationship Specialty Start Date End Date Justus Zaidi MD [facility] [place] [place] [address] PCP - General Internal Medicine - Pediatrics 03/22/22 Justus Zaidi MD [facility] [place] [address] [address] Assigned PCP 10/02/22 11/19/22 Georges Davalos DPM [address] [place], [place] [address] [place] [address] Assigned Musculoskeletal Provider 10/23/22 10/29/22 Justus Zaidi MD [address] [place] [address] Assigned PCP 11/20/22 06/17/24 Georges Davalos DPM [address] [place] [address] [address] [place] [address] Assigned Surgical Provider 10/30/22 05/17/24 Roxann Head [facility] Lead Matlab Developer Primary Care - CC 11/26/22 Mony Plascencia [facility] Community Health Worker 11/26/2202/10 Noris Smith GRAVITY PROSPECTOR Lead Matlab Developer 11/26/22 02/11/23 Justus Zaidi MD [address] [facility] [address] Assigned Pain Medication Provider 11/27/22 10/07/23 Lucero Melendez, STAINING MACHINE OPERATOR [address] [place] [address] Nurse Practitioner Nurse Practitioner 02/10/23 Christine Morel [facility] Lead Matlab Developer 02/10/23 Mony Carlson, [facility] Community Health Worker 02/11/2304/04 Lucero Melendez, VIJAYA [address] [place] [address] Nurse Practitioner Nurse Practitioner 04/06/23 Nora Davalos PA-C [address] [place] [address] Assigned Pain Medication Provider 03/18/24 04/16/24 Nora Davalos PA-C [address] [place] [address] Assigned PCP 06/18/24 Irma Jones RN Lead Matlab Developer Primary Care - CC 11/26/2412/04 documented as of this encounter
--- OUTSIDE RECORDS SUMMARY | 2024-12-14 10:34 | XMS_ITS | Encounter Summary ---
Author Organization [facility] Address [address], [place] [address] Care Team Providers Care Environmental Conservation Professor Name Role Phone No Primary/Referring, Phy [...] on filedocumented in this encounter Care Teams Environmental Conservation Professor Relationship Specialty Start Date End Date No Primary/Referring, Phy PCP - General 11/17/21 documented as of this encounter
--- OUTSIDE RECORDS SUMMARY | 2024-12-14 10:34 | XMS_ITS | Encounter Summary ---
Author Organization [facility] Address [address], [place] [address] Care Team Providers Care Church Warden Name Role Phone No Primary/Referring, Phy Primary [...] on filedocumented in this encounter Care Teams Church Warden Relationship Specialty Start Date End Date No Primary/Referring, Shelly PCP - General 11/17/21 documented as of this encounter
--- OUTSIDE RECORDS SUMMARY | 2024-12-14 10:34 | XMS_ITS | Encounter Summary ---
Author Organization [facility] Address [address], [place] [address] Care Team Providers Care Harvester Operator Name Role Phone No Primary/Referring, Phy [...] on filedocumented in this encounter Care Teams Harvester Operator Relationship Specialty Start Date End Date No Primary/Referring, Shelly PCP - General 11/17/21 documented as of this encounter
--- OUTSIDE RECORDS SUMMARY | 2024-12-14 10:34 | XMS_ITS | Encounter Summary ---
Author Organization [facility] Address [address] [place] [address] Care Team Providers Care Drawing In Hand Name Role Phone Justus Zaidi MD Primary Care Provider [phone] Lucero Melendez PATTERN REPAIR PERSON Unavailable [phone] Lucero Melendez PATTERN REPAIR PERSON Unavailable [phone] Nora Davalos PA-C Unavailable [phone] Irma Jones RN Unavailable Reason for Visit * Reason Comments Pain clinic follow up Encounter Details Date Type Department Care Team (Late st Contact Info) Description 11/26/2024 2:30 PM NOISE ABATEMENT ENGINEER Virtual Visit [facility] [address] [place] [address] Justus Zaidi MD [address] [place] [phone] SI (sacroiliac) joint dysfunction (Primary Dx); Chronic pain disorder; Fibromyalgia Social History Tobacco Use Types Packs/Day Years [...] in a mcfp (including now)? No 11/26/2022 Adolescent Education Answer [...] PM CDT Legal Sex Female 2:58 AM NOISE ABATEMENT ENGINEER Gender Identity Female 03/22/2022 5:14 PM CDT Sexual Orientation Straight 03/22/2022 5: 14 PM CDT Occupation Industry Job Start Date Job End Date unemployed Not on file Not on file Not on file documented as of this encounter Progress Notes * Dyan, Justus Eric, MD - 11/26/2024 2:30 PM CST Jaqueline is a 39 year old who is being evaluated via a billable telephone visit. What phone number would you like to be contacted at? [phone] How would you like to obtain your AVS? MyChart Originating Location (pt. Location): Home Distant Location (provider location): On-site Telephone visit completed due to the patient did not consent to a video visit. Assessment & Plan SI (sacroiliac) joint dysfunction Chronic pain disorder Fibromyalgia Has been working with [facility], on percocet right now, using gabapentin and tizanidine. Will try to aid help patient find pain clinic. She feels that symptoms are not yet completely controlled. Putting care coordination referral as well as [facility] pain clinic evaluation. Patient is been working on staying physically active. She has a new job that is been helping with this. BMI Estimated body mass index is 32.79 kg/m?? as calculated from the following: Height as of 05/30/24: 1.626 m (5' 4). Weight as of 05/30/24: 86.6 kg (191 lb). 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 More physical work, pay is going well. [place] has been flexible with schedule. Was able to get into [facility]- was at the [place] location- month after that provider left, then went to [facility] [place] was full. Saw Nyasia Cuevas every 6 months- doing pain therapy there. She has been on tizanidine for muscle spasms, on gabapentin started then. Has until February until due for pain clinic follow up. Has Prescription covered until February (January Prescription). Back and arthritis and fibromyalgia has been causing ongoing pain, when cold out has more ongoing pain. Had to discuss with insurance while working out on new provider- was on suboxone for short time while insurance was getting things figured out for coverage. Review of Systems Constitutional, HEENT, cardiovascular, pulmonary, gi and gu systems are negative, except as otherwise noted. Objective Vitals: No vitals were obtained today due to virtual visit. Physical Exam General: Alert and no distress //Respiratory: No audible wheeze, cough, or shortness of breath // Psychiatric: Appropriate affect, tone, and pace of words The longitudinal plan of care for the diagnosis(es)/condition(s) as documented were addressed during this visit. Due to the added complexity in care, I will continue to support Jaqueline in the subsequent management and with ongoing continuity of care. Phone call duration: 11 minutes Signed Electronically by: Justus Zaidi MD E ABATEMENT ENGINEER documented in this encounter Plan of Treatment Not on file documented as of this encounter Goals Goal Patient Goal Type Associated Problems Recent Progress Patient-Stated? Author I will utilize all [facility] programs I am eligible for as well [...] goal: 1. I will work with the [facility] to complete all forms and provide documentation. I let my CHW know that I have been approved for SNAP, [place] and Medical Assistance. Completed 2. I will contact Social Security or Disability Specialists to discuss options. I will call Disability Specialists soon to discuss Social Security Disability. 3. I will work with [facility] to see if there is any options for medications for my son until he is on MA. Myself and my family have been approved for Medical Assistance. Completed 3. I will report progress towards this goal at scheduled outreach telephone calls from the [facility]) team. Continuous (MISTI) documented as of this encounter Visit Diagnoses Diagnosis SI (sacroiliac) joint dysfunction- Primary Disorders of sacrum Chronic pain disorder Chronic pain syndrome Fibromyalgia Mylagia and myositis, unspecified documented in this encounter Additional Health Concerns Active Problems Noted Date Diagnosed Date Diet management 11/26/2022 Patient expresses financial resource strain 11/2022 Assessment Noted Time PHQ-9 Depression Total Score: 17 024 8:57 AM CDT documented as of this encounter Care Teams Drawing In Hand Relationship Specialty Start Date End Date Justus Zaidi MD [address] [facility] [address] PCP - General Internal Medicine - Pediatrics 03/22/22 [place] [address] [place] [address] Nurse Practitioner Nurse Practitioner 02/10/23 [place] [address] [place] [address] Nurse Practitioner Nurse Practitioner 04/06/23 Nora Davalos, PA-C [address] [place] [id number] Assigned PCP 06/18/24 Irma Jones RN Lead Human Anatomy Teacher Primary Care - CC 11/26/2412/04 documented as of this encounter
--- OUTSIDE RECORDS SUMMARY | 2024-12-14 10:34 | XMS_ITS | Encounter Summary ---
Author Organization [facility] Address [address] [address] Care Team Providers Care Sawmill Worker Name Role Phone No Primary/Referring, Shelly Primary Care Provider Unavailable Encounter Details Date Type Department Care Team (Late st Contact Info) Description 06/13/2017 Scanned History External to Transferred Record, Provider [facility] [place] Social History Tobacco Use Types Packs/Day Years [...] on filedocumented in this encounter Care Teams Sawmill Worker Relationship Specialty Start Date End Date No Primary/ReferringShelly PCP - General 11/17/21 documented as of this encounter
--- OUTSIDE RECORDS SUMMARY | 2024-12-14 10:34 | XMS_ITS | Encounter Summary ---
Author Organization [facility] Address [address], [place] [address] Care Team Providers Care Coil Cleaner Name Role Phone No Primary/Referring, Phy Primary [...] on filedocumented in this encounter Care Teams Coil Cleaner Relationship Specialty Start Date End Date No Primary/Referring, Shelly PCP - General 11/17/21 documented as of this encounter
--- OUTSIDE RECORDS SUMMARY | 2024-12-14 10:34 | XMS_ITS | Encounter Summary ---
Author Organization [facility] Address [address] [place] [address] Care Team Providers Care Cold Meat Chef Name Role Phone Justus Zaidi MD Primary Care Provider [phone] Justus Zaidi MD Unavailable Justus Zaidi MD Unavailable [phone] Justus Zaidi MD Unavailable [phone] Justus Zaidi MD Unavailable [phone] Justus Zaidi MD Unavailable Georges Davalos DPM Unavailable Justus Zaidi MD Unavailable [phone] Georges Davalos DPM Unavailable [phone] Roxann Head ELECTROPHYSIOLOGY NURSE PRACTITIONER Unavailable [phone] Mony Plascencia CHW Unavailable [phone] Noris Smith COMPRESSED GAS EQUIPMENT MECHANIC Unavailable Unavailabl e Justus Zaidi MD Unavailable [phone] Lucero Melendez NP Unavailable [phone] Christine Morel COMPRESSED GAS EQUIPMENT MECHANIC Unavailable [phone] Mony Plascencia CHW Unavailable [phone] Lucero Melendez NP Unavailable [phone] Anoop Nora Smith PA-C Unavailable [phone] Nora Davalos PA-C Unavailable [phone] Irma Jones RN Unavailable Encounter Details Date Type Department Care Team (Late st Contact Info) Description 03/24/2022 [facility] Medical Advice [facility] [address] [place] [address] Jsutus Zaidi MD [address] [facility] [address] [place] [id number] Social History Tobacco Use Types Packs/Day Years Used Date Smoking Tobacco: Never Cigarettes Comments:2 cigs per day Alcohol Use Standard Drinks/Week Comments No 0 (1 standard drink = 0.6 oz pur e alcohol) social PHQ-2 Answer Date Recorded PHQ-2 Score 0 03/22/2022 Comments No Sex and Gender Information Value Date Recorded Sex Assigned at Female 03/22/2022 5:14 PM CDT Legal Sex Female 2:58 AM ADVANCED PRACTICE NURSE Gender Identity Female 03/22/2022 5:14 PM CDT [...] documented as of this encounter Care Teams Cold Meat Chef Relationship Specialty Start Date End Date Justus Zaidi MD [address] [facility] [place] [address] PCP - General Internal Medicine - Pediatrics 03/22/22 Justus Zaidi MD [address] [address] Assigned PCP 03/04/22 06/25/22 Justus Zaidi MD [address] [place], [place] [address] [address] Assigned PCP 06/26/22 08/06/22 Justus Zaidi MD [address] [place], [place] [address] [address] Assigned PCP 09/11/22 10/01/22 Justus Zaidi MD [address] [place], [place] [address] [address] Assigned PCP 08/07/22 09/10/22 Justus Zaidi MD [address] [place], [place] [address] [address] Assigned PCP 10/02/22 11/19/22 Georges Davalos DPM [address] [place] [address] Assigned Musculoskeletal Provider 10/23/22 10/29/22 Justus Zaidi MD [facility] [place] [address] Assigned PCP 11/20/22 06/17/24 Georges Davalos DPM [address] [place] [address] Assigned Surgical Provider 10/30/22 05/17/24 Roxann Head LSW Lead Rubber Trimmer Primary Care - CC 11/26/22 Mony Plascencia [facility] Community Health Worker 11/26/2202/10 Noris Smith [facility] Lead Rubber Trimmer 11/26/22 02/11/23 Justus Zaidi MD [address] [facility] [place] [id number] Assigned Pain Medication Provider 11/27/22 10/07/23 Lucero Melendez, VIJAYA [address] [place] [address] Nurse Practitioner Nurse Practitioner 02/10/23 Christine Morel [facility] Lead Rubber Trimmer 02/10/23 3 Mony Plascencia [facility] Community Health Worker 02/11/2304/04 [place] [address] [address] [address] Nurse Practitioner Nurse Practitioner 04/06/23 Nora Davalos PA-C [address] [place] [address] Assigned Pain Medication Provider 03/18/24 04/16/24 Nora Davalos PA-C [address] [place] [id number] Assigned PCP 06/18/24 Irma Jones RN Lead Rubber Trimmer Primary Care - CC 11/26/2412/04 documented as of this encounter
--- OUTSIDE RECORDS SUMMARY | 2024-12-14 10:34 | XMS_ITS | Encounter Summary ---
Author Organization [facility] Address [address], [place] [address] Care Team Providers Care Manager Emergency Department Name Role Phone No Primary/Referring, Phy Primary [...] filedocumented in this encounter Care Teams Manager Emergency Department Relationship Specialty Start Date End Date No Primary/Referring, Shelly PCP - General 11/17/21 documented as of this encounter
--- OUTSIDE RECORDS SUMMARY | 2024-12-14 10:35 | XMS_ITS | Encounter Summary ---
Author Organization [place] Address [address] [place] [address] Care Team Providers Care Primary Therapist Name Role Phone Justus Zaidi MD Primary Care Provider [phone] Justus Zaidi MD Unavailable +[phone] Georges Davalos DPM Unavailable [phone] Justus Zaidi MD Unavailable +[phone] Lucero Melendez OYSTERMAN Unavailable +[phone] Christine Morel Unavailable +[phone] Mony Plascencia CHW Unavailable +[phone] Lucero Melendez OYSTERMAN Unavailable +[phone] Nora Davalos PA-C Unavailable +[phone] Nora Davalos-C Unavailable +[phone] Irma Jones RN Unavailable Encounter Details Date Type Department Care Team (Late st Contact Info) Description 03/09/2023 Lucian Samuel [facility] Care Coordination [facility] [address] [place] [phone] Mony Plascencia, W Social History Tobacco Use Types Packs/Day Years [...] in a long-term (including now)? No 11/26/2022 Comments No Sex and Gender Information Value Date Recorded Sex Assigned at Female 03/22/2022 5:14 PM CDT Legal Sex Female 2:58 AM LEGAL ADMINISTRATOR Gender Identity Female 03/22/2022 5:14 PM CDT [...] Author I will utilize all [facility] programs I am eligible for [...] goal: 1. I will work with the [facility] to complete all forms and provide [...] the [facility] team. Continuous (MB) documented as of this encounter Visit Diagnoses Not on filedocumented in this encounter Additional Health Concerns Active Problems Noted Date Diagnosed Date Diet management 11/26/2022 Patient expresses financial resource strain 11/2022 Assessment Noted Time PHQ-9 Depression Total Score: 3 03/22/20 22 4:47 PM CDT documented as of this encounter Care Teams Primary Therapist Relationship Specialty Start Date End Date Justus Zaidi MD [address] [place] [address] PCP - General Internal Medicine - Pediatrics 03/22/22 Justus Zaidi MD [address] [place] [address] Assigned PCP 11/20/22 06/17/24 Georges Davalos DPM [address] [place] [address] [address] [place] [address] Assigned Surgical Provider 10/30/22 05/17/24 Justus Zaidi MD [address] [facility] [place] [address] Assigned Pain Medication Provider 11/27/22 10/07/23 Lucero Melendez, OYSTERMAN [address] [address] Nurse Practitioner Nurse Practitioner 02/10/23 Christine Morel SEAL SKINNER Lead Glassware Defect Repairer 02/10/23 Mony Carlson Paulette Community Health Worker 02/11/2304/04 Lucero Melendez, VIJAYA [address] [place] [address] Nurse Practitioner Nurse Practitioner 04/06/23 Nora Davalos PA-C [address] [place] [address] Assigned Pain Medication Provider 03/18/24 04/16/24 Nora Davalos PA-C [address] [place] [address] Assigned PCP 06/18/24 Irma Jones, RN Lead Glassware Defect Repairer Primary Care - CC 11/26/2412/04 documented as of this encounter
--- OUTSIDE RECORDS SUMMARY | 2024-12-14 10:35 | XMS_ITS | Encounter Summary ---
Author Organization [place] Address [address] [place] [address] Care Team Providers Care Wine Merchant Name Role Phone Justus Zaidi MD Primary Care Provider [phone] Justus Zaidi MD Unavailable +[phone] Georges Davalos DPM Unavailable [phone] Roxann Head BELL HOLE DIGGER Unavailable [phone] Mony Plascencia CHW Unavailable [phone] Noris Smith PROCESSING ASSISTANT Unavailable Unavailabl e Justus Zaidi MD Unavailable +[phone] Lucero Melendez SCIENTIFIC ADVISOR Unavailable +[phone] Christine Morel PROCESSING ASSISTANT Unavailable +[phone] Mony Plascencia CHW Unavailable +[phone] Lucero Melendez NP Unavailable +[phone] Nora Davalos PA-C Unavailable +[phone] Nora Davalos PA-C Unavailable +[phone] Irma Jones RN Unavailable Reason for Visit * Reason Onset Date Comments Prior Authorization 11/26/2022 checking status on PA 11/26/2022 Encounter Details Date Type Department Care Team (Late st Contact Info) Description 11/26/2022 Telephone [facility] [address] [facility] [place] [address] Justus Zaidi MD [address] [facility] [place] [address] Prior Authorization; checking status on PA Social [...] in a mcfp (including now)? No 11/26/2022 Comments No Sex and Gender Information Value Date Recorded Sex Assigned at Female 03/22/2022 5:14 PM CDT Legal Sex Female 2:58 AM ASSESSMENT MANAGER Gender Identity Female 03/22/2022 5:14 PM CDT Sexual Orientation Straight 03/22/2022 5: 14 PM CDT Occupation Industry Job Start Date Job End Date unemployed Not on file Not on file Not on file COVID-19 Exposure Response Date Recorded In the last 10 days, have bozena u been in contact with someone who was confirmed or suspected to have Coronavirus/COVID-19? No / Unsure 11/12/2022 8:23 AM ASSESSMENT MANAGER documented as of this encounter Miscellaneous Notes * Telephone Encounter - Linda Iglesias - 11/29/2022 8:54 AM CST 11-29-22 Pt called checking status on PA, I stated its still in the process linda SSMENT MANAGER * Telephone Encounter - Polly Renteria - 11/26/2022 9:47 AM CST Pt has a percocet rx and needs a prior authorization Please call number below, anser the questions and Bump it up to urgent Please call pt when this has been done [phone] SSMENT MANAGER documented in this encounter Plan of Treatment Not on file documented as of this encounter Goals Goal Patient Goal Type Associated Problems Recent Progress Patient-Stated? Author I will utilize all the [facility] programs I am eligible for as [...] goal: 1. I will work with the [facility] to complete all forms and provide documentation. [...] at scheduled outreach telephone calls from the [facility] team. Continuous (MB) documented as of this encounter Visit Diagnoses Not on filedocumented in this encounter Additional Health Concerns Active Problems Noted Date Diagnosed Date Diet management 11/26/2022 Patient expresses financial resource strain 11/2022 Assessment Noted Time PHQ-9 Depression Total Score: 3 03/22/20 4:47 PM CDT documented as of this encounter Care Teams Wine Merchant Relationship Specialty Start Date End Date Justus Zaidi MD [address] [place] [address] PCP - General Internal Medicine - Pediatrics 03/22/22 Justus Zaidi MD [address] [place] [address] Assigned PCP 11/20/22 06/17/24 Georges Davalos DPM [address] [facility] [address], [place] [address] Assigned Surgical Provider 10/30/22 05/17/24 Roxann Head LSW Lead Graphic Specialist Primary Care - CC 11/26/22 Mony Plascencia, [facility] Community Health Worker 11/26/2202/10 Noris Smith LICSW Lead Graphic Specialist 11/26/22 02/11/23 Justus Zaidi MD [address] [place] [address] [address] Assigned Pain Medication Provider 11/27/22 10/07/23 Lucero Melendez, VIJAYA [address] [address] Nurse Practitioner Nurse Practitioner 02/10/23 Christine Morel, [facility] Lead Graphic Specialist 02/10/23 3 Mony Plascencia, [facility] Community Health Worker 02/11/2304/04 [place] [address] [place] [address] [place] [address] Nurse Practitioner Nurse Practitioner 04/06/23 Nora Davalos PA-C [address] [facility] [place] [address] Assigned Pain Medication Provider 03/18/24 04/16/24 Nora Davalos PA-C [address] [facility] [place] [address] Assigned PCP 06/18/24 Irma Jones, RN Lead Graphic Specialist Primary Care - CC 11/26/2412/04 documented as of this encounter
--- OUTSIDE RECORDS SUMMARY | 2024-12-14 10:35 | XMS_ITS | Encounter Summary ---
Author Organization [facility] Address [address], [place] [address] Care Team Providers Care Toeing Stockings Name Role Phone No Primary/Referring, Shelly Primary [...] on filedocumented in this encounter Care Teams Toeing Stockings Relationship Specialty Start Date End Date No Primary/ReferringShelly PCP - General 11/17/21 documented as of this encounter
--- OUTSIDE RECORDS SUMMARY | 2024-12-14 10:35 | XMS_ITS | Encounter Summary ---
Author Organization [facility] Address [address] [place] [address] Care Team Providers Care Wrapper Leaf Inspector Name Role Phone Justus Zaidi MD Primary Care Provider [phone] Justus Zaidi MD Unavailable [phone] Georges Davalos DPM Unavailable [phone] Mony Plascencia CHW Unavailable [phone] Noris Smith CRTS Unavailable Unavailabl e Justus Zaidi MD Unavailable [phone] Lucero Melendez NP Unavailable [phone] Christine Morel CRTS Unavailable [phone] Mony Plascencia CHW Unavailable [phone] Lucero Melendez NP Unavailable [phone] Nora Davalos PA-C Unavailable +[phone] Nora Davalos PA-C Unavailable [phone] Irma Jones RN Unavailable Reason for Visit * Reason Onset Date Comments Patient Request 12/27/2022 Refill Request 12/27/2022 Encounter Details Date Type Department Care Team (Late st Contact Info) Description 12/27/2022 Telephone [facility] [address] [place] [address], [place] [address] Justus Zaidi MD [address] [facility] [place] [id number] Patient Request; Refill Request Social History Tobacco [...] place to sleep or slept in a fci (including now)? No 11/26/2022 Comments No Sex and Gender Information Value Date Recorded Sex Assigned at Female 03/22/2022 5:14 PM CDT Legal Sex Female 2:58 AM RN CARDIOLOGY Gender Identity Female 03/22/2022 5:14 PM CDT Sexual Orientation Straight 03/22/2022 5: 14 PM CDT Occupation Industry Job Start Date Job End Date unemployed Not on file Not on file Not on file documented as of this encounter Miscellaneous Notes * Telephone Encounter - Betsy Mcdonald LISW - 12/27/2022 2:10 PM CDT Patient calling back. Patient went to [facility] to cone picker the refill and spoke to Pharmacist, Kitty. Pharmacist relayed to patient that the prescription cannot be refilled as written and without callinginsurance. Patient is asking if MD could call Kitty at [facility] [phone] with any questions or directions. MD will also need to request a quantity exception and contact [place] Medicaid Insurance [phone] * Telephone Encounter - Betsy Mcdonald LISW - 12/27/2022 9:53 AM CDT Patient received a call from the [facility] this morning regarding prescription received for oxyCODONE-acetaminophen (PERCOCET) 5-325 MG tablet 60 tablet [facility] states they were unable to fill the new prescription received on 12/23/22 due to patient having new insurance. Pharmacy said the MD will need to ask for a quantity exception. Pharmacy said MD will also need to call insurance. Pharmacy was also going to fax over a form request for this. Insurance Company: [place] Medicaid ([facility]) - Pharmacy Filling the Rx: [id number] - [place] - [address] [facility] Filling Pharmacy Filling Pharmacy Patient said they are going out of town today for the week and will need to have this prescription filled as soon as possible. Please call patient with any questions at [phone] Thank you documented in this encounter Plan [...] goal: 1. I will work with the [facility] to complete all forms and [...] documented as of this encounter Care Teams Wrapper Leaf Inspector Relationship Specialty Start Date End Date Justus Zaidi MD [address] [place] [address] [place] [address] PCP - General Internal Medicine - Pediatrics 03/22/22 Justus Zaidi MD [address] [facility] [place] [address] Assigned PCP 11/20/22 06/17/24 Georges Davalos DPM [address] [place] [address] [address] [place] [address] Assigned Surgical Provider 10/30/22 05/17/24 Mony Plascencia Paulette Community Health Worker 11/26/2202/10 Noris Smith LICSW Lead Assembly Machine Offbearer 11/26/22 02/11/23 Justus Zaidi MD [address] [facility] [place] [address] Assigned Pain Medication Provider 11/27/22 10/07/23 Lucero Melendez, VIJAYA [address] [address] Nurse Practitioner Nurse Practitioner 02/10/23 Christine Morel LICSW Lead Assembly Machine Offbearer 02/10/23 3 Mony Plascencia [facility] Community Health Worker 02/11/2304/04 [place] [address] [place] [address] Nurse Practitioner Nurse Practitioner 04/06/23 Nora Davalos PA-C [address] [place] [address] Assigned Pain Medication Provider 03/18/24 04/16/24 Nora Davalos PA-C [address] [facility] [place] [address] Assigned PCP 06/18/24 Irma Jones, YONATAN Lead Assembly Machine Offbearer Primary Care - CC 11/26/2412/04 documented as of this encounter
--- OUTSIDE RECORDS SUMMARY | 2024-12-14 10:35 | XMS_ITS | Encounter Summary ---
Author Organization [facility] Address [address] [place] [address] Care Team Providers Care Film Sound Coordinator Name Role Phone Justus Zaidi MD Primary Care Provider [phone] Justus Zaidi MD Unavailable [phone] Georges Davalos DPM Unavailable [phone] Mony Plascencia CH Unavailable [phone] Noris Smith CONCRETE BUILDINGS ASSEMBLER Unavailable Unavailimani e Justus Zaidi MD Unavailable [phone] Lucero Melendez NP Unavailable [phone] Christine Morel CONCRETE BUILDINGS ASSEMBLER Unavailable +[phone] Mony Plascencia CH Unavailable +[phone] Lucero Melendez NP Unavailable +[phone] Nora Davalos PA-C Unavailable +[phone] Nora Davalos PA-C Unavailable +[phone] Irma Jones RN Unavailable Reason for Visit * Reason Onset Date Comments Prior Auth - Medication 12/23/2022 Semaglut clint, 1 MG/DOSE, (OZEMPIC, 1 MG/DOSE,) 4 MG/3ML SOPN - Denied Encounter Details Date Type Department Care Team (Late st Contact Info) Description 12/23/[address] [facility] [address] [facility] [place] [address] Justus Zaidi MD [address] [facility] [address] [place] [id number] Prior Auth - Medication (Semaglutide, 1 MG/DOSE, [...] PM CDT Legal Sex Female 2:58 AM REEL REPAIRER Gender Identity Female 03/22/2022 5:14 PM CDT [...] SOPN - Initiated Insurance Company: [place] Medicaid ([facility]) - Pharmacy Filling the Rx: [id number] - [place], [place] - [address] [facility] Filling Pharmacy Filling Pharmacy Start Date: 12/24/2022 [...] Progress Patient-Stated? Author I will utilize all [facility] programs I am eligible for [...] goal: 1. I will work with the [facility] to complete all forms [...] at scheduled outreach telephone calls from the [facility] team. Continuous (MB) documented as of this encounter Visit Diagnoses Not on filedocumented in this encounter Additional Health Concerns Active Problems Noted Date Diagnosed Date Diet management 11/26/2022 Patient expresses financial resource strain 11/2022 Assessment Noted Time PHQ-9 Depression Total Score: 3 03/22/20 22 4:47 PM CDT documented as of this encounter Care Teams Film Sound Coordinator Relationship Specialty Start Date End Date Justus Zaidi MD [address] [place] [address] PCP - General Internal Medicine - Pediatrics 03/22/22 Justus Zaidi MD [address] [place] [place] [address] Assigned PCP 11/20/22 06/17/24 Georges Davalos DPM [address] [facility] [address] [place] [address] Assigned Surgical Provider 10/30/22 05/17/24 Mony Plascencia, [facility] Community Health Worker 11/26/2202/10 Noris Smith [facility] Lead Signal Integrity Engineer 11/26/22 02/11/23 Justus Zaidi MD [address] [place] [address] Assigned Pain Medication Provider 11/27/22 10/07/23 Lucero Melendez, VIJAYA [address] [address] Nurse Practitioner Nurse Practitioner 02/10/23 Christine Morel [facility] Lead Signal Integrity Engineer 02/10/23 3 Mony Plascencia, [facility] Community Health Worker 02/11/2304/04 Lucero Melendez, TENNIS DESK TEAM MEMBER [address] [address] [address] Nurse Practitioner Nurse Practitioner 04/06/23 Nora Davalos PA-C [address] [place] [address] Assigned Pain Medication Provider 03/18/24 04/16/24 Nora Davalos PA-C [address] [place] [address] Assigned PCP 06/18/24 Irma Jones RN Lead Signal Integrity Engineer Primary Care - CC 11/26/2412/04 documented as of this encounter
--- OUTSIDE RECORDS SUMMARY | 2024-12-14 10:35 | XMS_ITS | Encounter Summary ---
Author Organization [place] Address [address] [place] [address] Care Team Providers Care Manager Exchange Name Role Phone Justus Zaidi MD Primary Care Provider [phone] Justus Zaidi MD Unavailable [phone] Georges Dvaalos DPM Unavailable +[phone] Mony Plascencia CHW Unavailable +[phone] Noris Smith CLINICAL SOCIAL WORKER Unavailable UnavailJustus Stephenson MD Unavailable +[phone] Lucero Melendez NP Unavailable +[phone] Christine Morel CLINICAL SOCIAL WORKER Unavailable +[phone] Mony Plascencia CHW Unavailable +[phone] Lucero Melendez NP Unavailable [phone] Nora Davalos PA-C Unavailable +[phone] Nora Davalos PA-C Unavailable +[phone] Irma Jones RN Unavailable Encounter Details Date Type Department Care Team (Late st Contact Info) Description 02/09/2023 [facility] [address] [address] Justus Zaidi MD [address] [place] [address] Social History Tobacco Use Types Packs/Day Years [...] health care facility (including now)? No 11/26/2022 Comments No Sex and Gender Information Value Date Recorded Sex Assigned at Female 03/22/2022 5:14 PM CDT Legal Sex Female 2:58 AM QUEBRACHO TANNER Gender Identity Female 03/22/2022 5:14 PM CDT [...] an FYI for medications. Karn. Jason TAM [facility] * Telephone Encounter - Oralia Gomez RN - 02/09/2023 4:24 PM CDT Sending to PCP for review. Please review and advise on patient MyChart message. Karn. Jason TAM [facility] documented in this encounter Plan of Treatment Not on file documented as of this encounter Goals Goal Patient Goal Type Associated Problems Recent Progress Patient-Stated? Author I will utilize all [facility] programs I am eligible for as [...] goal: 1. I will work with the [facility] to complete all forms and provide [...] calls from the [facility] team. Continuous (MB) documented as of this encounter Visit Diagnoses Not on filedocumented in this encounter Additional Health Concerns Active Problems Noted Date Diagnosed Date Diet management 11/26/2022 Patient expresses financial resource strain 11/2022 Assessment Noted Time PHQ-9 Depression Total Score: 3 03/22/20 4:47 PM CDT documented as of this encounter Care Teams Manager Exchange Relationship Specialty Start Date End Date Justus Zaidi MD [address] [place] [address] PCP - General Internal Medicine - Pediatrics 03/22/22 Justus Zaidi MD [address] [place] [address] Assigned PCP 11/20/22 06/17/24 Georges Davalos DPM [address] [place] [address] [address] [place] [address] Assigned Surgical Provider 10/30/22 05/17/24 Mony Plascencia [facility] Community Health Worker 11/26/2202/10 Noris Smith LICSW Lead Oil Dispenser 11/26/22 02/11/23 Justus Zaidi MD [address] [place] [address] Assigned Pain Medication Provider 11/27/22 10/07/23 [place] [address] [place] [address] Nurse Practitioner Nurse Practitioner 02/10/23 Christine Morel LICSW Lead Oil Dispenser 02/10/23 Mony Carlson [facility] Community Health Worker 02/11/2304/04 [place] [address] [address] [address] Nurse Practitioner Nurse Practitioner 04/06/23 Nora Davalos PA-C [address] [place] [address] Assigned Pain Medication Provider 03/18/24 04/16/24 Nora Davalos PA-C [address] [place] [address] Assigned PCP 06/18/24 Irma Jones RN Lead Oil Dispenser Primary Care - CC 11/26/2412/04 documented as of this encounter
--- OUTSIDE RECORDS SUMMARY | 2024-12-14 10:35 | XMS_ITS | Encounter Summary ---
Author Organization [facility] Address [address] [place] [address] Care Team Providers Care Quick Print Operator Name Role Phone Justus Zaidi MD Primary Care Provider [phone] Justus Zaidi MD Unavailable [phone] Georges Davalos DPM Unavailable [phone] Mony Plascencia CHW Unavailable [phone] Noris Smith CANNED FOOD RECONDITIONING INSPECTOR Unavailable UnavailJustus Stephenson MD Unavailable +[phone] Lucero Melendez NP Unavailable +[phone] Christine Morel CANNED FOOD RECONDITIONING INSPECTOR Unavailable +[phone] Mony Plascencia CHW Unavailable [phone] Lucero Melendez NP Unavailable +[phone] Nora Davalos PA-C Unavailable +[phone] Nora Davalos PA-C Unavailable [phone] Irma Jones RN Unavailable Encounter Details Date Type Department Care Team (Late st Contact Info) Description 12/28/2022 [facility] [address] [address] Tang, RMA Social History Tobacco Use Types Packs/Day Years [...] in a halfway (including now)? No 11/26/2022 Comments No Sex and Gender Information Value Date Recorded Sex Assigned at Female 03/22/2022 5:14 PM CDT Legal Sex Female 2:58 AM PIT STEWARD Gender Identity Female 03/22/2022 5:14 PM CDT [...] Progress Patient-Stated? Author I will [facility] all [facility] programs I am eligible for as [...] goal: 1. I will work with the [facility] to complete all forms and [...] at scheduled outreach telephone calls from the [facility] team. Continuous (MB) documented as of this encounter Visit Diagnoses Not on filedocumented in this encounter Additional Health Concerns Active Problems Noted Date Diagnosed Date Diet management 11/26/2022 Patient expresses financial resource strain 11/2022 Assessment Noted Time PHQ-9 Depression Total Score: 3 03/22/20 22 4:47 PM CDT documented as of this encounter Care Teams Quick Print Operator Relationship Specialty Start Date End Date Justus Zaidi MD [address] [place] [address] [place] [address] PCP - General Internal Medicine - Pediatrics 03/22/22 Justus Zaidi MD [address] [place] [address] [place] [address] Assigned PCP 11/20/22 06/17/24 Georges Davalos DPM [address] [place] [address], [place] [address] Assigned Surgical Provider 10/30/22 05/17/24 Mony Plascencia W Community Health Worker 11/26/2202/10 Noris Smith CANNED FOOD RECONDITIONING INSPECTOR Lead Prop And Scenery Maker 11/26/22 02/11/23 Justus Zaidi MD [address] [facility] [place] [address] Assigned Pain Medication Provider 11/27/22 10/07/23 [place] [address] [place] [address] Nurse Practitioner Nurse Practitioner 02/10/23 Christine Morel LICSW Lead Prop And Scenery Maker 02/10/23 3 Mony Plascencia [facility] Community Health Worker 02/11/2304/04 [place] [address] [place] [address] Nurse Practitioner Nurse Practitioner 04/06/23 Nora Davalos PA-C [address] [place] [address] Assigned Pain Medication Provider 03/18/24 04/16/24 Nora Davalos PA-C [address] [place] [address] Assigned PCP 06/18/24 Irma Jones, RN Lead Prop And Scenery Maker Primary Care - CC 11/26/2412/04 documented as of this encounter
--- OUTSIDE RECORDS SUMMARY | 2024-12-14 10:35 | XMS_ITS | Encounter Summary ---
Author Organization [facility] Address [address] [place] [address] Care Team Providers Care Assistant Associate Full Professor Name Role Phone Justus Zaidi MD Primary Care Provider [phone] Justus Zaidi MD Unavailable [phone] Georges Davalos DPM Unavailable [phone] Mony Plascencia CHW Unavailable [phone] Noris Smith DIVERSIFIED CROPS FARMER Unavailable UnavailJustus Stephenson MD Unavailable [phone] Lucero Melendez NP Unavailable [phone] Christine Morel DIVERSIFIED CROPS FARMER Unavailable [phone] Mony Plascencia CHW Unavailable [phone] Lucero Melendez NP Unavailable [phone] Nora Davalos PA-C Unavailable +[phone] Nora Davalos PA-C Unavailable [phone] Irma Jones RN Unavailable Encounter Details Date Type Department Care Team (Late st Contact Info) Description 01/10/2023 [facility] [address] [address] Justus Zaidi MD [address] [place] [address] Social History Tobacco Use Types Packs/Day Years [...] place to sleep or slept in a jail (including now)? No 11/26/2022 Comments No Sex and Gender Information Value Date Recorded Sex Assigned at Female 03/22/2022 5:14 PM CDT Legal Sex Female 2:58 AM HUMAN RESOURCES HR GENERALIST Gender Identity Female 03/22/2022 5:14 PM CDT [...] are you ok with that? [facility] documented in this encounter Plan of Treatment Not on file documented as of this encounter Goals Goal Patient Goal Type Associated Problems Recent Progress Patient-Stated? Author I will utilize all [facility] programs I am eligible for as well [...] goal: 1. I will work with the [facility] to complete all forms and [...] at scheduled outreach telephone calls from the [facility] team. Continuous (MB) documented as of this encounter Visit Diagnoses Not on filedocumented in this encounter Additional Health Concerns Active Problems Noted Date Diagnosed Date Diet management 11/26/2022 Patient expresses financial resource strain 11/2022 Assessment Noted Time PHQ-9 Depression Total Score: 3 03/22/20 22 4:47 PM CDT documented as of this encounter Care Teams Assistant Associate Full Professor Relationship Specialty Start Date End Date Justus Zaidi MD [address] [facility] [place] [place] [address] PCP - General Internal Medicine - Pediatrics 03/22/22 Justus Zaidi MD [address] [facility] [place] [address] Assigned PCP 11/20/22 06/17/24 Georges Davalos DPM [address] [facility] [address] [place] [address] Assigned Surgical Provider 10/30/22 05/17/24 Mony Plascencia, [facility] Community Health Worker 11/26/2202/10 Noris Smith DIVERSIFIED CROPS FARMER Lead Dog Or Horse Racing Official 11/26/22 02/11/23 Justus Zaidi MD [address] [facility] [place] [address] Assigned Pain Medication Provider 11/27/22 10/07/23 Lucero Melendez, WARDROBE ASSISTANT [address] [place] [address] Nurse Practitioner Nurse Practitioner 02/10/[address] [facility] Lead Dog Or Horse Racing Official 02/10/23 3 Mony Plascencia [facility] Community Health Worker 02/11/2304/04 Lucero Melendez, WARDROBE ASSISTANT [address] [place] [address] Nurse Practitioner Nurse Practitioner 04/06/23 Nora Davalos PA-C [address] [place] [address] Assigned Pain Medication Provider 03/18/24 04/16/24 Nora Davalos PA-C [address] [place] [address] Assigned PCP 06/18/24 Irma Jones RN Lead Dog Or Horse Racing Official Primary Care - CC 11/26/2412/04 documented as of this encounter
--- OUTSIDE RECORDS SUMMARY | 2024-12-14 10:35 | XMS_ITS | Encounter Summary ---
Author Organization [facility] Address [address] [place] [address] Care Team Providers Care Ad Compositor Name Role Phone Justus Zaidi MD Primary Care Provider [phone] Justus Zaidi MD Unavailable [phone] Georges Davalos DPM Unavailable [phone] Justus Zaidi MD Unavailable [phone] Lucero Melendez TRAVEL MED SURG RN Unavailable [phone] Christine Morel Unavailable [phone] Mony Plascencia CHW Unavailable [phone] Lucero Melendez TRAVEL MED SURG RN Unavailable +[phone] Nora Davalos PA-C Unavailable [phone] Nora Davalos-King Unavailable [phone] Irma Jones RN Unavailable Reason for Visit * Reason Onset Date Comments Refill Request 03/07/2023 Encounter Details Date Type Department Care Team (Late st Contact Info) Description 03/07/2023 Lucian Samuel [facility] [address] [place] [address] Justus Zaidi MD [address] [place] [address] [place] [address] Refill Request Social History Tobacco Use Types [...] place to sleep or slept in a usp (including now)? No 11/26/2022 Comments No Sex and Gender Information Value Date Recorded Sex Assigned at Female 03/22/2022 5:14 PM CDT Legal Sex Female 2:58 AM CLIENT REPRESENTATIVE Gender Identity Female 03/22/2022 5:14 PM CDT [...] Miscellaneous Notes * Telephone Encounter - Pema Camahco RN - 03/08/2023 11:46 AM CDT Routing refill request to provider for review/approval because: Drug not on the [facility] ref[facility] protocol Last Written Prescription Date: 02/18/23 [...] states she doesn't [place] it [place] [facility] not good about calling documented in this [...] at scheduled outreach telephone calls from the [facility] team. Continuous (MB) documented as of this encounter Visit Diagnoses Diagnosis Acute right-sided low back pain with right-sided sciatica documented in this encounter Additional Health Concerns Active Problems Noted Date Diagnosed Date Diet management 11/26/2022 Patient expresses financial resource strain 11/2022 Assessment Noted Time PHQ-9 Depression Total Score: 3 03/22/20 22 4:47 PM CDT documented as of this encounter Care Teams Ad Compositor Relationship Specialty Start Date End Date Justus Zaidi MD [address] [place] [address] PCP - General Internal Medicine - Pediatrics 03/22/22 Justus Zaidi MD [address] [facility] [place] [address] Assigned PCP 11/20/22 06/17/24 Georges Davalos DPM [address] [place] [address] [address] [address] Assigned Surgical Provider 10/30/22 05/17/24 Justus Zaidi MD [address] [place] [address] Assigned Pain Medication Provider 11/27/22 10/07/23 [place] [address] [place] [address] Nurse Practitioner Nurse Practitioner 02/10/23 Christine Morel [facility] Lead Pearl Fisherman 02/10/23 3 Mony Plascencia W Community Health Worker 02/11/2304/04 [place] [address] [place] [address] Nurse Practitioner Nurse Practitioner 04/06/23 Nora Davalos PA-C [address] [place] [address] Assigned Pain Medication Provider 03/18/24 04/16/24 Nora Davalos PA-C [address] [place] [address] Assigned PCP 06/18/24 Irma Jones, RN Lead Pearl Fisherman Primary Care - CC 11/26/2412/04 documented as of this encounter
--- OUTSIDE RECORDS SUMMARY | 2024-12-14 10:35 | XMS_ITS | Clinical Summary ---
Author Organization [facility] Address [address] [place] [address] Care Team Providers Care Spoke Maker Name Role Phone No Primary/Referring, Phy [...] for each transition of care or referral. [employer] Allergies Active Allergy Reactions Criticality Noted Date Comments Acetaminophen Itching 11/20/2008 Cyclobenzaprine Itching 06/21/2016 Hydrocodone-Acetaminophen Hives High 07/02/2016 not actually hives, no problems breathing or rash. Ibuprofen Itching High 06/21/2016 Pt can take with benadryl Morphine Itching 06/21/2016 Penicillins Hives High 06/21/2016 Penicillins 12/19/2000 Nsaids Hives High 06/21/2016 Tramadol Hives High 06/21/2016 Medications * This document contains information received from the source organization and may not represent a complete record from that organization. Biotin 75473 MCG TBDP Take by mouth. Active oxyCODONE-acetam inophen (PERCOCET) 10-325 MG tablet Take 1 Tablet by mouth every 4 hours as needed for Pain. 30 Tablet 12/12/2018 Active Active Problems Problem Noted Date Diagnosed Date Chronic pain syndrome 11/05/2017 PONV (postoperative nausea and vomiting) 018 Recurrent ventral hernia 08/19/2017 Overview (08/19/2017): Added automatically from request for surgery [id number] Controlled substance agreement signed 07/04/2017 Overview (05/15/2018): Diagnosis: Chronic lbp, Fracture 5th metatarsal 04/11, [...] low back pain without sciati ca 06/30/2016 Overview (06/30/2016): Chart review [facility]: PT, MRI: central disc protrusion L5-S1, mild spondylosis L5-S1 Resolved Problems Problem Noted Date Diagnosed Date Resolved Date Lipoma of right lower extremity 12/04/2018 11/20/2021 Overview (12/04/2018): Added automatically from request for surgery [id number] DDD (degenerative disc disease), lumbar 11/05/2017 11/20/2021 Chronic midline low back teresa n without sciatica 11/05/2017 11/20/2021 Abdominal pain, epigastric 08/19/2017 0 11/20/2021 Overview (08/19/2017): Added automatically from request for surgery [id number] Immunizations Immunization Administration Dates Next Due DTP 04/11/1991, 8,1986,10/24/18 [...] Answer Date Recorded PHQ-2 Score 0 11/20/2021 Comments No Sex and Gender Information Value Date Recorded Sex Assigned at Not on file Legal Sex Female 4:38 AM CDT Gender Identity Not on file Sexual Orientation Not on file Last Filed Vital Signs Vital Sign Reading Time Taken Comments Blood Pressure 142/88 11/20/2021 8:31 AM TRAFFIC DIRECTOR Pulse 80 11/20/2021 8:31 AM TRAFFIC DIRECTOR Temperature 37.4 C (99.4 F) 11/20/2021 8:24 AM TRAFFIC DIRECTOR Respiratory Rate 16 07/20/2019 5:13 PM CDT Oxygen Saturation 99% 11/20/2021 8:24 AM TRAFFIC DIRECTOR Inhaled Oxygen Concentration - - Weight 97.5 kg (215 lb) 11/20/2021 8:24 AM TRAFFIC DIRECTOR Height 162.6 cm (5' 4) 11/20/2021 8:24 AM TRAFFIC DIRECTOR Body Mass Index 36.9 11/20/2021 8:24 AM TRAFFIC DIRECTOR Plan of Treatment Health Maintenance Due Date Last Done Comments Hep C Screening (Preventive Services) 1986 Adult Preventive Visit 2004 05/19/2000 COVID-19 Vaccine ( season) 2024 03/06/2021, 02/13/2021 Influenza (#1) 2024 08/25/2014, 07/29, 07/28/2014, Additional history exists DTaP/Tdap/Td (8 - [...] on patient's age to complete this topic Meningococcal B Aged Out No longer el igible based on patient's age to complete this topic Pneumococcal Aged Out No longer eligi ble based on patient's age to complete this topic Medical Devices Implanted Type Area Brass Plater Device Identifier Shelf Expiration Date Model / Serial / Lot Bone Chip Can 15cc [id number] - [id number] Implanted:Qty: 1 on 12/12/2018 by Jace Renteria DPM at [facility] BIOLOG[employer] Right: ANKLE [employer] - [employer] 04/11/2023 [id number] / [id number] 1 / NA Procedures Procedure Name Priority Date/Time Associated Diagnosis Comments HIV ANTIBODY Routine 08/26/2004 11:26 AM TRAFFIC DIRECTOR Supervis Normal 1st Preg from Last 3 Months or Most Recently Relevant to Health Maintenance Results * HIV 1/2 ANTIBODY (08/26/2004 11:26 AM TRAFFIC DIRECTOR) HIV 1/2 Antibody Non-Reacti ve NR [facility] 08/26/2004 11:2 6 AM TRAFFIC DIRECTOR 08/26/2004 11:28 AM TRAFFIC DIRECTOR us Carol Givens MD LAB_1 Final Resul t [facility] [address] [place] [phone] from Last 3 Months or Most Recently Relevant to Health Maintenance Insurance [facility] OUT OF STATE Advance Directives * Full Code (Latest Code Status on File) Date Activated Date Inactivated Comments 12/12/2018 6:08 AM 12/12/2018 11:36 AM * Full Code Date Activated Date Inactivated Comments 09/08/2017 1:26 AM 09/09/2017 1:17 PM Care Teams Spoke Maker Relationship Specialty Start Date End Date No Primary/Referring, Phy PCP - General 11/17/21
--- OUTSIDE RECORDS SUMMARY | 2024-12-14 10:35 | XMS_ITS | Encounter Summary ---
Author Organization [facility] Address [address], [place] [address] Care Team Providers Care Pbx Installer Name Role Phone No Primary/Referring, Phgricel Primary Care Provider Unavailable Encounter Details Date Type Department Care Team (Late st Contact Info) Description 04/14/2017 Emergency Room External to [facility], Provider FOOT PAIN Social History Tobacco Use Types Packs/Day Years Used Date Smoking Tobacco: Every Day Comments:passive smoker Alcohol Use Standard Drinks/Week Comments Not Asked 0 (1 standard drink = 0.6 oz pur e alcohol) Comments No Sex and Gender Information Value Date Recorded Sex Assigned at Not on file Legal Sex Female 4:38 AM CDT Gender Identity Not on file Sexual Orientation Not on file documented as of this encounter Plan of Treatment Not on file documented as of this encounter Visit Diagnoses Not on filedocumented in this encounter Care Teams Pbx Installer Relationship Specialty Start Date End Date No Primary/ReferringShelly PCP - General 11/17/21 documented as of this encounter
--- OUTSIDE RECORDS SUMMARY | 2024-12-14 10:35 | XMS_ITS | Encounter Summary ---
Author Organization [facility] Address [address] [place] [address] Care Team Providers Care Product Evangelist Name Role Phone Justus Zaidi MD Primary Care Provider [phone] Justus Zaidi MD Unavailable [phone] Georges Davalos DPM Unavailable [phone] Justus Zaidi MD Unavailable [phone] Lucero Melendez TAPE RECORDER MECHANIC Unavailable [phone] Christine Morel Unavailable [phone] Mony Plascencia CHW Unavailable [phone] Lucero Melendez TAPE RECORDER MECHANIC Unavailable +[phone] Nora Davalos PA-C Unavailable [phone] Nora Davalos-King Unavailable [phone] Irma Jones RN Unavailable Reason for Visit * Reason Onset Date Comments Refill Request 04/01/2023 Encounter Details Date Type Department Care Team (Late st Contact Info) Description 04/01/2023 Lucian Samuel [address] [address] Justus Zaidi MD [address] [place] [address] Refill Request Social History Tobacco Use Types [...] PM CDT Legal Sex Female 2:58 AM SOCIAL MEDIA MARKETING SPECIALIST Gender Identity Female 03/22/2022 5:14 PM CDT [...] Patient-Stated? Author I will utilize all [facility] programs I am eligible for as well [...] goal: 1. I will work with the [facility] to complete all forms and provide documentation. I let my CHW know that I have been approved for SNAP, [place] and Medical Assistance. Completed 2. I will contact Social Security or Disability Specialists to discuss options. I will call Disability Specialists soon to discuss Social Security Disability. 3. I will work with [facility] to see if there is any options for medications for my son until he is on MA. Myself and my family have been approved for Medical Assistance. Completed 3. I will report progress towards this goal at scheduled outreach telephone calls from the [facility] team. Continuous (MB) documented as [...] documented as of this encounter Care Teams Product Evangelist Relationship Specialty Start Date End Date Justus Zaidi MD [address] [facility] [place] [address] PCP - General Internal Medicine - Pediatrics 03/22/22 Justus Zaidi MD [address] [facility] [address] Assigned PCP 11/20/22 06/17/24 Georges Davalos DPM [address] [place] [address] [address] [address] Assigned Surgical Provider 10/30/22 05/17/24 Justus Zaidi MD [address] [facility] [place] [address] Assigned Pain Medication Provider 11/27/22 10/07/23 [place] [address] [place] [address] Nurse Practitioner Nurse Practitioner 02/10/23 Christine Morel, [facility] Lead Pantograph Engraver 02/10/23 3 Mony Plascencia [facility] Community Health Worker 02/11/2304/04 [place] [address] [place] [address] Nurse Practitioner Nurse Practitioner 04/06/23 Nora Davalos PA-C [address] [place] [address] Assigned Pain Medication Provider 03/18/24 04/16/24 Nora Davalos PA-C [address] [place] [address] Assigned PCP 06/18/24 Irma Jones RN Lead Pantograph Engraver Primary Care - CC 11/26/2412/04 documented as of this encounter
--- OUTSIDE RECORDS SUMMARY | 2024-12-14 10:35 | XMS_ITS | Encounter Summary ---
Author Organization [facility] Address [address] [place] [address] Care Team Providers Care Online Marketer Name Role Phone Justus Zaidi MD Primary Care Provider [phone] Justus Zaidi MD Unavailable [phone] Justus Zaidi MD Unavailable [phone] Georges Davalos DPM Unavailable [phone] Roxann Head ELECTROLYSIS ENGINEER Unavailable [phone] Mony Plascencia CHW Unavailable [phone] Noris Smith SHIP CLEANER Unavailable Unavailabl e Justus Zadii MD Unavailable [phone] Lucero Melendez NP Unavailable [phone] Christine Morel SHIP CLEANER Unavailable [phone] Mony Plascencia CHW Unavailable [phone] Lucero Melendez NP Unavailable [phone] Nora Davalos-C Unavailable [phone] Nora Davalos PA-C Unavailable [phone] Irma Jones RN Unavailable Encounter Details Date Type Department Care Team (Late st Contact Info) Description 11/12/2022 [facility] Medical Advice [facility] [address] [place] [id number] Georges Davalos, RENITA [address] [facility] [address] [place] [address] Social History Tobacco Use Types Packs/Day Years Used Date Smoking Tobacco: Never Comments:2 cigs per day Alcohol Use Standard Drinks/Week Comments No 0 (1 standard drink = 0.6 oz pur e alcohol) social PHQ-2 Answer Date Recorded PHQ-2 Score 0 11/09/2022 Comments No Sex and Gender Information Value Date Recorded Sex Assigned at Female 03/22/2022 5:14 PM CDT Legal Sex Female 2:58 AM REMITTANCE CLERK Gender Identity Female 03/22/2022 5:14 PM CDT [...] Coronavirus/COVID-19? No / Unsure 11/12/2022 8:23 AM REMITTANCE CLERK documented as of this encounter Plan of Treatment Not on file documented as of this encounter Visit Diagnoses Not on filedocumented in this encounter Additional Health Concerns Assessment Noted Time PHQ-9 Depression Total Score: 3 03/22/20 22 4:47 PM CDT documented as of this encounter Care Teams Online Marketer Relationship Specialty Start Date End Date Justus Zaidi MD [address] [place], [place] [address] [place] [address] [address] PCP - General Internal Medicine - Pediatrics 03/22/22 [facility] [place] [address] Assigned PCP 10/02/22 11/19/22 [facility] [place] [address] Assigned PCP 11/20/22 06/17/24 Georges Davalos DPM [facility] [facility] [address] [place] [address] Assigned Surgical Provider 10/30/22 05/17/24 Roxann Head, [facility] Lead Internal Combustion Engine Assembler Primary Care - CC 11/26/22 Mony Plascencia, [facility] Community Health Worker 11/26/2202/10 Noris Smith [facility] Lead Internal Combustion Engine Assembler 11/26/22 02/11/23 Justus Zaidi MD [address] [place] [address] [address] [place] [id number] Assigned Pain Medication Provider 11/27/22 10/07/23 Lucero Melendez, PROPERTY AND EQUIPMENT CLERK [address] [place] [place] [address] Nurse Practitioner Nurse Practitioner 02/10/23 Christine Morel [facility] Lead Internal Combustion Engine Assembler 02/10/23 3 Mony Plascencia, [facility] Community Health Worker 02/11/2304/04 Lucero Melendez, PROPERTY AND EQUIPMENT CLERK [address] [place] [place] [address] Nurse Practitioner Nurse Practitioner 04/06/23 Nora Davalos PA-C [address] [place] [id number] Assigned Pain Medication Provider 03/18/24 04/16/24 Nora Davalos PA-C [address] [place] [address] Assigned PCP 06/18/24 Irma Jones RN Lead Internal Combustion Engine Assembler Primary Care - CC 11/26/2412/04 documented as of this encounter
--- OUTSIDE RECORDS SUMMARY | 2024-12-14 10:35 | XMS_ITS | Encounter Summary ---
Author Organization [place] Address [address] [place] [address] Care Team Providers Care Dwarf Tree Grower Name Role Phone Justus Zaidi MD Primary Care Provider [phone] Justus Zaidi MD Unavailable [phone] Georges Davalos DPM Unavailable Justus Zaidi MD Unavailable Lucero Melendez TIMBER TRIMMER Unavailable [phone] Christine Morel Unavailable [phone] Mony Plascencia CHW Unavailable [phone] Lucero Melendez TIMBER TRIMMER Unavailable [phone] Nora Davalos-C Unavailable [phone] Nora Davalos-C Unavailable [phone] Irma Jones RN Unavailable Encounter Details Date Type Department Care Team (Late st Contact Info) Description 02/16/2023 [facility] [address] [place] [address] [place] [address] [place] [address] [place] [address] Social History Tobacco Use Types Packs/Day [...] place to sleep or slept in a group home (including now)? No 11/26/2022 Comments No Sex and Gender Information Value Date Recorded Sex Assigned at Female 03/22/2022 5:14 PM CDT Legal Sex Female 2:58 AM ENROLLMENT ELIGIBILITY REPRESENTATIVE Gender Identity Female 03/22/2022 5:14 PM [...] Progress Patient-Stated? Author I will utilize all [facility] programs I am eligible for as [...] goal: 1. I will work with the [facility] to complete all forms and provide documentation. I let my CHW know that I have been approved for SNAP, [place] and Medical Assistance. Completed 2. I will contact Social Security or Disability Specialists to discuss options. I will call Disability Specialists soon to discuss Social Security Disability. 3. I will work with [facility] to see if there is any options for medications for my son until he is on MA. Myself and my family have been approved for Medical Assistance. Completed 3. I will report progress towards this goal at scheduled outreach telephone calls from the [facility] team. Continuous (MB) documented as of this encounter Visit Diagnoses Not on filedocumented in this encounter Additional Health Concerns Active Problems Noted Date Diagnosed Date Diet management 11/26/2022 Patient expresses financial resource strain 11/2022 Assessment Noted Time PHQ-9 Depression Total Score: 3 03/22/20 22 4:47 PM CDT documented as of this encounter Care Teams Dwarf Tree Grower Relationship Specialty Start Date End Date Justus Zaidi MD [address] [place] [address] PCP - General Internal Medicine - Pediatrics 03/22/22 Justus Zaidi MD [address] [place] [address] [address] Assigned PCP 11/20/22 06/17/24 Georges Davalos DPM [address] [place] [address] Assigned Surgical Provider 10/30/22 05/17/24 Justus Zaidi MD [address] [facility] [place] [address] Assigned Pain Medication Provider 11/27/22 10/07/23 [place] [address] [place] [address] Nurse Practitioner Nurse Practitioner 02/10/23 Christine Morel [facility] Lead Public Stenographer 02/10/23 3 Mony Plascencia [facility] Community Health Worker 02/11/2304/04 [place] [address] [place] [address] Nurse Practitioner Nurse Practitioner 04/06/23 Nora Davalos PA-C [address] [place] [address] Assigned Pain Medication Provider 03/18/24 04/16/24 Nora Davalos PA-C [address] [place] [address] Assigned PCP 06/18/24 Irma Jones RN Lead Public Stenographer Primary Care - CC 11/26/2412/04 documented as of this encounter
--- OUTSIDE RECORDS SUMMARY | 2024-12-14 10:35 | XMS_ITS | Encounter Summary ---
Author Organization [place] Address [address] [place] [address] Care Team Providers Care Legislative Advocate Name Role Phone Justus Zaidi MD Primary Care Provider [phone] Justus Zaidi MD Unavailable [phone] Georges Davalos DPM Unavailable [phone] Mony Plascencia CHW Unavailable [phone] Noris Smith LOAD OUT WORKER Unavailable UnavailJustus Stephenson MD Unavailable [phone] Lucero Melendez NP Unavailable [phone] Christine Morel LOAD OUT WORKER Unavailable [phone] Mony Plascencia CHW Unavailable [phone] Lucero Melendez NP Unavailable [phone] Nora Davalos PA-C Unavailable [phone] Nora Davalos PA-C Unavailable [phone] Irma Jones RN Unavailable Encounter Details Date Type Department Care Team (Late st Contact Info) Description 11/30/2022 [facility] [address] [address] Justus Zaidi MD [address] [place] [address] Social History Tobacco Use Types Packs/Day Years [...] PM CDT Legal Sex Female 2:58 AM JUVENILE COUNSELOR Gender Identity Female 03/22/2022 5:14 PM CDT [...] Coronavirus/COVID-19? No / Unsure 11/12/2022 8:23 AM JUVENILE COUNSELOR documented as of this encounter Plan of Treatment Not on file documented as of this encounter Goals Goal Patient Goal Type Associated Problems Recent Progress Patient-Stated? Author I will utilize all [facility] programs I am eligible for as well [...] at scheduled outreach telephone calls from the [facility] team. Continuous (MB) documented as of this encounter Visit Diagnoses Not on filedocumented in this encounter Additional Health Concerns Active Problems Noted Date Diagnosed Date Diet management 11/26/2022 Patient expresses financial resource strain 11/2022 Assessment Noted Time PHQ-9 Depression Total Score: 3 03/22/20 22 4:47 PM CDT documented as of this encounter Care Teams Legislative Advocate Relationship Specialty Start Date End Date Justus Zaidi MD [address] [place] [address] PCP - General Internal Medicine - Pediatrics 03/22/22 Justus Zaidi MD [address] [place] [address] [address] Assigned PCP 11/20/22 06/17/24 Georges Davalos DPM [address] [facility] [address] [place] [address] Assigned Surgical Provider 10/30/22 05/17/24 Mony Plascencia, [facility] Community Health Worker 11/26/2202/10 Noris Smith [facility] Lead Occupational Hygienist 11/26/22 02/11/23 Justus Zaidi MD [address] [place] [address] [place] [address] Assigned Pain Medication Provider 11/27/22 10/07/23 Lucero Melendez, VIJAYA [address] [place] [address] Nurse Practitioner Nurse Practitioner 02/10/23 Christine Morel [facility] Lead Occupational Hygienist 02/10/23 3 Mony Plascencia, [facility] Community Health Worker 02/11/2304/04 Lucero Melendez, VIJAYA [address] [place] [address] Nurse Practitioner Nurse Practitioner 04/06/23 Nora Davalos PA-C [address] [place] [address] Assigned Pain Medication Provider 03/18/24 04/16/24 Nora Davalos PA-C [address] [place] [address] Assigned PCP 06/18/24 Irma Jones RN Lead Occupational Hygienist Primary Care - CC 11/26/2412/04 documented as of this encounter
--- OUTSIDE RECORDS SUMMARY | 2024-12-14 10:35 | XMS_ITS | Encounter Summary ---
Author Organization [place] Address [address] [place] [address] Care Team Providers Care Catalytic Converter Operator Helper Name Role Phone Justus Zaidi MD Primary Care Provider [phone] Justus Zaidi MD Unavailable [phone] Georges Davalos DPM Unavailable [phone] Mony Plascencia CHW Unavailable [phone] Noris Smith POLEYARD SUPERVISOR Unavailable UnavailJustus Stephenson MD Unavailable [phone] Lucero Melendez NP Unavailable [phone] Christine Morel POLEYARD SUPERVISOR Unavailable [phone] Mony Plascencia CHW Unavailable [phone] Lucero Melendez NP Unavailable [phone] Nora Davalos PA-C Unavailable [phone] Nora Davalos PA-C Unavailable [phone] Irma Jones RN Unavailable Encounter Details Date Type Department Care Team (Late st Contact Info) Description 12/28/2022 [place] [id number] [place] [address] Justus Zaidi MD [address] [facility] [address] Social History Tobacco Use Types Packs/Day Years [...] in a longterm (including now)? No 11/26/2022 Comments No Sex and Gender Information Value Date Recorded Sex Assigned at Female 03/22/2022 5:14 PM CDT Legal Sex Female 2:58 AM ELECTRIC RANGE PREPARER Gender Identity Female 03/22/2022 5:14 PM CDT [...] Progress Patient-Stated? Author I will utilize all [facility] programs I am eligible for [...] goal: 1. I will work with the [facility] to complete all forms and [...] at scheduled outreach telephone calls from the [facility] team. Continuous (MB) documented as of this encounter Visit Diagnoses Not on filedocumented in this encounter Additional Health Concerns Active Problems Noted Date Diagnosed Date Diet management 11/26/2022 Patient expresses financial resource strain 11/2022 Assessment Noted Time PHQ-9 Depression Total Score: 3 03/22/20 22 4:47 PM CDT documented as of this encounter Care Teams Catalytic Converter Operator Helper Relationship Specialty Start Date End Date Justus Zaidi MD [address] [place] [address] PCP - General Internal Medicine - Pediatrics 03/22/22 Justus Zaidi MD [address] [place] [address] [address] Assigned PCP 11/20/22 06/17/24 Georges Davalos DPM [facility] [address] [place] [address] Assigned Surgical Provider 10/30/22 05/17/24 Mony Plascencia, [facility] Community Health Worker 11/26/2202/10 Noris Smith [facility] Lead Art Handler 11/26/22 02/11/23 Justsu Zaidi MD [address] [facility] [place] [address] Assigned Pain Medication Provider 11/27/22 10/07/23 Lucero Melendez, VIJAYA [address] [place] [address] Nurse Practitioner Nurse Practitioner 02/10/23 Christine Morel [facility] Lead Art Handler 02/10/23 3 Mony Plascencia [facility] Community Health Worker 02/11/2304/04 [place] [address] [place] [address] [place] [address] Nurse Practitioner Nurse Practitioner 04/06/23 Nora Davalos PA-C [address] [place] [address] Assigned Pain Medication Provider 03/18/24 04/16/24 Nora Davalos PA-C [address] [place] [address] Assigned PCP 06/18/24 Irma Jones RN Lead Art Handler Primary Care - CC 11/26/2412/04 documented as of this encounter
[2024-12-14 10:47] VITALS: BP 129/95; PULSE 94; RESP 18; TEMP 37.3; O2SAT 97; BMI 32.1
--- NOTE | 2024-12-14 11:06 | ED_ITS ---
HPI - General Adult General Chief complaint: Back Injury/Pain Stated complaint: back pain Time Seen by Provider: 12/14/24 11:00 Source: patient Mode of arrival: ambulatory Limitations: no limitations History of Present Illness HPI narrative: 39-year-old female coming in today complaining of low back pain. Patient has a history of chronic low back pain and has been having a flare-up recently. She had a hard time sleeping last night and feels well today. She stop the chiropractor today to get an adjustment and that made her pain worse. Pain is located across the lower back does not radiate. She can not find a comfortable position. She feels nauseated. He denies fevers or chills. No saddle anesthesia, no focal neurologic deficits. No loss of bowel or bladder function. This pain is not new to her. Patient does take tizanidine, gabapentin and Percocet at home. Related Data Home Medications ?Medication ?Instructions ?Recorded ?Confirmed oxycodone-acetaminophen 10 mg-325 tab PO 02/28/23 mg tablet gabapentin 100 mg capsule mg PO 12/14/24 Previous Rx's ?Medication ?Instructions ?Recorded tizanidine 4 mg tablet 4 mg PO Q8H PRN muscle spasticity 02/16/24 #15 tabs methylprednisolone 4 mg tablets in See Rx Instructions PO .COMPLEX 12/14/24 a dose pack (Medrol (Vern)) #21 ea Allergies Allergy/AdvReac Type Severity Reaction Status Date / Time amoxicillin Allergy Verified 02/16/24 12:07 morphine AdvReac Intermediate Hives Verified 02/16/24 12:07 Review of Systems Status of ROS: Reports: 10 or more systems reviewed and unremarkable except as noted in History and below PFSH [facility] Social History Smoking Status: Unknown if ever smoked How often do you have a drink containing alcohol: never AUDIT-C Alcohol total score: 0 Non-prescribed substance use: denies use Exam Narrative: Exam Narrative: Well-nourished well-developed patient , tearful. Alert and oriented. Answers questions appropriately. HEENT: Normocephalic atraumatic. Pupils are equally round reactive to light. Extraocular muscles are intact. Conjunctivae are moist without any icterus noted. Moist mucous membranes. Cardiovascular: Heart is regular rate and rhythm S1 and S2 are present without any murmurs. Lungs: Clear to auscultation bilaterally no wheezes rhonchi or rales are appreciated. Patient takes deep breaths without any discomfort. Abdomen: Soft and nontender nondistended with normal bowel sounds. Skin: Well perfused Strength is 5/5 of the upper and lower extremities. Const: Vital Signs, click to edit/add: Vital Signs - 24 hr 12/14/24 10:47 Temperature 99.2 F Pulse Rate [Right Pulse Oximeter] 94 Respiratory Rate 18 Blood Pressure [Ri ght Upper Arm] 129/95 H Pulse Oximetry 97 Oxygen Delivery Me thod Room Air Course Course ED Course: IV was established and patient is given 30 mg of IV Toradol and IV Zofran. She is also given oral Flexeril and prednisone. This did not help. Patient was very worked up was very tearful and started dry heaving. She was then given 0.5 mg IV Ativan. Patient stated that she was able to fall sleep for a little bit of time without her pain was not any better. She was still very tearful. We discussed next steps. Patient states that she is on a pain contract. She at this time felt comfortable going home resting and doing ice on her back. Vital Signs Vital signs: Initial Vital Signs Temperature 99.2 F 12/14/24 10:47 Temperature Source Temporal Artery Scan 12/14/24 10:47 Pulse Rate 94 12/14/24 10:47 Pulse Rhythm Regular 12/14/24 10:47 Pulse Strength 3+ Normal 12/14/24 10:47 Respiratory Rate 18 12/14/24 10:47 Blood Pressure 129/95 H 12/14/24 10:47 Blood Pressure Mean 106 H 12/14/24 10:47 Blood Pressure Position Sitting 12/14/24 10:47 Pulse Oximetry 97 12/14/24 10:47 Oxygen Delivery Method Room Air 12/14/24 10:47 Vital Signs Temperature 99.2 F 12/14/24 10:47 Pulse Rate 94 12/14/24 10:47 Respiratory Rate 18 12/14/24 10:47 Blood Pressure 129/95 H 12/14/24 10:47 Pulse Oximetry 97 12/14/24 10:47 Oxygen Delivery Method Room Air 12/14/24 10:47 Temperature 99.2 F 12/14/24 10:47 Pulse Rate 94 12/14/24 10:47 Respiratory Rate 18 12/14/24 10:47 Blood Pressure 129/95 H 12/14/24 10:47 Pulse Oximetry 97 12/14/24 10:47 Oxygen Delivery Method Room Air 12/14/24 10:47 Medications Administered Medications: Discontinued Medications Generic Name Dose Route Start Last Admin Trade Name Freq PRN Reason Stop Dose Admin Cyclobenzaprine HCl 10 mg 12/14/24 11:05 12/14/24 11:25 Cyclobenzaprine Hcl 10 Mg Tablet PO 12/14/24 11:06 10 mg ONCE ONE Administration Ketorolac Tromethamine 30 mg 12/14/24 11:05 12/14/24 11:25 Ketorolac 30 Mg/Ml Inj IVP 12/14/24 11:06 30 mg ONCE ONE Administration Lorazepam 0.5 mg 12/14/24 11:53 12/14/24 11:59 Lorazepam 2 Mg/Ml Inj IVP 12/14/24 11:54 0.5 mg ONCE ONE Administration Ondansetron HCl 4 mg 12/14/24 11:05 12/14/24 11:25 Ondansetron 2 Mg/Ml Inj IVP 12/14/24 11:06 4 mg ONCE ONE Administration Prednisone 50 mg 12/14/24 11:05 12/14/24 11:25 Prednisone 10 Mg Tablet PO 12/14/24 11:06 50 mg ONCE ONE Administration Medical Decision Making MDM Narrative Medical decision making narrative: Low back pain. Treatment and course per above. Discharge Plan Discharge Clinical Impression: Acute exacerbation of chronic low back pain Patient Disposition: Home, Self-Care Condition: Stable Additional Instructions: Okay to use ice as needed. Do not apply ice for more than 20 minutes at a time do not apply ice directly to the skin. Okay to start Medrol Dosepak this evening or tomorrow morning. Try to take a bath if possible. Prescriptions: New methylprednisolone [Medrol (Vern)] 4 mg tablets,dose pack See Rx Instructions .ROUTE .COMPLEX Qty: 21 0RF Rx Instructions: orally per package directions No Action tizanidine 4 mg tablet 4 mg PO Q8H PRN (Reason: muscle spasticity) Qty: 15 0RF gabapentin 100 mg capsule PO oxycodone-acetaminophen 10-325 mg tablet PO Follow Up/Referrals: Provider,Not a Local [Primary Care Provider] - Stand Alone Forms: [employer] Info Instructions
[2024-12-14] MEDS: KETOROLAC 30 MG/ML inj IVP (11:25)
[2024-12-14] MEDS: ONDANSETRON 2 MG/ML inj 4 MG IVP (11:25)
[2024-12-14] MEDS: CYCLOBENZAPRINE HCL 10 MG TABLET PO (11:25)
[2024-12-14] MEDS: predniSONE 10 MG TABLET 50 MG PO (11:25)
--- OUTSIDE RECORDS SUMMARY | 2024-12-14 11:43 | XMS_ITS | Encounter Summary ---
[facility] Address [address] [address] Care Team Providers Care Winch Stripper Name Role Phone No Primary/Referring, Shelly Primary Care Provider Unavailable Encounter Details Date Type Department Care Team (Latest Contact Info) Description 12/29/1999 Orders Only Geovani Fournier [facility] [address] [place] [address], [address] Social History Tobacco Use Types Packs/Day [...] on filedocumented in this encounter Care Teams Winch Stripper Relationship Specialty Start Date End Date No Primary/ReferringShelly PCP - General 11/17/21 documented as of this encounter
--- OUTSIDE RECORDS SUMMARY | 2024-12-14 11:43 | XMS_ITS | Encounter Summary ---
[facility] Organization [facility] Address [address], [place] [address] Care Team Providers Care Tax Manager Public Name Role Phone No Primary/Referring, Shelly Primary Care Provider Unavailable Encounter Details Date Type Department Care Team (Latest Contact Info) Description 05/10/2000 Orders Only Geovani Fournier [facility] [id number] [place] [address], [address] Social History Tobacco Use Types Packs/Day [...] on filedocumented in this encounter Care Teams Tax Manager Public Relationship Specialty Start Date End Date No Primary/ReferringShelly PCP - General 11/17/21 documented as of this encounter
--- OUTSIDE RECORDS SUMMARY | 2024-12-14 11:43 | XMS_ITS | Encounter Summary ---
Author [facility] Address [address], [place] [address] Care Team Providers Care Betting Clerk Name Role Phone No Primary/Referring, Shelly Primary Care Provider Unavailable Encounter Details Date Type Department Care Team (Latest Contact Info) Description 04/05/2000 Orders Only Geovani Fournier [facility] [id number] [place] [address], [address] Social History Tobacco Use Types Packs/Day [...] on filedocumented in this encounter Care Teams Betting Clerk Relationship Specialty Start Date End Date No Primary/ReferringShelly PCP - General 11/17/21 documented as of this encounter
--- OUTSIDE RECORDS SUMMARY | 2024-12-14 11:44 | XMS_ITS | Encounter Summary ---
Author [facility] Address [address], [place] [address] Care Team Providers Care Network Operations Technician Name Role Phone No Primary/Referring, Phy Primary Care Provider Unavailable Encounter Details Date Type Department Care Team (Latest Contact Info) Description 12/20/1994 Orders Only Mu Rai MD [facility] [address] [place] [address] Social History Tobacco Use Types [...] on filedocumented in this encounter Care Teams Network Operations Technician Relationship Specialty Start Date End Date No Primary/Referring, Shelly PCP - General 11/17/21 documented as of this encounter
--- OUTSIDE RECORDS SUMMARY | 2024-12-14 11:44 | XMS_ITS | Encounter Summary ---
Author Organization [facility] Address [address] [address] Care Team Providers Care Premium Card Cancellation Clerk Name Role Phone No Primary/Referring, Phy [...] on filedocumented in this encounter Care Teams Premium Card Cancellation Clerk Relationship Specialty Start Date End Date No Primary/Referring, Shelly PCP - General 11/17/21 documented as of this encounter
--- OUTSIDE RECORDS SUMMARY | 2024-12-14 11:44 | XMS_ITS | Encounter Summary ---
Author Organization [facility] Address [address], [place] [address] Care Team Providers Care Application Support Manager Name Role Phone No Primary/Referring, Phy [...] on filedocumented in this encounter Care Teams Application Support Manager Relationship Specialty Start Date End Date No Primary/Referring, Shelly PCP - General 11/17/21 documented as of this encounter
--- OUTSIDE RECORDS SUMMARY | 2024-12-14 11:44 | XMS_ITS | Encounter Summary ---
Author Organization [facility] Address [address], [place] [address] Care Team Providers Care Ax Survey Worker Name Role Phone No Primary/ReferringShelly Primary Care Provider Unavailable Encounter Details Date Type Department Care Team (Late st Contact Info) Description 07/13/2016 Correspondence [facility] Radiology [address] [place] [address] Radiology, Provider MRI SAFETY SHEET AND COMPATIBILITY [...] on filedocumented in this encounter Care Teams Ax Survey Worker Relationship Specialty Start Date End Date No Primary/ReferringShelly PCP - General 11/17/21 documented as of this encounter
--- OUTSIDE RECORDS SUMMARY | 2024-12-14 11:44 | XMS_ITS | Encounter Summary ---
Author Organization [facility] Address [address], [place] [address] Care Team Providers Care Sewer Builder Name Role Phone No Primary/Referring, Phy Primary [...] on filedocumented in this encounter Care Teams Sewer Builder Relationship Specialty Start Date End Date No Primary/Referring, Shelly PCP - General 11/17/21 documented as of this encounter
--- OUTSIDE RECORDS SUMMARY | 2024-12-14 11:44 | XMS_ITS | Encounter Summary ---
Author Organization [facility] Address [address] [address] Care Team Providers Care Senior Care Manager Name Role Phone No Primary/Referring, Phy [...] filedocumented in this encounter Care Teams Senior Care Manager Relationship Specialty Start Date End Date No Primary/Referring, Shelly PCP - General 11/17/21 documented as of this encounter
--- OUTSIDE RECORDS SUMMARY | 2024-12-14 11:44 | XMS_ITS | Encounter Summary ---
Author Organization [facility] Address [address] [address] Care Team Providers Care Supply Chain Buyer Name Role Phone No Primary/Referring, Phy Primary [...] on filedocumented in this encounter Care Teams Supply Chain Buyer Relationship Specialty Start Date End Date No Primary/Referring, Shelly PCP - General 11/17/21 documented as of this encounter
--- OUTSIDE RECORDS SUMMARY | 2024-12-14 11:44 | XMS_ITS | Encounter Summary ---
Author Organization [facility] Address [address] [address] Care Team Providers Care Hvac Estimator Name Role Phone No Primary/Referring, Phy Primary [...] on filedocumented in this encounter Care Teams Hvac Estimator Relationship Specialty Start Date End Date No Primary/Referring, Shelly PCP - General 11/17/21 documented as of this encounter
--- OUTSIDE RECORDS SUMMARY | 2024-12-14 11:44 | XMS_ITS | Encounter Summary ---
Author Organization [email or web address] Address [address], [place] [address] Care Team Providers Care Medieval English Literature Professor Name Role Phone No Primary/Referring, Phy Primary Care Provider Unavailable Encounter Details Date Type Department Care Team (Latest Contact Info) Description 06/07/1995 Orders Only Mary Orellana MD [address] [place] [address] Social History Tobacco Use Types Packs/Day Years [...] on filedocumented in this encounter Care Teams Medieval English Literature Professor Relationship Specialty Start Date End Date No Primary/Referring, Shelly PCP - General 11/17/21 documented as of this encounter
--- OUTSIDE RECORDS SUMMARY | 2024-12-14 11:44 | XMS_ITS | Encounter Summary ---
[facility] Organization [facility] Address [address] [place] [address] Care Team Providers Care Derivatives Trader Name Role Phone No Primary/Referring, Phy Primary Care Provider Unavailable Encounter Details Date Type Department Care Team (Latest Contact Info) Description 09/06/1995 Orders Only Davion Alvarez MD [address] [place], [place] [id number] Social History Tobacco Use Types Packs/Day Years [...] on filedocumented in this encounter Care Teams Derivatives Trader Relationship Specialty Start Date End Date No Primary/Referring, Shelly PCP - General 11/17/21 documented as of this encounter
--- OUTSIDE RECORDS SUMMARY | 2024-12-14 11:44 | XMS_ITS ---
Author Organization [facility] Address [address] [place] [address] Care Team Providers Care Rug Cleaner Hand Name Role Phone Justus Zaidi MD Primary Care Provider Lucero Melendez CARROTING MACHINE OFFBEARER Unavailable [phone] Lucero Melendez CARROTING MACHINE OFFBEARER Unavailable [phone] Nora Davalos PA-C Unavailable [phone] Primary Care Care Coordination Status:Closed (Closed) Start date:11/23/2024 End date:12/04/2024 Close reason:Unable to reach patient Overview Patient to call her insurance to inquire on pain clinic's Continued Care and Services Coordination
--- OUTSIDE RECORDS SUMMARY | 2024-12-14 11:44 | XMS_ITS | Clinical Summary ---
Author Organization [facility] Address [address] [place] [address] Care Team Providers Care Apple Picking Supervisor Name Role Phone Nyasia Cuevas SENIOR ANALYST Unavailable [phone] Justus Zaidi MD Primary Care Provider [phone] Allergies Active Allergy Reactions Criticality Noted Date [...] Controlled substance agreement signed 03/16/2024 Overview (03/16/2024): [facility] Incarcerated ventral hernia 02/06/2016 Pain medication agreement 01/30/2016 SI (sacroiliac) joint dysfunction 11/12/2015 Chronic cholecystitis with calculus 01/14/2015 Overview (01/14/2015): 01/13/2015 right upper quadrant ultrasound: cholelithiasis ([facility]) Abdominal pain 01/14/2015 Overview (01/14/2015): Multiple clinic and emergency department visits ([facility], [facility] emergency department, and [facility]) Tobacco use 01/14/2015 Overview (01/14/2015): 01/14/2015 [...] 2014 [place] Drug-seeking behavior 12/20/20142015 Overview (12/20/2014): computer patternmaker queried 16 prescriptions for percocet in the [...] Type Department Care Team Description 12/14/2024 Telephone [facility] [address] [place] [address] Nyasia Cuevas NP Commercial Loan Administrator Plan 12/13/2024 Telephone [facility] [address] [place] [address] Nyasia Cuevas NP Refill Request 11/20/2024 9:00 AM MOSAIC WORKER Office Visit [facility] [address] [place] [address] Nyasia Cuevas NP Follow Up 11/20/2024 Travel 10/22/2024 Refill [facility] [address] [place] [address] Nyasia Cuevas NP Refill Request (Medication name: oxyCODONE-acetaminoph en (PERCOCET) 5-325 mg per tablet//Pharmacy: [facility] [address] [place] [address]) 10/08/2024 Telephone [facility] [address] [place] [address] Nyasia Cuevas NP Appointment 09/25/2024 Refill [facility] [address] [place] [address] Nyasia Cuevas NP Refill Request from Last [...] on file Legal Sex Female 5:22 AM MOSAIC WORKER Gender Identity Not on file Sexual Orientation [...] Comments Blood Pressure 145/84 11/20/2024 9:18 AM MOSAIC WORKER Pulse 81 11/20/2024 9:18 AM MOSAIC WORKER Temperature 36.3 C (97.4 F) 06/19/2024 9:24 AM CDT Respiratory Rate 18 06/19/2024 9:24 AM CDT Oxygen Saturation 98% 11/20/2024 9:18 AM MOSAIC WORKER Inhaled Oxygen Concentration - - Weight 86.9 kg (191 lb 9.6 oz) 03/06/2024 10:53 AM CDT Height 162.6 cm (5' 4) 04/13/2022 9:50 PM CDT Body Mass Index 32.89 04/13/2022 9:50 PM CDT Plan of Treatment Upcoming Encounters Date Type Department Care Team (Late st Contact Info) Description 01/30/2025 10:30 AM CDT Office Visit [facility] [address] [place] [address] Nyasia Cuevas NP [address] [place], [place] [id number] Health Maintenance Due Date Last Done Comments [...] 05/06/2018, 06/14/2010 Medical Devices Implanted Type Area 1St Pressman Device Identifier Shelf Expiration Date Model / Serial / Lot Mesh Ventral 8in Ventralight St W/Echo Ps Cir - [id number] Implanted:Qty: 1 on 02/12/2016 by Hay Nieto MD at [facility] N/A: Abdomen [employer] 08/23/2017 [id number] / / [id number] Procedures Procedure Name Priority Date/Time Associated Diagnosis Comments COMPLIANCE DRUG ANALYSIS Routine 11/20/2024 9:00 AM MOSAIC WORKER Encounter for therapeutic drug monitoring ANTI HIV 1/2 Routine 11/07/2009 1:51 PM MOSAIC WORKER Screening for Malignant Neoplasm of the Cervix from Last 3 Months or Most Recently Relevant to Health Maintenance Results * (ABNORMAL) COMPLIANCE DRUG ANALYSIS (11/20/2024 9:00 AM MOSAIC WORKER) 6-MONOACETYL MORPHINE NEG NEG ng/mL 11/26/2024 11:09 AM [facility] AMPHETAMINE URINE NEG <=500 ng/mL 11/26/2024 11:09 AM [facility] BARBITURATE URINE NEG <=200 ng/mL 11/26/2024 11:09 AM [facility] BENZODIAZEPINE URINE NEG <=100 ng/mL 11/26/2024 11:09 AM [facility] BUPRENORPHRINE URINE NEG <=5 ng/mL 11/2024 11:09 AM [facility] COCAINE METAB URINE NEG <=300 ng/mL 11/26/2024 11:09 AM [facility] ETHYLGLUCURONIDE URINE NEG <=250 ng/mL 11/26/2024 11:09 AM [facility] FENTANYL URINE NEG <=4 ng/mL 11/26/2024 11:09 AM [facility] METHADONE URINE NEG <=300 ng/mL 11/26/2024 11:09 AM [facility] OPIATES URINE NEG <=300 ng/mL 11/26/2024 11:09 AM [facility] OXYCODONE URINE POS(A) <=100 ng/mL 11/26/2024 11:09 AM [facility] PROPOXYPHENE URINE NEG <=300 ng/mL 11/26/2024 11:09 AM [facility] THC 50 URINE NEG <=50 ng/mL 11/26/2024 11:09 AM [facility] TRAMADOL NEG <=200 ng/mL 11/26/2024 11:09 AM [facility] PH URINE 8.4(H) 5.0 - 7.0 11/26/2024 11:09 AM [facility] CREAT UR 118 >=20 mg/dL 11/26/2024 11:09 AM [facility] MASS SPECTROMETRY URINE See Below 11/26/2024 11:09 AM [facility] Comment:Acetaminophen, Oxyco done and Oxycodone metabolites present. Urine URINE SPECIMEN / Unknown Non-Blood / Unknown 11/20/2024 9:00 AM MOSAIC WORKER 11/21/2024 9:18 AM [facility] - 11/26/2024 11:09 AM [facility] Current Outpatient Medications: buprenorphine 5 mcg/hr (BUTRANS) [...] Nyasia Cuevas NP URINE Fin al Result [facility] [address] [facility] [address] [place] [address], [place] * ANTI HIV 1/2 [50811.0] (11/07/2009 1:51 PM MOSAIC WORKER) ANTI HIV 1/2 Non-reacti ve [facility] Blood specimen (specimen) BLOOD SPECIMEN / Unknown 11/07/2009 1:51 PM MOSAIC WORKER 11/07/2009 1:45 PM MOSAIC WORKER us Hannah Johnson MD SEND OUTS Final Result [facility] INTERNAL ZIP [id number] [place] [id number] from Last 3 Months or Most Recently Relevant to Health Maintenance Insurance [employer] [place] [facility] * Guarantor: JOLLY CARTER Account Type Relation to Patient Date of Phone Billing Address Occ Health[facility] 1978 [place] [id number] ATTN A/P [address] [address] [place] [address] Advance Directives * Full Code (Latest Code [...] 6:58 AM 10/16/2013 11:51 AM Care Teams Apple Picking Supervisor Relationship Specialty Start Date End Date Justus Zaidi MD [address] [place] [address] PCP - General Pediatric 11/20/24 Nyasia Cuevas NP [address] [place] [address] Pain Management Nurse Practitioner - Family 07/23/24
--- OUTSIDE RECORDS SUMMARY | 2024-12-14 11:44 | XMS_ITS | Encounter Summary ---
Author Organization [facility] Address [address] [address] Care Team Providers Care All Source Intelligence Name Role Phone No Primary/Referring, Phy Primary Care Provider Unavailable Encounter Details Date Type Department Care Team (Latest Contact Info) Description 10/22/1994 Orders Only Mary Orellana MD [address] [place] [address] Social History Tobacco Use Types Packs/Day Years [...] on filedocumented in this encounter Care Teams All Source Intelligence Relationship Specialty Start Date End Date No Primary/Referring, Shelly PCP - General 11/17/21 documented as of this encounter
--- OUTSIDE RECORDS SUMMARY | 2024-12-14 11:44 | XMS_ITS | Encounter Summary ---
Author Organization [facility] Address [address] [address] Care Team Providers Care Repairer Helper Name Role Phone No Primary/Referring, Phy [...] on filedocumented in this encounter Care Teams Repairer Helper Relationship Specialty Start Date End Date No Primary/Referring, Shelly PCP - General 11/17/21 documented as of this encounter
--- OUTSIDE RECORDS SUMMARY | 2024-12-14 11:44 | XMS_ITS | Encounter Summary ---
Author Organization [facility] Address [address] [address] Care Team Providers Care Clam Bed Worker Name Role Phone No Primary/Referring, Phy Primary [...] on filedocumented in this encounter Care Teams Clam Bed Worker Relationship Specialty Start Date End Date No Primary/Referring, Shelly PCP - General 11/17/21 documented as of this encounter
--- OUTSIDE RECORDS SUMMARY | 2024-12-14 11:44 | XMS_ITS | Encounter Summary ---
Author Organization [facility] Address [address], [place] [address] Care Team Providers Care Network Engineer Administrator Name Role Phone No Primary/Referring, Phy Primary [...] filedocumented in this encounter Care Teams Network Engineer Administrator Relationship Specialty Start Date End Date No Primary/Referring, Shelly PCP - General 11/17/21 documented as of this encounter
--- OUTSIDE RECORDS SUMMARY | 2024-12-14 11:44 | XMS_ITS | Encounter Summary ---
Author Organization [facility] Address [address] [place] [address] Care Team Providers Care Doormaker Name Role Phone Justus Zaidi MD Primary Care Provider Justus Zaidi MD Unavailable [phone] Justus Zaidi MD Unavailable Justus Zaidi MD Unavailable Georges Davalos DPM Unavailable Justus Zaidi MD Unavailable Georges Davalos DPM Unavailable Roxann Head BUSINESS ARCHITECT Unavailable [phone] Mony Plascencia CHW Unavailable [phone] Noris Smith ELEVATOR REPAIRER HELPER Unavailable Unavailabl e Justus Zaidi MD Unavailable Lucero Melendez NP Unavailable [phone] Christine Morel ELEVATOR REPAIRER HELPER Unavailable Mony Plascencia W Unavailable Lucero Melendez NP Unavailable Nora Davalos PA-C Unavailable Nora Davalos PA-C Unavailable [phone] Irma Jones YONATAN Unavailable Encounter Details Date Type Department Care Team (Late st Contact Info) Description 08/16/2022 [facility] Medical [facility] [address] [place] [phone] Justus Zaidi MD [address] [place] [address] Social History Tobacco Use Types Packs/Day Years [...] PM CDT Legal Sex Female 2:58 AM CAMERA ENGINEER Gender Identity Female 03/22/2022 5:14 PM [...] documented as of this encounter Care Teams Doormaker Relationship Specialty Start Date End Date Justus Zaidi MD [address] [place] [address] PCP - General Internal Medicine - Pediatrics 03/22/22 [place] [address] [place] [address] Assigned PCP 09/11/22 10/01/22 [place] [address] [address] Assigned PCP 08/07/22 09/10/22 Justus Zaidi MD [address] [place], [place] [address] [address] Assigned PCP 10/02/22 11/19/22 Georges Davalos DPM [address] [place] [address] Assigned Musculoskeletal Provider 10/23/22 10/29/22 Justus Zaidi MD [address] [place], [place] [address] [address] Assigned PCP 11/20/22 06/17/24 Georges Davalos DPM [address] [place] [address] Assigned Surgical Provider 10/30/22 05/17/24 Roxann Head, BUSINESS ARCHITECT Lead Syrup Machine Laborer Primary Care - CC 11/26/22 Mony Plascencia, [facility] Community Health Worker 11/26/2202/10 Noris Smith LICSW Lead Syrup Machine Laborer 11/26/22 02/11/23 Justus Zaidi MD [address] [address] Assigned Pain Medication Provider 11/27/22 10/07/23 Lucero Melendez, VIJAYA [address] [address] Nurse Practitioner Nurse Practitioner 02/10/23 Christine Morel LICSW Lead Syrup Machine Laborer 02/10/23 3 Mony Plascencia W Community Health Worker 02/11/2304/04 [place] [address] [place] [address] Nurse Practitioner Nurse Practitioner 04/06/23 Nora Davalos PA-C [address] [place] [address] Assigned Pain Medication Provider 03/18/24 04/16/24 Nora Davalos PA-C [address] [place], [place] [address] Assigned PCP 06/18/24 Irma Jones, RN Lead Syrup Machine Laborer Primary Care - CC 11/26/2412/04 documented as of this encounter
--- OUTSIDE RECORDS SUMMARY | 2024-12-14 11:44 | XMS_ITS | Encounter Summary ---
Author Organization [facility] Address [address], [place] [address] Care Team Providers Care Oracle Fusion Developer Name Role Phone No Primary/Referring, Phy Primary [...] filedocumented in this encounter Care Teams Oracle Fusion Developer Relationship Specialty Start Date End Date No Primary/Referring, Shelly PCP - General 11/17/21 documented as of this encounter
--- OUTSIDE RECORDS SUMMARY | 2024-12-14 11:44 | XMS_ITS | Encounter Summary ---
Author Organization [facility] Address [address] [address] Care Team Providers Care Pin Maker Name Role Phone No Primary/Referring, Phy [...] on filedocumented in this encounter Care Teams Pin Maker Relationship Specialty Start Date End Date No Primary/Referring, Shelly PCP - General 11/17/21 documented as of this encounter
--- OUTSIDE RECORDS SUMMARY | 2024-12-14 11:44 | XMS_ITS | Encounter Summary ---
Author Organization [facility] Address [address], [place] [address] Care Team Providers Care Asw Specialist Name Role Phone No Primary/Referring, Phy [...] on filedocumented in this encounter Care Teams Asw Specialist Relationship Specialty Start Date End Date No Primary/Referring, Shelly PCP - General 11/17/21 documented as of this encounter
--- OUTSIDE RECORDS SUMMARY | 2024-12-14 11:44 | XMS_ITS | Encounter Summary ---
Author Organization [facility] Address [address] [address] Care Team Providers Care Test Engineer Nuclear Equipment Name Role Phone No Primary/Referring, Phy Primary [...] on filedocumented in this encounter Care Teams Test Engineer Nuclear Equipment Relationship Specialty Start Date End Date No Primary/Referring, Shelly PCP - General 11/17/21 documented as of this encounter
--- OUTSIDE RECORDS SUMMARY | 2024-12-14 11:44 | XMS_ITS | Encounter Summary ---
Author Organization [facility] Address [address] [address] Care Team Providers Care Supervisor Asphalt Paving Name Role Phone No Primary/Referring, Phy Primary [...] on filedocumented in this encounter Care Teams Supervisor Asphalt Paving Relationship Specialty Start Date End Date No Primary/Referring, Shelly PCP - General 11/17/21 documented as of this encounter
--- OUTSIDE RECORDS SUMMARY | 2024-12-14 11:44 | XMS_ITS | Encounter Summary ---
Author Organization [facility] Address [address], [place] [address] Care Team Providers Care Digital Operations Analyst Name Role Phone No Primary/Referring, Phy Primary Care Provider Unavailable Encounter Details Date Type Department Care Team (Late st Contact Info) Description 08/19/2015 Scanned History External to Transferred Record, Provider [facility] Social History Tobacco Use Types Packs/Day Years [...] on filedocumented in this encounter Care Teams Digital Operations Analyst Relationship Specialty Start Date End Date No Primary/Referring, Shelly PCP - General 11/17/21 documented as of this encounter
--- OUTSIDE RECORDS SUMMARY | 2024-12-14 11:44 | XMS_ITS | Encounter Summary ---
Author Organization [facility] Address [address] [place] [address] Care Team Providers Care Sanitation Supervisor Name Role Phone Justus Zaidi MD Primary Care Provider Justus Zaidi MD Unavailable [phone] Justus Zaidi MD Unavailable [phone] Justus Zaidi MD Unavailable [phone] Justus Zaidi MD Unavailable [phone] Georges Davalos DPM Unavailable Justus Zaidi MD Unavailable [phone] Georges Davalos DPM Unavailable [phone] Roxann Head CRULLER MAKER Unavailable [phone] Mony Plascencia CHW Unavailable [phone] Noris Smith CLINICAL OPERATIONS LEADER Unavailable Unavailabl e Justus Zaidi MD Unavailable Lucero Melendez NP Unavailable [phone] Christine Morel CLINICAL OPERATIONS LEADER Unavailable Mony Plascencia CHW Unavailable [phone] Lucero Melendez NP Unavailable [phone] Nora Davalos PA-C Unavailable [phone] Nora Davalos Luis VANN-King Unavailable [phone] Robert Irma TAM Unavailable Encounter Details Date Type Department Care Team (Late st Contact Info) Description 08/04/2022 MyC Medical Advice [facility] [address] [place] [address] Justus Zaidi MD [address] [facility] [place] [id number] Social History Tobacco Use Types Packs/Day Years [...] PM CDT Legal Sex Female 2:58 AM EYEGLASS CUTTER Gender Identity Female 03/22/2022 5:14 PM CDT [...] Justus Zaidi MD - 08/09/2022 8:31 PM EYEGLASS CUTTER See patients chart. LASS CUTTER * Telephone Encounter - Jacqueline Hernandez CMA - 08/09/2022 4:57 PM EYEGLASS CUTTER If they can come in on 09/01 can I use an approval request spot? LASS CUTTER * Telephone Encounter - Justus Zaidi MD - 08/05/2022 3:55 PM EYEGLASS CUTTER Please print off media and will scan into son's chart LASS CUTTER documented in this encounter Plan of Treatment Not on file documented as of this encounter Visit Diagnoses Not on filedocumented in this encounter Additional Health Concerns Assessment Noted Time PHQ-9 Depression Total Score: 3 03/22/20 4:47 PM CDT documented as of this encounter Care Teams Sanitation Supervisor Relationship Specialty Start Date End Date Justus Zaidi MD [address] [place] [address] PCP - General Internal Medicine - Pediatrics 03/22/22 Justus Zaidi MD [address] [place] [address] [address] Assigned PCP 06/26/22 08/06/22 Justus Zaidi MD [address] [place] [address] Assigned PCP 09/11/22 10/01/22 Justus Zaidi MD [address] [address] Assigned PCP 08/07/22 09/10/22 Justus Zaidi MD [address] [place] [address] [address] Assigned PCP 10/02/22 11/19/22 Georges Davalos DPM [address] [place] [address] [address] Assigned Musculoskeletal Provider 10/23/22 10/29/22 Justus Zaidi MD [address] [place] [address] Assigned PCP 11/20/22 06/17/24 Georges Davalos DPM [address] [facility] [address] [place] [address] Assigned Surgical Provider 10/30/22 05/17/24 Roxann Head, CRULLER MAKER Lead Can Stacker Primary Care - CC 11/26/22 Mony Plascencia, [facility] Community Health Worker 11/26/2202/10 Noris Smith CLINICAL OPERATIONS LEADER Lead Can Stacker 11/26/22 02/11/23 Justus Zaidi MD [address] [place] [address] Assigned Pain Medication Provider 11/27/22 10/07/23 Lucero Melendez, VIJAYA [address] [place] [address] Nurse Practitioner Nurse Practitioner 02/10/23 Christine Morel [facility] Lead Can Stacker 02/10/23 3 Mony Plascencia [facility] Community Health Worker 02/11/2304/04 Lucero Melendez, MONEY COUNTER [address] [place] [address] Nurse Practitioner Nurse Practitioner 04/06/23 Nora Davalos PA-C [address] [place] [address] Assigned Pain Medication Provider 03/18/24 04/16/24 Nora Davalos PA-C [address] [place] [address] Assigned PCP 06/18/24 Irma Jones RN Lead Can Stacker Primary Care - CC 11/26/2412/04 documented as of this encounter
--- OUTSIDE RECORDS SUMMARY | 2024-12-14 11:44 | XMS_ITS | Encounter Summary ---
Author Organization [facility] Address [address] [place] [address] Care Team Providers Care Residential Field Manager Name Role Phone Justus Zaidi MD Primary Care Provider Justus Zaidi MD Unavailable Justus Zaidi MD Unavailable Georges Davalos DPM Unavailable [phone] Justus Zaidi MD Unavailable Georges Davalos DPM Unavailable [phone] Roxann Head MATTRESS STRIPPER Unavailable [phone] Mony Plascencia CHW Unavailable [phone] Noris Smith THERMOMETER TESTER Unavailable UnavailJustus Stephenson MD Unavailable Lucero Melendez NP Unavailable [phone] Christine Morel THERMOMETER TESTER Unavailable Mony Plascnecia CHW Unavailable [phone] Lucero Melendez NP Unavailable [phone] Nora Davalos PA-C Unavailable [phone] Nora Davalos PA-C Unavailable [phone] Irma Jones RN Unavailable Encounter Details Date Type Department Care Team (Late st Contact Info) Description 09/14/2022 MyC Medical Advice [address] [phone] Jeni Correa, RN Social History Tobacco Use [...] PM CDT Legal Sex Female 2:58 AM TRANSPORTATION MECHANIC Gender Identity Female 03/22/2022 5:14 PM CDT [...] documented as of this encounter Care Teams Residential Field Manager Relationship Specialty Start Date End Date Justus Zaidi MD [address] [place], [place] [address] [address] PCP - General Internal Medicine - Pediatrics 03/22/22 [facility] [place] [address] Assigned PCP 09/11/22 10/01/22 Justus Zaidi MD [facility] [place] [address] Assigned PCP 10/02/22 11/19/22 Georges Daavlos DPM [address] [place], [place] [address], [place] [address] Assigned Musculoskeletal Provider 10/23/22 10/29/22 Justus Zaidi MD [address] [facility] [place] [place] [address] Assigned PCP 11/20/22 06/17/24 Georges Davalos DPM [address] [facility] [address] [place] [address] Assigned Surgical Provider 10/30/22 05/17/24 Roxann Head MATTRESS STRIPPER Lead Six Sigma Black Trainer Primary Care - CC 11/26/22 Mony Plasc[address] [facility] Community Health Worker 11/26/2202/10 Noris Smith THERMOMETER TESTER Lead Six Sigma Black Trainer 11/26/22 02/11/23 Justus Zaidi MD [address] [facility] [place] [place] [address] Assigned Pain Medication Provider 11/27/22 10/07/23 Lucero Melendez, SAP BW CONSULTANT [address] [address] Nurse Practitioner Nurse Practitioner 02/10/23 Christine Morel [facility] Lead Six Sigma Black Trainer 02/10/23 Mony Carlson [facility] Community Health Worker 02/11/2304/04 Lucero Melendez, VIJAYA [address] [address] Nurse Practitioner Nurse Practitioner 04/06/23 Nora Davalos PA-C [address] [place] [address] Assigned Pain Medication Provider 03/18/24 04/16/24 Nora Davalos PA-C [address] [place] [address] Assigned PCP 06/18/24 Irma Jones RN Lead Six Sigma Black Trainer Primary Care - CC 11/26/2412/04 documented as of this encounter
--- OUTSIDE RECORDS SUMMARY | 2024-12-14 11:44 | XMS_ITS | Encounter Summary ---
Author Organization [facility] Address [address] [place] [address] Care Team Providers Care Power Plant Supervisor Name Role Phone Justus Zaidi MD Primary Care Provider [phone] Justus Zaidi MD Unavailable [phone] Georges Davalos DPM Unavailable [phone] Justus Zaidi MD Unavailable [phone] Georges Davalos DPM Unavailable [phone] Roxann Head BOTTLE HOUSE CLEANERS SUPERVISOR Unavailable [phone] Mony Plascencia CHW Unavailable [phone] Noris Smith FIELD AGRONOMIST Unavailable Unavailabl e Justus Zaidi MD Unavailable [phone] Lucero Melendez SENIOR TECHNICAL EDITOR Unavailable [phone] Christine Morel FIELD AGRONOMIST Unavailable [phone] Mony Plascencia CHW Unavailable [phone] Lucero Melendez NP Unavailable [phone] Nora Davalos-C Unavailable [phone] Nora Davalos-C Unavailable [phone] Irma Jones RN Unavailable Encounter Details Date Type Department Care Team (Late st Contact Info) Description 10/19/[address] [facility] Marisabel [address] [place] [phone] Justus Zaidi MD [address] [place] [address] Social History Tobacco Use Types Packs/Day Years Used Date Smoking Tobacco: Never Comments:2 cigs per day Alcohol Use Standard Drinks/Week Comments No 0 (1 standard drink = 0.6 oz pur e alcohol) social PHQ-2 Answer Date Recorded PHQ-2 Score 0 07/15/2022 Comments No Sex and Gender Information Value Date Recorded Sex Assigned at Female 03/22/2022 5:14 PM CDT Legal Sex Female 2:58 AM COMMODITIES MANAGER Gender Identity Female 03/22/2022 5:14 PM [...] Coronavirus/COVID-19? No / Unsure 10/19/2022 10:35 AM COMMODITIES MANAGER documented as of this encounter Plan of Treatment Not on file documented as of this encounter Visit Diagnoses Not on filedocumented in this encounter Additional Health Concerns Assessment Noted Time PHQ-9 Depression Total Score: 3 03/22/20 22 4:47 PM CDT documented as of this encounter Care Teams Power Plant Supervisor Relationship Specialty Start Date End Date Justus Zaidi MD [facility] [place] [address] PCP - General Internal Medicine - Pediatrics 03/22/22 Justus Zaidi MD [facility] [place] [address] [address] Assigned PCP 10/02/22 11/19/22 Georges Davalos DPM [address] [place], [place] [address] [address] Assigned Musculoskeletal Provider 10/23/22 10/29/22 Justus Zadii MD [address] [place] [address] Assigned PCP 11/20/22 06/17/24 Georges Davalos DPM [address] [place] [address] [address] [place] [address] Assigned Surgical Provider 10/30/22 05/17/24 Roxann Head [facility] Lead Dumpster Driver Primary Care - CC 11/26/22 Mony Plascencia [facility] Community Health Worker 11/26/2202/10 Noris Smith FIELD AGRONOMIST Lead Dumpster Driver 11/26/22 02/11/23 Justus Zaidi MD [address] [place] [address] Assigned Pain Medication Provider 11/27/22 10/07/23 Lucero Melendez, SENIOR TECHNICAL EDITOR [address] [address] Nurse Practitioner Nurse Practitioner 02/10/23 Christine Morel [facility] Lead Dumpster Driver 02/10/23 Mony Carlson, [facility] Community Health Worker 02/11/2304/04 Lucero Melendez, VIJAYA [address] [address] Nurse Practitioner Nurse Practitioner 04/06/23 Nora Davalos PA-C [address] [place] [address] Assigned Pain Medication Provider 03/18/24 04/16/24 Nora Davalos PA-C [address] [place] [address] Assigned PCP 06/18/24 Irma Jones RN Lead Dumpster Driver Primary Care - CC 11/26/2412/04 documented as of this encounter
--- OUTSIDE RECORDS SUMMARY | 2024-12-14 11:44 | XMS_ITS | Encounter Summary ---
Author Organization [facility] Address [address], [place] [address] Care Team Providers Care Bowling Ball Mold Assembler Name Role Phone No Primary/Referring, Phy Primary [...] on filedocumented in this encounter Care Teams Bowling Ball Mold Assembler Relationship Specialty Start Date End Date No Primary/Referring, Shelly PCP - General 11/17/21 documented as of this encounter
--- OUTSIDE RECORDS SUMMARY | 2024-12-14 11:44 | XMS_ITS | Encounter Summary ---
Author Organization [facility] Address [address], [place] [address] Care Team Providers Care Cost Control Analyst Name Role Phone No Primary/Referring, Phy [...] on filedocumented in this encounter Care Teams Cost Control Analyst Relationship Specialty Start Date End Date No Primary/Referring, Shelly PCP - General 11/17/21 documented as of this encounter
--- OUTSIDE RECORDS SUMMARY | 2024-12-14 11:44 | XMS_ITS | Encounter Summary ---
Author Organization [facility] Address [address], [place] [address] Care Team Providers Care Sawmill Worker Name Role Phone No Primary/Referring, Phy Primary Care Provider Unavailable Encounter Details Date Type Department Care Team (Latest Contact Info) Description 08/23/1995 Orders Only Mayr Orellana MD [address] [place] [address] Social History Tobacco Use Types Packs/Day Years [...]
--- OUTSIDE RECORDS SUMMARY | 2024-12-14 11:44 | XMS_ITS | Encounter Summary ---
Author Organization [facility] Address [address], [place] [address] Care Team Providers Care Signal And Communications Maintainer Name Role Phone No Primary/Referring, Phy Primary [...] on filedocumented in this encounter Care Teams Signal And Communications Maintainer Relationship Specialty Start Date End Date No Primary/Referring, Shelly PCP - General 11/17/21 documented as of this encounter
--- OUTSIDE RECORDS SUMMARY | 2024-12-14 11:44 | XMS_ITS | Encounter Summary ---
Author Organization [facility] Address [address] [address] Care Team Providers Care Mixer Dry Food Products Name Role Phone No Primary/Referring, Phy Primary [...] on filedocumented in this encounter Care Teams Mixer Dry Food Products Relationship Specialty Start Date End Date No Primary/Referring, Shelly PCP - General 11/17/21 documented as of this encounter
--- OUTSIDE RECORDS SUMMARY | 2024-12-14 11:44 | XMS_ITS | Encounter Summary ---
Author Organization [facility] Address [address] [address] Care Team Providers Care Acquisitions Assistant Name Role Phone No Primary/Referring, Phy Primary [...] on filedocumented in this encounter Care Teams Acquisitions Assistant Relationship Specialty Start Date End Date No Primary/Referring, Shelly PCP - General 11/17/21 documented as of this encounter
--- OUTSIDE RECORDS SUMMARY | 2024-12-14 11:44 | XMS_ITS | Encounter Summary ---
Author Organization [facility] Address [address], [place] [address] Care Team Providers Care Md Senior Research Scientist Name Role Phone No Primary/Referring, Phy Primary [...] on filedocumented in this encounter Care Teams Md Senior Research Scientist Relationship Specialty Start Date End Date No Primary/Referring, Shelly PCP - General 11/17/21 documented as of this encounter
--- OUTSIDE RECORDS SUMMARY | 2024-12-14 11:44 | XMS_ITS | Encounter Summary ---
Author Organization [facility] Address [address], [place] [address] Care Team Providers Care Professional Driver Name Role Phone No Primary/Referring, Phy Primary [...] on filedocumented in this encounter Care Teams Professional Driver Relationship Specialty Start Date End Date No Primary/Referring, Shelly PCP - General 11/17/21 documented as of this encounter
--- OUTSIDE RECORDS SUMMARY | 2024-12-14 11:45 | XMS_ITS | Encounter Summary ---
Author Organization [facility] Address [address], [place] [address] Care Team Providers Care Job Interviewer Name Role Phone No Primary/Referring, Shelly Primary Care Provider Unavailable Encounter Details Date Type Department Care Team (Late st Contact Info) Description 06/13/2017 Scanned History External to Transferred Record, Provider [facility] [place] Social History Tobacco Use Types Packs/Day Years [...] on filedocumented in this encounter Care Teams Job Interviewer Relationship Specialty Start Date End Date No Primary/ReferringShelly PCP - General 11/17/21 documented as of this encounter
--- OUTSIDE RECORDS SUMMARY | 2024-12-14 11:45 | XMS_ITS | Encounter Summary ---
Author Organization [facility] Address [address] [place] [address] Care Team Providers Care Ruby On Rails Developer Name Role Phone Justus Zaidi MD Primary Care Provider [phone] Justus Zaidi MD Unavailable [phone] Justus Zaidi MD Unavailable [phone] Georges Davalos DPM Unavailable [phone] Roxann Head CRM FUNCTIONAL ANALYST Unavailable [phone] Mony Plascencia CHW Unavailable [phone] Noris Smith STAFF AIR DEFENSE OFFICER Unavailable Unavailabl e Justus Zaidi MD Unavailable [phone] Lucero Melendez NP Unavailable [phone] Christine Morel STAFF AIR DEFENSE OFFICER Unavailable [phone] Mony Plascencia CHW Unavailable [phone] Lucero Melendez NP Unavailable [phone] Nora Davalos-C Unavailable [phone] Nora Davalos PA-C Unavailable [phone] Irma Jones RN Unavailable Encounter Details Date Type Department Care Team (Late st Contact Info) Description 11/12/2022 MyC Medical Advice [facility] [address] [place] [phone] Georges Davalos, RENITA [address] [facility] [address] [place] [address] Social History Tobacco Use Types Packs/Day Years Used Date Smoking Tobacco: Never Comments:2 cigs per day Alcohol Use Standard Drinks/Week Comments No 0 (1 standard drink = 0.6 oz pur e alcohol) social PHQ-2 Answer Date Recorded PHQ-2 Score 0 11/09/2022 Comments No Sex and Gender Information Value Date Recorded Sex Assigned at Female 03/22/2022 5:14 PM CDT Legal Sex Female 2:58 AM INTERNATIONAL SPECIALIST Gender Identity Female 03/22/2022 5:14 PM [...] Coronavirus/COVID-19? No / Unsure 11/12/2022 8:23 AM INTERNATIONAL SPECIALIST documented as of this encounter Plan of Treatment Not on file documented as of this encounter Visit Diagnoses Not on filedocumented in this encounter Additional Health Concerns Assessment Noted Time PHQ-9 Depression Total Score: 3 03/22/20 22 4:47 PM CDT documented as of this encounter Care Teams Ruby On Rails Developer Relationship Specialty Start Date End Date Justus Zaidi MD [address] [place], [place] [address] [place] [address] PCP - General Internal Medicine - Pediatrics 03/22/22 [facility] [place] [address] Assigned PCP 10/02/22 11/19/22 [facility]us [facility] [place] [facility] [place] [address] Assigned PCP 11/20/22 06/17/24 Georges Davalos DPM [facility] [address] [place] [address] Assigned Surgical Provider 10/30/22 05/17/24 Roxann Head, [facility] Lead Sole Splitter Primary Care - CC 11/26/22 Mony Plascencia, [facility] Community Health Worker 11/26/2202/10 Noris Smith [facility] Lead Sole Splitter 11/26/22 02/11/23 Justus Zaidi MD [address] [place] [address] [place] [id number] Assigned Pain Medication Provider 11/27/22 10/07/23 Lucero Melendez, CAREER SERVICES COORDINATOR [address] [address] Nurse Practitioner Nurse Practitioner 02/10/23 Christine Morel [facility] Lead Sole Splitter 02/10/23 3 Mony Plascencia, [facility] Community Health Worker 02/11/2304/04 Lucero Melendez, CAREER SERVICES COORDINATOR [address] [address] Nurse Practitioner Nurse Practitioner 04/06/23 Nora Davalos PA-C [address] [place] [id number] Assigned Pain Medication Provider 03/18/24 04/16/24 Nora Davalos PA-C [address] [place] [address] Assigned PCP 06/18/24 Irma Jones RN Lead Sole Splitter Primary Care - CC 11/26/2412/04 documented as of this encounter
--- OUTSIDE RECORDS SUMMARY | 2024-12-14 11:45 | XMS_ITS | Encounter Summary ---
Author Organization [facility] Address [address], [place] [address] Care Team Providers Care Outside Plant Supervisor Name Role Phone No Primary/Referring, Phy [...] filedocumented in this encounter Care Teams Outside Plant Supervisor Relationship Specialty Start Date End Date No Primary/Referring, Phy PCP - General 11/17/21 documented as of this encounter
--- OUTSIDE RECORDS SUMMARY | 2024-12-14 11:45 | XMS_ITS | Encounter Summary ---
Author Organization [facility] Address [address] [place] [address] Care Team Providers Care Gis Technician Name Role Phone Justus Zaidi MD Primary Care Provider [phone] Justus Zaidi MD Unavailable [phone] Georges Davalos DPM Unavailable [phone] Lucero Melendez LIFE SCIENCE RESEARCH ASSISTANT Unavailable [phone] Lucero Melendez LIFE SCIENCE RESEARCH ASSISTANT Unavailable [phone] Nora DavalosC Unavailable Nora DavalosC Unavailable [phone] Irma Jones RN Unavailable Reason for Visit * Reason Onset Date Comments Appointment 02/23/2024 LM pt needs an appt 02/23/2024 Encounter Details Date Type Department Care Team (Late st Contact Info) Description 02/23/2024 Telephone [facility] [address] [place] [address] Nora Davalos PA-C [address] [place] [address] Appointment; LM pt needs an [...] in a alf (including now)? No 11/26/2022 Adolescent Education Answer [...] PM CDT Legal Sex Female 2:58 AM AUTO BODY TECHNICIAN Gender Identity Female 03/22/2022 5:14 PM CDT [...] LM pt [facility] an [facility]t & [facility] * Telephone Encounter - Argenis [...] we send this information to you in PerioSeal or would you prefer to receive a phone call?: Patient would like to be contacted via PerioSeal Call taken on 02/23/2024 at 1:39 PM [...] goal: 1. I will work with the [facility] to complete all forms and [...] documented as of this encounter Care Teams Gis Technician Relationship Specialty [place] [address] [place] [address] [place] [address] PCP - General Internal Medicine - Pediatrics 03/22/22 [place] [address] [place] [address] [place] [address] Assigned PCP 11/20/22 06/17/24 Georges Davalos DPM [address] [place] [address] [address], [place] [address] Assigned Surgical Provider 10/30/22 05/17/24 [place] [address] [address] [address] Nurse Practitioner Nurse Practitioner 02/10/23 [place] [address] [address] [address] Nurse Practitioner Nurse Practitioner 04/06/23 Nora Davalos PA-C [address] [place] [address] Assigned Pain Medication Provider 03/18/24 04/16/24 Nora Davalos PA-C [address] [place] [address] Assigned PCP 06/18/24 Irma Jones RN Lead Instructional Technologist Primary Care - CC 11/26/2412/04 documented as of this encounter
--- OUTSIDE RECORDS SUMMARY | 2024-12-14 11:45 | XMS_ITS | Encounter Summary ---
Author Organization [facility] Address [address], [place] [address] Care Team Providers Care Supervisor Blooming Mill Name Role Phone No Primary/Referring, Phgricel Primary Care Provider Unavailable Encounter Details Date Type Department Care Team (Late st Contact Info) Description 04/14/2017 Emergency Room External to [facility], Provider FOOT PAIN Social History Tobacco [...] filedocumented in this encounter Care Teams Supervisor [place] Relationship Specialty Start Date End Date No Primary/ReferringShelly PCP - General 11/17/21 documented as of this encounter
--- OUTSIDE RECORDS SUMMARY | 2024-12-14 11:45 | XMS_ITS | Encounter Summary ---
Author Organization [facility] Address [address] [address] Care Team Providers Care Volleyball Assistant Coach Name Role Phone No Primary/Referring, Shelly Primary [...] on filedocumented in this encounter Care Teams Volleyball Assistant Coach Relationship Specialty Start Date End Date No Primary/ReferringShelly PCP - General 11/17/21 documented as of this encounter
--- OUTSIDE RECORDS SUMMARY | 2024-12-14 11:45 | XMS_ITS | Clinical Summary ---
Author Organization [facility] Address [address] [place] [address] Care Team Providers Care Samples And Repairs Preparer Name Role Phone Justus Zaidi MD Primary Care Provider [phone] Lucero Melendez DRAFTER Unavailable [phone] Lucero Melendez DRAFTER Unavailable [phone] Nora Davalos PA-C Unavailable [phone] Allergies Active Allergy Reactions Criticality Noted [...] (03/02/2023): Added automatically from request for surgery [id number] Incarcerated ventral hernia 02/06/2016 0603/2023 SI (sacroiliac) [...] (03/02/2023): Multiple clinic and emergency department visits ([place], [facility] emergency department, and [facility]) CARDIOVASCULAR SCREENING; LD L GOAL LESS THAN 160 07/26/2010 11/09/2022 Diarrhea 09/28/2005 04/05/2023 Tobacco use disorder 01/04/2005 023 Tension headache 01/04/2005 11/09/2022 Encounters Date Type Department Care Team Description 11/26/2024 2:30 PM BUSINESS PROPOSAL REP Virtual Visit [address] [address] Justus Zaidi MD SI (sacroiliac) joint dysfunction (Primary Dx); Chronic pain disorder; Fibromyalgia 11/26/2024 MyC Medical Advice [address] [address] Justus Zaidi MD 11/21/2024 MyC Medical Advice [address] [address] Justus Zaidi MD Back pain, unspecified back location, unspecified back pain laterality, unspecified chronicity (Primary Dx); Chronic pain disorder 10/03/2024 12:10 PM BUSINESS PROPOSAL REP E-Visit [facility] [address] [place] [phone] Carol Mobley, SAMSON Vaginal Discharge (Entered automatically b... 10/03/2024 MyC Medical Advice [address] [address] Justus Zaidi MD from Last 3 Months Immunizations Name Administration Dates Next Due COVID-19 Bivalent 12+ (Pfizer) 09/23/2022 COVID-19 MONOVALENT 12+ (Pfizer) 03/06/2021,0509/2020 DTP-Hib 04/11/1991, 8,1986,1986,1986 Flu, Unspecified 08/25/2014,07/28/2014, 0 [id number] Novel Flu 10/24/2009 Hepatitis B, Peds (Engerix-B/Recombivax [...] disorder. Family History Negative Daughter C.A.D. Father AL age 55 Hypertension Father Neurologic Disorder Mother [...] place to sleep or slept in a residential (including now)? No 11/26/2022 Adolescent Education Answer [...] PM CDT Legal Sex Female 2:58 AM BUSINESS PROPOSAL REP Gender Identity Female 03/22/2022 5:14 PM CDT [...] Author I will utilize all [facility] programs I am eligible for [...] goal: 1. I will work with the [facility] to complete all forms and provide documentation. I let my CHW know that I have been approved for SNAP, [place] and Medical Assistance. Completed 2. I will contact Social Security or Disability Specialists to discuss options. I will call Disability Specialists soon to discuss Social Security Disability. 3. I will work with [facility] to see if there is any options for medications for my son until he is on MA. Myself and my family have been approved for Medical Assistance. Completed 3. I will report progress towards this goal at scheduled outreach telephone calls from the [facility] team. Continuous (MB) Procedures Procedure [...] and Genotype (03/22/2022 5:20 PM CDT) Pathologist [facility] Hepatitis C Antibody Nonreactive Nonreactive 2022 2:05 [...] wolfe Result SPECIALTY CORE/PROT/ENDO Specialty Core/Prot/Endo [address] [facility] [address] [facility], Room [address] [phone] * (ABNORMAL) Comprehensive metabolic panel (06/07/2021 6:37 PM CDT) Pathologist [facility] Sodium 141 136 - 145 mmol/L 06/07/2021 7:03 PM [facility] Potassium 3.8 3.5 - 5.0 mmol/L 06/07/2021 7:03 PM [facility] Chloride 106 98 - 107 mmol/L 06/07/2021 7:03 PM [facility] Carbon Dioxide (CO2) 24 22 - 31 mmol/L 06/07/2021 7:03 PM [facility] Anion Gap 11 5 - 18 mmol/L 06/07/2021 7:03 PM [facility] Urea Nitrogen 8 8 - 22 mg/dL 06/07/2021 7:03 PM [facility] Creatinine 0.95 0.60 - 1.10 mg/dL 06/07/2021 7:03 PM [facility] Calcium 9.4 8.5 - 10.5 mg/dL 06/07/2021 7:03 PM [facility] Glucose 110 70 - 125 mg/dL 06/07/2021 7:03 PM [facility] Alkaline Phosphatase 77 45 - 120 U/L 06/07/2021 7:03 PM [facility] AST 138(H) 0 - 40 U/L 06/07/2021 7:03 PM [facility] ALT 144(H) 0 - 45 U/L 06/07/2021 7:03 PM [facility] Protein Total 7.2 6.0 - 8.0 g/dL 06/07/2021 7:03 PM [facility] Albumin 4.2 3.5 - 5.0 g/dL 06/07/2021 7:03 PM [facility] Bilirubin Total 0.6 0.0 - 1.0 mg/dL 06/07/2021 7:03 PM [facility] GFR Estimate 78 >60 mL/min/1.7 3m2 06/07/2021 7:03 PM [facility] Comment:As of April 05, 2021, [...] ORDERABLES Final Re sult Performing Organization Address City/[facility]/ZIP Co de Phone Number [facility] [address] [facility] [address] [place] [address], [facility] [phone] * HIV 1 & 2, SCREEN (07/09/2008 12:10 PM CDT) HIV 1&2 Antibody Negative [facility]G [facility] 07/09/2008 12:1 0 PM CDT 07/09/2008 12:11 PM CDT us Mohinder Maddox PA-C LABORATORY Elaine l Result [facility] [address] [address] * A THIN LAYER PAP SCREEN (01/04/2005 12:00 AM CDT) PAP NIL COPDAVID Copath Report Patient Name: TREVOR BANEGAS MR#: [id number] Specimen #: [id number] Collected: 01/04/2005 Received: 01/05/2005 Reported: 01/06/2005 14:04 Ordering Phy(s): LUCIANO ASTUDILLO SPECIMEN/STAIN PROCESS: Pap thin layer prep screening Pap-Cyto x 1, Reflex HPV x 1 SOURCE: Cervical, endocervical Pap thin layer prep screening SPECIMEN ADEQUACY: Satisfactory for evaluation. -Transitional zone component present. CYTOLOGIC INTERPRETATION: Negative for Intraepithelial Lesion or Malignancy Electronically signed out by: LORIN Sapp (ASCP) Processed and screened at [facility] CLINICAL HISTORY: LMP: 12-30-04 TESTING LAB LOCATION: [address] [address] COLLECTION SITE: Client: [facility] Location: [facility] (R) COPATH 01/04/2005 01/05/2005 10: 20 AM CDT Luciano Astudillo MD LABORATORY Final Result COPATH from Last 3 Months or Most Recently Relevant to Health Maintenance Additional Health Concerns Active Problems Noted Date Diagnosed Date Diet management 11/26/2022 Patient expresses financial resource strain 11/2022 [place] [employer] [place] Care Teams Samples And Repairs Preparer Relationship Specialty Start Date End Date Justus Zaidi MD [address] [place] [address] PCP - General Internal Medicine - Pediatrics 03/22/22 [place] [address] [place] [address] Nurse Practitioner Nurse Practitioner 02/10/23 [place] [address] [place] [place] [address] [address] Nurse Practitioner Nurse Practitioner 04/06/23 Nora Davalos PA-C [address] [address] Assigned PCP 06/18/24
--- OUTSIDE RECORDS SUMMARY | 2024-12-14 11:45 | XMS_ITS | Encounter Summary ---
Author Organization [facility] Address [address] [place] [address] Care Team Providers Care Cellular Plastics Cutter Name Role Phone No Primary/Referring, Phy Primary Care Provider Unavailable Encounter Details Date Type Department Care Team (Late st Contact Info) Description 12/05/2003 Hospital External to Shirley Astudillo MD [address] [id number] [facility] Suicide attempt Social History Tobacco Use [...] * Shirley Astudillo - 12/05/2003 12:00 AM SCHOOL COMMUNITY RELATIONS COORDINATOR OL COMMUNITY RELATIONS COORDINATOR documented in this encounter Plan of Treatment Not on file documented as of this encounter Visit Diagnoses Not on filedocumented in this encounter Care Teams Cellular Plastics Cutter Relationship Specialty Start Date End Date No Primary/ReferringShelly PCP - General 11/17/21 documented as of this encounter
--- OUTSIDE RECORDS SUMMARY | 2024-12-14 11:45 | XMS_ITS | Encounter Summary ---
[facility] Organization [facility] Address [address] [address] Care Team Providers Care Loss Control Technician Name Role Phone No Primary/Referring, Phy [...] on filedocumented in this encounter Care Teams Loss Control Technician Relationship Specialty Start Date End Date No Primary/Referring, Shelly PCP - General 11/17/21 documented as of this encounter
--- OUTSIDE RECORDS SUMMARY | 2024-12-14 11:45 | XMS_ITS | Encounter Summary ---
Author Organization [facility] Address [address] [place] [address] Care Team Providers Care Bonding And Composite Fabricator Name Role Phone Justus Zaidi MD Primary Care Provider [phone] Lucero Melendez RESEARCH SUBJECT Unavailable [phone] Lucero Melendez RESEARCH SUBJECT Unavailable [phone] Nora Davalos PA-C Unavailable [phone] Irma Jones RN Unavailable Encounter Details Date Type Department Care Team (Late st Contact Info) Description 11/26/2024 My[facility] Medical Advice [facility] [address] [place] [address] Justus Zaidi MD [address] [place] [id number] Social History Tobacco Use Types Packs/Day Years [...] place to sleep or slept in a nursing home (including now)? No 11/26/2022 Adolescent Education [...] PM CDT Legal Sex Female 2:58 AM STATIONARY FIREMAN Gender Identity Female 03/22/2022 5:14 PM CDT [...] goal: 1. I will work with the [facility] to complete all forms and provide documentation. [...] at scheduled outreach telephone calls from the [facility] team. Continuous (MB) documented as of this encounter Visit Diagnoses Not on filedocumented in this encounter Additional Health Concerns Active Problems Noted Date Diagnosed Date Diet management 11/26/2022 Patient expresses financial resource strain 11/2022 Assessment Noted Time PHQ-9 Depression Total Score: 17 024 8:57 AM CDT documented as of this encounter Care Teams Bonding And Composite Fabricator Relationship Specialty Start Date End Date Justus Zaidi MD [address] [facility] [place] [address] PCP - General Internal Medicine - Pediatrics 03/22/22 [place] [address] [place] [address] Nurse Practitioner Nurse Practitioner 02/10/23 [place] [address] [address] [place] [address] Nurse Practitioner Nurse Practitioner 04/06/23 Nora Davalos PA-C [address] [place] [address] Assigned PCP 06/18/24 Irma Jones RN Lead Radiation Engineer Primary Care - CC 11/26/2412/04 documented as of this encounter
--- OUTSIDE RECORDS SUMMARY | 2024-12-14 11:45 | XMS_ITS | Encounter Summary ---
Author Organization [facility] Address [address], [place] [address] Care Team Providers Care Audio Video Repairer Name Role Phone No Primary/Referring, Phy Primary [...] on filedocumented in this encounter Care Teams Audio Video Repairer Relationship Specialty Start Date End Date No Primary/Referring, Phy PCP - General 11/17/21 documented as of this encounter
--- OUTSIDE RECORDS SUMMARY | 2024-12-14 11:45 | XMS_ITS | Encounter Summary ---
Author Organization [facility] Address [address] [place] [address] Care Team Providers Care Circulation Supervisor Name Role Phone Justus Zaidi MD Primary Care Provider [phone] Justus Zaidi MD Unavailable [phone] Georges Davalos DPM Unavailable [phone] Roxann Head BLADE WORKER Unavailable [phone] Mony Plsacencia CHW Unavailable [phone] Noris Smith LOBBYIST Unavailable Unavailabl e Justus Zaidi MD Unavailable [phone] Lucero Melendez SET UP MECHANIC COIL WINDING MACHINES Unavailable +[phone] Christine Morel LOBBYIST Unavailable [phone] Mony Plascencia CHW Unavailable [phone] Lucero Melendez NP Unavailable [phone] Nora Davalos PA-C Unavailable [phone] Nora Davalos PA-C Unavailable [phone] Irma Jones RN Unavailable Reason for Visit * Reason Onset Date Comments Prior Authorization 11/26/2022 checking status on PA 11/26/2022 Encounter Details Date Type Department Care Team (Late st Contact Info) Description 11/26/2022 Telephone [facility] [address] [place] [address] Justus Zaidi MD [address] [facility] [place] [place] [address] Prior Authorization; checking status on PA Social [...] PM CDT Legal Sex Female 2:58 AM WELDER TECH Gender Identity Female 03/22/2022 5:14 PM CDT [...] Coronavirus/COVID-19? No / Unsure 11/12/2022 8:23 AM WELDER TECH documented as of this encounter Miscellaneous Notes * Telephone Encounter - Linda Iglesias - 11/29/2022 8:54 AM CST 11-29-22 Pt called checking status on PA, I stated its still in the process linda ER TECH * Telephone Encounter - Polly Renteria - 11/26/2022 9:47 AM CST Pt has a percocet rx and needs a prior authorization Please call number below, anser the questions and Bump it up to urgent Please call pt when this has been done [phone] ER TECH documented in this encounter Plan of Treatment Not on file documented as of this encounter Goals Goal Patient Goal Type Associated Problems Recent Progress Patient-Stated? Author I will utilize all [facility] programs I am eligible for as well [...] goal: 1. I will work with the [facility] to complete all forms and [...] documented as of this encounter Care Teams Circulation Supervisor Relationship Specialty Start Date End Date Justus Zaidi MD [address] [place] [address] PCP - General Internal Medicine - Pediatrics 03/22/22 Justus Zaidi MD [address] [place] [address] [place] [address] Assigned PCP 11/20/22 06/17/24 Georges Davalos DPM [address] [facility] [address], [place] [address] Assigned Surgical Provider 10/30/22 05/17/24 Roxann Head LSW Lead Appeals Representative Primary Care - CC 11/26/22 Mony Plascencia, [facility] Community Health Worker 11/26/2202/10 Noris Smith LICSW Lead Appeals Representative 11/26/22 02/11/23 Justus Zaidi MD [address] [place] [address] Assigned Pain Medication Provider 11/27/22 10/07/23 Lucero Melendez, VIJAYA [address] [place] [address] Nurse Practitioner Nurse Practitioner 02/10/23 Christine Morel, [facility] Lead Appeals Representative 02/10/23 3 Mony Plascencia, [facility] Community Health Worker 02/11/2304/04 [place] [address] [place] [address] Nurse Practitioner Nurse Practitioner 04/06/23 Nora Davalos PA-C [address] [facility] [place] [address] Assigned Pain Medication Provider 03/18/24 04/16/24 Nora Davalos PA-C [address] [facility] [place] [address] Assigned PCP 06/18/24 Irma Jones, RN Lead Appeals Representative Primary Care - CC 11/26/2412/04 documented as of this encounter
--- OUTSIDE RECORDS SUMMARY | 2024-12-14 11:45 | XMS_ITS | Encounter Summary ---
Author Organization [facility] Address [address] [place] [address] Care Team Providers Care Rod Machine Operator Name Role Phone Justus Zaidi MD Primary Care Provider Justus Zaidi MD Unavailable [phone] Justus Zaidi MD Unavailable [phone] Justus Zaidi MD Unavailable Justus Zaidi MD Unavailable [phone] Justus Zaidi MD Unavailable Georges Davalos DPM Unavailable Justus Zaidi MD Unavailable [phone] Georges Davalos DPM Unavailable [phone] Roxann Head LIVING SPECIALIST Unavailable [phone] Mony Plascencia CHW Unavailable [phone] Noris Smith PRODUCT DEVELOPMENT ENGINEER Unavailable Unavailabl e Justus Zaidi MD Unavailable [phone] Lucero Melendez NP Unavailable [phone] Christine Morel PRODUCT DEVELOPMENT ENGINEER Unavailable Mony Plascencia CHW Unavailable [phone] Lucero Melendez NP Unavailable [phone] Anoop Nora Smith PA-C Unavailable [phone] Nora Davalos PA-C Unavailable [phone] Irma Jones RN Unavailable Encounter Details Date Type Department Care Team (Late st Contact Info) Description 03/24/2022 [facility] [place] [place] Medical Advice [facility] [address] [place] [address] Justus Zaidi MD [address] [facility] [address] [place] [id number] Social History Tobacco Use Types Packs/Day Years [...] PM CDT Legal Sex Female 2:58 AM COAL SAMPLER Gender Identity Female 03/22/2022 5:14 PM CDT [...] documented as of this encounter Care Teams Rod Machine Operator Relationship Specialty Start Date End Date Justus Zaidi MD [address] [facility] [place] [address] PCP - General Internal Medicine - Pediatrics 03/22/22 Justus Zaidi MD [address] [place] [address] Assigned PCP 03/04/22 06/25/22 Justus Zaidi MD [address] [place], [place] [address] [place] [address] Assigned PCP 06/26/22 08/06/22 Justus Zaidi MD [address] [place], [place] [address] [place] [address] Assigned PCP 09/11/22 10/01/22 Justus Zaidi MD [address] [place], [place] [address] [address] Assigned PCP 08/07/22 09/10/22 Justus Zaidi MD [address] [place], [place] [address] [place] [address] Assigned PCP 10/02/22 11/19/22 Georges Davalos DPM [address] [place] [address] Assigned Musculoskeletal Provider 10/23/22 10/29/22 Justus Zaidi MD [facility] [address] [place] [address] Assigned PCP 11/20/22 06/17/24 Georges Davalos DPM [address] [place] [address] Assigned Surgical Provider 10/30/22 05/17/24 Roxann Head LSW Lead Blow Pit Operator Primary Care - CC 11/26/22 Mony Plascencia [facility] Community Health Worker 11/26/2202/10 Noris Smith [facility] Lead Blow Pit Operator 11/26/22 02/11/23 Justus Zaidi MD [address] [facility] [address] [place] [id number] Assigned Pain Medication Provider 11/27/22 10/07/23 Lucero Melendez, VIJAYA [address] [place] [address] [address] Nurse Practitioner Nurse Practitioner 02/10/23 Christine Morel [facility] Lead Blow Pit Operator 02/10/23 3 Mony Plascencia [facility] Community Health Worker 02/11/2304/04 [place] [address] [place] [address] [address] Nurse Practitioner Nurse Practitioner 04/06/23 Nora Davalos PA-C [address] [place] [address] Assigned Pain Medication Provider 03/18/24 04/16/24 Nora Davalos PA-C [address] [place] [id number] Assigned PCP 06/18/24 Irma Jones RN Lead Blow Pit Operator Primary Care - CC 11/26/2412/04 documented as of this encounter
--- OUTSIDE RECORDS SUMMARY | 2024-12-14 11:45 | XMS_ITS | Encounter Summary ---
Author Organization [facility] Address [address] [place] [address] Care Team Providers Care Heel Cover Splitter Name Role Phone Justus Zaidi MD Primary Care Provider [phone] Justus Zaidi MD Unavailable [phone] Georges Davalos DPM Unavailable [phone] Mony Plascencia CHW Unavailable [phone] Noris Smith SALES AND MARKETING SPECIALIST Unavailable UnavailJustus Stephenson MD Unavailable [phone] Lucero Melendez NP Unavailable [phone] Christine Morel SALES AND MARKETING SPECIALIST Unavailable [phone] Mony Plascencia CHW Unavailable [phone] Lucero Melendez NP Unavailable [phone] Nora Davalos PA-C Unavailable [phone] Nora Davalos PA-C Unavailable [phone] Irma Jones RN Unavailable Encounter Details Date Type Department Care Team (Late st Contact Info) Description 11/30/2022 [facility] [place] Medical [address] [address] Justus Zaidi MD [address] [facility] [place] [address] Social History Tobacco Use Types Packs/Day Years [...] to sleep or slept in a senior care (including now)? No 11/26/2022 Comments No Sex and Gender Information Value Date Recorded Sex Assigned at Female 03/22/2022 5:14 PM CDT Legal Sex Female 2:58 AM GROUP LEADER SEMICONDUCTOR TESTING Gender Identity Female 03/22/2022 5:14 PM CDT [...] Coronavirus/COVID-19? No / Unsure 11/12/2022 8:23 AM GROUP LEADER SEMICONDUCTOR TESTING documented as of this encounter Plan of [...] at scheduled outreach telephone calls from the [facility] team. Continuous (MB) documented as of this encounter Visit Diagnoses Not on filedocumented in this encounter Additional Health Concerns Active Problems Noted Date Diagnosed Date Diet management 11/26/2022 Patient expresses financial resource strain 11/2022 Assessment Noted Time PHQ-9 Depression Total Score: 3 03/22/20 22 4:47 PM CDT documented as of this encounter Care Teams Heel Cover Splitter Relationship Specialty Start Date End Date Justus Zaidi MD [address] [place] [address] [place] [address] PCP - General Internal Medicine - Pediatrics 03/22/22 Justus Zaidi MD [address] [place] [address] Assigned PCP 11/20/22 06/17/24 Georges Davalos DPM [address] [facility] [address] [place] [address] Assigned Surgical Provider 10/30/22 05/17/24 Mony Plascencia, [facility] Community Health Worker 11/26/2202/10 Noris Smith [facility] Lead Manager Voice 11/26/22 02/11/23 Justus Zaidi MD [address] [place] [address] [place] [address] Assigned Pain Medication Provider 11/27/22 10/07/23 Lucero Melendez, VIJAYA [address] [place] [address] Nurse Practitioner Nurse Practitioner 02/10/23 Christine Morel [facility] Lead Manager Voice 02/10/23 3 Mony Plascencia, [facility] Community Health Worker 02/11/2304/04 Lucero Melendez, VIJAYA [address] [place] [address] Nurse Practitioner Nurse Practitioner 04/06/23 Nora Davalos PA-C [address] [place] [address] Assigned Pain Medication Provider 03/18/24 04/16/24 Nora Davalos PA-C [address] [place] [address] Assigned PCP 06/18/24 Irma Jones RN Lead Manager Voice Primary Care - CC 11/26/2412/04 documented as of this encounter
--- OUTSIDE RECORDS SUMMARY | 2024-12-14 11:45 | XMS_ITS | Encounter Summary ---
Author Organization [facility] Address [address] [place] [address] Care Team Providers Care Shuttlecock Assembler Name Role Phone Justus Zaidi MD Primary Care Provider [phone] Justus Zaidi MD Unavailable [phone] Georges Davalos DPM Unavailable [phone] Lucero Melendez METAL STAMPING MACHINE OPERATOR Unavailable [phone] Lucero Melendez METAL STAMPING MACHINE OPERATOR Unavailable [phone] Nora Davalos PA-C Unavailable [phone] Nora Davalos PA-C Unavailable [phone] Irma Jones RN Unavailable Encounter Details Date Type Department Care Team (Late st Contact Info) Description 02/23/2024 [facility] [place] [address] [address] Linda Iglesias Social History Tobacco [...] place to sleep or slept in a long term (including now)? No 11/26/2022 Adolescent Education Answer [...] PM CDT Legal Sex Female 2:58 AM LOAN SPECIALIST Gender Identity Female 03/22/2022 5:14 PM [...] goal: 1. I will work with the [facility] to complete all forms and [...] at scheduled outreach telephone calls from the [facility] team. Continuous (MB) documented as of this encounter Visit Diagnoses Not on filedocumented in this encounter Additional Health Concerns Active Problems Noted Date Diagnosed Date Diet management 11/26/2022 Patient expresses financial resource strain 11/2022 Assessment Noted Time PHQ-9 Depression Total Score: 17 024 8:57 AM CDT documented as of this encounter Care Teams Shuttlecock Assembler Relationship Specialty Start Date End Date Justus Zaidi MD [address] [place] [address] [address] PCP - General Internal Medicine - Pediatrics 03/22/22 Justus Zaidi MD [address] [place] [address] [place] [address] Assigned PCP 11/20/22 06/17/24 Georges Davalos DPM [facility] [facility] [address] [place] [address] Assigned Surgical Provider 10/30/22 05/17/24 [place] [address] [place] [address] [address] Nurse Practitioner Nurse Practitioner 02/10/23 [place] [address] [place] [address] [address] Nurse Practitioner Nurse Practitioner 04/06/23 Nora Davalos PA-C [address] [place] [address] Assigned Pain Medication Provider 03/18/24 04/16/24 Nora Davalos PA-C [address] [place], [place] [address] Assigned PCP 06/18/24 Irma Jones RN Lead Shell Reprint Operator Primary Care - CC 11/26/2412/04 documented as of this encounter
--- OUTSIDE RECORDS SUMMARY | 2024-12-14 11:45 | XMS_ITS | Encounter Summary ---
Author Organization [facility] Address [address] [place] [address] Care Team Providers Care Umbrella Frame Maker Name Role Phone Justus Zaidi MD Primary Care Provider [phone] Justus Zaidi MD Unavailable [phone] Georges Davalos DPM Unavailable [phone] Mony Plascencia CHW Unavailable [phone] Noris Smith COUNTER SALES PERSON Unavailable Unavailabl e Justus Zaidi MD Unavailable [phone] Lucero Melendez NP Unavailable [phone] Christine Morel COUNTER SALES PERSON Unavailable [phone] Mony Plascencia CHW Unavailable [phone] Lucero Melendez NP Unavailable [phone] Nora Davalos PA-C Unavailable [phone] Nora Davalos PA-C Unavailable [phone] Irma Jnoes RN Unavailable Reason for Visit * Reason Onset Date Comments Patient Request 12/27/2022 Refill Request 12/27/2022 Encounter Details Date Type Department Care Team (Late st Contact Info) Description 12/27/2022 Telephone [facility] [address] [place] [address], [place] [address] Justus Zaidi MD [address] [facility] [place] [address] Patient Request; Refill Request Social History Tobacco [...] place to sleep or slept in a half-way (including now)? No 11/26/2022 Comments No Sex and Gender Information Value Date Recorded Sex Assigned at Female 03/22/2022 5:14 PM CDT Legal Sex Female 2:58 AM PERFUME COMPOUNDER Gender Identity Female 03/22/2022 5:14 PM CDT Sexual Orientation Straight 03/22/2022 5: 14 PM CDT Occupation Industry Job Start Date Job End Date unemployed Not on file Not on file Not on file documented as of this encounter Miscellaneous Notes * Telephone Encounter - Betsy Mcdonald LISW - 12/27/2022 2:10 PM CDT Patient calling back. Patient went to [facility] to package pick up the refill and spoke to Pharmacist, Kitty. Pharmacist relayed to patient that the prescription cannot be refilled as written and without callinginsurance. Patient is asking if MD could call Kitty at [facility] [phone] with any questions or directions. MD will also need to request a quantity exception and contact [place] Medicaid Insurance [phone] * Telephone Encounter - Betsy Mcdonald LISW - 12/27/2022 9:53 AM CDT Patient received a call from the [facility] this morning regarding prescription received for oxyCODONE-acetaminophen (PERCOCET) 5-325 MG tablet 60 tablet [facility] states they were unable to fill the new prescription received on 12/23/22 due to patient having new insurance. Pharmacy said the MD will need to ask for a quantity exception. Pharmacy said MD will also need to call insurance. Pharmacy was also going to fax over a form request for this. Insurance Company: [place] Medicaid ([facility]) - Pharmacy Filling the Rx: [facility] #[id number] - [place] - [address] [facility] Filling Pharmacy Filling Pharmacy Patient said they are going out of town today for the week and will need to have this prescription filled as soon as possible. Please call patient with any questions at [phone] Thank you documented in this encounter Plan of Treatment Not on file documented as of this encounter Goals Goal Patient Goal Type Associated Problems Recent Progress Patient-Stated? Author I will utilize all counts include 234 beds at the [facility] programs I am eligible for [...] goal: 1. I will work with the [facility] to complete all forms and provide [...] at scheduled outreach telephone calls from the [facility] team. Continuous (MB) documented as of this encounter Visit Diagnoses Not on filedocumented in this encounter Additional Health Concerns Active Problems Noted Date Diagnosed Date Diet management 11/26/2022 Patient expresses financial resource strain 11/2022 Assessment Noted Time PHQ-9 Depression Total Score: 3 03/22/20 22 4:47 PM CDT documented as of this encounter Care Teams Umbrella Frame Maker Relationship Specialty Start Date End Date Justus Zaidi MD [address] [place] [address] [place] [address] PCP - General Internal Medicine - Pediatrics 03/22/22 Justus Zaidi MD [address] [facility] [place] [address] Assigned PCP 11/20/22 06/17/24 Georges Davalos DPM [address] [place] [address], [place] [address] Assigned Surgical Provider 10/30/22 05/17/24 Mony Plascencia [place] Community Health Worker 11/26/2202/10 Noris Smith LICSW Lead Aircraft Riveter 11/26/22 02/11/23 Justus Zaidi MD [address] [facility] [place] [address] Assigned Pain Medication Provider 11/27/22 10/07/23 Lucero Melendez, VIJAYA [address] [address] Nurse Practitioner Nurse Practitioner 02/10/23 Christine Morel LICSW Lead Aircraft Riveter 02/10/23 3 Mony Plascencia [facility] Community Health Worker 02/11/2304/04 [place] [address] [place] [address] Nurse Practitioner Nurse Practitioner 04/06/23 Nora Davalos PA-C [address] [place] [address] Assigned Pain Medication Provider 03/18/24 04/16/24 Nora Davalos PA-C [address] [facility] [place] [address] Assigned PCP 06/18/24 Irma Jones, YONATAN Lead Aircraft Riveter Primary Care - CC 11/26/2412/04 documented as of this encounter
--- OUTSIDE RECORDS SUMMARY | 2024-12-14 11:45 | XMS_ITS | Encounter Summary ---
Author Organization [place] Address [address] [place] [address] Care Team Providers Care Software Technical Lead Name Role Phone Justus Zaidi MD Primary Care Provider [phone] Lucero Melendez INTERMEDIATE TEACHER Unavailable [phone] Lucero Melendez INTERMEDIATE TEACHER Unavailable [phone] Nora Davalos PA-C Unavailable [phone] Irma Jones RN Unavailable Reason for Visit * Reason Comments Pain clinic follow up Encounter Details Date Type Department Care Team (Late st Contact Info) Description 11/26/2024 2:30 PM MIXER DIAMOND POWDER Virtual Visit [facility] [address] [place] [address] Justus Zaidi MD [address] [place] [address] [phone] SI (sacroiliac) joint dysfunction (Primary Dx); Chronic [...] place to sleep or slept in a custodial (including now)? No 11/26/2022 Adolescent Education Answer [...] PM CDT Legal Sex Female 2:58 AM MIXER DIAMOND POWDER Gender Identity Female 03/22/2022 5:14 PM CDT [...] would you like to be contacted at? [phone] How would you like to obtain your AVS? MyChart Originating Location (pt. Location): Home Distant Location (provider location): On-site Telephone visit completed due to the patient did not consent to a video visit. Assessment & Plan SI (sacroiliac) joint dysfunction Chronic pain disorder Fibromyalgia Has been working with [facility], on percocet right now, using gabapentin and tizanidine. Will try to aid help patient find pain clinic. She feels that symptoms are not yet completely controlled. Putting care coordination referral as well as [facility] pain clinic evaluation. Patient is been [...] with schedule. Was able to get into [facility]- was at the [place] location- month after that provider left, then went to [facility] [place]. [facility] was full. Saw Nyasia Cuevas every 6 [...] minutes Signed Electronically by: Justus Zaidi MD R DIAMOND POWDER documented in this encounter Plan of Treatment Not on file documented as of this encounter Goals Goal Patient Goal Type Associated Problems Recent Progress Patient-Stated? Author I will utilize all [facility] programs I am eligible for as [...] goal: 1. I will work with the [facility] to complete all forms and provide documentation. I let my CHW know that I have been approved for SNAP, [place] and Medical Assistance. Completed 2. I will contact Social Security or Disability Specialists to discuss options. I will call Disability Specialists soon to discuss Social Security Disability. 3. I will work with [facility] to see if there is any options for medications for my son until he is on MA. Myself and my family have been approved for Medical Assistance. Completed 3. I will report progress towards this goal at scheduled outreach telephone calls from the [facility] team. Continuous (MISTI) documented as of this [...] documented as of this encounter Care Teams Software Technical Lead Relationship Specialty Start Date End Date Justus Zaidi MD [address] [facility] [place] [address] PCP - General Internal Medicine - Pediatrics 03/22/22 [place] [address] [place] [address] Nurse Practitioner Nurse Practitioner 02/10/23 [place] [address] [place] [address] Nurse Practitioner Nurse Practitioner 04/06/23 Nora Davalos, PA-C [address] [place] [id number] Assigned PCP 06/18/24 Irma Jones RN Lead Desulphurizer Operator Primary Care - CC 11/26/2412/04 documented as of this encounter
--- OUTSIDE RECORDS SUMMARY | 2024-12-14 11:45 | XMS_ITS | Encounter Summary ---
Author Organization [place] Address [address] [place] [address] Care Team Providers Care Distribution Operations Manager Name Role Phone Justus Zaidi MD Primary Care Provider [phone] Justus Zaidi MD Unavailable [phone] Georges Davalos DPM Unavailable [phone] Mony Plascencia CH Unavailable [phone] Noris Smith MARKET DEVELOPMENT MANAGER Unavailable Unavailimani e Justus Zaidi MD Unavailable [phone] Lucero Melendez NP Unavailable [phone] Christine Morel MARKET DEVELOPMENT MANAGER Unavailable [phone] Mony Plascencia CH Unavailable [phone] Lucero Melendez NP Unavailable [phone] Nora Davalos PA-C Unavailable [phone] Nora Davalos PA-C Unavailable [phone] Irma Jones RN Unavailable Reason for Visit * Reason Onset Date Comments Prior Auth - Medication 12/23/2022 Semaglut clint, 1 MG/DOSE, (OZEMPIC, 1 MG/DOSE,) 4 MG/3ML SOPN - Denied Encounter Details Date Type Department Care Team (Late st Contact Info) Description 12/23/[address] [facility] [address] [place] [address] Justus Zaidi MD [address] [facility] [place] [id number] Prior Auth - Medication (Semaglutide, 1 MG/DOSE, [...] PM CDT Legal Sex Female 2:58 AM SCRUM COACH Gender Identity Female 03/22/2022 5:14 PM CDT [...] SOPN - Initiated Insurance Company: [place] Medicaid ([facility]) - Pharmacy Filling the Rx: [id number] - [place], [place] - [address] [facility] Filling Pharmacy Filling Pharmacy Start [...] Patient-Stated? Author I will utilize all [facility] programs I am eligible for as well [...] goal: 1. I will work with the [facility] to complete all forms and [...] [facility] team. Continuous (MB) documented as of this encounter Visit Diagnoses Not on filedocumented in this encounter Additional Health Concerns Active Problems Noted Date Diagnosed Date Diet management 11/26/2022 Patient expresses financial resource strain 11/2022 Assessment Noted Time PHQ-9 Depression Total Score: 3 03/22/20 22 4:47 PM CDT documented as of this encounter Care Teams Distribution Operations Manager Relationship Specialty Start Date End Date Justus Zaidi MD [address] [place] [address] PCP - General Internal Medicine - Pediatrics 03/22/22 Justus Zaidi MD [address] [place] [address] Assigned PCP 11/20/22 06/17/24 Georges Davalos DPM [address] [facility] [address] [place] [address] Assigned Surgical Provider 10/30/22 05/17/24 Mony Plascencia, [facility] Community Health Worker 11/26/2202/10 Noris Smith [facility] Lead Exploration Geologist 11/26/22 02/11/23 Justus Zaidi MD [address] [facility] [address] Assigned Pain Medication Provider 11/27/22 10/07/23 Lucero Melendez, VIJAYA [address] [place] [address] Nurse Practitioner Nurse Practitioner 02/10/23 Christine Morel [facility] Lead Exploration Geologist 02/10/23 3 Mony Plascencia, [facility] Community Health Worker 02/11/2304/04 Lucero Melendez, ASSOCIATE DRAFTER [address] [place] [address] Nurse Practitioner Nurse Practitioner 04/06/23 Nora Davalos PA-C [address] [place] [address] Assigned Pain Medication Provider 03/18/24 04/16/24 Nora Davalos PA-C [address] [place] [address] Assigned PCP 06/18/24 Irma Jones RN Lead Exploration Geologist Primary Care - CC 11/26/2412/04 documented as of this encounter
--- OUTSIDE RECORDS SUMMARY | 2024-12-14 11:45 | XMS_ITS | Encounter Summary ---
Author Organization [place] Address [address] [place] [address] Care Team Providers Care Meat Counter Clerk Name Role Phone Justus Zaidi MD Primary Care Provider [phone] Lucero Melendez COMMUNICATIONS AND SIGNALS SUPERVISOR Unavailable [phone] Lucero Melendez COMMUNICATIONS AND SIGNALS SUPERVISOR Unavailable [phone] Nora Davalos PA-C Unavailable Irma Jones RN Unavailable Encounter Details Date Type Department Care Team (Late st Contact Info) Description 10/03/2024 MyC Medical Advice [facility] [address] [place] [address] Justus Zaidi MD [address] [place] [address] [id number] Social History Tobacco Use Types Packs/Day Years [...] place to sleep or slept in a correction (including now)? No 11/26/2022 Adolescent Education Answer [...] PM CDT Legal Sex Female 2:58 AM ATTENDING RADIOLOGIST Gender Identity Female 03/22/2022 5:14 PM CDT [...] Progress Patient-Stated? Author I will utilize all [facility] programs I am eligible for [...] documented as of this encounter Care Teams Meat Counter Clerk Relationship Specialty Start Date End Date Justus Zaidi MD [address] [facility] [place] [place] [address] PCP - General Internal Medicine - Pediatrics 03/22/22 [place] [address] [address] [place] [address] Nurse Practitioner Nurse Practitioner 02/10/23 [place] [address] [address] [place] [address] Nurse Practitioner Nurse Practitioner 04/06/23 Nora Davalos PA-C [address] [place] [address] Assigned PCP 06/18/24 Irma Jones RN Lead Golf Ball Inspector Primary Care - CC 11/26/2412/04 documented as of this encounter
--- OUTSIDE RECORDS SUMMARY | 2024-12-14 11:45 | XMS_ITS | Encounter Summary ---
Author Organization [facility] Address [address] [place] [address] Care Team Providers Care Unemployment Inspector Name Role Phone No Primary/Referring, Phy Primary Care Provider Unavailable Encounter Details Date Type Department Care Team (Late st Contact Info) Description 12/11/2018 [facility] [address] [address] Michael ReyesTAL AGREEMENT - TURNING KNEE BOSS DYER Social History Tobacco Use Types Packs/Day Years [...] on filedocumented in this encounter Care Teams Unemployment Inspector Relationship Specialty Start Date End Date No Primary/ReferringShelly PCP - General 11/17/21 documented as of this encounter
--- OUTSIDE RECORDS SUMMARY | 2024-12-14 11:45 | XMS_ITS | Encounter Summary ---
Author Organization [facility] Address [address], [place] [address] Care Team Providers Care Chief Learning Officer Name Role Phone No Primary/ReferringShelly Primary Care [...] on filedocumented in this encounter Care Teams Chief Learning Officer Relationship Specialty Start Date End Date No Primary/ReferringShelly PCP - General 11/17/21 documented as of this encounter
--- OUTSIDE RECORDS SUMMARY | 2024-12-14 11:45 | XMS_ITS | Encounter Summary ---
Author Organization [place] Address [address] [place] [address] Care Team Providers Care Finger Buff Sewer Name Role Phone Justus Zaidi MD Primary Care Provider [phone] Justus Zaidi MD Unavailable [phone] Georges Davalos DPM Unavailable [phone] Jusuts Zaidi MD Unavailable [phone] Lucero Melendez BOX ATTACHER Unavailable [phone] Lucero Melendez BOX ATTACHER Unavailable [phone] Nora Davalos PA-C Unavailable [phone] Nora Davalos-C Unavailable [phone] Irma Jones RN Unavailable Encounter Details Date Type Department Care Team (Late st Contact Info) Description 05/04/2023 [facility] [address] [place] [address] Justus Zaidi MD [address] [facility] [address] Social History Tobacco Use Types Packs/Day [...] PM CDT Legal Sex Female 2:58 AM CRYSTAL GROWER Gender Identity Female 03/22/2022 5:14 PM CDT [...] 1. I will work with the [facility] to complete all forms and provide documentation. I let my CHW know that I have been approved for SNAP, [place] and Medical Assistance. Completed 2. I will contact Social Security or Disability Specialists to discuss options. I will call Disability Specialists soon to discuss Social Security Disability. 3. I will work with [facility] to see if there is any options [...] documented as of this encounter Care Teams Finger Buff Sewer Relationship Specialty [place] [address] [place] [address] [place] [address] PCP - General Internal Medicine - Pediatrics 03/22/22 [place] [address] [place] [address] [place] [address] Assigned PCP 11/20/22 06/17/24 Georges Davalos DPM [address] [place] [address] [address], [place] [address] Assigned Surgical Provider 10/30/22 05/17/24 Justus Zaidi MD [address] [facility] [place] [address] Assigned Pain Medication Provider 11/27/22 10/07/23 [place] [address] [place] [address] Nurse Practitioner Nurse Practitioner 02/10/23 [place] [address] [place] [address] Nurse Practitioner Nurse Practitioner 04/06/23 Nora Davalos PA-C [address] [place] [address] Assigned Pain Medication Provider 03/18/24 04/16/24 Nora Davalos PA-C [address] [place] [address] Assigned PCP 06/18/24 Irma Jones RN Lead Auto Electrician Primary Care - CC 11/26/2412/04 documented as of this encounter
--- OUTSIDE RECORDS SUMMARY | 2024-12-14 11:45 | XMS_ITS | Encounter Summary ---
Author Organization [facility] Address [address], [place] [address] Care Team Providers Care Eyeglass Frame Truer Name Role Phone No Primary/Referring, Phgricel Primary Care Provider Unavailable Encounter Details Date Type Department Care Team (Late st Contact Info) Description 07/29/2017 Correspondence [facility] Radiology [address] [place] [address] Radiology, Provider MRI SAFETY SHEET AND COMPATIBILITY [...] on filedocumented in this encounter Care Teams Eyeglass Frame Truer Relationship Specialty Start Date End Date No Primary/ReferringShelly PCP - General 11/17/21 documented as of this encounter
--- OUTSIDE RECORDS SUMMARY | 2024-12-14 11:45 | XMS_ITS | Encounter Summary ---
Author Organization [place] Address [address] [place] [address] Care Team Providers Care Automatic Line Set Up Mechanic Name Role Phone Justus Zaidi MD Primary Care Provider [phone] Lucero Melendez MONUMENT SETTER HELPER Unavailable [phone] Lucero Melendez MONUMENT SETTER HELPER Unavailable [phone] Nora Davalos PA-C Unavailable [phone] Reason for Referral * Care Coordination (Routine: Next available opening) - Pending Review Specialty Diagnoses / Procedures Referred By Christine figueroa Referred To Contact Diagnoses Back pain, unspecified back location, unspecified back pain laterality, unspecified chronicity Chronic pain disorder Justus Zaidi MD [address] [place] [address] [place] [address] Phone: tel: fax: Referral ID Status Reason Start Date Expiration Date V isits Requested Visits Authorized [id number] Pending Review 11/23/2024 11/23/2025 1 1 Question Answer Reason for Referral: Care Transition Transition: Other - Use Comments - help with finding pain clinic covered by insurance Clinical Staff have discussed the Care Coordination Referral with the patient and/or caregiver: Yes Comments ER PRESS CLIPPING * Consultation (Routine: Next available opening) - Pending Review Specialty Diagnoses / Procedures Referred By Christine t Referred To Contact Pain Medicine Diagnoses Back pain, unspecified back location, unspecified back pain laterality, unspecified chronicity Chronic pain disorder Justus Zaidi MD [address] [place] [address] [place] [address] Phone: tel: fax: Referral ID Status Reason Start Date Expiration Date V isits Requested Visits Authorized [id number] Pending Review 11/23/2024 11/23/2025 1 1 Question [...] to these terms? Yes Patient Scheduling Instructions: [employer] will call you to coordinate care as prescribed your provider. If you don t hear from a retail service representative within 2 business days, please call . Comments Please be aware that coverage of these services is subject to the terms and limitations of your health insurance plan. Call member services at your health plan with any benefit or coverage questions. [employer] will call you to coordinate care as prescribed your provider. If you don t hear from a retail service representative within 2 business days, please call . ER PRESS CLIPPING Encounter Details Date Type Department Care Team (Late st Contact Info) Description 11/21/2024 MyC Medical Advice [facility] [address] [place] [address] Justus Zaidi MD [address] [place] [address] [place] [address] Back pain, unspecified back [...] PM CDT Legal Sex Female 2:58 AM TEARER PRESS CLIPPING Gender Identity Female 03/22/2022 5:14 PM CDT Sexual Orientation Straight 03/22/2022 5: 14 PM CDT Occupation Industry Job Start Date Job End Date unemployed Not on file Not on file Not on file documented as of this encounter Miscellaneous Notes * Telephone Encounter - Justus Zaidi MD - 11/23/2024 1:08 PM TEARER PRESS CLIPPING I reviewed the medication list- I don't typically do butrans (buprenorphine). I put in for the [place] pain clinic. Typically this should be covered if I'm covered as PCP. [facility] ER PRESS CLIPPING * Addendum Note - Justus Zaidi MD - 11/21/2024 11:04 AM CSTAddended by: JUSTUS ZAIDI on: 11/23/2024 01:58 PM Modules accepted: Orders ER PRESS CLIPPING documented in this encounter Plan of Treatment Scheduled Referrals Name Type Priority Associated Diagnoses Orde r Schedule Pain Management Hospital Receptionist Referral Referral Routine: Next available opening Back [...] Author I will utilize all [facility] programs I am eligible for as well [...] goal: 1. I will work with the [facility] to complete all forms and provide documentation. [...] documented as of this encounter Care Teams Automatic Line Set Up Mechanic Relationship Specialty Start Date End Date Justus Zaidi MD [address] [place] [address] PCP - General Internal Medicine - Pediatrics 03/22/22 [place] [address] [place] [address] [place] [address] Nurse Practitioner Nurse Practitioner 02/10/23 [place] [address] [place] [address] Nurse Practitioner Nurse Practitioner 04/06/23 Nora Davalos PA-C [address] [place] [address] Assigned PCP 06/18/24 documented as of this encounter
--- OUTSIDE RECORDS SUMMARY | 2024-12-14 11:46 | XMS_ITS | Encounter Summary ---
Author Organization [place] Address [address] [place] [address] Care Team Providers Care Chucking Machine Set Up Operator Tool Name Role Phone Justus Zaidi MD Primary Care Provider [phone] Justus Zaidi MD Unavailable [phone] Georges Davalos DPM Unavailable [phone] Justus Zaidi MD Unavailable [phone] Lucero Melendez RADIOTELEPHONE OPERATOR Unavailable [phone] Christine Morel Unavailable [phone] Mony Plascencia CHW Unavailable [phone] Lucero Melendez RADIOTELEPHONE OPERATOR Unavailable [phone] Nora Davalos-C Unavailable [phone] Nora Davalos-C Unavailable [phone] Irma Jones RN Unavailable Encounter Details Date Type Department Care Team (Late st Contact Info) Description 02/16/2023 [facility] [address] [place] [address] [place] [address] [place] [address] [place] [address] Social History Tobacco Use Types Packs/Day [...] place to sleep or slept in a retirement (including now)? 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 3. I will work with [facility] to see if there is any options for medications for my son until he is on MA. Myself and my family have been approved for Medical Assistance. Completed 3. I will report progress towards this goal at scheduled outreach telephone calls from the [facility] team. Continuous (MB) documented as of this encounter Visit Diagnoses Not on filedocumented in this encounter Additional Health Concerns Active Problems Noted Date Diagnosed Date Diet management 11/26/2022 Patient expresses financial resource strain 11/2022 Assessment Noted Time PHQ-9 Depression Total Score: 3 03/22/20 22 4:47 PM CDT documented as of this encounter Care Teams Chucking Machine Set Up Operator Tool Relationship Specialty Start Date End Date Justus Zaidi MD [address] [place] [address] PCP - General Internal Medicine - Pediatrics 03/22/22 Justus Zaidi MD [address] [place] [address] Assigned PCP 11/20/22 06/17/24 Georges Davalos DPM [address] [place] [address] Assigned Surgical Provider 10/30/22 05/17/24 Justus Zaidi MD [address] [place] [address] Assigned Pain Medication Provider 11/27/22 10/07/23 [place] [address] [place] [address] Nurse Practitioner Nurse Practitioner 02/10/23 Christine Morel [facility] Lead Licensed Esthetician 02/10/23 3 Mony Plascencia [place] Community Health Worker 02/11/2304/04 [place] [address] [place] [address] Nurse Practitioner Nurse Practitioner 04/06/23 Nora Davalos PA-C [address] [place] [address] Assigned Pain Medication Provider 03/18/24 04/16/24 Nora Davalos PA-C [address] [place] [address] Assigned PCP 06/18/24 Irma Jones RN Lead Licensed Esthetician Primary Care - CC 11/26/2412/04 documented as of this encounter
--- OUTSIDE RECORDS SUMMARY | 2024-12-14 11:46 | XMS_ITS | Clinical Summary ---
Author Organization [facility] Address [address] [place] [address] Care Team Providers Care Financial Services Representative Name Role Phone No Primary/Referring, Phy Primary [...] for each transition of care or referral. [facility] Allergies Active Allergy Reactions Criticality Noted Date [...] a complete record from that organization. Biotin 65274 MCG TBDP Take by mouth. Active oxyCODONE-acetam inophen (PERCOCET) 10-325 MG tablet Take 1 Tablet by mouth every 4 hours as needed for Pain. 30 Tablet 12/12/2018 Active Active Problems Problem Noted Date Diagnosed Date Chronic pain syndrome 11/05/2017 PONV (postoperative nausea and vomiting) 018 Recurrent ventral hernia 08/19/2017 Overview (08/19/2017): Added automatically from request for surgery [id number] Controlled substance agreement signed 07/04/2017 Overview (05/15/2018): [...] (12/04/2018): Added automatically from request for surgery [id number] DDD (degenerative disc disease), lumbar 11/05/2017 11/20/2021 Chronic midline low back teresa n without sciatica 11/05/2017 11/20/2021 Abdominal pain, epigastric 08/19/2017 0 11/20/2021 Overview (08/19/2017): Added automatically from request for surgery [id number] Immunizations Immunization Administration Dates Next Due DTP [...] Comments Blood Pressure 142/88 11/20/2021 8:31 AM STEEL INSPECTOR Pulse 80 11/20/2021 8:31 AM STEEL INSPECTOR Temperature 37.4 C (99.4 F) 11/20/2021 8:24 AM STEEL INSPECTOR Respiratory Rate 16 07/20/2019 5:13 PM CDT Oxygen Saturation 99% 11/20/2021 8:24 AM STEEL INSPECTOR Inhaled Oxygen Concentration - - Weight 97.5 kg (215 lb) 11/20/2021 8:24 AM STEEL INSPECTOR Height 162.6 cm (5' 4) 11/20/2021 8:24 AM STEEL INSPECTOR Body Mass Index 36.9 11/20/2021 8:24 AM STEEL INSPECTOR Plan of Treatment Health Maintenance Due Date [...] this topic Medical Devices Implanted Type Area Matcher Device Identifier Shelf Expiration Date Model / Serial / Lot Bone Chip Can 15cc [id number] - [id number] Implanted:Qty: 1 on 12/12/2018 by Jace Renteria DPM at [facility] BIOLOGIC Right: ANKLE [employer] - [employer] 04/11/2023 [id number] / [id number] / NA Procedures Procedure Name Priority Date/Time Associated Diagnosis Comments HIV ANTIBODY Routine 08/26/2004 11:26 AM STEEL INSPECTOR Supervis Normal 1st Preg from Last 3 Months or Most Recently Relevant to Health Maintenance Results * HIV 1/2 ANTIBODY (08/26/2004 11:26 AM STEEL INSPECTOR) HIV 1/2 Antibody Non-Reacti ve NR [facility] 08/26/2004 11:2 6 AM STEEL INSPECTOR 08/26/2004 11:28 AM STEEL INSPECTOR us Carol Givens MD LAB_1 Final Resul t [address] [address] [place] [phone] from Last 3 Months or Most Recently Relevant to Health Maintenance Insurance [facility] OUT OF STATE Advance Directives * Full Code (Latest Code Status on File) Date Activated Date Inactivated Comments 12/12/2018 6:08 AM 12/12/2018 11:36 AM * Full Code Date Activated Date Inactivated Comments 09/08/2017 1:26 AM 09/09/2017 1:17 PM Care Teams Financial Services Representative Relationship Specialty Start Date End Date No Primary/Referring, Phy PCP - General 11/17/21
--- OUTSIDE RECORDS SUMMARY | 2024-12-14 11:46 | XMS_ITS | Encounter Summary ---
Author Organization [facility] Address [address] [place] [address] Care Team Providers Care Stogy Maker Name Role Phone Justus Zaidi MD Primary Care Provider [phone] Justus Zaidi MD Unavailable [phone] Georges Davalos DPM Unavailable +[phone] Mony Plascencia CHW Unavailable +[phone] Noris Smith SIZE TESTER Unavailable UnavailJustus Stephenson MD Unavailable +[phone] Lucero Melendez NP Unavailable +[phone] Christine Morel SIZE TESTER Unavailable +[phone] Mony Plascencia CHW Unavailable +[phone] Lucero Melendez NP Unavailable +[phone] Nora Davalos PA-C Unavailable +[phone] Nora Davalos PA-C Unavailable +[phone] Irma Jones RN Unavailable Encounter Details Date Type Department Care Team (Late st Contact Info) Description 12/28/2022 [facility] Advice [address] [address] Tang, RMA Social History Tobacco [...] a nursing home (including now)? No 11/26/2022 Comments No Sex and Gender Information Value Date Recorded Sex Assigned at Female 03/22/2022 5:14 PM CDT Legal Sex Female 2:58 AM RETAIL ZONE SPECIALIST Gender Identity Female 03/22/2022 5:14 PM [...] Progress Patient-Stated? Author I will utilize all [facility] programs I am eligible for [...] at scheduled outreach telephone calls from the [facility] team. Continuous (MB) documented as of this encounter Visit Diagnoses Not on filedocumented in this encounter Additional Health Concerns Active Problems Noted Date Diagnosed Date Diet management 11/26/2022 Patient expresses financial resource strain 11/2022 Assessment Noted Time PHQ-9 Depression Total Score: 3 03/22/20 22 4:47 PM CDT documented as of this encounter Care Teams Stogy Maker Relationship Specialty Start Date End Date Justus Zaidi MD [address] [place] [address] [place] [address] PCP - General Internal Medicine - Pediatrics 03/22/22 Justsu Zaidi MD [address] [place] [address] [place] [address] Assigned PCP 11/20/22 06/17/24 Georges Davalos DPM [address] [place] [address] [place] [address] Assigned Surgical Provider 10/30/22 05/17/24 Mony Plascencia W Community Health Worker 11/26/2202/10 Noris Smith SIZE TESTER Lead Senior Category Manager 11/26/22 02/11/23 Justus Zaidi MD [address] [place] [address] Assigned Pain Medication Provider 11/27/22 10/07/23 [place] [address] [place] [address] Nurse Practitioner Nurse Practitioner 02/10/23 Christine Morel LICSW Lead Senior Category Manager 02/10/23 3 Mony Plascencia [facility] Community Health Worker 02/11/2304/04 [place] [address] [place] [address] Nurse Practitioner Nurse Practitioner 04/06/23 Nora Davalos PA-C [address] [place] [address] Assigned Pain Medication Provider 03/18/24 04/16/24 Nora Davalos PA-C [address] [place] [address] Assigned PCP 06/18/24 Irma Jones, RN Lead Senior Category Manager Primary Care - CC 11/26/2412/04 documented as of this encounter
--- OUTSIDE RECORDS SUMMARY | 2024-12-14 11:46 | XMS_ITS | Encounter Summary ---
Author Organization [facility] Address [address] [place] [address] Care Team Providers Care Hvac Installer Name Role Phone Justus Zaidi MD Primary Care Provider [phone] Justus Zaidi MD Unavailable +[phone] Georges Davalos DPM Unavailable +[phone] Mony Plascencia CHW Unavailable +[phone] Noris Smith SALES PRODUCT MANAGER Unavailable UnavailJustus Stephenson MD Unavailable +[phone] Lucero Melendez NP Unavailable +[phone] Christine Morel SALES PRODUCT MANAGER Unavailable +[phone] Mony Plascencia CHW Unavailable +[phone] Lucero Melendez NP Unavailable +[phone] Nora Davalos PA-C Unavailable +[phone] Nora Davalos PA-C Unavailable [phone] Irma Jones RN Unavailable Encounter Details Date Type Department Care Team (Late st Contact Info) Description 02/09/2023 [facility] [address] [address] Justus Zaidi MD [address] [place] [address] Social History Tobacco Use Types Packs/Day Years [...] place to sleep or slept in a fpc (including now)? 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 Karn. [facility] * Telephone Encounter - Oralia Gomez RN - 02/09/2023 4:24 PM CDT Sending to PCP for review. Please review and advise on patient MyChart message. Karn. [facility] documented in this encounter Plan of Treatment Not on file documented as of this encounter Goals Goal Patient Goal Type Associated Problems Recent Progress Patient-Stated? Author I will utilize all [facility] programs I am eligible for as well [...] documented as of this encounter Care Teams Hvac Installer Relationship Specialty Start Date End Date Justus Zaidi MD [address] [place] [address] PCP - General Internal Medicine - Pediatrics 03/22/22 Justus Zaidi MD [address] [place] [address] Assigned PCP 11/20/22 06/17/24 Georges Davalos DPM [address] [place] [address] [address] [place] [address] Assigned Surgical Provider 10/30/22 05/17/24 Mony Plascencia [facility] Community Health Worker 11/26/2202/10 Noris Smith LICSW Lead Data Software Engineer 11/26/22 02/11/23 Justus Zaidi MD [address] [place] [address] Assigned Pain Medication Provider 11/27/22 10/07/23 [place] [address] [place] [address] Nurse Practitioner Nurse Practitioner 02/10/23 Christine Morel LICSW Lead Data Software Engineer 02/10/23 Mony Carlson [facility] Community Health Worker 02/11/2304/04 [place] [address] [address] [place] [address] Nurse Practitioner Nurse Practitioner 04/06/23 Nora Davalos PA-C [address] [place] [address] Assigned Pain Medication Provider 03/18/24 04/16/24 Nora Davalos PA-C [address] [place] [address] Assigned PCP 06/18/24 Irma Jones RN Lead Data Software Engineer Primary Care - CC 11/26/2412/04 documented as of this encounter
--- OUTSIDE RECORDS SUMMARY | 2024-12-14 11:46 | XMS_ITS | Encounter Summary ---
Author Organization [facility] Address [address] [place] [address] Care Team Providers Care Sort Worker Name Role Phone Justus Zaidi MD Primary Care Provider [phone] Justus Zaidi MD Unavailable [phone] Georges Davalos DPM Unavailable +[phone] Mony Plascencia CHW Unavailable +[phone] Noris Smith LEAD CARE MANAGER Unavailable UnavailJustus Stephenson MD Unavailable +[phone] Lucero Melendez NP Unavailable +[phone] Christine Morel LEAD CARE MANAGER Unavailable +[phone] Mony Plascencia CHW Unavailable +[phone] Lucero Melendez NP Unavailable +[phone] Nora Davalos PA-C Unavailable +[phone] Nora Davalos PA-C Unavailable +[phone] Irma Jones RN Unavailable Encounter Details Date Type Department Care Team (Late st Contact Info) Description 12/28/2022 [place] [address] [place] [address] Justus Zaidi MD [address] [place] [address] Social History Tobacco Use Types Packs/Day Years [...] PM CDT Legal Sex Female 2:58 AM REGIONAL SALES 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 I will work with the [facility] to complete all forms and [...] scheduled outreach telephone calls from the [facility] team. Continuous (MB) documented as of this encounter Visit Diagnoses Not on filedocumented in this encounter Additional Health Concerns Active Problems Noted Date Diagnosed Date Diet management 11/26/2022 Patient expresses financial resource strain 11/2022 Assessment Noted Time PHQ-9 Depression Total Score: 3 03/22/20 22 4:47 PM CDT documented as of this encounter Care Teams Sort Worker Relationship Specialty Start Date End Date Justus Zaidi MD [address] [place] [address] PCP - General Internal Medicine - Pediatrics 03/22/22 Justus Zaidi MD [address] [place] [address] Assigned PCP 11/20/22 06/17/24 Georges Davalos DPM [facility] [address] [place] [address] Assigned Surgical Provider 10/30/22 05/17/24 Mony Plascencia, [facility] Community Health Worker 11/26/2202/10 Noris Smith [facility] Lead Body Shop Floorperson 11/26/22 02/11/23 Justus Zaidi MD [address] [facility] [place] [address] Assigned Pain Medication Provider 11/27/22 10/07/23 uLcero Melendez, VIJAYA [address] [address] [address] Nurse Practitioner Nurse Practitioner 02/10/23 Christine Morel [facility] Lead Body Shop Floorperson 02/10/23 3 Mony Plascencia [facility] Community Health Worker 02/11/2304/04 [place] [address] [address] [place] [address] Nurse Practitioner Nurse Practitioner 04/06/23 Nora Davalos PA-C [address] [place] [address] Assigned Pain Medication Provider 03/18/24 04/16/24 Nora Davalos PA-C [address] [place] [address] Assigned PCP 06/18/24 Irma Jones RN Lead Body Shop Floorperson Primary Care - CC 11/26/2412/04 documented as of this encounter
--- OUTSIDE RECORDS SUMMARY | 2024-12-14 11:46 | XMS_ITS | Encounter Summary ---
Author Organization [facility] Address [address] [place] [address] Care Team Providers Care Erp Manager Name Role Phone Justus Zaidi MD Primary Care Provider [phone] Justus Zaidi MD Unavailable +[phone] Georges Davalos DPM Unavailable [phone] Mony Plascencia CHW Unavailable [phone] Noris Smith PREPRESS PROOFER Unavailable UnavailJustus Stephenson MD Unavailable +[phone] Lucero Melendez NP Unavailable +[phone] Christine Morel PREPRESS PROOFER Unavailable +[phone] Mony Plascencia CHW Unavailable [phone] Lucero Melendez NP Unavailable +[phone] Nora Davalos PA-C Unavailable +[phone] Nora Davalos PA-C Unavailable [phone] Irma Jones RN Unavailable Encounter Details Date Type Department Care Team (Late st Contact Info) Description 01/10/2023 [facility] [address] [address] Justus Zaidi MD [address] [facility] [place] [address] Social History Tobacco Use Types Packs/Day Years [...] PM CDT Legal Sex Female 2:58 AM SUBSTATION SUPERINTENDENT Gender Identity Female 03/22/2022 5:14 PM CDT [...] are you ok with that? YONATAN Ngo [facility] documented in this encounter Plan of Treatment [...] goal: 1. I will work with the [facility] to complete all forms and [...] [facility] team. Continuous (MB) documented as of this encounter Visit Diagnoses Not on filedocumented in this encounter Additional Health Concerns Active Problems Noted Date Diagnosed Date Diet management 11/26/2022 Patient expresses financial resource strain 11/2022 Assessment Noted Time PHQ-9 Depression Total Score: 3 03/22/20 22 4:47 PM CDT documented as of this encounter Care Teams Erp Manager Relationship Specialty Start Date End Date Justus Zaidi MD [address] [facility] [place] [address] PCP - General Internal Medicine - Pediatrics 03/22/22 Justus Zaidi MD [address] [facility] [place] [address] Assigned PCP 11/20/22 06/17/24 Georges Davalos DPM [address] [facility] [address] [place] [address] Assigned Surgical Provider 10/30/22 05/17/24 Mony Plascencia, [facility] Community Health Worker 11/26/2202/10 Noris Smith PREPRESS PROOFER Lead Tile Picker 11/26/22 02/11/23 Justus Zaidi MD [address] [place] [address] Assigned Pain Medication Provider 11/27/22 10/07/23 Lucero Melendez, LOAN COUNSELOR [address] [address] Nurse Practitioner Nurse Practitioner 02/10/23 Christine Morel [facility] Lead Tile Picker 02/10/23 3 Mony Plascencia [facility] Community Health Worker 02/11/2304/04 Lucero Melendez, LOAN COUNSELOR [address] [place] [address] Nurse Practitioner Nurse Practitioner 04/06/23 Nora Davalos PA-C [address] [place] [address] Assigned Pain Medication Provider 03/18/24 04/16/24 Nora Davalos PA-C [address] [place] [address] Assigned PCP 06/18/24 Irma Jones RN Lead Tile Picker Primary Care - CC 11/26/2412/04 documented as of this encounter
--- OUTSIDE RECORDS SUMMARY | 2024-12-14 11:46 | XMS_ITS | Encounter Summary ---
Author Organization [place] [facility] Address [address] [place] [address] Care Team Providers Care Automation Control Integrator Name Role Phone Justus Zaidi MD Primary Care Provider [phone] Justus Zaidi MD Unavailable +[phone] Georges Davalos DPM Unavailable [phone] Justus Zaidi MD Unavailable +[phone] Lucero Melendez PAPIER MACHE MOLDER Unavailable +[phone] Christine Morel Unavailable [phone] Mony Plascencia CHW Unavailable +[phone] Lucero Melendez PAPIER MACHE MOLDER Unavailable +[phone] Nora Davalos PA-C Unavailable +[phone] Nora Davalos-King Unavailable +[phone] Irma Jones RN Unavailable Reason for Visit * Reason Onset Date Comments Refill Request 03/07/2023 Encounter Details Date Type Department Care Team (Late st Contact Info) Description 03/07/2023 Lucian Samuel [facility] [address] [place] [address] Justus Zaidi MD [address] [place] [address] [place] [address] Refill Request Social History Tobacco Use Types [...] PM CDT Legal Sex Female 2:58 AM MOLD CHANGER Gender Identity Female 03/22/2022 5:14 PM CDT [...] for review/approval because: Drug not on the [facility] refill protocol Last Written Prescription Date: 02/18/23 [...] Author I will utilize all [facility] programs I am eligible for as well [...] documented as of this encounter Care Teams Automation Control Integrator Relationship Specialty Start Date End Date Justus Zaidi MD [address] [place] [address] PCP - General Internal Medicine - Pediatrics 03/22/22 Justus Zaidi MD [address] [address] Assigned PCP 11/20/22 06/17/24 Georges Davalos DPM [address] [place] [address] [address] [address] Assigned Surgical Provider 10/30/22 05/17/24 Justus Zaidi MD [address] [place] [address] Assigned Pain Medication Provider 11/27/22 10/07/23 [place] [address] [address] [place] [address] Nurse Practitioner Nurse Practitioner 02/10/23 Christine Morel [facility] Lead Chief Dispatcher Service 02/10/23 3 Mony Plascencia W Community Health Worker 02/11/2304/04 [place] [address] [address] [place] [address] Nurse Practitioner Nurse Practitioner 04/06/23 Nora Davalos PA-C [address] [place] [address] Assigned Pain Medication Provider 03/18/24 04/16/24 Nora Davalos PA-C [address] [place] [address] Assigned PCP 06/18/24 Irma Jones, RN Lead Chief Dispatcher Service Primary Care - CC 11/26/2412/04 documented as of this encounter
--- OUTSIDE RECORDS SUMMARY | 2024-12-14 11:46 | XMS_ITS | Encounter Summary ---
Author Organization [facility] Address [address] [place] [address] Care Team Providers Care Wet Process Technician Name Role Phone Justus Zaidi MD Primary Care Provider [phone] Justus Zaidi MD Unavailable [phone] Georges Davalos DPM Unavailable [phone] Justus Zaidi MD Unavailable +[phone] Lucero Melendez VACUUM CLEANER REPAIR PERSON Unavailable +[phone] Christine Morel Unavailable +[phone] Mony Plascencia CHW Unavailable +[phone] Lucero Melendez VACUUM CLEANER REPAIR PERSON Unavailable +[phone] Nora Davalos PA-C Unavailable +[phone] Nora Davalos-C Unavailable +[phone] Irma Jones RN Unavailable Encounter Details Date Type Department Care Team (Late st Contact Info) Description 03/09/2023 Lucian Samuel [facility] Care Coordination [facility] [address] [place] [phone] Mony Plascencia, W Social History Tobacco Use [...] a senior living (including now)? No 11/26/2022 Comments No Sex and Gender Information Value Date Recorded Sex Assigned at Female 03/22/2022 5:14 PM CDT Legal Sex Female 2:58 AM RABIES INSPECTOR Gender Identity Female 03/22/2022 5:14 PM CDT [...] goal: 1. I will work with the [facility] to complete all forms and [...] at scheduled outreach telephone calls from the [facility] team. Continuous (MB) documented as of this encounter Visit Diagnoses Not on filedocumented in this encounter Additional Health Concerns Active Problems Noted Date Diagnosed Date Diet management 11/26/2022 Patient expresses financial resource strain 11/2022 Assessment Noted Time PHQ-9 Depression Total Score: 3 03/22/20 22 4:47 PM CDT documented as of this encounter Care Teams Wet Process Technician Relationship Specialty Start Date End Date Justus Zaidi MD [address] [place] [address] PCP - General Internal Medicine - Pediatrics 03/22/22 Justus Zaidi MD [address] [place] [address] Assigned PCP 11/20/22 06/17/24 Georges Davalos DPM [address] [place] [address] [address] [place] [address] Assigned Surgical Provider 10/30/22 05/17/24 Justus Zaidi MD [address] [facility] [address] Assigned Pain Medication Provider 11/27/22 10/07/23 Lucero Melendez, VACUUM CLEANER REPAIR PERSON [address] [address] [address] Nurse Practitioner Nurse Practitioner 02/10/23 Christine Morel ASSISTANT STORE DIRECTOR Lead Tanning Wheel Filler 02/10/23 Mony Carlson [place] Community Health Worker 02/11/2304/04 Lucero Melendez, VIJAYA [address] [address] Nurse Practitioner Nurse Practitioner 04/06/23 Nora Davalos PA-C [address] [place] [address] Assigned Pain Medication Provider 03/18/24 04/16/24 Nora Davalos PA-C [address] [place] [address] Assigned PCP 06/18/24 Irma Jones, RN Lead Tanning Wheel Filler Primary Care - CC 11/26/2412/04 documented as of this encounter
--- OUTSIDE RECORDS SUMMARY | 2024-12-14 11:46 | XMS_ITS | Encounter Summary ---
Author Organization [facility] Address [address] [place] [address] Care Team Providers Care Drinking Water Technician Name Role Phone Justus Zaidi MD Primary Care Provider [phone] Justus Zaidi MD Unavailable +[phone] Georges Davalos DPM Unavailable +[phone] Justus Zaidi MD Unavailable +[phone] Lucero Melendez SLAB GRINDER Unavailable +[phone] Christine Morel Unavailable +[phone] Mony Plascencia CHW Unavailable +[phone] Lucero Melendez SLAB GRINDER Unavailable +[phone] Nora Davalos PA-C Unavailable +[phone] Nora Davalos-King Unavailable +[phone] Irma Jones RN Unavailable Reason for Visit * Reason Onset Date Comments Refill Request 04/01/2023 Encounter Details Date Type Department Care Team (Late st Contact Info) Description 04/01/2023 Lucian Samuel [address] [address] Justus Zaidi MD [address] [place] [address] Refill Request Social History Tobacco Use Types [...] PM CDT Legal 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 3. I will work with [facility] to see if there is any [...] documented as of this encounter Care Teams Drinking Water Technician Relationship Specialty Start Date End Date Justus Zaidi MD [address] [place] [address] PCP - General Internal Medicine - Pediatrics 03/22/22 Justus Zaidi MD [address] [place] [address] Assigned PCP 11/20/22 06/17/24 Georges Davalos DPM [address] [place] [address] [address], [place] [address] Assigned Surgical Provider 10/30/22 05/17/24 Justus Zaidi MD [address] [place] [address] Assigned Pain Medication Provider 11/27/22 10/07/23 [place] [address] [place] [address] Nurse Practitioner Nurse Practitioner 02/10/23 Christine Morel, [facility] Lead Telecommunications Switch Technician 02/10/23 3 Mony Plascencia [facility] Community Health Worker 02/11/2304/04 [place] [address] [place] [address] Nurse Practitioner Nurse Practitioner 04/06/23 Nora Davalos PA-C [address] [place] [address] Assigned Pain Medication Provider 03/18/24 04/16/24 Nora Davalos PA-C [address] [place] [address] Assigned PCP 06/18/24 Irma Jones RN Lead Telecommunications Switch Technician Primary Care - CC 11/26/2412/04 documented as of this encounter
[2024-12-14] MEDS: LORazepam 2 MG/ML inj 0.5 MG IVP (11:59)
== END 2024-12-14 12:52 | disposition home or self-care (01) ==
LOC: ED 11:41
PROVIDERS: Emergency Provider Family Medicine
DX: M54.50 Low back pain, unspecified (principal)
CPT/HCPCS: 96374; 96375; 99284; A9270; J1885; J2060; J2405; J7512